=== PATIENT | female | born 1955 | race Caucasian/White ===

== ENCOUNTER 2016-07-19 04:01 | Inpatient (IN) | payer SELFPAY ==
[2016-07-19] VITALS (18 sets, daily range): BP systolic 94–136; BP diastolic 61–95; PULSE 79–114; RESP 18–30; O2SAT 95–99
[~2016-07-19] VITALS: Ht 157.5 cm; Wt 88.6 kg
[2016-07-19] MEDS ORDERED: IBUP200C PO (04:03)
[2016-07-19] MEDS ORDERED: Alum-Mag Hydrox-Simeth 30 mL Suspension PO PRN (04:45)
[2016-07-19] MEDS ORDERED: Polyethylene Glycol (PEG) 17 Gm Powder PO PRN (04:45)
[2016-07-19] MEDS ORDERED: Ondansetron 2 mg/mL 2 mL Inj IVPUSH PRN (04:45)
[2016-07-19] MEDS ORDERED: Albuterol 2.5 mg/3 mL Inhalation Solution NEB ONE ×2 (05:20)
[2016-07-19] MEDS ORDERED: Pantoprazole Inj 80 MG in 0.9% Sodium Chloride 100 ML IV ONE (05:25)
[2016-07-19 05:27] LABS: Mean Corpuscular Hemoglobin 27.2 pg (27.0-35.0); Mean Corpuscular Volume 85.8 fL (81-100); Platelet Count 230 bil/L (150-400)
--- NOTE | 2016-07-19 05:27 | PCM.HPMED ---
Subjective Date of Service Jul 19, 2016 Primary Provider: Admitting Physician: Anu Shepherd DO Primary Care Physician: Meseret Attending Physician: Anu Shepherd DO Admit Status: Direct Admit Chief Complaint: leg wound, s/p fall, hgb 5.5 at OSH History of Present Illness: 60yoF with minimal medical follow up as an outpatient transferred for direct admit from [place] due to hemoglobin 5.5 following recent fall and blood loss from right lower extremity chronic wounds. Patient is unable to give history. , Federico, is at bedside. He states that he has been trying to get his to seek medical attention for a number of years unsuccessfully. 2 years ago she slipped and fell causing lacs to her right lower extremity. They have never completely healed and have gotten worse over the past week and half. has kept them unbandaged and cleaned the wounds with hydrogen peroxide since their discovery by him. He notes that she fell about 4 days ago and again yesterday with opening of one of the leg wounds which started spurting blood everywhere. After about 5 minutes of inability to stop bleed, he called EMS who told him that he had lost a lot of blood. Patient was taken to [facility] where they found her hemoglobin to be 5.5. WBC11.3 , MCV 87, platelet 269. Sodium 138, potassium 4.4, chloride 106, calcium 8.6 AST 47, ALT 33, creatinine 1.0 BP was found to be 97/58, HR 101, RR20, oxygen sat 100%, T 97.8. Review of Systems: unable to obtain ROS as patient is somnolent. Allergies Coded Allergies: Contrast Media (Unverified Allergy, Unknown, hives, 07/19/16) Home Medications albuterol H COPD Alcohol dependence Hemorrhoids Pneumonia Constipation Rectal bleed Surgical History none Family History unable to obtain from patient due to inability to communicate Social History Hx Alcohol Use: Yes Alcoholic Drinks Per Day: 2 bottles of wine a day Hx Substance Use: Yes (drinks 2 bottles of wine per day) Smoking Status: Current Every Day Smoker (e cigarettes, quit smoking traditional cigarettes a year or two ago) Living Arrangement: with Family (lives with , has children in the area) Exam Vital Signs Vital Sign - Last Date Time Temp Pulse Resp B/P Pulse Ox O2 Delivery O2 Flow Rate FiO2 07/19/16 04:36 36.6 103 22 130/85 98 Room Air Exam General: somnolent but easily arousable, unable to establish orientation, Cooperative, No acute Distress Eyes: PERRLA, Scleral Anicteric Mouth: Mouth Normal, Mucous Membranes Dry/[place] Neck: Supple, no Thyromegaly, trachea central. unable to assess JVD d/t body habitus Chest & Lungs: course rhonchi, anterior exam, good resp effort Cardiovascular: Normal S1, Normal S2, No Murmurs/Rubs/Gallops, Regular Rate/ Rhythm Pulses: Radial (present and equal), Dorsalis Pedi (present and equal) Abdomen: Soft, no tenderness, distended, hypoactive bowel tones, midline umbilical hernia that is reducible. Musculoskeletal: Unremarkable. Normal range of motion, no swollen or erythematous joints Extremities: 3-4+ pedal edema to upper thigh, + cyanosis RLE, no clubbing. dressing over RLE CDI Skin: no rashes, ecchymosis Neurological: Grossly neurologically intact, has generalized weakness, slurred Speech, Sensation Intact Lymphatic: Lymph nodes Cervical and Axillary not palpable. Psych: unable to assess Lab and Diagnostics Additional Diagnostics: ABG pH 7.439, pCO2 32, pO2 75 hb 7 Assessment & Plan 60yoF with minimal medical follow up as an outpatient transferred for direct admit from [place] due to hemoglobin 5.5 following recent fall and blood loss from right lower extremity chronic wounds. Sepsis, acute, POA -unclear source, likely respiratory vs right lower extremity -HR >90 and RR >20, potentially in part d/t anemia -elevated lactic acid at OSH, repeat pending -treatment as below Acute on chronic blood loss anemia, POA -unclear source of blood loss, right lower extremity bleed vs GI -patient with hgb 5.5 at OSH -2 units pRBCs given prior to transfer -repeat h&h pending -guaiac stool -h&h q4HR, type and cross 3 units pRBC -PPI bolus and gtt -CT non-contrast abdomen and pelvis COPD exacerbation, acute -abx as below -albuterol-ipratropium q4hr, albuterol q2hr PRN -125mg methylprednisone now. 40mg PO daily Ground level fall, acute -no imaging completed at OSH -CT head and c-spine wo contrast pending Alcohol dependence, chronic -as per , no h/o withdrawal -drinks 2 bottles of wine per day -CIWA Right lower extremity wound, chronic -wound consult, purulent as per report -piperacillin-tazobactam, vancomycin ordered Anasarca, unknown chronicity -likely low albumin state vs CHF -patient with minimal medical treatment as outpatient -ECHO ordered Pain Evaluation: Adequate Pain Control GI Prophylaxis: Proton Pump Inhibitor VTE Prophylaxis: Other (possible GI bleed, unable to use SCDs d/t leg wounds) Resuscitation Status: CPR: Attempt Resuscitation Anu Shepherd DO Jul 19, 2016 05:27
--- NOTE | 2016-07-19 05:29 | ABG ---
DateTimeAnalyzed 05:26:00 -_ pH ____7.439 - 7.350 7.450 pCO2 ___31.5__ -mmHg 35.0 45.0 pO2 ___75.0__ -mmHg 69.0 116 HCO3- ___21.0__ -mmol/L 22.0 26.0 ABE ___-2.3__ -mmol/L -2.0 2.0 tHb ____7.0__ -g/dL O2Hb ___93.5__ -% COHb ____2.1__ -% MetHb ____1.1__ -% sO2 ___96.6__ -% FIO2 ___21.0__ -% Drawn By jh - Date/Time Notified____ 05:29:00 -_ Notified By jh - Notified Whom sullenberger - B 760 -mmHg tO2 ____9.3__ -Vol% Isaias test _Positive -
[2016-07-19 05:49] LABS: BASOPHILS % (AUTO) 3 % (0-3); EOSINOPHILS % (AUTO) 1 % (0-5); MONOCYTES % (AUTO) 8 % (4-12); NEUTROPHILS % (AUTO) 78 % (40-74)
[2016-07-19] MEDS: Vancomycin Dose per Pharmacist XX SCH ×2 (06:00→08:30)
[2016-07-19] MEDS ORDERED: Albuterol 2.5 mg/3 mL Inhalation Solution NEB PRN (06:05)
[2016-07-19] MEDS ORDERED: MethylprednisoLONE Sodium Succinate 62.5 mg/mL 2 mL Inj IVPUSH ONE (06:05)
[2016-07-19 06:22] LABS: INR 1.2 ratio
[2016-07-19] MEDS ORDERED: Vancomycin Inj 2,000 MG in 0.9% Sodium Chloride 500 ML IV ONE (06:25)
[2016-07-19] MEDS ORDERED: Piper-Tazo 3.375 Gm/50 mL D5W Minibag Plus - Q8H over 4 hrs IV ONE ×2 (06:30)
[2016-07-19] MEDS ORDERED: Thiamine Inj 100 MG, Folic Acid Inj 1 MG, Magnesium Sulfate 50% Inj 2 GM, Multivitamins... IV ONE ×5 (06:30)
[2016-07-19 06:45] LABS: TROPONIN T 0.01 ug/L (0.0-0.011)
[2016-07-19] MEDS: Pantoprazole Inj 80 MG in 0.9% Sodium Chloride 80 ML IV SCH ×2 (06:46→17:16)
--- NOTE | 2016-07-19 07:42 | PCM.PNMED ---
Subjective Date of Service Jul 19, 2016 Subjective Patient is extremely confused. She Tries answering simple questions. She is jaundiced and has anicteric sclera. She denies a headache. Exam Vital Signs Vital Sign - Last Date Time Temp Pulse Resp B/P Pulse Ox O2 Delivery O2 Flow Rate FiO2 07/19/16 06:21 104 30 98 Room Air 07/19/16 04:36 36.6 130/85 Exam Chronically ill, jaundiced. Slow to answer questions. No distress Icteric sclera. Neck supple. Lungs are clear with normal rate and effort. Heart is regular without murmur. Abdomen is distended consistent with ascites. Extremities with 1+ edema. IVs and Medications Medications Reviewed: Medications were reviewed in detail Lab and Diagnostics Result Diagram: 07/19/1651407/19/16514 Additional Diagnostics ABG pH 7.439, pCO2 32, pO2 75 hb 7 Assessment & Plan 60yoF with minimal medical follow up as an outpatient transferred for direct admit from [place] due to hemoglobin 5.5 following recent fall and blood loss from right lower extremity chronic wounds. Sepsis, acute, POA -unclear source, likely respiratory vs right lower extremity -HR >90 and RR >20, potentially in part d/t anemia -elevated lactic acid at OSH, repeat pending -treatment as below Continue fluid resuscitation. Consider paracentesis to rule out SBP. Acute blood loss anemia, POA This may relate to her leg hemorrhage. The patient again one unit of blood now. His CT of the pelvis reveals only cirrhosis and ascites. A head CT indicated a intracranial lesion which may be an AVM, tumor or aneurysm. This be further delineated with MRI. COPD exacerbation, acute -abx as below -albuterol-ipratropium q4hr, albuterol q2hr PRN -125mg methylprednisone now. 40mg PO daily No change in current medical regimen. Ground level fall, acute -no imaging completed at OSH -CT head and c-spine wo contrast pending Alcohol dependence, chronic -as per , no h/o withdrawal -drinks 2 bottles of wine per day -CIWA She is at high risk for alcohol withdrawal. Right lower extremity wound, chronic -wound consult, purulent as per report -piperacillin-tazobactam, vancomycin ordered Anasarca, unknown chronicity secondary to ascites. -likely low albumin state vs CHF -patient with minimal medical treatment as outpatient -ECHO ordered Probable hepatic encephalopathy. POA. Check NH4 and start lactulose. Consider paracentesis to rule out SBP. Pain Evaluation: Adequate Pain Control GI Prophylaxis: Proton Pump Inhibitor VTE Prophylaxis: Other (possible GI bleed, unable to use SCDs d/t leg wounds) Resuscitation Status: CPR: Attempt Resuscitation Time spent 30 min Isaias Sams MD Jul 19, 2016 07:42
--- NOTE | 2016-07-19 08:15 | NUR ---
Admit/Hgb/CT/Skin Pt admitted to room 2025 a little after 0400, 2nd blood transfusion from [facility] finished very soon after, all vitals stable. Pt looked SOB though sats maintained high 90s. MD ordered neb treatments. Hgb critical at 6.9, MD notified by pharmacist in charge, pt crossmatched this morning and day RN aware of transfusion order. Pt taken to CT by this nurse, no contrast used d/t allergy, pt expressed concern about this several times. Pt was anxious in CT but was able to finish it. Right lower extremity w/ open wounds, buttock as well, skin assessment reviewed w/ day RN. Pt voices pain when legs moved.
[2016-07-19] MEDS: Albuterol-Ipratropium 3 mL Inhalation Solution NEB SCH ×4 (08:37→19:44)
--- NOTE | 2016-07-19 08:38 | DRSVH ---
PROCEDURE: CT BRAIN WITHOUT CONTRAST ([id number]) INDICATIONS: altered, s/p fall TECHNIQUE: Noncontrast 4.5 mm thick angled axial sections acquired from the foramen magnum to the vertex, with c oronal reformats. COMPARISON: [facility], MR, MR ANGIO HEAD WO CON, 07/19/2016, 9:12. [facility], MR, MR BRAIN W&WO CON, 07/19/2016, 9:12. FINDINGS: Image quality: Excellent. CSF spaces: Basal cisterns are patent. No extra-axial fluid collections. The ventricles are symmet edgardo in size and shape. Brain: There is 1.6 cm round hyperdense mass within the suprasellar cistern with partial rim calcifi cation on the left, suspicious for a large aneurysm, either arising from the basilar tip or the left terminal internal carotid artery. There is mild mass effect of the left mesial temporal lobe lateral ly and the left cerebral peduncle posteriorly. There is mild to moderate cerebral volume loss for age , with resultant ventricular and sulcal prominence. There are mild to moderate periventricular and d eep white matter chronic small vessel ischemic changes. There is intracranial internal carotid arter y atherosclerosis. Skull and face: Calvarium and visualized facial bones appear intact, without suspicious lesions. Sinuses: Visualized sinuses and mastoids are clear. IMPRESSION: 1. A 1.6 cm round, hyperdense mass within the left side of the suprasellar cistern, suspicious for a large aneurysm. 2. Cerebral volume loss and chronic microvascular ischemic changes. No significant discrepancy with the mold shifter radiology preliminary report. Dictated by: Jonny Gonazlez M.D. on 07/19/2016 at 8:25 Transcribed by: BENJAMÍN on 07/19/2016 at 8:38 Approved by: Jonny Gonzalez M.D. on 07/19/2016 at 11:24
--- NOTE | 2016-07-19 08:48 | DRSVH ---
PROCEDURE: CT CERVICAL SPINE WITHOUT CONTRAST ([id number]) INDICATIONS: fall TECHNIQUE: Noncontrast 3 mm thick sections acquired from the skull base to the T4 level. Sagittal and coronal r eformats were then constructed. For radiation dose reduction, the following was used: automated exp osure control, adjustment of mA and/or kV according to patient size. COMPARISON: None. FINDINGS: Image quality: Partially degraded by motion artifact. Bones: No fractures or dislocations. Visualized superior ribs are intact. Soft tissues: Prevertebral soft tissues are normal in thickness. No paravertebral hematomas. No ap ical pneumothoraces. IMPRESSION: No fracture. Concordant with preliminary interpretation. Dictated by: Benny Hernandez M.D. on 07/19/2016 at 8:44 Approved by: Benny Hernandez M.D. on 07/19/2016 at 8:47
--- NOTE | 2016-07-19 09:01 | DRSVH ---
PROCEDURE: CT ABDOMEN AND PELVIS WITHOUT CONTRAST ([id number]) INDICATIONS: altered, s/p fall, hgb 5.5 at OSH TECHNIQUE: Noncontrast 5 mm thick sections acquired from the diaphragms to the symphysis. 5 mm coronal and sagi ttal reformats were then performed. For radiation dose reduction, the following was used: automated exposure control, adjustment of mA and/or kV according to patient size. COMPARISON: None. FINDINGS: Image quality: Excellent. ABDOMEN: Lung bases: Lung bases are clear. Heart size is normal. Solid organs: Hepatic contour is nodular. Gallbladder demonstrates calculi within its lumen. Pancrea s is normal in contours. No left adrenal nodules. 12 mm diameter right adrenal nodule, with Hounsfie ld units of 19. Kidneys are normal in size, without hydronephrosis or nephrolithiasis. Peritoneum and bowel: Small hiatal hernia. Possible right colonic thickening, but this determination is suboptimal secondary to lack of distention and surrounding fluid. Unenhanced bowel loops demonstr ate otherwise normal wall thickness and caliber. No pneumoperitoneum. Small to moderate amount of as cites. Nodes and vessels: No retroperitoneal or mesenteric adenopathy by size criteria. Aorta and inferior vena cava are normal in caliber. Recanalized umbilical vein. Miscellaneous: There is a 52 mm diameter fat-containing umbilical hernia, which also contains a small amount of ascites. PELVIS: Genitourinary: Urinary bladder is decompressed. Miscellaneous: No inguinal hernias or adenopathy. Bones: No suspicious bony lesions. Subacute right anterolateral 5th and 6th rib fractures. Acute bhumika earing lateral 7th rib fracture. Subacute appearing right lateral 9th rib fracture. No vertebral body compression fractures. IMPRESSION: 1. No evidence of urinary tract calcification, nor obstruction. 2. Cirrhosis and portal hypertension, with associated portosystemic collateral vessels, and small to moderate amount of ascites. 3. Subacute and acute right rib fractures. 4. Indeterminate right adrenal nodule, which could be further assessed with MRI, if clinically indica nargis. 5. Fat and fluid containing hiatal hernia. 6. Cholelithiasis. 7. Possible right colon thickening, which could indicate infection, ischemia, or inflammation. 8. Findings discussed with Dr. Isaias Sams on 07.02.16 at 0857 hrs. Dictated by: Benny Hernandez M.D. on 07/19/2016 at 8:47 Approved by: Benny Hernandez M.D. on 07/19/2016 at 8:59
--- NOTE | 2016-07-19 09:56 | DRSVH ---
PROCEDURE: MRA ANGIOGRAM HEAD WITHOUT CONTRAST ([id number]) INDICATIONS: ABNORMAL CT TECHNIQUE: Noncontrast axial 3-D [id number] MR angiogram, with 3-dimensional maximum intensity projection (M IP) reformats of the internal carotid arteries and posterior circulation then performed. COMPARISON: [facility], CT, CT BRAIN WO CON, 07/19/2016, 5:56. FINDINGS: Image quality: Partially degraded by motion artifact. Anterior circulation: Right internal carotid artery is within normal limits. The previously seen larg e aneurysm within the left aspect of the pre-pontine cistern appears to arise from the posterior coleen in of the supraclinoid internal carotid artery, and measures roughly 22 mm, as before, protruding pos teriorly into the left aspect of the prepontine cistern. The neck of the aneurysm measures roughly 4 mm diameter. There is mild mass effect upon the left anterior antonino, as before. The flow within the pa ired anterior cerebral arteries is normal and symmetric. The flow within the middle cerebral arterie s is normal and symmetric. The anterior communicating artery is seen. No stenoses nor occlusions. Posterior circulation: Visualized portions of the vertebral arteries demonstrate normal caliber, and join to form a normal appearing basilar artery. There is a origin of the left posterior cereb ral artery, which is deviated medially secondary to the above-described aneurysm. The flow within the posterior cerebral arteries is normal and symmetric. No stenoses, occlusions, or aneurysms. IMPRESSION: 1. As seen by CT, there is a 22 mm diameter aneurysm within the left aspect of the prepontine cistern . This aneurysm arises from the posterior margin of the left supraclinoid internal carotid artery, an d causes mass effect upon the left antonino, as well as medial deviation of the left posterior cerebral a rtery, which demonstrates a origin. Findings discussed with Dr. Isaias Sams on 07.19.16 at 095 4 hrs. Dictated by: Benny Hernandez M.D. on 07/19/2016 at 9:45 Approved by: Benny Hernandez M.D. on 07/19/2016 at 9:54
--- NOTE | 2016-07-19 09:58 | DRSVH ---
PROCEDURE: MRI BRAIN WITH AND WITHOUT CONTRAST ([id number]) INDICATIONS: CONFUSION TECHNIQUE: Noncontrast axial T1 spin echo, axial T2 fast spin echo, sagittal and axial FLAIR, coronal T2 fast sp in echo, axial gradient echo, axial diffusion and ADC through the brain. After the administration of contrast, axial and coronal T1 spin echo with fat saturation through the brain. COMPARISON: [facility], CT, CT BRAIN WO [facility], 07/19/2016, 5:56. [facility], M R, MR ANGIO HEAD WO [facility], 07/19/2016, 9:12. FINDINGS: Image quality: Partially degraded by motion artifact. CSF spaces: There is a 22 mm diameter flow-void within the left aspect of the pre-pontine cistern, co rresponding to the known left supraclinoid internal carotid artery aneurysm. This aneurysm demonstrat es mass effect upon the left aspect of the antonino, as before. No extra-axial fluid collections. Ventri cles are normal in size and shape. Brain: No midline shift. No intracranial bleeds or masses. No abnormal intracranial enhancement. There is cerebral volume loss for age. There is periventricular white matter chronic small vessel is chemic change. Mild compression of the left aspect of the antonino. The brainstem otherwise appears hien l. Diffusion-weighted images demonstrate no acute ischemic insults. No chronic ischemic insults. Skull and face: Calvarial marrow is normal in signal. Orbits appear normal. Sinuses: Sinuses and mastoids appear clear. IMPRESSION: 1. 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 No acute intracranial hemorrhage. 2. Findings discussed with Dr. Isaias Sams on 07.19.16 at 0955 hrs. Dictated by: Benny Hernandez M.D. on 07/19/2016 at 9:54 Approved by: Benny Hernandez M.D. on 07/19/2016 at 9:57
[2016-07-19] MEDS: 0.9% Sodium Chloride 250 ML IV SCH (10:10)
[2016-07-19 11:11] LABS: COLOR,URINE STRAW (YELLOW)
[2016-07-19 11:12] LABS: APPEARANCE,URINE HAZY (CLEAR,HAZY); OCCULT BLOOD,URINE NEGATIVE (NEGATIVE); UROBILINOGEN,URINE NORMAL (NORMAL)
[2016-07-19] MEDS ORDERED: Succinylcholine Chloride 20 mg/mL 5 mL Inj ONE (13:25)
[2016-07-19] MEDS: Thiamine Inj 100 MG in 0.9% Sodium Chloride 100 ML IV SCH (15:09)
--- NOTE | 2016-07-19 17:15 | DRSVH ---
[facility] [address] [place] [address] Echocardiogram Report Name: BRIAN WREN te: 07/19/2016 Height: 62 in Hospital Exam Location: [facility] Weight: 210 lb Gender: Female BSA: 2.0 m2 : 1955 Age: 60 yrs BP: 115/73 mmHg Reason For Study: Anasarca Ordering Physician: Performed By: [facility] Interpretation Summary The left ventricle is normal in size, wall thickness, and systolic function without any focal wall motion abnormalities. The ejection fraction is estimated to be 60-65%. Assessment of diastolic parameters indicates normal left ventricular diastolic function and normal filling pressures. The right ventricle is normal in size and function. The right ventricular systolic pressure is estimated at 28 mmHg assuming a right atrial pressure of 3 mm Hg. Both atria are normal in size. There is no significant valvular heart disease. The ascending aorta is mildly enlarged. There is an anterior echo-free space consistent with a fat pad. Procedure: A two-dimensional transthoracic echocardiogram with color flow and Doppler was performed. The study quality was technically adequate. There is no prior echocardiogram noted for this patient. The heart rate ranged between 83-113 bpm during the study. The patient was in normal sinus rhythm during the exam. Left Ventricle: The left ventricle is normal in size, wall thickness, and systolic function without any focal wall motion abnormalities. The ejection fraction is estimated to be 60-65%. Assessment of diastolic parameters indicates normal left ventricular diastolic function and normal filling pressures. Right Ventricle: The right ventricle is normal in size and function. Atria: Both atria are normal in size. There is no Doppler evidence for an interatrial shunt. Mitral Valve: The mitral valve is normal in structure and function. There is trace mitral regurgitation. Aortic Valve: The aortic valve is normal in structure and function. No aortic regurgitation is present. Tricuspid Valve: The tricuspid valve is not well visualized, but is grossly normal. There is trace tricuspid regurgitation. The right ventricular systolic pressure is estimated at 28 mmHg assuming a right atrial pressure of 3 mm Hg. Pulmonic Valve: The pulmonic valve is not well seen, but is grossly normal. There is no significant valvular heart disease. Great Vessels: The aortic root is normal size. The ascending aorta is mildly enlarged. The IVC is of normal diameter and collapses greater than 50% with a sniff. This suggests a low right atrial pressure of 3 mm Hg. Pericardium/ Pleura There is an anterior echo-free space consistent with a fat pad. MMode/2D Measurements & Calculations LVIDd: 4.9 cm RA long axis Ao root diam LVIDs: 3.0 cm LA A2 area: 17.9 cm FS: 39.0 % LA A4 area: 20.7 cm RA area Aortic Jxn IVSd: 0.79 cm LA length (vol): 5.6 cm LVPWd: 0.74 cm LA vol: 55.7 ml : 13.0 cm asc Aorta LA vol index RA vol: 26.7 mlDiam: 3.8 cm RA : 28.5 ml/m2 : 13.7 mm2 LV barkley. diameter/BSA LV sys. diameter/BSA (cm/m^2): 2.5 (cm/m^2): 1.5 Doppler Measurements & Calculations Ao V2 max MV E max nabil MV E/A: 1.2 TR max nabil : 198.7 cm/sec : 131.9 cm/sec Med Peak E' Nabil : 247.7 cm/sec Ao max PG MV A max nabil TR max PG : 15.8 mmHg : 114.3 cm/sec E/E' med: 10.1 : 24.5 mmHg Ao mean PG MV P1/2t: 35.7 msec Lat Peak E' Nabil PA V2 max : 7.5 mmHg : 102.3 cm/sec E/E' lat: 12.2 PA mean PG E/e' average: 11.1 PA Accel Time : 0.14 sec MV dec time MV P1/2t max nabil Ao V2 mean PA V2 mean : 0.12 sec : 127.6 cm/sec : 64.6 cm/sec MVA(P1/2t): 6.2 cm2 Ao V2 VTI: 42.4 cm Reading Physician:REBECA
[2016-07-19] MEDS: Piperacillin-Tazo 3.375 Gm Inj 3.375 GM in Dextrose 5% Minibag Plus 50 ML IV SCH ×2 (17:16→23:55)
[2016-07-20] VITALS (11 sets, daily range): BP systolic 100–119; BP diastolic 58–80; PULSE 95–104; RESP 18–26; O2SAT 92–99
[2016-07-20] MEDS: Albuterol-Ipratropium 3 mL Inhalation Solution NEB SCH ×6 (00:22→21:19)
[2016-07-20] MEDS: 0.9% Sodium Chloride 250 ML IV SCH (02:07)
[2016-07-20] MEDS: Pantoprazole Inj 80 MG in 0.9% Sodium Chloride 80 ML IV SCH ×3 (03:56→22:01)
[2016-07-20] MEDS: Vancomycin/250 mL NS IV SCH ×4 (04:36→16:46)
--- NOTE | 2016-07-20 06:28 | NUR ---
NOC Shift Sp02 90s on RA overnight- monitored via [employer]- pt does desat into high 80s and become COLLIER. recovers with rest CIWA less then 10- no Valium given. Dressing to Right leg clean and dry. WC consult ordered for leg in addition to area of concern on back side.
[2016-07-20] MEDS: Vancomycin Dose per Pharmacist XX SCH (07:55)
[2016-07-20] MEDS: predniSONE 20 mg Tablet PO SCH (07:55)
[2016-07-20] MEDS: Piperacillin-Tazo 3.375 Gm Inj 3.375 GM in Dextrose 5% Minibag Plus 50 ML IV SCH ×3 (07:55→23:12)
[2016-07-20] MEDS: Thiamine Inj 100 MG in 0.9% Sodium Chloride 100 ML IV SCH (07:55)
--- NOTE | 2016-07-20 09:27 | NUR ---
Evaluation completed. Please go to "Notes" then click on "Assessments and Notes" (bottom left corner of screen). Then select appropriate discipline tab on top of screen.
[2016-07-20 12:04] LABS: Mean Corpuscular Hemoglobin 27.8 pg (27.0-35.0); Mean Corpuscular Volume 86.3 fL (81-100)
[2016-07-20] MEDS: Octreotide Inj 500 MCG in 0.9% Sodium Chloride 99 ML IV SCH ×2 (12:15→22:01)
--- NOTE | 2016-07-20 13:06 | PCM.PNMED ---
Subjective Date of Service Jul 20, 2016 Subjective Right-sided chest pain pleuritic secondary to rib fractures. One melanotic stool this morning, the first. Some confusion. Abdominal distention. No nausea vomiting or diarrhea. No headache. She notes some hallucinations last night Exam Vital Signs Vital Sign - Last Date Time Temp Pulse Resp B/P Pulse Ox O2 Delivery O2 Flow Rate FiO2 07/20/16 12:30 36.6 104 22 113/63 98 Room Air Intake and Output 07/19/16 07/19/16 07/20/16 Cumulative From/Thru 15:00 23:00 07:00 07/19/16 04:15 - 07/20/16 05:29 Intake Total 350 ml 0 ml 507 ml 857 ml Output Total 150 ml 500 ml 650 ml Balance 350 ml -150 ml 7 ml 207 ml Intake Oral 0 ml 200 ml 200 ml IV Total 50 ml 307 ml 357 ml Packed Cells 300 ml 300 ml Output Urine Total 150 ml 500 ml 650 ml # Bowel Movements 0 0 0 Exam Chronically ill, icteric sclera and jaundice Slurred speech Lungs are clear with normal effort and rate Heart is regular without murmur gallop or rub. Abdomen is distended nontender, consistent with ascites. She also had a protruding umbilical hernia Extremities are notable for edema bilaterally 3+. Her right lower extremity is still wrapped covering her chronic wound. She is somewhat agitated, she does have fluent speech. IVs and Medications Medications Reviewed: Medications were reviewed in detail Lab and Diagnostics Result Diagram: 07/20/16 1145 07/20/16 1145 Additional Diagnostics ABG pH 7.439, pCO2 32, pO2 75 hb 7 Assessment & Plan 60yoF with minimal medical follow up as an outpatient transferred for direct admit from [place] due to hemoglobin 5.5 following recent fall and blood loss from right lower extremity chronic wounds. 1. Acute alcohol draw. This is really started since yesterday. She is on the CIWA protocol with scores a 5-6 we will continue this. 2. Melanotic GI bleed. Not POA. This began this morning. She has been on Protonix. We will add octreotide drip as well as ceftriaxone for SBP prophylaxis. Discussed the case with GI and anticipate an upper GI endoscopy either today or tomorrow depending on her clinical degree of alcohol withdrawal. 3. Acute blood loss anemia, POA. This is stable after 1 unit of blood. We will continue to follow closely. 4. Ascites, POA. The patient will be scheduled for a paracentesis for both therapeutic and diagnostic reasons. We will send cell counts and culture to rule out SBP. 5. Sepsis, acute, POA -unclear source, likely respiratory vs right lower extremity -HR >90 and RR >20, potentially in part d/t anemia -elevated lactic acid at OSH, repeat pending -treatment as below Continue fluid resuscitation. Paracentesis to rule out SBP. 6. Possible COPD exacerbation, POA -abx as below -albuterol-ipratropium q4hr, albuterol q2hr PRN -125mg methylprednisone now. 40mg PO daily No change in current medical regimen. 7. Ground level fall, acute. POA. She has multiple right-sided rib fractures. Supportive treatment 8. Alcohol dependence, chronic -as per , no h/o withdrawal -drinks 2 bottles of wine per day -CIWA 9. Right internal carotid aneurysm, incidental finding. POA. This was discussed with neurosurgery at [facility] and there is no need for acute intervention at this time. 10. Right lower extremity wound, chronic. POA. -wound consult, purulent as per report -piperacillin-tazobactam, vancomycin ordered This is said to be months along induration. This is described as bleeding heavily recently. The dressings were not taken down yesterday as she was felt to not be stable. Today we will attempt to take down the dressings assess the wound and control bleeding at this area rebleeds. No change antibiotics. Will also obtain culture. 11. Anasarca, unknown chronicity secondary to ascites. -likely low albumin state vs CHF -patient with minimal medical treatment as outpatient -ECHO ordered Met with her family multiple times and I discussed frankly with him her very guarded prognosis. GI Prophylaxis: Proton Pump Inhibitor VTE Prophylaxis: Other (possible GI bleed, unable to use SCDs d/t leg wounds) Resuscitation Status: CPR: Attempt Resuscitation Time spent 30 minute Isaias Sams MD Jul 20, 2016 13:05
--- NOTE | 2016-07-20 13:19 | NUR ---
NUTRITION CONSULT Assess: 60 YO F admitted for severe anemia, COPD exacerbation, sepsis, and GI bleed. PMHX: COPD, ETOH dependence, hemorrhoids, PNA, constipation, rectal bleed. DIET: Heart Healthy. No PO intake recorded. LABS: (07/19): Glu 114, Ca 8.0, Alb 2.5 MEDICATIONS: Reviewed. Prednisone. GI: No BM noted. SKIN: Possible RLE + buttock wounds. Wound eval pending. ANTHROPOMETRICS: Wt: 90.2 kg, BMI 36.4 kg/m2, Admit wt: 95.2 kg, IBW: 50.0 kg. ESTIMATED NEEDS: WOUND/COPD/BMI Calories: 9141-7955 kcal/day (22-25 kcal/kg BW) Protein: 75-90 g/day (1.5-1.8 g/kg IBW) NUTRITION DIAGNOSIS: 1) Increased nutrient needs related to wound healing/increased demand for nutrients as evidenced by wounds, COPD. INTERVENTION: 1) Continue current diet as ordered. 2) Will adjust estimated needs pending wound evaluation. MONITOR/EVALUATE: PO intake, diet tolerance, wounds, GI, labs, nutrition status. Follow per moderate nutrition risk guidelines.
[2016-07-20] MEDS ORDERED: Sodium Chloride LOK Flush 10 mL Syringe IVFLUSH PRN ×2 (14:15)
[2016-07-20] MEDS: cefTRIAXone Inj 1,000 MG in Dextrose 5% Minibag Plus 50 ML IV SCH (14:17)
--- NOTE | 2016-07-20 14:40 | NUR ---
CIWA Patient CIWA scores increased throughout morning into the high teens. IV diazepam given per protocol to keep patients scores <10. VSS, patient on continuous pulse oximetry for monitoring. Patient family at bedside, call light within reach.
--- NOTE | 2016-07-20 15:44 | PCM.CHPMED ---
Subjective Date of Service: Jul 20, 2016 Provider requesting consult: Isaias Sams MD Primary Physician: Admitting Physician: Anu Shepherd DO Primary Care Physician: Meseret Attending Physician: Anu Shepherd DO Chief Complaint: Chief Complaint: REASON FOR GI CONSULT: Anemia in patient with alcoholic cirrhosis History of Present Illness: GASTROENTEROLOGY CONSULT NOTE Ms. Elvia Collins is a 60 year old woman with history of COPD, and cirrhosis secondary to alcohol use, that presented to [facility] via EMS as a transfer from [place] for management of suspected acute upper GI bleed with initial Hb 5.5 following a recent GLF. She was admitted for evaluation and treatment of acute on chronic anemia, assessment of GLF, and possible COPD exacerbation. GI was consulted to assist in further evaluation for etiology of suspected upper GI bleed. History was obtained from chart review and by family present. Patient, although alert to time, place, and date, is not a good historian of her personal medical history. She does not appear confused, but cannot properly answer questions proposed. Family shares that the patient has kept most of her medical history private. The daughters present believe that she has been having melena over recent days, including during this hospitalization. They share that the patient has had previous endoscopies at [place], including EGD and colonoscopy, but they are unsure of the results. The daughters continue, and share that the patient has been drinking alochol her 'whole life,' and was ingesting 2-4 bottle wine daily , most recent ingestion likely the day of admission. The patient is reported to have poor ongoing medical care, as she chooses to avoid follow ups. Per primary team, patient has been initiated with ceftriaxone, octreotide, pantoprazole gtt, CIWA protocol. Per nursing, patient is experiencing active withdrawal, and withdrawal symptoms initiated this morning. On admission, Hb 6.9/Hct 21.8; records indicate patient received 2U pRBC prior to transfer from [place]. Received one additional unit here. Current values at time of consult: Hb 7.9, Hct 25.5; BUN 27, Cr 0.63; INR 1.20; Plt 176. Ammonia 43; albumin 2.6; total bili 1.4, AST 54, ALT 25, alk phos 133. Review of Systems: Complete ROS obtained; pertinent positives and negatives as noted in HPI PMH Past Medical History COPD Alcohol dependence Hemorrhoids Pneumonia Constipation Rectal bleed Surgical History Patient unable to provide; none reported Home Medications Reported: Albuterol Allergies: Coded Allergies: Contrast Media (Unverified Allergy, Unknown, hives, 07/19/16) Family History Family History Daughters deny any personal history to patient or family history of known GI disorders such as IBD, celiac, or colon cancer Social History Hx Alcohol Use: Yes (drinks 2 bottles of wine per day)Alcoholic Drinks Per Day : 2 bottles of wine a dayHx Substance Use: No (unknown) Smoking Status: Current Every Day Smoker (e cigarettes, quit smoking traditional cigarettes a year or two ago) Living Arrangement: with Family (lives with , has children in the area) Exam Vital Signs Vital Sign - Last Date Time Temp Pulse Resp B/P Pulse Ox O2 Delivery O2 Flow Rate FiO2 07/20/16 12:05 95 18 99 Room Air 07/20/16 07:32 36.5 115/78 Intake and Output 07/19/16 07/19/16 07/20/16 Cumulative From/Thru 15:00 23:00 07:00 07/19/16 04:15 - 07/20/16 05:29 Intake Total 350 ml 0 ml 507 ml 857 ml Output Total 150 ml 500 ml 650 ml Balance 350 ml -150 ml 7 ml 207 ml Intake Oral 0 ml 200 ml 200 ml IV Total 50 ml 307 ml 357 ml Packed Cells 300 ml 300 ml Output Urine Total 150 ml 500 ml 650 ml # Bowel Movements 0 0 0 General: Alert, Cooperative, No Acute Distress Eyes: Scleral Icterus (mild) Nose: Mucous Membr Moist/[place] Mouth: Mucous Membr Moist/[place] Chest & Lungs: Auscultation (diffuse wheeze noted upper neal bilaterally), Expiratory wheezes Cardiovascular: Regular Rate/Rhythm, No Murmurs/Rubs/Gallops Abdomen: Non-tender, Non-distended, Soft, Obese, Other (Umbilical hernia approx 4-5cm diameter without surrounding erythema and nontender to palpation) Extremities: Warm, Edema (bilateral lower extremities) Additional Information: Neuro: Appears grossly intact; speech mildly slurred Psych: Limited insight and judgment at this time; Unable to recall details of medical history Lab and Diagnostics Result Diagram: 07/20/16 1145 07/20/16 1145 Assessment & Plan Assessment GASTROENTEROLOGY CONSULT NOTE Ms. Elvia Collins is a 60 year old woman with history of COPD, and cirrhosis secondary to alcohol use, that presented to [facility] via EMS as a transfer from [place] for management of suspected acute upper GI bleed with initial Hb 5.5 following a recent GLF. She was admitted for evaluation and treatment of acute on chronic anemia, assessment of GLF, and possible COPD exacerbation. GI was consulted to assist in further evaluation for etiology of suspected upper GI bleed. CT A/P wo contrast 07/19: No evidence of urinary tract calcification, nor obstruction. Cirrhosis and portal hypertension, with associated portosystemic collateral vessels, and small to moderate amount of ascites. Subacute and acute right rib fractures. Indeterminate right adrenal nodule, which could be further assessed with MRI, if clinically indicated. Fat and fluid containing hiatal hernia. Cholelithiasis. Possible right colon thickening, which could indicate infection, ischemia, or inflammation. Assessments - Acute on chronic anemia s/p 3U pRBC - History of alcoholic cirrhosis, evidenced on imaging Recs: - Will defer endoscopy until patient is stable and no longer experiencing withdrawal symptoms - Continue PPI for suspected UGIB - Continue rifaximin for history of cirrhosis - Continue ceftriaxone for SBP prophylaxis secondary to history cirrhosis - Continue octreotide for suspicion of varices secondary to portal HTN due to cirrhosis - Monitor HH; transfuse prn - If diagnostic/therapeutic paracentesis obtained, will await labs and fluid analysis; ordered by primary team Thank you for this consult. We will follow along at this time. Total time: 60 minutes Problems: Pain Evaluation: Adequate Pain Control GI Prophylaxis: Proton Pump Inhibitor VTE Prophylaxis: Other (possible GI bleed, unable to use SCDs d/t leg wounds) Resuscitation Status: CPR: Attempt Resuscitation Tina Avitia DO Jul 20, 2016 12:31
--- NOTE | 2016-07-20 16:08 | NUR ---
Social Work Note: Screen Note Data& Assessment: EMR Reviewed. SW met with pt and pt daughters at bedside to check in and assess for any unmet needs. Elvia Collins is a 60 year old female admitted on 07/19/2016 for severe anemia. Pt is listed as self pay insurance. Pt has recently lost her [employer] coverage. RCA is reviewing pt for potential Medicaid eligibility. Pt lives in [place] with her and is independent at baseline. Pt does use a cane and owns a 4WW but does not always use it for ambulation assistance. Pt does report drinking two bottles of red wine daily for "a few months." Pt denies any withdrawal symptoms but is under [facility] protocol. The patient has agreed to complete an on-site assessment with [employer] [facility]. CD consult deferred. Pt has signed TRUDI. Original placed on pt chart. SW provided phone number on pt whiteboard. Pt and pt daughters deny any needs at this time. SW to continue to follow. Plan: Anticipated discharge home via POV when medically ready. SW to continue to follow for PT and MD recommendations. CD consult deferred to on-site assessment with [employer] [facility] CDP. Pt and pt daughters deny any needs at this time. SW to continue to follow. KAVYA Leiva
--- NOTE | 2016-07-20 16:25 | DRSVH ---
PROCEDURE: X-RAY PICC LINE PLACEMENT BY NURSE ([id number]) INDICATIONS: poor venous access, patient needs medications COMPARISON: None. FINDINGS: PICC was placed by the intravenous therapy team from the right side. Fluoroscopic spot fi lm demonstrates tip of PICC projected over the cavoatrial junction. IMPRESSION: Tip of PICC is projected over the cavoatrial junction. Dictated by: Liss Renteria M.D. on 07/20/2016 at 16:24 Approved by: Liss Renteria M.D. on 07/20/2016 at 16:24
--- NOTE | 2016-07-20 18:31 | NUR ---
Wound Care Wound evaluation orders received pt seen at bedside with nursing. 60 yo female admitted with anemia, presents with a cluster of wounds at the right pretibial area of the leg that appear chronic in nature. Patient reports that she wears compression stockings, has been taking care of her wounds. Lateral calf wound is 3 cm L x 2 cm W x 0.2 cm deep, wound base is fibrin, drainage serous and scant, no undermining or odor. Anterior fraser wound is 3 cm L x 1.5 cm W x 0.2 cm D,wound base is fibrin, drainage serous and scant, no undermining or odor. Distal pretibial wound is 1.4 cmL x 4.5 cm W x0.2 cm D,wound base is fibrin, drainage serous and scant, no undermining or odor. Medial calf wound is 1 cm L x 0.5 cmW x 0.2 cm D,wound base is fibrin, drainage serous and scant, no undermining or odor. Doppler reveals good biphasic pulses, suspect wound secondary to trauma in the setting of venous stasis disease. Wounds cleaned of fibrin with saline and #15 blade, redressed with hydrogel, foam, kerlix and coban. Patients wounds do not appear infected, will need wound center follow up. WS to recheck on this patient tomorrow.
[2016-07-21] VITALS (17 sets, daily range): BP systolic 96–118; BP diastolic 45–87; PULSE 93–108; RESP 16–24; O2SAT 90–96
[2016-07-21] MEDS: Albuterol-Ipratropium 3 mL Inhalation Solution NEB SCH ×6 (00:09→20:37)
[2016-07-21] MEDS ORDERED: Vancomycin Serum Trough XX ONE (02:00)
[2016-07-21 04:40] LABS: Mean Corpuscular Hemoglobin 27.2 pg (27.0-35.0); Mean Corpuscular Volume 90.7 fL (81-100)
[2016-07-21] MEDS: 0.9% Sodium Chloride 250 ML IV SCH ×3 (05:11→10:54)
--- NOTE | 2016-07-21 05:52 | NUR ---
CIWA/ H/H CIWAs overnight between 13-17. PRN 5 mg Valium given per protocol with intermittent relief. Pt remains on ICHTHYOLOGIST- after Valium admin pt placed on 2-4 L oxymask to maintain sats H/H this am noted to be [address] Guo made aware. order received to transfuse 2 unite of PRBC. 1st unit currently infusing. Addendum: 07/21/16 at 0607 by EDI JANE RN stooling: pt had multiple, small loose dark tarry stools overnight. Guaiac sent.
[2016-07-21] MEDS: Octreotide Inj 500 MCG in 0.9% Sodium Chloride 99 ML IV SCH ×2 (08:27→19:57)
[2016-07-21] MEDS: Pantoprazole Inj 80 MG in 0.9% Sodium Chloride 80 ML IV SCH ×2 (08:28→19:57)
[2016-07-21] MEDS: Piperacillin-Tazo 3.375 Gm Inj 3.375 GM in Dextrose 5% Minibag Plus 50 ML IV SCH ×3 (08:33→22:46)
[2016-07-21] MEDS: Thiamine Inj 100 MG in 0.9% Sodium Chloride 100 ML IV SCH (08:40)
[2016-07-21] MEDS: predniSONE 20 mg Tablet PO SCH (08:54)
[2016-07-21] MEDS: Vancomycin Dose per Pharmacist XX SCH (09:20)
[2016-07-21] MEDS: Vancomycin Inj 1,000 MG in IV Premix 1 EACH IV SCH ×2 (09:20→21:05)
--- NOTE | 2016-07-21 11:03 | PCM.PNMED ---
Subjective Date of Service Jul 21, 2016 Subjective GASTROENTEROLOGY PROGRESS NOTE Morning labs revealed decrease in HH down to 7.0/23.3. Orders to transfuse 2U pRBC. CIWA scores overnight: 13-17 per nursing notes. Small dark tarry stools also noted. Today, patient states that she is thirsty. Denies pain, nausea, vomiting. Denies any dark or tarry stools, but due to recent increase in CIWA, information reported by patient may not be accurate. Having active hallucinations during examination, noting another person present in room by nursing computer, but room was indeed empty aside from myself and family. No evidence tremors. States extremely fatigued. Voice continues to remain raspy. Family present at time of examination confirms that patient has been bleeding during restroom habits, but family is unsure if the bleeding was vaginal or rectal. They state patient is postmenopausal, and menses have ceased. Exam Vital Signs Vital Sign - Last Date Time Temp Pulse Resp B/P Pulse Ox O2 Delivery O2 Flow Rate FiO2 07/21/16 08:21 36.5 104 16 115/71 07/21/16 08:09 94 OxyMask 4.00 Intake and Output 07/20/16 07/20/16 07/21/16 Cumulative From/Thru 15:00 23:00 07:00 07/19/16 04:15 - 07/21/16 05:27 Intake Total 838 ml 313 ml 2008 ml Output Total 405 ml 1055 ml Balance 838 ml -92 ml 953 ml Intake Oral 50 ml 0 ml 250 ml IV Total 788 ml 313 ml 1458 ml Packed Cells 300 ml Output Urine Total 400 ml 1050 ml Stool Total 5 ml 5 ml # Voids 2 2 # Bowel Movements 4 4 Exam General: Alert, Cooperative, No Acute Distress; active hallucinations without tremor Eyes: Scleral Icterus (mild) Nose: Mucous Membr Moist/One [place] Mouth: Mucous Membr Moist/One [place] Chest & Lungs: Clear to auscultation bilaterally; diffusely faint; no wheeze appreciated Cardiovascular: Regular Rate/Rhythm, No Murmurs/Rubs/Gallops Abdomen: Non-tender, Non-distended, Soft, Obese, Other (Umbilical hernia approx 4-5cm diameter without surrounding erythema and nontender to palpation) Extremities: Warm, Edema (bilateral lower extremities); Right LE wrapped, with borders free of erythema and bandages clean/dry/intact Pulses: Adequate perfusion to RLE with cap refill < 2s, and posterior tibialis equal and bilateral Neuro: CNII-XII grossly intact, speech slurred Psych: Limited insight and judgment at this time; Unable to recall details of medical history; active withdrawals noted Lab and Diagnostics Result Diagram: 07/21/1642907/21/16 043 Additional Diagnostics ABG pH 7.439, pCO2 32, pO2 75 hb 7 Assessment & Plan GASTROENTEROLOGY CONSULT NOTE Ms. Elvia Collins is a 60 year old woman with history of COPD, and cirrhosis secondary to alcohol use, that presented to [facility] via EMS as a transfer from [place] for management of suspected acute upper GI bleed with initial Hb 5.5 following a recent GLF. She was admitted for evaluation and treatment of acute on chronic anemia, assessment of GLF, and possible COPD exacerbation. GI was consulted to assist in further evaluation for etiology of suspected upper GI bleed. CT A/P wo contrast 07/19: No evidence of urinary tract calcification, nor obstruction. Cirrhosis and portal hypertension, with associated portosystemic collateral vessels, and small to moderate amount of ascites. Subacute and acute right rib fractures. Indeterminate right adrenal nodule, which could be further assessed with MRI, if clinically indicated. Fat and fluid containing hiatal hernia. Cholelithiasis. Possible right colon thickening, which could indicate infection, ischemia, or inflammation. Assessments - Acute on chronic anemia s/p 3U pRBC + 2U pRBC ordered for transfusion 07/21 - History of alcoholic cirrhosis, evidenced on imaging - MELD score on admit 07/19: 13; 6.0% est 3-month mortality (Na 135, Cr 0.64, INR 1.20, bili 2.2, no hx dialysis) Recs: - Will defer endoscopy until patient is stable and no longer experiencing withdrawal symptoms - Bedside eval 07/21: Patient actively hallucinating - Continue PPI for suspected UGIB - Continue rifaximin for history of cirrhosis - Continue ceftriaxone for SBP prophylaxis secondary to history cirrhosis - Continue octreotide for suspicion of varices secondary to portal HTN due to cirrhosis - Monitor HH; transfuse prn - Recommend at least 2U on hold for patient at all times, as she is not stable to proceed with endoscopy at this time - May require additional transfusions as we wait for her withdrawals to resolve - If diagnostic/therapeutic paracentesis obtained, will await labs and fluid analysis; ordered by primary team Thank you for this consult. We will follow along at this time. Total time: 30 minutes GI Prophylaxis: Proton Pump Inhibitor VTE Prophylaxis: Other (possible GI bleed, unable to use SCDs d/t leg wounds) Resuscitation Status: CPR: Attempt Resuscitation Tina Avitia DO Jul 21, 2016 09:11
[2016-07-21] MEDS: cefTRIAXone Inj 1,000 MG in Dextrose 5% Minibag Plus 50 ML IV SCH (11:25)
--- NOTE | 2016-07-21 13:49 | NUR ---
NUTRITION FOLLOW-UP: Assess: 60 YO F admitted with severe anemia, COPD exacerbation, sepsis, and GI bleed following a GLF. Endoscopy deferred, pending resolution of alcohol withdrawal. CIWA scores ranging from 13 - 17 last night. PMHX: COPD, ETOH dependence, hemorrhoids, PNA, constipation, rectal bleed. DIET: Pureed, honey thick liquids. PO intake not recorded. LABS: Chloridd 111, Glu 148, Ca 7.6, Alb 2.4. MEDICATIONS: Reviewed. Valium, octreotide. GI: Multiple small, loose, tarry stools noted by nursing. SKIN: Cluster of wounds at the right pretibial area of the leg that appear chronic in nature. ANTHROPOMETRICS: Wt: 90.6 kg, BMI 36.0 kg/m2, Admit wt: 95.2 kg, IBW: 50.0 kg. ESTIMATED NEEDS: WOUND/COPD/BMI Calories: 4142-3733 kcal/day (22-25 kcal/kg BW) Protein: 75-90 g/day (1.5-1.8 g/kg IBW) NUTRITION DIAGNOSIS: 1) Increased nutrient needs related to wound healing/increased demand for nutrients as evidenced by wounds, COPD - PERSISTS. 2) Chewing / swallowing difficulties related to pocketing, delayed swallow, decreased laryngeal excursion, as evidenced by requirement for pureed / honey thick liquid diet. INTERVENTION: 1) Diet advance per Speech Therapy. 2) Will add Ensure to trays for wound healing. MONITOR/EVALUATE: PO intake, diet advance / tolerance, wounds, GI, labs, nutrition status. Follow per moderate nutrition risk guidelines.
--- NOTE | 2016-07-21 17:19 | PCM.PNMED ---
Subjective Date of Service Jul 21, 2016 Subjective Patient is currently drowsy after getting IV Valium prior to paracentesis. Exam Vital Signs Vital Sign - Last Date Time Temp Pulse Resp B/P Pulse Ox O2 Delivery O2 Flow Rate FiO2 07/21/16 16:48 98 18 112/62 07/21/16 15:46 95 OxyMask 4.00 07/21/16 13:39 36.4 Intake and Output 07/20/16 07/20/16 07/21/16 Cumulative From/Thru 15:00 23:00 07:00 07/19/16 04:15 - 07/21/16 05:27 Intake Total 838 ml 313 ml 2008 ml Output Total 405 ml 1055 ml Balance 838 ml -92 ml 953 ml Intake Oral 50 ml 0 ml 250 ml IV Total 788 ml 313 ml 1458 ml Packed Cells 300 ml Output Urine Total 400 ml 1050 ml Stool Total 5 ml 5 ml # Voids 2 2 # Bowel Movements 4 4 Exam Constitutional: Drowsy female in no acute distress Head: Normocephalic atraumatic Chest: Decreased breath sounds at her bases Cor: Regular rate and rhythm S1-S2 Abdomen: Soft but distended. No tenderness palpation umbilical hernia present Extremities:Trace Bilateral pedal edema Neuro: Drowsy oriented 3, moves all extremities equally Lab and Diagnostics Laboratory Tests 72 Hours Test 07/19/16 05:15 07/19/16 07:48 07/19/16 10:53 07/19/16 14:45 White Blood Count 11.8th/mm3 (3.8-10.1) Red Blood Count 6.90mil/mm3 (3.90-5.20) Hemoglobin 6.9g/dL (12.0-15.6) 8.8g/dL (12.0-15.6) Hematocrit 21.8% (35.0-46.0) 27.1% (35.0-46.0) Mean Corpuscular Volume 85.8fL (81-100) Mean Corpuscular Hemoglobin 27.2pg (27.0-35.0) Mean Corpuscular Hemoglobin Concent 31.7% (32.0-37.0) Red Cell Distribution Width 15.5% (12.3-15.4) Platelet Count 230bil/L (150-400) Neutrophils (%) (Auto) 78% (40-74) Lymphocytes (%) (Auto) 10% (14-46) Monocytes (%) (Auto) 8% (4-12) Eosinophils (%) (Auto) 1% (0-5) Basophils (%) (Auto) 3% (0-3) Band Neutrophils % 0% (1-5) Prothrombin Time 12.9sec (8.1-12.5) Prothromb Time International Ratio 1.20ratio Activated Partial Thromboplast Time 30.3sec (22.8-33.0) Sodium Level 135mEq/L (134-144) Potassium Level 4.5mEq/L (3.5-5.2) Chloride Level 103mEq/L (97-108) Carbon Dioxide Level 18mmol/L (18-29) Blood Urea Nitrogen 20mg/dL (8-27) Creatinine 0.64mg/dL (0.57-1.00) Estimat Glomerular Filtration Rate 135mL/min (>59) Glucose Level 114mg/dL (60-99) Lactic Acid Level 1.1mmol/L (0.4-2.0) Calcium Level 8.0mg/dL (8.5-10.1) Total Bilirubin 2.2mg/dL (0.0-1.2) Aspartate Amino Transf (AST/SGOT) 47U/L (0-50) Alanine Aminotransferase (ALT/SGPT) 23U/L (0-32) Alkaline Phosphatase 153U/L (25-165) Troponin T 0.010ug/L (0.0-0.011) Pro-B-Type Natriuretic Peptide 263.7pg/mL (0-287) Total Protein 6.5g/dL (6.4-8.4) Albumin 2.5g/dL (3.4-5.0) Ammonia 43ug/dL (18-53) Urine Color Straw (YELLOW) Urine Appearance Hazy (CLEAR,HAZY) Urine pH 6.0 (5.0-8.0) Urine Specific [place] 1.025 (1.003-1.035) Urine Protein Negativemg/dL (NEG,TRACE) Urine Glucose (UA) Negativemg/dL (NEGATIVE) Urine Ketones Tracemg/dL (NEGATIVE) Urine Occult Blood Negative (NEGATIVE) Urine Nitrite Negative (NEGATIVE) Urine Bilirubin Negative (NEGATIVE) Urine Urobilinogen Normalmg/dL (NORMAL) Urine Leukocyte Esterase Trace (NEGATIVE) Urine RBC 0-2/hpf (0-2) Urine WBC 0-5/hpf (0-5) Urine Epithelial Cells Occasional/hpf (NONE-MOD) Urine Crystals None seen (NONE SEEN) Urine Bacteria Few/hpf (NONE-FEW) Urine Hyaline Casts Occasional/lpf (NONE) Urine Granular Casts None seen (NONE SEEN) Urine Waxy Casts None seen (NONE SEEN) Urine Red Blood Cell Casts None seen (NONE SEEN) Urine White Blood Cell Casts Occasional (NONE SEEN) Urine Mucus None seen (None Seen) Urine Trichomonas None seen (NONE SEEN) Urine Yeast None (NONE SEEN) Urinalysis Comment None Urine Culture Reflexed Indicated Test 07/19/16 16:42 07/20/16 11:45 07/20/16 13:45 07/20/16 20:48 Hemoglobin 8.6g/dL (12.0-15.6) 7.9g/dL (12.0-15.6) Hematocrit 27.1% (35.0-46.0) 24.5% (35.0-46.0) 25.5% (35.0-46.0) 23.8% (35.0-46.0) White Blood Count 18.2th/mm3 (3.8-10.1) Red Blood Count 2.84mil/mm3 (3.90-5.20) Mean Corpuscular Volume 86.3fL (81-100) Mean Corpuscular Hemoglobin 27.8pg (27.0-35.0) Mean Corpuscular Hemoglobin Concent 32.2% (32.0-37.0) Red Cell Distribution Width 16.3% (12.3-15.4) Platelet Count 176bil/L (150-400) Sodium Level 141mEq/L (134-144) Potassium Level 4.6mEq/L (3.5-5.2) Chloride Level 110mEq/L (97-108) Carbon Dioxide Level 18mmol/L (18-29) Blood Urea Nitrogen 27mg/dL (8-27) Creatinine 0.63mg/dL (0.57-1.00) Estimat Glomerular Filtration Rate 137mL/min (>59) Glucose Level 132mg/dL (60-99) Calcium Level 7.8mg/dL (8.5-10.1) Total Bilirubin 1.4mg/dL (0.0-1.2) Aspartate Amino Transf (AST/SGOT) 54U/L (0-50) Alanine Aminotransferase (ALT/SGPT) 25U/L (0-32) Alkaline Phosphatase 133U/L (25-165) Total Protein 6.3g/dL (6.4-8.4) Albumin 2.6g/dL (3.4-5.0) Test 07/20/16 23:00 07/21/16 01:50 07/21/16 04:30 07/21/16 14:50 Hematocrit 24.1% (35.0-46.0) 23.3% (35.0-46.0) 32.0% (35.0-46.0) Vancomycin Level Trough 18.4mcg/mL White Blood Count 14.7th/mm3 (3.8-10.1) Red Blood Count 2.57mil/mm3 (3.90-5.20) Hemoglobin 7.0g/dL (12.0-15.6) 9.6g/dL (12.0-15.6) Mean Corpuscular Volume 90.7fL (81-100) Mean Corpuscular Hemoglobin 27.2pg (27.0-35.0) Mean Corpuscular Hemoglobin Concent 30.0% (32.0-37.0) Red Cell Distribution Width 16.9% (12.3-15.4) Platelet Count 144bil/L (150-400) Sodium Level 142mEq/L (134-144) Potassium Level 4.4mEq/L (3.5-5.2) Chloride Level 111mEq/L (97-108) Carbon Dioxide Level 21mmol/L (18-29) Blood Urea Nitrogen 27mg/dL (8-27) Creatinine 0.70mg/dL (0.57-1.00) Estimat Glomerular Filtration Rate 121mL/min (>59) Glucose Level 148mg/dL (60-99) Calcium Level 7.6mg/dL (8.5-10.1) Total Bilirubin 0.9mg/dL (0.0-1.2) Aspartate Amino Transf (AST/SGOT) 41U/L (0-50) Alanine Aminotransferase (ALT/SGPT) 23U/L (0-32) Alkaline Phosphatase 111U/L (25-165) Total Protein 5.8g/dL (6.4-8.4) Albumin 2.4g/dL (3.4-5.0) Result Diagram: 07/21/16 1450 07/21/16 0430 Cardiac Echo Impressions Patient Name: BRIAN WREN MR#: [id number] Location: [facility] Ordering Phys: Anu Shepherd DO Date of Service: 07/19/16 0558 [facility] [address] [place] [id number] Echocardiogram Report Name: BRIAN WREN LStudy Da te: 07/19/2016 Height: 62 in Hospital Exam Location: [facility] Weight: 210 lb Gender: Female BSA: 2.0 m2 : 1955 Age: 60 yrs BP: 115/73 mmHg Reason For Study: Anasarca Ordering Physician: Performed By: Ana Newport [facility] Interpretation Summary The left ventricle is normal in size, wall thickness, and systolic function without any focal wall motion abnormalities. The ejection fraction is estimated to be 60-65%. Assessment of diastolic parameters indicates normal left ventricular diastolic function and normal filling pressures. The right ventricle is normal in size and function. The right ventricular systolic pressure is estimated at 28 mmHg assuming a right atrial pressure of 3 mm Hg. Both atria are normal in size. There is no significant valvular heart disease. The ascending aorta is mildly enlarged. There is an anterior echo-free space consistent with a fat pad. Procedure: A two-dimensional transthoracic echocardiogram with color flow and Doppler was performed. The study quality was technically adequate. There is no prior echocardiogram noted for this patient. The heart rate ranged between 83-113 bpm during the study. The patient was in normal sinus rhythm during the exam. Left Ventricle: The left ventricle is normal in size, wall thickness, and systolic function without any focal wall motion abnormalities. The ejection fraction is estimated to be 60-65%. Assessment of diastolic parameters indicates normal left ventricular diastolic function and normal filling pressures. Right Ventricle: The right ventricle is normal in size and function. Atria: Both atria are normal in size. There is no Doppler evidence for an interatrial shunt. Mitral Valve: The mitral valve is normal in structure and function. There is trace mitral regurgitation. Aortic Valve: The aortic valve is normal in structure and function. No aortic regurgitation is present. Tricuspid Valve: The tricuspid valve is not well visualized, but is grossly normal. There is trace tricuspid regurgitation. The right ventricular systolic pressure is estimated at 28 mmHg assuming a right atrial pressure of 3 mm Hg. Pulmonic Valve: The pulmonic valve is not well seen, but is grossly normal. There is no significant valvular heart disease. Great Vessels: The aortic root is normal size. The ascending aorta is mildly enlarged. The IVC is of normal diameter and collapses greater than 50% with a sniff. This suggests a low right atrial pressure of 3 mm Hg. Pericardium/ Pleura There is an anterior echo-free space consistent with a fat pad. MMode/2D Measurements & Calculations LVIDd: 4.9 cm RA long axis Ao root diam LVIDs: 3.0 cm LA A2 area: 17.9 cm FS: 39.0 % LA A4 area: 20.7 cm RA area Aortic Jxn IVSd: 0.79 cm LA length (vol): 5.6 cm LVPWd: 0.74 cm LA vol: 55.7 ml : 13.0 cm asc Aorta LA vol index RA vol: 26.7 mlDiam: 3.8 cm RA : 28.5 ml/m2 : 13.7 mm2 LV barkley. diameter/BSA LV sys. diameter/BSA (cm/m^2): 2.5 (cm/m^2): 1.5 Doppler Measurements & Calculations Ao V2 max MV E max nabil MV E/A: 1.2 TR max nabil : 198.7 cm/sec : 131.9 cm/sec Med Peak E' Nabil : 247.7 cm/sec Ao max PG MV A max nabil TR max PG : 15.8 mmHg : 114.3 cm/sec E/E' med: 10.1 : 24.5 mmHg Ao mean PG MV P1/2t: 35.7 msec Lat Peak E' Nabil PA V2 max : 7.5 mmHg : 102.3 cm/sec E/E' lat: 12.2 PA mean PG E/e' average: 11.1 PA Accel Time : 0.14 sec MV dec time MV P1/2t max nabil Ao V2 mean PA V2 mean : 0.12 sec : 127.6 cm/sec : 64.6 cm/sec MVA(P1/2t): 6.2 cm2 Ao V2 VTI: 42.4 cm Reading Physician:PM Additional Diagnostics ABG pH 7.439, pCO2 32, pO2 75 hb 7 Assessment & Plan 60yoF with minimal medical follow up as an outpatient transferred for direct admit from [place] due to hemoglobin 5.5 following recent fall and blood loss from right lower extremity chronic wounds. 1. Acute alcohol draw. This is really started since 2 days ago. She is on the CIWA protocol with scores of 17 earlier today. 2. Melanotic GI bleed. Not POA. This began this morning. She has been on Protonix. We will add octreotide drip as well as ceftriaxone for SBP prophylaxis. Discussed the case with GI and anticipate an upper GI endoscopy depending on her clinical degree of alcohol withdrawal. 3. Acute blood loss anemia, POA. We will continue to follow closely. 4. Ascites, POA. The patient will be scheduled for a paracentesis for both therapeutic and diagnostic reasons today. We will send cell counts and culture to rule out SBP. 5. Sepsis, acute, POA -unclear source, likely respiratory vs right lower extremity -HR >90 and RR >20, potentially in part d/t anemia -elevated lactic acid at OSH, repeat pending -treatment as below Continue fluid resuscitation. Paracentesis to rule out SBP. 6. Possible COPD exacerbation, POA -abx as below -albuterol-ipratropium q4hr, albuterol q2hr PRN -125mg methylprednisone now. 40mg PO daily No change in current medical regimen. 7. Ground level fall, acute. POA. She has multiple right-sided rib fractures. Supportive treatment 8. Alcohol dependence, chronic -as per , no h/o withdrawal -drinks 2 bottles of wine per day -CIWA 9. Right internal carotid aneurysm, incidental finding. POA. This was discussed with neurosurgery at [facility] and there is no need for acute intervention at this time. 10. Right lower extremity wound, chronic. POA. -wound consult, purulent as per report -piperacillin-tazobactam, vancomycin ordered This is said to be months along induration. This is described as bleeding heavily recently. The dressings were not taken down yesterday as she was felt to not be stable. Today we will attempt to take down the dressings assess the wound and control bleeding at this area rebleeds. No change antibiotics. Will also obtain culture. 11. Anasarca, unknown chronicity secondary to ascites. -likely low albumin state vs CHF -patient with minimal medical treatment as outpatient -ECHO done and shows no significant abnormalities Met with her family multiple times and I discussed frankly with him her very guarded prognosis. GI Prophylaxis: Proton Pump Inhibitor VTE Prophylaxis: Other (possible GI bleed, unable to use SCDs d/t leg wounds) Resuscitation Status: CPR: Attempt Resuscitation Time spent 30 minute Isaias Sams MD Jul 20, 2016 13:05 GI Prophylaxis: Proton Pump Inhibitor VTE Prophylaxis: Other (possible GI bleed, unable to use SCDs d/t leg wounds) Resuscitation Status: CPR: Attempt Resuscitation Time spent 40 minutes Jelly Araujo MD Jul 21, 2016 17:19
[2016-07-21 17:43] LABS: INR 1.28 ratio
[2016-07-21 17:50] LABS: BFWBC 183 /mm3
[2016-07-21 17:59] LABS: MONOCYTES,BODY FLUID 71 %; OTHER CELLS,BODY FLUID 13
--- NOTE | 2016-07-21 19:20 | NUR ---
CIWAH/Blood/Paracentesis/Adam Pt verbalizing hallucinations/very restless prior to shift change this am, Pt received 5mg IV valium by MAGDALENA RN which was effective. Pt more oriented and no longer verbalizing hallucinations this afternoon, Pt scored at 10 on CIWAH scale and an additional dose of 5mg valium administered. Pt's HR briefly dropped to the upper 30s and SPO2 sats dropped to mid 80s, Pt already on 4L O2 via oxymask, both values recovered without further intervention, no further valium indicated this shift, oncoming MAGDALENA RN made aware. Pt completed 1st unit of PRBCs and received a 2nd unit of PRBCs without issue, f/u H/H drawn ~1 hour after 2nd unit completed, Pt's H/H came back at 9.6/32. Pt received paracentesis today after being in trendelenberg position for ~1 hour as directed. Pt tolerated well per report with 2600mL fluid removed. Pt had only one damp brief today and no other urinary output noted, at bedside ordered adam catheter, adam catheter placed per order with only ~100-200mL output after placement, updated.
[2016-07-22] VITALS (11 sets, daily range): BP systolic 87–111; BP diastolic 52–62; PULSE 92–100; RESP 18–28; O2SAT 93–100
[2016-07-22] MEDS: Albuterol-Ipratropium 3 mL Inhalation Solution NEB SCH ×6 (04:30→19:39)
[2016-07-22 04:38] LABS: BASOPHILS % (AUTO) 0.1 % (0-3); EOSINOPHILS % (AUTO) 0.1 % (0-5); MONOCYTES % (AUTO) 12.4 % (4-12); Mean Corpuscular Hemoglobin 27.4 pg (27.0-35.0); Mean Corpuscular Volume 90.6 fL (81-100); NEUTROPHILS % (AUTO) 77.7 % (40-74); Platelet Count 120 bil/L (150-400)
--- NOTE | 2016-07-22 05:21 | NUR ---
mentation/H/H pts H/H down a little from yesterday, pt with no signs of bleeding noted, pt droswy this shift but appears more orientated. pt not moving much in bed or assisting this shift. encouraging pt to move a little.
[2016-07-22] MEDS: Octreotide Inj 500 MCG in 0.9% Sodium Chloride 99 ML IV SCH ×2 (07:16→17:06)
[2016-07-22] MEDS: Pantoprazole Inj 80 MG in 0.9% Sodium Chloride 80 ML IV SCH ×2 (07:16→17:06)
[2016-07-22] MEDS: Piperacillin-Tazo 3.375 Gm Inj 3.375 GM in Dextrose 5% Minibag Plus 50 ML IV SCH ×3 (07:19→23:27)
[2016-07-22] MEDS: Vancomycin Inj 1,000 MG in IV Premix 1 EACH IV SCH ×2 (07:32→21:32)
[2016-07-22] MEDS: Vancomycin Dose per Pharmacist XX SCH (08:55)
[2016-07-22] MEDS: predniSONE 20 mg Tablet PO SCH (08:55)
--- NOTE | 2016-07-22 10:03 | DRSVH ---
PROCEDURE: US GUIDED PARACENTESIS, PRIMARY ([id number]) INDICATIONS: abd pain TECHNIQUE: The indications, alternatives, benefits, risks, and complications of the procedure were explained to the patient. Written informed consent was obtained and placed in the chart. The abdomen and pelvis were examined sonographically, and an appropriate site was chosen for paracentesis. The skin was pre pared and draped in the usual sterile fashion, and 1% lidocaine was infiltrated from the skin down th rough the peritoneal surface. A 19-gauge catheter-covered needle was then introduced into the perito amando space, the catheter was advanced and the needle was withdrawn, and thereafter peritoneal fluid w as withdrawn. The catheter was then removed and a dressing was applied. The fluid was discarded if the clinician did not order diagnostic testing of the fluid. The attending physician was present, an d personally performed the procedure. COMPARISON: None. FINDINGS: Access site: Midline pelvis Needle: One-Step centesis catheter with introducer needle. Fluid volume and description: 2.6 L of clear peritoneal fluid. Fluid sent for diagnostic testing: Fluid sent for cytology, multiple chemistry panels and therapeuti c drainage. Medications: 1% lidocaine for local anaesthesia. Complications: None. IMPRESSION: Successful ultrasound-guided paracentesis. Dictated by: Luc ALBERT Interpreted: Mirella Wu MD on 07/22/2016 at 10:03 Transcribed by: OLIVIA on 07/22/2016 at 10:03 Approved by: Mirella Wu MD, PhD on 07/22/2016 at 16:50
[2016-07-22] MEDS ORDERED: Lactulose 20 Gm/30 mL 30 mL Syrup PO ONE (13:30)
--- NOTE | 2016-07-22 13:36 | PCM.PNMED ---
Subjective Date of Service Jul 22, 2016 Subjective GASTROENTEROLOGY PROGRESS NOTE Patient was asleep at time of examination. RUE PICC was undressed, patient did not awaken. Quite somnolent, comfortable appearing. CIWA scores are reported to be lower today < 10. Family present at bedside, questions and concerns addressed. Later assessment revealed an alert and pleasant patient, without any obvious signs of withdrawal. No tremors noted. No diaphoresis, trembling. Attention was maintained during conversation. Denied anxiety. Family present at bedside, they report melenic stools earlier in the day. Discussed proceeding with EGD/ colonoscopy 07/23. Exam Vital Signs Vital Sign - Last Date Time Temp Pulse Resp B/P Pulse Ox O2 Delivery O2 Flow Rate FiO2 07/22/16 12:08 36.7 94 20 87/59 94 Nasal Cannula 4.00 Intake and Output 07/21/16 07/21/16 07/22/16 Cumulative From/Thru 15:00 23:00 07:00 07/19/16 04:15 - 07/22/16 06:13 Intake Total 760 ml 636 ml 618 ml 4022 ml Output Total 2750 ml 400 ml 4205 ml Balance 760 ml -2114 ml 218 ml -183 ml Intake Oral 0 ml 100 ml 350 ml IV Total 160 ml 636 ml 518 ml 2772 ml Packed Cells 600 ml 900 ml Output Urine Total 100 ml 400 ml 1550 ml Stool Total 5 ml Other 2650 ml 2650 ml # Voids 1 3 # Bowel Movements 0 1 5 Exam General: Awake, alert; no acute distress Eyes: Scleral Icterus (mild) Nose: Mucous Membr Moist/[place] Mouth: Mucous Membr Moist/[place] Chest & Lungs: Clear to auscultation bilaterally; diffusely faint; no wheeze appreciated; no use accessory muscles Cardiovascular: Regular Rate/Rhythm, No Murmurs/Rubs/Gallops Abdomen: Non-tender, Non-distended, Soft, Obese, Other (Umbilical hernia approx 4-5cm diameter without surrounding erythema and nontender to palpation) Extremities: Warm, Edema (bilateral lower extremities); Right LE wrapped, with borders free of erythema and bandages clean/dry/intact; RUE PICC site evaluated , free of erythema Pulses: Adequate perfusion to RLE with cap refill < 2s, and posterior tibialis equal and bilateral Lab and Diagnostics Result Diagram: 07/22/16 1100 07/22/16 0400 Cardiac Echo Impressions Patient Name: BRIAN WRNE MR#: [id number] Location: [facility] Ordering Phys: Anu Shepherd DO Date of Service: 07/19/16 0558 [facility] [address] [place] [address] Echocardiogram Report Name: BRIAN WREN LStudy Da te: 07/19/2016 Height: 62 in Hospital Exam Location: [facility] Weight: 210 lb Gender: Female BSA: 2.0 m2 : 1955 Age: 60 yrs BP: 115/73 mmHg Reason For Study: Anasarca Ordering Physician: Performed By: [facility] Interpretation Summary The left ventricle is normal in size, wall thickness, and systolic function without any focal wall motion abnormalities. The ejection fraction is estimated to be 60-65%. Assessment of diastolic parameters indicates normal left ventricular diastolic function and normal filling pressures. The right ventricle is normal in size and function. The right ventricular systolic pressure is estimated at 28 mmHg assuming a right atrial pressure of 3 mm Hg. Both atria are normal in size. There is no significant valvular heart disease. The ascending aorta is mildly enlarged. There is an anterior echo-free space consistent with a fat pad. Procedure: A two-dimensional transthoracic echocardiogram with color flow and Doppler was performed. The study quality was technically adequate. There is no prior echocardiogram noted for this patient. The heart rate ranged between 83-113 bpm during the study. The patient was in normal sinus rhythm during the exam. Left Ventricle: The left ventricle is normal in size, wall thickness, and systolic function without any focal wall motion abnormalities. The ejection fraction is estimated to be 60-65%. Assessment of diastolic parameters indicates normal left ventricular diastolic function and normal filling pressures. Right Ventricle: The right ventricle is normal in size and function. Atria: Both atria are normal in size. There is no Doppler evidence for an interatrial shunt. Mitral Valve: The mitral valve is normal in structure and function. There is trace mitral regurgitation. Aortic Valve: The aortic valve is normal in structure and function. No aortic regurgitation is present. Tricuspid Valve: The tricuspid valve is not well visualized, but is grossly normal. There is trace tricuspid regurgitation. The right ventricular systolic pressure is estimated at 28 mmHg assuming a right atrial pressure of 3 mm Hg. Pulmonic Valve: The pulmonic valve is not well seen, but is grossly normal. There is no significant valvular heart disease. Great Vessels: The aortic root is normal size. The ascending aorta is mildly enlarged. The IVC is of normal diameter and collapses greater than 50% with a sniff. This suggests a low right atrial pressure of 3 mm Hg. Pericardium/ Pleura There is an anterior echo-free space consistent with a fat pad. MMode/2D Measurements & Calculations LVIDd: 4.9 cm RA long axis Ao root diam LVIDs: 3.0 cm LA A2 area: 17.9 cm FS: 39.0 % LA A4 area: 20.7 cm RA area Aortic Jxn IVSd: 0.79 cm LA length (vol): 5.6 cm LVPWd: 0.74 cm LA vol: 55.7 ml : 13.0 cm asc Aorta LA vol index RA vol: 26.7 mlDiam: 3.8 cm RA : 28.5 ml/m2 : 13.7 mm2 LV barkley. diameter/BSA LV sys. diameter/BSA (cm/m^2): 2.5 (cm/m^2): 1.5 Doppler Measurements & Calculations Ao V2 max MV E max nabil MV E/A: 1.2 TR max nabil : 198.7 cm/sec : 131.9 cm/sec Med Peak E' Nabil : 247.7 cm/sec Ao max PG MV A max nabil TR max PG : 15.8 mmHg : 114.3 cm/sec E/E' med: 10.1 : 24.5 mmHg Ao mean PG MV P1/2t: 35.7 msec Lat Peak E' Nabil PA V2 max : 7.5 mmHg : 102.3 cm/sec E/E' lat: 12.2 PA mean PG E/e' average: 11.1 PA Accel Time : 0.14 sec MV dec time MV P1/2t max nabil Ao V2 mean PA V2 mean : 0.12 sec : 127.6 cm/sec : 64.6 cm/sec MVA(P1/2t): 6.2 cm2 Ao V2 VTI: 42.4 cm Reading Physician:PM Additional Diagnostics ABG pH 7.439, pCO2 32, pO2 75 hb 7 Assessment & Plan GASTROENTEROLOGY CONSULT NOTE Ms. Brian Wren is a 60 year old woman with history of COPD, and cirrhosis secondary to alcohol use, that presented to [facility] via EMS as a transfer from [place] for management of suspected acute upper GI bleed with initial Hb 5.5 following a recent GLF. She was admitted for evaluation and treatment of acute on chronic anemia, assessment of GLF, and possible COPD exacerbation. GI was consulted to assist in further evaluation for etiology of suspected upper GI bleed. CT A/P wo contrast 07/19: No evidence of urinary tract calcification, nor obstruction. Cirrhosis and portal hypertension, with associated portosystemic collateral vessels, and small to moderate amount of ascites. Subacute and acute right rib fractures. Indeterminate right adrenal nodule, which could be further assessed with MRI, if clinically indicated. Fat and fluid containing hiatal hernia. Cholelithiasis. Possible right colon thickening, which could indicate infection, ischemia, or inflammation. Assessments - Acute on chronic anemia s/p 5U pRBC; likely secondary to suspected variceal or ulcerative bleeding - History of alcoholic cirrhosis, evidenced on imaging - Ascites secondary to alcoholic cirrhosis, s/p therapeutic and diagnosis USG paracentesis with 2.6L fluid removed - MELD score on admit 07/19: 13; 6.0% est 3-month mortality (Na 135, Cr 0.64, INR 1.20, bili 2.2, no hx dialysis) Recs: - EGD AND COLONOSCOPY tentative 07/23 - CIWA scores throughout day have consistently been < 6 - Colon prep ordered - NPO midnight - Continue PPI for suspected UGIB - Continue rifaximin for history of cirrhosis - Continue ceftriaxone for SBP prophylaxis secondary to history cirrhosis - Continue octreotide for suspicion of varices secondary to portal HTN due to cirrhosis - Monitor HH; transfuse prn Thank you for this consult. We will follow along at this time. Total time: 30 minutes GI Prophylaxis: Proton Pump Inhibitor VTE Prophylaxis: Other (possible GI bleed, unable to use SCDs d/t leg wounds) Resuscitation Status: CPR: Attempt Resuscitation Tina Avitia DO Jul 22, 2016 13:36
--- NOTE | 2016-07-22 13:39 | PCM.PNMED ---
Subjective Date of Service Jul 22, 2016 Subjective Patient will get more lethargic today. She has not gotten any new medications. Exam Vital Signs Vital Sign - Last Date Time Temp Pulse Resp B/P Pulse Ox O2 Delivery O2 Flow Rate FiO2 07/22/16 12:08 36.7 94 20 87/59 94 Nasal Cannula 4.00 Intake and Output 07/21/16 07/21/16 07/22/16 Cumulative From/Thru 15:00 23:00 07:00 07/19/16 04:15 - 07/22/16 06:13 Intake Total 760 ml 636 ml 618 ml 4022 ml Output Total 2750 ml 400 ml 4205 ml Balance 760 ml -2114 ml 218 ml -183 ml Intake Oral 0 ml 100 ml 350 ml IV Total 160 ml 636 ml 518 ml 2772 ml Packed Cells 600 ml 900 ml Output Urine Total 100 ml 400 ml 1550 ml Stool Total 5 ml Other 2650 ml 2650 ml # Voids 1 3 # Bowel Movements 0 1 5 Exam Constitutional: Slightly lethargic middle-aged female who appears older than her stated age Head: Normocephalic atraumatic Chest: Decreased breath sounds at her bases Cor: Regular rate and rhythm S1-S2 Abdomen soft nontender bowel sounds present Extremities: Trace bilateral pedal edema Skin: No rashes does appear slightly icteric Neuro: She is alert but drowsy and oriented 3, moves all extremities equally IVs and Medications Medications Reviewed: Medications were reviewed in detail Lab and Diagnostics Laboratory Tests 72 Hours Test 07/19/16 14:45 07/19/16 16:42 07/20/16 11:45 07/20/16 13:45 Hemoglobin 8.8g/dL (12.0-15.6) 8.6g/dL (12.0-15.6) 7.9g/dL (12.0-15.6) Hematocrit 27.1% (35.0-46.0) 27.1% (35.0-46.0) 24.5% (35.0-46.0) 25.5% (35.0-46.0) White Blood Count 18.2th/mm3 (3.8-10.1) Red Blood Count 2.84mil/mm3 (3.90-5.20) Mean Corpuscular Volume 86.3fL (81-100) Mean Corpuscular Hemoglobin 27.8pg (27.0-35.0) Mean Corpuscular Hemoglobin Concent 32.2% (32.0-37.0) Red Cell Distribution Width 16.3% (12.3-15.4) Platelet Count 176bil/L (150-400) Sodium Level 141mEq/L (134-144) Potassium Level 4.6mEq/L (3.5-5.2) Chloride Level 110mEq/L (97-108) Carbon Dioxide Level 18mmol/L (18-29) Blood Urea Nitrogen 27mg/dL (8-27) Creatinine 0.63mg/dL (0.57-1.00) Estimat Glomerular Filtration Rate 137mL/min (>59) Glucose Level 132mg/dL (60-99) Calcium Level 7.8mg/dL (8.5-10.1) Total Bilirubin 1.4mg/dL (0.0-1.2) Aspartate Amino Transf (AST/SGOT) 54U/L (0-50) Alanine Aminotransferase (ALT/SGPT) 25U/L (0-32) Alkaline Phosphatase 133U/L (25-165) Total Protein 6.3g/dL (6.4-8.4) Albumin 2.6g/dL (3.4-5.0) Test 07/20/16 20:48 07/20/16 23:00 07/21/16 01:50 07/21/16 04:30 Hematocrit 23.8% (35.0-46.0) 24.1% (35.0-46.0) 23.3% (35.0-46.0) Vancomycin Level Trough 18.4mcg/mL White Blood Count 14.7th/mm3 (3.8-10.1) Red Blood Count 2.57mil/mm3 (3.90-5.20) Hemoglobin 7.0g/dL (12.0-15.6) Mean Corpuscular Volume 90.7fL (81-100) Mean Corpuscular Hemoglobin 27.2pg (27.0-35.0) Mean Corpuscular Hemoglobin Concent 30.0% (32.0-37.0) Red Cell Distribution Width 16.9% (12.3-15.4) Platelet Count 144bil/L (150-400) Sodium Level 142mEq/L (134-144) Potassium Level 4.4mEq/L (3.5-5.2) Chloride Level 111mEq/L (97-108) Carbon Dioxide Level 21mmol/L (18-29) Blood Urea Nitrogen 27mg/dL (8-27) Creatinine 0.70mg/dL (0.57-1.00) Estimat Glomerular Filtration Rate 121mL/min (>59) Glucose Level 148mg/dL (60-99) Calcium Level 7.6mg/dL (8.5-10.1) Total Bilirubin 0.9mg/dL (0.0-1.2) Aspartate Amino Transf (AST/SGOT) 41U/L (0-50) Alanine Aminotransferase (ALT/SGPT) 23U/L (0-32) Alkaline Phosphatase 111U/L (25-165) Total Protein 5.8g/dL (6.4-8.4) Albumin 2.4g/dL (3.4-5.0) Test 07/21/16 14:50 07/21/16 16:15 07/21/16 17:16 07/22/16 04:00 Hemoglobin 9.6g/dL (12.0-15.6) 8.5g/dL (12.0-15.6) Hematocrit 32.0% (35.0-46.0) 28.1% (35.0-46.0) Body Fluid Source Peritoneal fluid Body Fluid Color Straw (Clear) Body Fluid Appearance Clear Body Fluid WBC 183/mm3 Body Fluid RBC 19/mm3 Body Fluid Polynuclear WBCs 9% Body Fluid Lymphocytes 7% Body Fluid Monocytes 71% Body Fluid Eosinophils 0% Body Fluid Basophils 0% Prothrombin Time 13.8sec (8.1-12.5) Prothromb Time International Ratio 1.28ratio White Blood Count 13.4th/mm3 (3.8-10.1) Red Blood Count 3.10mil/mm3 (3.90-5.20) Mean Corpuscular Volume 90.6fL (81-100) Mean Corpuscular Hemoglobin 27.4pg (27.0-35.0) Mean Corpuscular Hemoglobin Concent 30.2% (32.0-37.0) Red Cell Distribution Width 17.5% (12.3-15.4) Platelet Count 120bil/L (150-400) Neutrophils (%) (Auto) 77.7% (40-74) Lymphocytes (%) (Auto) 9.2% (14-46) Monocytes (%) (Auto) 12.4% (4-12) Eosinophils (%) (Auto) 0.1% (0-5) Basophils (%) (Auto) 0.1% (0-3) Sodium Level 146mEq/L (134-144) Potassium Level 4.3mEq/L (3.5-5.2) Chloride Level 115mEq/L (97-108) Carbon Dioxide Level 24mmol/L (18-29) Blood Urea Nitrogen 32mg/dL (8-27) Creatinine 0.62mg/dL (0.57-1.00) Estimat Glomerular Filtration Rate 140mL/min (>59) Glucose Level 134mg/dL (60-99) Calcium Level 7.8mg/dL (8.5-10.1) Total Bilirubin 1.0mg/dL (0.0-1.2) Aspartate Amino Transf (AST/SGOT) 36U/L (0-50) Alanine Aminotransferase (ALT/SGPT) 21U/L (0-32) Alkaline Phosphatase 96U/L (25-165) Total Protein 5.5g/dL (6.4-8.4) Albumin 2.4g/dL (3.4-5.0) Test 07/22/16 04:25 07/22/16 11:00 Ammonia 79ug/dL (18-53) Hemoglobin 8.5g/dL (12.0-15.6) Hematocrit 28.3% (35.0-46.0) Result Diagram: 07/22/16 1100 07/22/16 0400 Cardiac Echo Impressions Patient Name: BRIAN WREN MR#: [id number] Location: [facility] Ordering Phys: Anu Shepherd DO Date of Service: 07/19/[address] [place] [id number] Echocardiogram Report Name: BRIAN WREN LStudy Da te: 07/19/2016 Height: 62 in Hospital Exam Location: [facility] Weight: 210 lb Gender: Female BSA: 2.0 m2 : 1955 Age: 60 yrs BP: 115/73 mmHg Reason For Study: Anasarca Ordering Physician: Performed By: [facility] Interpretation Summary The left ventricle is normal in size, wall thickness, and systolic function without any focal wall motion abnormalities. The ejection fraction is estimated to be 60-65%. Assessment of diastolic parameters indicates normal left ventricular diastolic function and normal filling pressures. The right ventricle is normal in size and function. The right ventricular systolic pressure is estimated at 28 mmHg assuming a right atrial pressure of 3 mm Hg. Both atria are normal in size. There is no significant valvular heart disease. The ascending aorta is mildly enlarged. There is an anterior echo-free space consistent with a fat pad. Procedure: A two-dimensional transthoracic echocardiogram with color flow and Doppler was performed. The study quality was technically adequate. There is no prior echocardiogram noted for this patient. The heart rate ranged between 83-113 bpm during the study. The patient was in normal sinus rhythm during the exam. Left Ventricle: The left ventricle is normal in size, wall thickness, and systolic function without any focal wall motion abnormalities. The ejection fraction is estimated to be 60-65%. Assessment of diastolic parameters indicates normal left ventricular diastolic function and normal filling pressures. Right Ventricle: The right ventricle is normal in size and function. Atria: Both atria are normal in size. There is no Doppler evidence for an interatrial shunt. Mitral Valve: The mitral valve is normal in structure and function. There is trace mitral regurgitation. Aortic Valve: The aortic valve is normal in structure and function. No aortic regurgitation is present. Tricuspid Valve: The tricuspid valve is not well visualized, but is grossly normal. There is trace tricuspid regurgitation. The right ventricular systolic pressure is estimated at 28 mmHg assuming a right atrial pressure of 3 mm Hg. Pulmonic Valve: The pulmonic valve is not well seen, but is grossly normal. There is no significant valvular heart disease. Great Vessels: The aortic root is normal size. The ascending aorta is mildly enlarged. The IVC is of normal diameter and collapses greater than 50% with a sniff. This suggests a low right atrial pressure of 3 mm Hg. Pericardium/ Pleura There is an anterior echo-free space consistent with a fat pad. MMode/2D Measurements & Calculations LVIDd: 4.9 cm RA long axis Ao root diam LVIDs: 3.0 cm LA A2 area: 17.9 cm FS: 39.0 % LA A4 area: 20.7 cm RA area Aortic Jxn IVSd: 0.79 cm LA length (vol): 5.6 cm LVPWd: 0.74 cm LA vol: 55.7 ml : 13.0 cm asc Aorta LA vol index RA vol: 26.7 mlDiam: 3.8 cm RA : 28.5 ml/m2 : 13.7 mm2 LV barkley. diameter/BSA LV sys. diameter/BSA (cm/m^2): 2.5 (cm/m^2): 1.5 Doppler Measurements & Calculations Ao V2 max MV E max nabil MV E/A: 1.2 TR max nabil : 198.7 cm/sec : 131.9 cm/sec Med Peak E' Nabil : 247.7 cm/sec Ao max PG MV A max nabil TR max PG : 15.8 mmHg : 114.3 cm/sec E/E' med: 10.1 : 24.5 mmHg Ao mean PG MV P1/2t: 35.7 msec Lat Peak E' Nabil PA V2 max : 7.5 mmHg : 102.3 cm/sec E/E' lat: 12.2 PA mean PG E/e' average: 11.1 PA Accel Time : 0.14 sec MV dec time MV P1/2t max nabil Ao V2 mean PA V2 mean : 0.12 sec : 127.6 cm/sec : 64.6 cm/sec MVA(P1/2t): 6.2 cm2 Ao V2 VTI: 42.4 cm Reading Physician:PM Additional Diagnostics ABG pH 7.439, pCO2 32, pO2 75 hb 7 Assessment & Plan 60yoF with minimal medical follow up as an outpatient transferred for direct admit from [place] due to hemoglobin 5.5 following recent fall and blood loss from right lower extremity chronic wounds. 1. Acute alcohol draw. This is really started since 2 days ago. She is on the CIWA protocol with scores of 17 earlier today. Currently her CIWA scores have markedly improved and not requiring any IV Valium. 2. Melanotic GI bleed. Not POA. This began this morning. She has been on Protonix. We will add octreotide drip as well as ceftriaxone for SBP prophylaxis. Discussed the case with GI and anticipate an upper GI endoscopy depending on her clinical degree of alcohol withdrawal. Patient continues to have some melena. Hematocrit has slightly dropped. GI is following. 3. Acute blood loss anemia, POA. We will continue to follow closely. 4. Ascites, POA. The patient will be scheduled for a paracentesis for both therapeutic and diagnostic reasons today. We will send cell counts and culture to rule out SBP. 5. Sepsis, acute, POA -unclear source, likely respiratory vs right lower extremity -HR >90 and RR >20, potentially in part d/t anemia -elevated lactic acid at OSH, repeat pending -treatment as below Continue fluid resuscitation. Paracentesis showed no evidence of SBP. 6. Possible COPD exacerbation, POA -abx as below -albuterol-ipratropium q4hr, albuterol q2hr PRN -125mg methylprednisone now. 40mg PO daily No change in current medical regimen. 7. Ground level fall, acute. POA. She has multiple right-sided rib fractures. Supportive treatment 8. Alcohol dependence, chronic -as per , no h/o withdrawal -drinks 2 bottles of wine per day -[facility] 9. Right internal carotid aneurysm, incidental finding. POA. This was discussed with neurosurgery at [facility] and there is no need for acute intervention at this time. 10. Right lower extremity wound, chronic. POA. -wound consult, purulent as per report -piperacillin-tazobactam, vancomycin ordered This is said to be months along induration. This is described as bleeding heavily recently. The dressings were not taken down yesterday as she was felt to not be stable. Today we will attempt to take down the dressings assess the wound and control bleeding at this area rebleeds. No change antibiotics. Will also obtain culture. 11. Anasarca, unknown chronicity secondary to ascites. -likely low albumin state vs CHF -patient with minimal medical treatment as outpatient -ECHO done and shows no significant abnormalities # Hypoxia, acute, worsening since admission Check a chest x-ray and check a venous blood gas # Increase ammonia level with increasing lethargy, acute, new since admission We will proceed with giving a dose of lactulose and continue with her by mouth rifaximin. Met with her family multiple times and I discussed frankly with him her very guarded prognosis. GI Prophylaxis: Proton Pump Inhibitor VTE Prophylaxis: Other (possible GI bleed, unable to use SCDs d/t leg wounds) Resuscitation Status: CPR: Attempt Resuscitation Time spent 30 minute Isaias Sams MD Jul 20, 2016 13:05 GI Prophylaxis: Proton Pump Inhibitor VTE Prophylaxis: Other (possible GI bleed, unable to use SCDs d/t leg wounds) Resuscitation Status: CPR: Attempt Resuscitation Time spent 30 minutes Jelly Araujo MD Jul 22, 2016 13:39
--- NOTE | 2016-07-22 14:18 | NUR ---
Wound Care Patient seen for dressing change at right lower leg. Minimal drainage noted from wounds, cleaned with saline and gauze mechanically, Redressed with hydrogel, foam, kerlix wrap and coban. Stable venous ulcers, Nursing can change dressings q 48 hours.
--- NOTE | 2016-07-22 14:55 | ABG ---
DateTimeAnalyzed 14:51:00 -_ pH ____7.317 - pCO2 ___53.4__ -mmHg pO2 ___49.1__ -mmHg HCO3- ___26.6__ -mmol/L ABE ____0.6__ -mmol/L tHb ____9.1__ -g/dL O2Hb ___81.2__ -% COHb ____2.0__ -% MetHb ____0.9__ -% sO2 ___83.6__ -% FIO2 ___21.0__ -% Drawn By RN - Date/Time Notified____ 14:55:00 -_ Notified By BTL - Notified Whom ___Dr. Jelly Kubisty -__ B 756 -mmHg tO2 ___10.5__ -Vol% Isaias test N/A -
[2016-07-22] MEDS ORDERED: PEG/Electrolytes 4,000 mL Solution PO ONE (16:00)
--- NOTE | 2016-07-22 16:04 | DRSVH ---
PROCEDURE: X-RAY CHEST ONE VIEW, PORTABLE ([id number]) INDICATIONS: hypoxia TECHNIQUE: One view of the chest was acquired. COMPARISON: None. FINDINGS: Surgical changes and devices: Right PICC present projected over the mid superior vena cava. Lungs and pleura: No pleural effusions or pneumothorax. Right upper and left lower lobe air space o pacities are present and there are trace pleural effusions.. Mediastinum: Mediastinal contours appear normal. Heart size is normal. Bones and chest wall: No suspicious bony lesions. Overlying soft tissues appear unremarkable. IMPRESSION: Right upper and left lower lobe airspace opacity suspicious for aspiration or pneumonia. Dictated by: Luc ALBERT Interpreted: Benny Hernandez MD on 07/22/2016 at 16:03 Transcribed by: CHAPO on 07/22/2016 at 16:04 Approved by: Benny Hernandez M.D. on 07/22/2016 at 16:20
--- NOTE | 2016-07-22 18:47 | NUR ---
CIWAH/Colyte Pt drowsy today, but awakens easily and mentation more clear today. Pt oriented X3, appears less anxious, and no further hallucinations observed. Pt's CIWAH scores today: 6 and 3. Pt had very large/black/loose stool this am prior to shift change, made aware, H/H ordered which came back unchanged at 8.5/28.3. GI consulted who came and assessed Pt, instructed to start Colyte bowel prep at 1600 and orders placed. Pt started bowel prep at ~1645, Pt on thickened fluids, spoke with pharmacy and endo about thickening Colyte who verbalized that there would be no issues, fluid thickened and Pt tolerating bowel prep with ~25% completed by shift change.
[2016-07-23] VITALS (13 sets, daily range): BP systolic 89–117; BP diastolic 44–74; PULSE 74–107; RESP 16–24; O2SAT 90–99
[2016-07-23] MEDS: Albuterol-Ipratropium 3 mL Inhalation Solution NEB SCH ×6 (00:30→21:12)
[2016-07-23] MEDS: Pantoprazole Inj 80 MG in 0.9% Sodium Chloride 80 ML IV SCH ×2 (01:51→12:37)
[2016-07-23] MEDS: Octreotide Inj 500 MCG in 0.9% Sodium Chloride 99 ML IV SCH ×3 (04:02→19:25)
[2016-07-23 04:20] LABS: BASOPHILS % (AUTO) 0.1 % (0-3); EOSINOPHILS % (AUTO) 0.3 % (0-5); MONOCYTES % (AUTO) 11.1 % (4-12); Mean Corpuscular Hemoglobin 27.5 pg (27.0-35.0); Mean Corpuscular Volume 93.9 fL (81-100); Platelet Count 106 bil/L (150-400)
[2016-07-23] MEDS: 0.9% Sodium Chloride 250 ML IV SCH (05:04)
--- NOTE | 2016-07-23 05:53 | NUR ---
golytle prep pt drinking most of golytle prep this evening, pt struggle with drinking it r/t being so tired. pt with frequent incontinent stools, they started out as loose and black in color now liquid and a greenish color. pt denies any pain but dose c/o discomfort in her stomach. pt feels like when she lays flat she is vomit, but denies any nausea.
[2016-07-23] MEDS ORDERED: Propofol 10,000 mCg/mL 20 mL Inj ONE (05:58)
[2016-07-23] MEDS: Piperacillin-Tazo 3.375 Gm Inj 3.375 GM in Dextrose 5% Minibag Plus 50 ML IV SCH ×3 (06:40→22:24)
[2016-07-23] MEDS: Vancomycin Dose per Pharmacist XX SCH (08:30)
[2016-07-23] MEDS: predniSONE 20 mg Tablet PO SCH (10:46)
[2016-07-23] MEDS: Vancomycin Inj 1,000 MG in IV Premix 1 EACH IV SCH ×2 (10:46→19:46)
--- NOTE | 2016-07-23 13:22 | NUR ---
NUTRITION FOLLOW-UP: Assess: 60 YO F admitted with severe anemia, COPD exacerbation, sepsis, and GI bleed following a GLF. She is scheduled for an EGD once alcohol withdrawal completed. CIWA score 0 today; GoLytely prep completed. Her PO intake is abysmal; complicated today by somnolence. She is noted to be retaining CO2; there is a possibility of requirement for BiPAP, which will minimize PO intake even further. PMHX: COPD, ETOH dependence, hemorrhoids, PNA, constipation, rectal bleed. DIET: Pureed, nectar thick liquids. PO intake bites / sips only. LABS: Na 147, Chloride 114, Glu 159, Ca 7.9, Ammonia 65, Alb 2.3. MEDICATIONS: Reviewed. Valium, octreotide, lactulose, prednisone. GI: Multiple small, loose, tarry stools noted by nursing x 6 today. SKIN: Cluster of wounds at the right pretibial area of the leg that appear chronic in nature. ANTHROPOMETRICS: Wt: 86.4 kg, BMI 34.0 kg/m2, Admit wt: 95.2 kg, IBW: 50.0 kg. ESTIMATED NEEDS: WOUND/COPD/BMI Calories: 3615-8512 kcal/day (22-25 kcal/kg BW) Protein: 75-90 g/day (1.5-1.8 g/kg IBW) NUTRITION DIAGNOSIS: 1) Increased nutrient needs related to wound healing/increased demand for nutrients as evidenced by wounds, COPD - PERSISTS. 2) Chewing / swallowing difficulties related to pocketing, delayed swallow, decreased laryngeal excursion, as evidenced by requirement for pureed / honey thick liquid diet - SLIGHTLY IMPROVED BY THICKENING REQUIREMENT TO NECTAR THICK. 3) Inadequate oral intake related to inability to consume sufficient energy, as evidenced by minimal PO intake since admit x 4 D. INTERVENTION: 1) Diet advance per Speech Therapy. 2) Will continue Ensure on trays for wound healing. 3) In the event pt. will require BiPAP and her PO intake does not improve over weekend, recommend consideration of nutrition support. MONITOR/EVALUATE: PO intake, diet advance / tolerance, wounds, GI, labs, nutrition status. Follow per high nutrition risk guidelines.
--- NOTE | 2016-07-23 13:38 | PCM.PNMED ---
Subjective Date of Service Jul 23, 2016 Subjective Patient is still little bit drowsy today. She almost completed most of the [employer] for scope later today at 3 PM. Exam Vital Signs Vital Sign - Last Date Time Temp Pulse Resp B/P Pulse Ox O2 Delivery O2 Flow Rate FiO2 07/23/16 12:51 79 18 98 Nasal Cannula 4.00 07/23/16 11:51 36.8 89/44 Intake and Output 07/22/16 07/22/16 07/23/16 Cumulative From/Thru 15:00 23:00 07:00 07/19/16 04:15 - 07/23/16 06:20 Intake Total 593 ml 2076 ml 6691 ml Output Total 450 ml 300 ml 4955 ml Balance 143 ml 1776 ml 1736 ml Intake Oral 1500 ml 1850 ml IV Total 593 ml 576 ml 3941 ml Packed Cells 900 ml Output Urine Total 450 ml 300 ml 2300 ml Stool Total 5 ml Other 2650 ml # Voids 3 # Bowel Movements 4 6 15 Exam Constitutional: Slightly drowsy middle-aged female Head: Normocephalic atraumatic Chest: Decreased breath sounds at her bases Cor: Regular rate and rhythm S1-S2 Abdomen soft there is no tenderness she does have a protuberant umbilical hernia noted which is Extremities: Trace bilateral pedal edema Neuro: She is alert but drowsy, oriented 3, motor strength is intact bilaterally Lab and Diagnostics Laboratory Tests 72 Hours Test 07/20/16 13:45 07/20/16 20:48 07/20/16 23:00 07/21/16 01:50 Hematocrit 25.5% (35.0-46.0) 23.8% (35.0-46.0) 24.1% (35.0-46.0) Vancomycin Level Trough 18.4mcg/mL Test 07/21/16 04:30 07/21/16 14:50 07/21/16 16:15 07/21/16 17:16 White Blood Count 14.7th/mm3 (3.8-10.1) Red Blood Count 2.57mil/mm3 (3.90-5.20) Hemoglobin 7.0g/dL (12.0-15.6) 9.6g/dL (12.0-15.6) Hematocrit 23.3% (35.0-46.0) 32.0% (35.0-46.0) Mean Corpuscular Volume 90.7fL (81-100) Mean Corpuscular Hemoglobin 27.2pg (27.0-35.0) Mean Corpuscular Hemoglobin Concent 30.0% (32.0-37.0) Red Cell Distribution Width 16.9% (12.3-15.4) Platelet Count 144bil/L (150-400) Sodium Level 142mEq/L (134-144) Potassium Level 4.4mEq/L (3.5-5.2) Chloride Level 111mEq/L (97-108) Carbon Dioxide Level 21mmol/L (18-29) Blood Urea Nitrogen 27mg/dL (8-27) Creatinine 0.70mg/dL (0.57-1.00) Estimat Glomerular Filtration Rate 121mL/min (>59) Glucose Level 148mg/dL (60-99) Calcium Level 7.6mg/dL (8.5-10.1) Total Bilirubin 0.9mg/dL (0.0-1.2) Aspartate Amino Transf (AST/SGOT) 41U/L (0-50) Alanine Aminotransferase (ALT/SGPT) 23U/L (0-32) Alkaline Phosphatase 111U/L (25-165) Total Protein 5.8g/dL (6.4-8.4) Albumin 2.4g/dL (3.4-5.0) Body Fluid Source Peritoneal fluid Body Fluid Color Straw (Clear) Body Fluid Appearance Clear Body Fluid WBC 183/mm3 Body Fluid RBC 19/mm3 Body Fluid Polynuclear WBCs 9% Body Fluid Lymphocytes 7% Body Fluid Monocytes 71% Body Fluid Eosinophils 0% Body Fluid Basophils 0% Prothrombin Time 13.8sec (8.1-12.5) Prothromb Time International Ratio 1.28ratio Test 07/22/16 04:00 07/22/16 04:25 07/22/16 11:00 07/23/16 04:10 White Blood Count 13.4th/mm3 (3.8-10.1) 12.1th/mm3 (3.8-10.1) Red Blood Count 3.10mil/mm3 (3.90-5.20) 3.13mil/mm3 (3.90-5.20) Hemoglobin 8.5g/dL (12.0-15.6) 8.5g/dL (12.0-15.6) 8.6g/dL (12.0-15.6) Hematocrit 28.1% (35.0-46.0) 28.3% (35.0-46.0) 29.4% (35.0-46.0) Mean Corpuscular Volume 90.6fL (81-100) 93.9fL (81-100) Mean Corpuscular Hemoglobin 27.4pg (27.0-35.0) 27.5pg (27.0-35.0) Mean Corpuscular Hemoglobin Concent 30.2% (32.0-37.0) 29.3% (32.0-37.0) Red Cell Distribution Width 17.5% (12.3-15.4) 18.4% (12.3-15.4) Platelet Count 120bil/L (150-400) 106bil/L (150-400) Neutrophils (%) (Auto) 77.7% (40-74) 79.0% (40-74) Lymphocytes (%) (Auto) 9.2% (14-46) 9.0% (14-46) Monocytes (%) (Auto) 12.4% (4-12) 11.1% (4-12) Eosinophils (%) (Auto) 0.1% (0-5) 0.3% (0-5) Basophils (%) (Auto) 0.1% (0-3) 0.1% (0-3) Sodium Level 146mEq/L (134-144) 147mEq/L (134-144) Potassium Level 4.3mEq/L (3.5-5.2) 3.8mEq/L (3.5-5.2) Chloride Level 115mEq/L (97-108) 114mEq/L (97-108) Carbon Dioxide Level 24mmol/L (18-29) 25mmol/L (18-29) Blood Urea Nitrogen 32mg/dL (8-27) 27mg/dL (8-27) Creatinine 0.62mg/dL (0.57-1.00) 0.66mg/dL (0.57-1.00) Estimat Glomerular Filtration Rate 140mL/min (>59) 130mL/min (>59) Glucose Level 134mg/dL (60-99) 159mg/dL (60-99) Calcium Level 7.8mg/dL (8.5-10.1) 7.9mg/dL (8.5-10.1) Total Bilirubin 1.0mg/dL (0.0-1.2) 0.9mg/dL (0.0-1.2) Aspartate Amino Transf (AST/SGOT) 36U/L (0-50) 40U/L (0-50) Alanine Aminotransferase (ALT/SGPT) 21U/L (0-32) 22U/L (0-32) Alkaline Phosphatase 96U/L (25-165) 94U/L (25-165) Total Protein 5.5g/dL (6.4-8.4) 6.0g/dL (6.4-8.4) Albumin 2.4g/dL (3.4-5.0) 2.3g/dL (3.4-5.0) Ammonia 79ug/dL (18-53) 65ug/dL (18-53) Result Diagram: 07/23/160 07/23/16 0410 X-Rays, CTs and MRIs Patient Name: BRIAN WREN MR#: [id number] Location: [facility] Ordering Phys: Jelly Araujo MD Date of Service: 07/22/16 1307 PROCEDURE: X-RAY CHEST ONE VIEW, PORTABLE ([id number]) INDICATIONS: hypoxia TECHNIQUE: One view of the chest was acquired. COMPARISON: None. FINDINGS: Surgical changes and devices: Right PICC present projected over the mid superior vena cava. Lungs and pleura: No pleural effusions or pneumothorax. Right upper and left lower lobe air space opacities are present and there are trace pleural effusions.. Mediastinum: Mediastinal contours appear normal. Heart size is normal. Bones and chest wall: No suspicious bony lesions. Overlying soft tissues appear unremarkable. IMPRESSION: Right upper and left lower lobe airspace opacity suspicious for aspiration or pneumonia. Dictated by: Luc ALBERT Interpreted: Benny Hernandez MD on 07/22/2016 at 16: 03 Transcribed by: CHAPO on 07/22/2016 at 16:04 Approved by: Benny Hernandez M.D. on 07/22/2016 at 16:20 Cardiac Echo Impressions Patient Name: BRIAN WREN MR#: [id number] Location: [facility] Ordering Phys: Anu Shepherd DO Date of Service: 07/19/[address] [address] Echocardiogram Report Name: BRIAN WREN LStudy Da te: 07/19/2016 Height: 62 in Hospital Exam Location: [facility] Weight: 210 lb Gender: Female BSA: 2.0 m2 : 1955 Age: 60 yrs BP: 115/73 mmHg Reason For Study: Anasarca Ordering Physician: Performed By: [facility] Interpretation Summary The left ventricle is normal in size, wall thickness, and systolic function without any focal wall motion abnormalities. The ejection fraction is estimated to be 60-65%. Assessment of diastolic parameters indicates normal left ventricular diastolic function and normal filling pressures. The right ventricle is normal in size and function. The right ventricular systolic pressure is estimated at 28 mmHg assuming a right atrial pressure of 3 mm Hg. Both atria are normal in size. There is no significant valvular heart disease. The ascending aorta is mildly enlarged. There is an anterior echo-free space consistent with a fat pad. Procedure: A two-dimensional transthoracic echocardiogram with color flow and Doppler was performed. The study quality was technically adequate. There is no prior echocardiogram noted for this patient. The heart rate ranged between 83-113 bpm during the study. The patient was in normal sinus rhythm during the exam. Left Ventricle: The left ventricle is normal in size, wall thickness, and systolic function without any focal wall motion abnormalities. The ejection fraction is estimated to be 60-65%. Assessment of diastolic parameters indicates normal left ventricular diastolic function and normal filling pressures. Right Ventricle: The right ventricle is normal in size and function. Atria: Both atria are normal in size. There is no Doppler evidence for an interatrial shunt. Mitral Valve: The mitral valve is normal in structure and function. There is trace mitral regurgitation. Aortic Valve: The aortic valve is normal in structure and function. No aortic regurgitation is present. Tricuspid Valve: The tricuspid valve is not well visualized, but is grossly normal. There is trace tricuspid regurgitation. The right ventricular systolic pressure is estimated at 28 mmHg assuming a right atrial pressure of 3 mm Hg. Pulmonic Valve: The pulmonic valve is not well seen, but is grossly normal. There is no significant valvular heart disease. Great Vessels: The aortic root is normal size. The ascending aorta is mildly enlarged. The IVC is of normal diameter and collapses greater than 50% with a sniff. This suggests a low right atrial pressure of 3 mm Hg. Pericardium/ Pleura There is an anterior echo-free space consistent with a fat pad. MMode/2D Measurements & Calculations LVIDd: 4.9 cm RA long axis Ao root diam LVIDs: 3.0 cm LA A2 area: 17.9 cm FS: 39.0 % LA A4 area: 20.7 cm RA area Aortic Jxn IVSd: 0.79 cm LA length (vol): 5.6 cm LVPWd: 0.74 cm LA vol: 55.7 ml : 13.0 cm asc Aorta LA vol index RA vol: 26.7 mlDiam: 3.8 cm RA : 28.5 ml/m2 : 13.7 mm2 LV barkley. diameter/BSA LV sys. diameter/BSA (cm/m^2): 2.5 (cm/m^2): 1.5 Doppler Measurements & Calculations Ao V2 max MV E max nabil MV E/A: 1.2 TR max nabil : 198.7 cm/sec : 131.9 cm/sec Med Peak E' Nabil : 247.7 cm/sec Ao max PG MV A max nabil TR max PG : 15.8 mmHg : 114.3 cm/sec E/E' med: 10.1 : 24.5 mmHg Ao mean PG MV P1/2t: 35.7 msec Lat Peak E' Nabil PA V2 max : 7.5 mmHg : 102.3 cm/sec E/E' lat: 12.2 PA mean PG E/e' average: 11.1 PA Accel Time : 0.14 sec MV dec time MV P1/2t max nabil Ao V2 mean PA V2 mean : 0.12 sec : 127.6 cm/sec : 64.6 cm/sec MVA(P1/2t): 6.2 cm2 Ao V2 VTI: 42.4 cm Reading Physician:PM Additional Diagnostics ABG pH 7.439, pCO2 32, pO2 75 hb 7 Assessment & Plan 60yoF with minimal medical follow up as an outpatient transferred for direct admit from [place] due to hemoglobin 5.5 following recent fall and blood loss from right lower extremity chronic wounds. 1. Acute alcohol draw. This is really started since 2 days ago. She is on the CIWA protocol with scores of 17 about 2 days ago. Currently her CIWA scores have markedly improved and not requiring any IV Valium. 2. Melanotic GI bleed. Not POA. This began the day after admit. She has been on Protonix. We will add octreotide drip as well as ceftriaxone for SBP prophylaxis. Discussed the case with GI and anticipate an upper GI endoscopy depending on her clinical degree of alcohol withdrawal. Patient continues to have some melena. Hematocrit has slightly dropped. GI is following. Patient tentatively scheduled for endoscopy close unclear to me if it is going to be EGD and colonoscopy to be done later today. 3. Acute blood loss anemia, POA. We will continue to follow closely. 4. Ascites, POA. The patient will be scheduled for a paracentesis for both therapeutic and diagnostic reasons today. We will send cell counts and culture to rule out SBP. 5. Sepsis, acute, POA -unclear source, likely respiratory vs right lower extremity -HR >90 and RR >20, potentially in part d/t anemia -elevated lactic acid at OSH, repeat pending -treatment as below Continue fluid resuscitation. Paracentesis showed no evidence of SBP. 6. Possible COPD exacerbation, POA -abx as below -albuterol-ipratropium q4hr, albuterol q2hr PRN -125mg methylprednisone now. 40mg PO daily No change in current medical regimen. 7. Ground level fall, acute. POA. She has multiple right-sided rib fractures. Supportive treatment 8. Alcohol dependence, chronic -as per , no h/o withdrawal -drinks 2 bottles of wine per day -CIWA 9. Right internal carotid aneurysm, incidental finding. POA. This was discussed with neurosurgery at [facility] and there is no need for acute intervention at this time. 10. Right lower extremity wound, chronic. POA. -wound consult, purulent as per report -piperacillin-tazobactam, vancomycin ordered This is said to be months along induration. This is described as bleeding heavily recently. The dressings were not taken down yesterday as she was felt to not be stable. Today we will attempt to take down the dressings assess the wound and control bleeding at this area rebleeds. No change antibiotics. Will also obtain culture. 11. Anasarca, unknown chronicity secondary to ascites. -likely low albumin state vs CHF -patient with minimal medical treatment as outpatient -ECHO done and shows no significant abnormalities # Hypoxia, acute, worsening since admission Check a chest x-ray and check a venous blood gas # Increase ammonia level with increasing lethargy, acute, new since admission We will proceed with giving a dose of lactulose and continue with her by mouth rifaximin. Met with her family multiple times and I discussed frankly with him her very guarded prognosis. GI Prophylaxis: Proton Pump Inhibitor VTE Prophylaxis: Other (possible GI bleed, unable to use SCDs d/t leg wounds) Resuscitation Status: CPR: Attempt Resuscitation Time spent 30 minute Isaias Sams MD Jul 20, 2016 13:05 GI Prophylaxis: Proton Pump Inhibitor VTE Prophylaxis: Other (possible GI bleed, unable to use SCDs d/t leg wounds) Resuscitation Status: CPR: Attempt Resuscitation Time spent 30 minutes Jelly Araujo MD Jul 22, 2016 13:39 <Electronically signed by Jelly Araujo MD> 07/23/16 0718 GI Prophylaxis: Proton Pump Inhibitor VTE Prophylaxis: Other (possible GI bleed, unable to use SCDs d/t leg wounds) Resuscitation Status: CPR: Attempt Resuscitation Time spent 30 minutes Jelly Araujo MD Jul 23, 2016 13:37
[2016-07-23] MEDS ORDERED: Lactated Ringer's 1,000 ML IV ONE (14:21)
--- NOTE | 2016-07-23 15:15 | PCM.HPANE ---
Patient Data Surgeon Admitting Provider:Anu Shepherd DO Attending Provider:Anu Shepherd DO Primary Care Physician:Nopcp Other Provider: Reason for Visit Severe Anemia Ht/WT & BMI Weight (Kilograms): 86.400 Body Mass Index Allergies Coded Allergies: Contrast Media (Unverified Allergy, Unknown, hives, 07/19/16) Past Anesthesia History Anesthesia History: Denies:: Anesthesia Reactions Diabetes History Hx Diabetes?: No MRSA MRSA: No Medications Reported Medications Ibuprofen 200 Mg [id number] Mg PO QID PRN For Pain Ref 0 07/19/16 History History of ENT Problems?: No Hx of Heart Problems?: Yes Cardiovascular History: Positive for:: Edema Hx of Respiratory Problem?: Yes Respiratory History: Positive for:: COPD Dyspnea Pneumonia Hx Neurologic Problems?: Yes Neurological History: Positive for:: Dizziness Hx of GI Problems?: Yes Gastrointestinal History: Positive for:: Heartburn Hx of Problems?: No Female Hx: Denies:: Problems with Breasts? Hx Musculoskeletal Problems?: Yes Musculoskeletal History: Positive for:: Back Injury Hx of Psycho/Social Problems?: No Hx Surgeries?: No Hx Any Other Health Problems?: No Other History: Denies:: Cancer Hospitalization Thyroid Disease History Blood Transfusions: Positive for:: Accept Blood Products? Denies:: Blood Transfuse Reaction Blood Transfusions Hx Diabetes: No Hx Alcohol Use: Yes (drinks 2 bottles of wine per day)Alcoholic Drinks Per Day : 2 bottles of wine a day Hx Substance Use: No (unknown) Smoking Status: Current Every Day Smoker (e cigarettes, quit smoking traditional cigarettes a year or two ago) Have You Smoked inLast 12 mo: YesApprox How Many Cigarettes/day: 30 cigarettes for 30 years Stop/Bang Treated for Sleep Apnea?: No Do You Have a CPAP Machine?: No S-Snoring: Do You Snore Loudly: Yes T-Tired: feel tired, fatigued: Yes O-Obsered: Observed not breath: Yes P-Blood Pressure: treated: No B- Body Mass Index > 35 kg/m2: No A- Age over 50: Yes N- Neck Large Circumference: Yes G- Gender Male: No JESSICA Total Score: 4 JESSICA Risk Assessment: High Risk, =/>3 Yes JESSICA Category 2: Yes Risk Assessment Category Category 1A: Patient has history of documented sleep apnea, and HAS NOT received any narcotic, sedative or anesthesia administration during this stay. Category 1B: Patient has history of documented sleep apnea, and HAS received any narcotic , sedative or anesthesia administration during this stay Category 2: Patient has SUSPECTED Obstructive Sleep Apnea, and HAS received any narcotic , sedative or anesthesia administration during this stay. Category 3: Patient has SUSPECTED Obstructive Sleep Apnea and HAS NOT received narcotic, sedative or anesthesia administration during this stay. Category 4: Outpatient in Procedural Areas with known sleep apnea or who screen positive for High Risk via the STOP/BANG questionnaire. Exam Exam Vital Signs Vital Signs Date Time Temp Pulse Resp B/P Pulse Ox O2 Delivery O2 Flow Rate FiO2 07/23/16 12:51 79 18 98 Nasal Cannula 4.00 07/23/16 11:51 36.8 75 20 89/44 99 Nasal Cannula 4.00 07/23/16 09:28 Supplement Oxygen 07/23/16 09:28 36.6 86 16 107/70 98 Nasal Cannula 4.00 07/23/16 08:20 92 22 96 Nasal Cannula 4.00 07/23/16 07:56 90 General Appearance: Cooperative, Mild Distress HEENT/AIRWAY: MP 2 Lungs: Clear to Auscultation, Normal Air Movement Heart: Exam Unremarkable, Regular Rate/Rhythm, No Murmurs/Rubs/Gallops Meds/Labs/Diagnostics Admission Meds Current Medications Polyethylene Glycol/ Electrolytes (Colyte) 4,000 ml ONCE ONCE PO Last administered on 07/22/16t 16:08; Start 07/22/16 at 16:00; Stop 07/22/16 at 16:01 ; Status DC Labs Test 07/19/16 05:15 07/19/16 10:53 07/21/16 01:50 07/21/16 16:15 Band Neutrophils % 0% (1-5) Activated Partial Thromboplast Time 30.3sec (22.8-33.0) Lactic Acid Level 1.1mmol/L (0.4-2.0) Troponin T 0.010ug/L (0.0-0.011) Pro-B-Type Natriuretic Peptide 263.7pg/mL (0-287) Urine Color Straw (YELLOW) Urine Appearance Hazy (CLEAR,HAZY) Urine pH 6.0 (5.0-8.0) Urine Specific [place] 1.025 (1.003-1.035) Urine Protein Negativemg/dL (NEG,TRACE) Urine Glucose (UA) Negativemg/dL (NEGATIVE) Urine Ketones Tracemg/dL (NEGATIVE) Urine Occult Blood Negative (NEGATIVE) Urine Nitrite Negative (NEGATIVE) Urine Bilirubin Negative (NEGATIVE) Urine Urobilinogen Normalmg/dL (NORMAL) Urine Leukocyte Esterase Trace (NEGATIVE) Urine RBC 0-2/hpf (0-2) Urine WBC 0-5/hpf (0-5) Urine Epithelial Cells Occasional/hpf (NONE-MOD) Urine Crystals None seen (NONE SEEN) Urine Bacteria Few/hpf (NONE-FEW) Urine Hyaline Casts Occasional/lpf (NONE) Urine Granular Casts None seen (NONE SEEN) Urine Waxy Casts None seen (NONE SEEN) Urine Red Blood Cell Casts None seen (NONE SEEN) Urine White Blood Cell Casts Occasional (NONE SEEN) Urine Mucus None seen (None Seen) Urine Trichomonas None seen (NONE SEEN) Urine Yeast None (NONE SEEN) Urinalysis Comment None Urine Culture Reflexed Indicated Vancomycin Level Trough 18.4mcg/mL Body Fluid Source Peritoneal fluid Body Fluid Color Straw (Clear) Body Fluid Appearance Clear Body Fluid WBC 183/mm3 Body Fluid RBC 19/mm3 Body Fluid Polynuclear WBCs 9% Body Fluid Lymphocytes 7% Body Fluid Monocytes 71% Body Fluid Eosinophils 0% Body Fluid Basophils 0% Test 07/21/16 17:16 07/23/16 04:10 Prothrombin Time 13.8sec (8.1-12.5) Prothromb Time International Ratio 1.28ratio White Blood Count 12.1th/mm3 (3.8-10.1) Red Blood Count 3.13mil/mm3 (3.90-5.20) Hemoglobin 8.6g/dL (12.0-15.6) Hematocrit 29.4% (35.0-46.0) Mean Corpuscular Volume 93.9fL (81-100) Mean Corpuscular Hemoglobin 27.5pg (27.0-35.0) Mean Corpuscular Hemoglobin Concent 29.3% (32.0-37.0) Red Cell Distribution Width 18.4% (12.3-15.4) Platelet Count 106bil/L (150-400) Neutrophils (%) (Auto) 79.0% (40-74) Lymphocytes (%) (Auto) 9.0% (14-46) Monocytes (%) (Auto) 11.1% (4-12) Eosinophils (%) (Auto) 0.3% (0-5) Basophils (%) (Auto) 0.1% (0-3) Sodium Level 147mEq/L (134-144) Potassium Level 3.8mEq/L (3.5-5.2) Chloride Level 114mEq/L (97-108) Carbon Dioxide Level 25mmol/L (18-29) Blood Urea Nitrogen 27mg/dL (8-27) Creatinine 0.66mg/dL (0.57-1.00) Estimat Glomerular Filtration Rate 130mL/min (>59) Glucose Level 159mg/dL (60-99) Calcium Level 7.9mg/dL (8.5-10.1) Total Bilirubin 0.9mg/dL (0.0-1.2) Aspartate Amino Transf (AST/SGOT) 40U/L (0-50) Alanine Aminotransferase (ALT/SGPT) 22U/L (0-32) Alkaline Phosphatase 94U/L (25-165) Ammonia 65ug/dL (18-53) Total Protein 6.0g/dL (6.4-8.4) Albumin 2.3g/dL (3.4-5.0) Plan Impression Patient chart reviewed, patient interviewed and anesthestic plan with risks, benefits, and alternatives discussed, and informed consent obtained. ASA Physical Status: ASA3 Severe Disease Anesthetic Plan: MAC Bene/Risks/Altern/Consents: Yes HP Complete Prior to Induction: Yes Other decreased LOC, still answering questions and signs her own permits, but definatly not completely oriented. Altaf Chaudhary MD Jul 23, 2016 15:15
--- NOTE | 2016-07-23 16:03 | NUR ---
To [facility] pt ordered for endoscopy/colonoscopy. pt aware. pt consumed about 80% of golytely prep. pt sleepy yet arousible throughout shift. family assisting at bedside. Pt transported via gurney to [facility] at about 1530. telemetry informed.
[2016-07-23] MEDS ORDERED: Lactated Ringer's 1,000 ML IV SCH (16:42)
--- NOTE | 2016-07-23 16:44 | PCM.ANEP2 ---
Post Anesthesia Evaluation ASA/CMS Post Anesthesia VS in Patient's Normal Range?: Yes Resp Stable; Airway Patent?: Yes CV Function & Hydration Stable: Yes Mental Status Recovered?: Yes Pain control Satisfactory?: Yes N/V Control Satisfactory?: Yes Altaf Chaudhary MD Jul 23, 2016 16:44
--- NOTE | 2016-07-23 16:44 | PCM.ANEP1 ---
Post Anesthesia Phase 1 PACU Phase 1 Assessment Date of Service: Jul 20, 2016 Vital Signs Vital Signs Date Time Temp Pulse Resp B/P Pulse Ox O2 Delivery O2 Flow Rate FiO2 07/23/16 16:35 94 16 112/66 90 Simple Mask 6 07/23/16 12:51 79 18 98 Nasal Cannula 4.00 07/23/16 11:51 36.8 75 20 89/44 99 Nasal Cannula 4.00 07/23/16 09:28 Supplement Oxygen 07/23/16 09:28 36.6 86 16 107/70 98 Nasal Cannula 4.00 Anesthetic Administered: MAC Level of Alertness: Awake, talking ANDREA's with Equal Strength: Yes Pain: No Nausea or Vomiting: No Oxygen Delivery: Simple Mask Lungs: Clear to Auscultation, Normal Air Movement Summary back to her level of consciousness noted preop. Complaining about her O2 mask, moving good air. Still lowish sat on O2. No midazolam or Fentanyl for procedure, propofol 50 only. Altaf Chaudhary MD Jul 23, 2016 16:44
[2016-07-23] MEDS ORDERED: Ondansetron 2 mg/mL 2 mL Inj IVPUSH PRN (16:45)
[2016-07-23] MEDS ORDERED: MetoCLOpramide 5 mg/mL 2 mL Inj IVPUSH PRN (16:45)
--- NOTE | 2016-07-23 18:25 | NUR ---
Return to room 2025 pt return to room at about 1700. pt alert, drowsy and stating moderate discomfort of abdomen. Noting significant distention. warm blankets for comfort. family at bedside. IVF restarted per MD orders. telemetry informed.
[2016-07-23] MEDS: Sucralfate 1,000 mg Tablet PO SCH (22:24)
[2016-07-24] VITALS (16 sets, daily range): BP systolic 80–110; BP diastolic 50–86; PULSE 84–109; RESP 18–28; O2SAT 87–98
[2016-07-24] MEDS: Albuterol-Ipratropium 3 mL Inhalation Solution NEB SCH ×6 (01:00→20:25)
--- NOTE | 2016-07-24 03:25 | NUR ---
Respiratory Patient pulling oxymask off repeatedly overnight. Desats to mid 80s on room air. Encouraged patient to keep mask on without success. At 0310 patient noted to be satting in the mid 80s; mask adjusted but SpO2 did not recover. Encouraged deep breathing and cough and increased flow rate to 12L on oxymask with improvement to 88%. Wet/gurgling sounds in upper airway. RT called. RT performed suction and encouraged cough and deep breathing. Suction removed moderate, thick sputum. Switched patient to non-rebreather and SpO2 improved to 93%. Reviewed importance of cough and deep breathing with patient and family. Continue to monitor. Addendum: 07/24/16 at 0532 by ERASTO GODINEZ RN Pt continues to demonstrate increased O2 demand even after second RT intervention. MD winters at 0515. Addendum: 07/24/16 at 0648 by ERASTO GODINEZ RN ABG, chest xray, lactic acid draw; patient transferred to CCU bed 2017 on high flow oxygen.
[2016-07-24] MEDS: Octreotide Inj 500 MCG in 0.9% Sodium Chloride 99 ML IV SCH ×2 (05:13→15:25)
[2016-07-24] MEDS: 0.9% Sodium Chloride 250 ML IV SCH (05:20)
--- NOTE | 2016-07-24 05:33 | ENDO ---
[address] [address] ENDOSCOPY PROCEDURE PATIENT: BRIAN WREN : 1955 MR#: [id number] ADMIT: 07/19/2016 JOB ID: [id number] TYPE OF OPERATION: 1. Esophagogastroduodenoscopy with biopsy and APC and Gold Probe thermocoagulation. 2. Colonoscopy. PREOPERATIVE DIAGNOSIS(ES): Melena. POSTOPERATIVE DIAGNOSIS(ES): 1. A 1 cm duodenal first portion ulcer with recent stigmata of bleed, status post argon plasma coagulation and Gold Probe thermocoagulation. 2. A 5 mm duodenal bulb first portion ulcer, clean based, nonbleeding. 3. Mild nonerosive gastritis. 4. Normal colonoscopy. ANESTHESIA: Monitored anesthesia care. COMPLICATION: None. ESTIMATED BLOOD LOSS: Minimal. DESCRIPTION OF PROCEDURE: After risks and benefits explained to the patient, informed consent was obtained. After anesthesia administered, upper endoscope was then inserted in the mouth intubating into the esophagus, stomach, second portion of the duodenum. Mucosa carefully examined. After the procedure was done, the scope was removed and the procedure terminated. Colonoscope was then inserted from the rectum to the terminal ileum. Mucosa carefully examined. Prep of the patient was fair. After procedure was done, the scope withdrawn and procedure terminated. FINDINGS: Upon inspection of the esophagus, the esophagus was normal without masses, ulcers, or lesions. Z-line located 40 cm from incisors. There are no evidence of esophageal varices. Upon entering stomach, there was mild nonerosive gastritis that was seen. Retroflexion showed no evidence of gastric varices. Upon entering the duodenum there was 1 cm duodenal ulcer with recent stigmata of bleed at the first portion which was APC'd and then Gold Probed. There was another 5 mm ulcer seen at the first portion, clean based, nonbleeding. Biopsies taken of antrum and body of the stomach. Upon inspection of the anus, there were areas of which there was skin breakdown around the anal region that appeared to be erythematous. During the entire colonoscopy exam, there were no polyps, masses, or lesions. Intubation at terminal ileum revealed no blood. No evidence of bleeding was seen throughout the entire colonoscopy. Retroflexion was normal. IMPRESSION: 1. Normal colonoscopy. 2. A 1 cm duodenal first portion ulcer with recent stigmata of bleed, status post argon plasma coagulation and Gold Probe thermocoagulation. 3. Mild nonerosive gastritis. 4. No esophageal or gastric varices seen. 5. A 5 mm duodenal first portion ulcer, clean based, nonbleeding. RECOMMENDATIONS: 1. Stopped octreotide and Protonix drips, given the fact that the Protonix drip has been on for greater than 72 hours. 2. Start Protonix 40 mg by mouth twice a day. 3. Carafate 1 g by mouth 4 times a day. 4. Await pathology results. 5. Start clear liquid diet. Advance as tolerated. 6. The patient will need outpatient repeat EGD in approximately two to three months to document healing of the ulcers.
[2016-07-24 05:41] LABS: BASOPHILS % (AUTO) 0.1 % (0-3); EOSINOPHILS % (AUTO) 0.2 % (0-5); MONOCYTES % (AUTO) 4.4 % (4-12); Mean Corpuscular Volume 95.3 fL (81-100); Platelet Count 121 bil/L (150-400)
[2016-07-24 05:51] LABS: INR 1.24 ratio
--- NOTE | 2016-07-24 06:00 | ABG ---
DateTimeAnalyzed 05:57:00 -_ pH ____7.223 - 7.350 7.450 pCO2 ___69.1__ -mmHg 35.0 45.0 pO2 ___68.7__ -mmHg 69.0 116 HCO3- ___27.4__ -mmol/L 22.0 26.0 ABE ___-0.8__ -mmol/L -2.0 2.0 tHb ___10.0__ -g/dL O2Hb ___88.4__ -% COHb ____1.5__ -% MetHb ____1.0__ -% sO2 ___90.7__ -% FIO2 __100.0__ -% Drawn By MK - Liter_Flow ___15.0__ -L/min Oxygen Device 1 NON RE-DEBORAH - Notified By Dr Fuimaono - B 758 -mmHg tO2 ___12.5__ -Vol% Isaias test _Positive -
[2016-07-24] MEDS: Piperacillin-Tazo 3.375 Gm Inj 3.375 GM in Dextrose 5% Minibag Plus 50 ML IV SCH (06:30)
--- NOTE | 2016-07-24 06:50 | NUR ---
Intubation Dr Phillips and RT therapist at bedside for emergent intubation. IV etomidate and succinylcholine administered per Dr Phillips verbal order. ET tube placed, 22 at the gums. Color change noted. Equal breaths sounds and chest rise observed. Sp02 >92% on 100% fi02. ST per panel monitor. Hypotensive. Awaiting chest xray for placement confirmation.
[2016-07-24] MEDS ORDERED: fentaNYL 2,500 mCg/250 mL 2,500 MCG in IV Premix 1 EACH IV PRN (07:02)
[2016-07-24] MEDS ORDERED: fentaNYL-PF 50 mCg/mL 2 mL Inj IVPUSH PRN (07:05)
[2016-07-24] MEDS ORDERED: Propofol 10,000 mCg/mL 100 mL Inj ONE (07:05)
--- NOTE | 2016-07-24 07:19 | PCM.EDPN ---
ED Note Date of Service Jul 24, 2016 Procedures Intubation : Intubation Procedure: Called emergently by Dr. Estrella to intubate patient with progressive respiratory failure. Normal potassium. No contraindications. is present in the room. Procedure Performed by: ED physician Consent / Setup / Site Prep: Consent from spouse (verbal), No consent - emergent, Time-out performed, Oxygen administered, Pulse oximeter applied, court monitor applied, Hand hygiene observed, Removed dentures Patient Position: Sniff position Blade / ET Tube / Route: Mac, ET tube cuffed (7.5), Route: oral Procedural Sedation/Analgesia: Sedation: Etomidate ( mg IV) Neuromuscular Agent: Succinylcholine (100 mg) ET Confirmation: Direct visualization, BS equal, End tidal CO2 device, CXR, Rising O2 sat Secured / Marked: ET tube device, Tube marked at ___ cm (22 cm at gums) Complications: None Post-Procedure: Condition improved, Tolerated procedure well, Patient stable Jeovany Phillips MD Jul 24, 2016 07:19
[2016-07-24] MEDS ORDERED: Pantoprazole 40 mg ER24 Tablet PO SCH (07:30)
[2016-07-24] MEDS ORDERED: Norepinephrine 8,000 mCg/250 mL NS Premix IV ONE (07:42)
--- NOTE | 2016-07-24 07:47 | NUR ---
Hemodynamics/sedation Hypotensive, 70s/40s. MAP < 50. ST per awake overnight monitor. NS bolus infusing. Dr Thomason notified, order for levophed gtt given. Will continue to monitor.
[2016-07-24] MEDS: Propofol Inj 1,000,000 MCG in IV Premix 1 EACH IV SCH ×2 (07:55→16:35)
[2016-07-24] MEDS ORDERED: Vancomycin Serum Trough XX ONE (08:00)
[2016-07-24] MEDS: Vancomycin Dose per Pharmacist XX SCH (08:30)
[2016-07-24] MEDS: Norepineph 8,000 mCg/250 mL NS 8,000 MCG in IV Premix 1 EACH IV SCH (08:38)
[2016-07-24] MEDS: Sucralfate 1,000 mg Tablet PO SCH (08:40)
[2016-07-24] MEDS: predniSONE 20 mg Tablet PO SCH (08:44)
[2016-07-24] MEDS: Vancomycin Inj 1,000 MG in IV Premix 1 EACH IV SCH ×2 (09:23→19:59)
--- NOTE | 2016-07-24 09:28 | DRSVH ---
PROCEDURE: X-RAY CHEST ONE VIEW, PORTABLE ([id number]) INDICATIONS: TUBE PLACEMENT TECHNIQUE: One view of the chest was acquired. COMPARISON: Merged With [facility], CR, XR CHEST 1VW (PORTABLE), 07/24/2016, 5:39. FINDINGS: Surgical changes and devices: There is an endotracheal tube with the tip approximately 3 cm from nayeli na. There is an orogastric tube extending into stomach with tip not visualized on current study. Th ere is a right upper extremity PICC line with the tip extending into the superior vena cava again not ed. Lungs and pleura: There are persistent confluent left airspace opacities as well as bibasilar retroc ardiac opacities consistent with consolidation or atelectasis. Pulmonary edema is also again noted. There are small bilateral pleural effusions. Mediastinum: Mediastinal contours appear prominent likely due to rotation. Heart size is borderline enlarged. Bones and chest wall: No suspicious bony lesions. Overlying soft tissues appear unremarkable. IMPRESSION: 1. Endotracheal tube in appropriate position. Orogastric tube extends into the stomach with the tip not included on current study. 2. Confluent left airspace opacities redemonstrated likely representing pneumonia. 3. Bibasilar opacities consistent with consolidation/pneumonia, aspiration, or atelectasis again not ed. 3. Mild pulmonary edema with interval improved aeration in the lung bases. 4. Small bilateral pleural effusions. Dictated by: Kyle Rainey M.D. on 07/24/2016 at 9:18 Approved by: Kyle Rainey M.D. on 07/24/2016 at 9:21
[2016-07-24] MEDS: D5 0.45% NaCl + KCl 20 mEq/L 1,000 ML IV SCH ×2 (09:32→18:01)
--- NOTE | 2016-07-24 10:09 | ABG ---
DateTimeAnalyzed 10:00:00 -_ pH ____7.374 - 7.350 7.450 pCO2 ___44.1__ -mmHg 35.0 45.0 pO2 ___70.8__ -mmHg 69.0 116 HCO3- ___25.1__ -mmol/L 22.0 26.0 ABE ____0.3__ -mmol/L -2.0 2.0 tHb ____9.1__ -g/dL O2Hb ___93.3__ -% COHb ____1.5__ -% MetHb ____1.0__ -% sO2 ___95.7__ -% FIO2 __100.0__ -% PEEP ____5.0__ -cmH2O Set_RR ___18.0__ -b/min Vt __360.0__ -L Drawn By KBB - Date/Time Notified____ 10:04:00 -_ Oxygen Device 1 VENTILATOR - Notified By KBB - B 760 -mmHg tO2 ___12.1__ -Vol% Isaias test _Positive -
[2016-07-24] MEDS: Lactulose 20 Gm/30 mL 30 mL Syrup PO PRN ×2 (10:23→12:24)
--- NOTE | 2016-07-24 10:53 | NUR ---
NUTRITION FOLLOW-UP: Assess: 60 YO F admitted with severe anemia, COPD exacerbation, sepsis, and GI bleed following a GLF. EGD completed yesterday, showing a 1 cm duodenal first portion ulcer with recent stigmata of bleed, status post argon plasma coagulation and Gold Probe thermocoagulation; a 5 mm duodenal bulb first portion ulcer, clean based, nonbleeding; mild nonerosive gastritis; normal colonoscopy. Early this morning, respiratory failure and likely aspiration required emergent intubation and transfer to CCU for vent, sepsis and pressor management. PMHX: COPD, ETOH dependence, hemorrhoids, PNA, constipation, rectal bleed. DIET: NPO. Previous intake x 4 D minimal, insufficient to meet nutrient needs to any significant extent. LABS: Na 150, Chloride 115, BUN 28, Glu 148, Ca 8.3, Total Bili 1.4, Ammonia 108, Alb 2.3. MEDICATIONS: Reviewed. Levophed, fentanyl. Propofol rate 2.5 ml/hr, providing 66 lipid kcal. GI: BM x 8 (07/23). SKIN: Cluster of wounds at the right pretibial area of the leg that appear chronic in nature. ANTHROPOMETRICS: Wt: 90.0 kg, BMI 36.0 kg/m2, Admit wt: 95.2 kg, IBW: 50.0 kg. ESTIMATED NEEDS: VENT/WOUND/COPD/BMI Calories: 8794-3613 kcal/day (22-25 kcal/kg BW) Protein: 75-90 g/day (1.5-1.8 g/kg IBW) NUTRITION DIAGNOSIS: 1) Increased nutrient needs related to wound healing/increased demand for nutrients as evidenced by wounds, COPD - PERSISTS. 2) Chewing / swallowing difficulties related to pocketing, delayed swallow, decreased laryngeal excursion, as evidenced by requirement for pureed / honey thick liquid diet - PERSISTS. 3) Inadequate oral intake related to inability to consume sufficient energy, as evidenced by minimal PO intake since admit x 5 D, now intubated. INTERVENTION: 1) Enteral feeding recommendation follows, in the event pt. unable to be extubated over weekend. Recommend Pulmocare at trophic rate 10 mL/hr x 12 hr. Once tolerance established, recommend advance 5 ml every 4 hr. to goal rate 60 ml/hr. Enteral feeding at goal will provide 1980 kcal, 83 g protein, sufficient to meet 100% nutrient needs. MONITOR/EVALUATE: NPO / vent status, orders for nutrition support, wounds, GI, labs, nutrition status. Follow per high nutrition risk guidelines. Addendum: 07/24/16 at [address] Order received to initiate enteral feeding, with flush dose 300 mL H2O every 6 hr. Follow up per low nutrition risk guidelines.
--- NOTE | 2016-07-24 11:05 | PCM.PNMED ---
Subjective Date of Service Jul 24, 2016 Subjective 63-year-old woman with alcoholic cirrhosis and limited compliance presents with alcohol withdrawal, acute GI blood loss anemia and encephalopathy. On 07/23 nighttime she developed worsened encephalopathy and respiratory distress. She was intubated. Now on sedation. Not responding to questions. Moving all 4 extremities spontaneously. Exam Vital Signs Vital Sign - Last Date Time Temp Pulse Resp B/P Pulse Ox O2 Delivery O2 Flow Rate FiO2 07/24/16 09:16 86 80/57 97 100 07/24/16 08:49 36.9 18 Mechanical Ventilator 07/24/16 06:28 45 Intake and Output 07/23/16 07/23/16 07/24/16 Cumulative From/Thru 14:59 22:59 06:59 07/19/16 04:15 - 07/24/16 05:25 Intake Total 1017 ml 1267 ml 8975 ml Output Total 300 ml 100 ml 5355 ml Balance 717 ml 1167 ml 3620 ml Intake Oral 400 ml 0 ml 2250 ml IV Total 617 ml 1267 ml 5825 ml Packed Cells 900 ml Output Urine Total 300 ml 100 ml 2700 ml Stool Total 5 ml Other 2650 ml # Voids 3 # Bowel Movements 2 17 Exam General: Chronically ill-appearing woman on ventilator HEENT: sclerae anicteric, asymmetric pupils L greater than R both reactive Chest: Coarse breath sounds, stent scattered rhonchi Cardiac: S1S2, no murmur Abdomen: BS normal, non-tender Extremities: 1+ edema; right lower extremity wound is bandaged. Neuro: A&O, asymmetric pupil diameter, moves all 4 extremities, reflexes diminished IVs and Medications Medications Reviewed: Medications were reviewed in detail Lab and Diagnostics Result Diagram: 07/24/16 0505 07/24/16 0505 X-Rays, CTs and MRIs PROCEDURE: X-RAY CHEST ONE VIEW, PORTABLE ([id number]) IMPRESSION: Right upper and left lower lobe airspace opacity suspicious for aspiration or pneumonia. Dictated by: Luc ALBERT Interpreted: Benny Hernandez MD on 07/22/2016 at 16: 03 Cardiac Echo Impressions Echocardiogram Report Name: BRIAN WREN Da te: 07/19/2016 Height: 62 in Interpretation Summary The left ventricle is normal in size, wall thickness, and systolic function without any focal wall motion abnormalities. The ejection fraction is estimated to be 60-65%. Assessment of diastolic parameters indicates normal left ventricular diastolic function and normal filling pressures. The right ventricle is normal in size and function. The right ventricular systolic pressure is estimated at 28 mmHg assuming a right atrial pressure of 3 mm Hg. Both atria are normal in size. There is no significant valvular heart disease. The ascending aorta is mildly enlarged. There is an anterior echo-free space consistent with a fat pad. Additional Diagnostics ENDOSCOPY PROCEDURE TYPE OF OPERATION: 1. Esophagogastroduodenoscopy with biopsy and APC and Gold Probe thermocoagulation. 2. Colonoscopy. IMPRESSION: 1. Normal colonoscopy. 2. A 1 cm duodenal first portion ulcer with recent stigmata of bleed, status post argon plasma coagulation and Gold Probe thermocoagulation. 3. Mild nonerosive gastritis. 4. No esophageal or gastric varices seen. 5. A 5 mm duodenal first portion ulcer, clean based, nonbleeding. RECOMMENDATIONS: 1. Stopped octreotide and Protonix drips, given the fact that the Protonix drip has been on for greater than 72 hours. 2. Start Protonix 40 mg by mouth twice a day. 3. Carafate 1 g by mouth 4 times a day. 4. Await pathology results. 5. Start clear liquid diet. Advance as tolerated. 6. The patient will need outpatient repeat EGD in approximately two to three months to document healing of the ulcers. Joao Isabel MD 07/23/16 1630 . Assessment & Plan 60yoF with minimal medical follow up as an outpatient transferred for direct admit from [facility] due to hemoglobin 5.5 following recent fall and blood loss from right lower extremity chronic wounds. As complicated by acute respiratory failure with hypoxia and possible sepsis on 07/23. Acute and high-risk problems: #. Sepsis, acute, POA. Initial impression on presentation was sepsis likely respiratory vs right lower extremity infection. Started on vancomycin plus Zosyn. Clinically stable infectious status for several days. Developed acute sepsis syndrome (heart rate 109, respiratory rate 28, WBC 33K with respiratory failure) at night on 07/23 resulting in intubation. - Continue fluid resuscitation. - Norepinephrine infusion as needed to maintain mean arterial pressure greater than 65 - Continue broad-spectrum antibiotics for presumed pneumonia source #. Acute respiratory failure with hypoxia. Healthcare facility acquired pneumonia. Chest x-ray previously showed right mid and lower field opacities. Now diffuse alveolar pattern on left developed since respiratory compromise on . - Vanco plus Zosyn, changed to meropenem on 07/24 - Fentanyl or propofol for sedation underventilation - Ventilator bundle orders #. Acute blood loss anemia, GI bleeding, duodenal ulcer. Started on ceftriaxone and octreotide, which were subsequently discontinued - Protonix, switch to IV - Continue sucralfate if compatible with OGT administration - Follow hemoglobin - GI is following. #. Cirrhosis with Ascites, POA. Complicated by encephalopathy, ascites and anasarca. No varices. Paracentesis 07/21 with 0 PMN's. No SBP therapy indicated. - Continue lactulose. - Hold rifaximin which is incompatible with OGT administration. - Return to furosemide and spironolactone when hemodynamically stable and taking by mouth #. Acute alcohol withdraw. Initially managed with CIWA. Has not had significant benzodiazepine needs. - Follow clinically - Minimize sedation #. Possible COPD exacerbation, POA. Little evidence of bronchospasm. Primary acute stroke problem appears to be pulmonary infiltrates. - albuterol-ipratropium q4hr, albuterol q2hr PRN - Discontinue prednisone 40mg PO daily #. Ground level fall, acute. POA. She has multiple right-sided rib fractures. Supportive treatment Resolving, stable, and/or chronic problems: #. Right internal carotid aneurysm, incidental finding. POA. This was discussed with neurosurgery at [facility] and there is no need for acute intervention at this time. #. Alcohol dependence, chronic -as per , no h/o withdrawal -drinks 2 bottles of wine per day -CIWA #. Right lower extremity wound, chronic. POA. -wound consult, purulent as per report -piperacillin-tazobactam, vancomycin ordered GI Prophylaxis: Proton Pump Inhibitor VTE Prophylaxis: Other (possible GI bleed, unable to use SCDs d/t leg wounds) Resuscitation Status: CPR: Attempt Resuscitation Time spent 45 minutes Jose Juan Thomason MD Jul 24, 2016 11:05 Ao V2 max MV E max nabil MV E/A: 1.2 TR max nabil : 198.7 cm/sec : 131.9 cm/sec Med Peak E' Nabil : 247.7 cm/sec Ao max PG MV A max nabil TR max PG : 15.8 mmHg : 114.3 cm/sec E/E' med: 10.1 : 24.5 mmHg Ao mean PG MV P1/2t: 35.7 msec Lat Peak E' Nabil PA V2 max : 7.5 mmHg : 102.3 cm/sec E/E' lat: 12.2 PA mean PG E/e' average: 11.1 PA Accel Time : 0.14 sec MV dec time MV P1/2t max nabil Ao V2 mean PA V2 mean : 0.12 sec : 127.6 cm/sec : 64.6 cm/sec MVA(P1/2t): 6.2 cm2 Ao V2 VTI: 42.4 cm Reading Physician:PM Additional Diagnostics ENDOSCOPY PROCEDURE TYPE OF OPERATION: 1. Esophagogastroduodenoscopy with biopsy and APC and Gold Probe thermocoagulation. 2. Colonoscopy. IMPRESSION: 1. Normal colonoscopy. 2. A 1 cm duodenal first portion ulcer with recent stigmata of bleed, status post argon plasma coagulation and Gold Probe thermocoagulation. 3. Mild nonerosive gastritis. 4. No esophageal or gastric varices seen. 5. A 5 mm duodenal first portion ulcer, clean based, nonbleeding. RECOMMENDATIONS: 1. Stopped octreotide and Protonix drips, given the fact that the Protonix drip has been on for greater than 72 hours. 2. Start Protonix 40 mg by mouth twice a day. 3. Carafate 1 g by mouth 4 times a day. 4. Await pathology results. 5. Start clear liquid diet. Advance as tolerated. 6. The patient will need outpatient repeat EGD in approximately two to three months to document healing of the ulcers. Joao Isabel MD 07/23/16 3950 . Assessment & Plan 60yoF with minimal medical follow up as an outpatient transferred for direct admit from [facility] due to hemoglobin 5.5 following recent fall and blood loss from right lower extremity chronic wounds. Acute and high-risk problems: #. Sepsis, acute, POA. Initial impression on presentation was sepsis likely respiratory vs right lower extremity infection. Started on vancomycin plus Zosyn. Clinically stable infectious status for several days. Developed acute sepsis syndrome (heart rate 109, respiratory rate 28, WBC 33K with respiratory failure) at night on 07/23 resulting in intubation. - Continue fluid resuscitation. - Norepinephrine infusion as needed to maintain mean arterial pressure greater than 65 - Continue broad-spectrum antibiotics for presumed pneumonia source #. Acute respiratory failure with hypoxia. Healthcare facility acquired pneumonia. Chest x-ray previously showed right mid and lower field opacities. Now diffuse alveolar pattern on left developed since respiratory compromise on . - Continue Vanco plus Zosyn #. Acute blood loss anemia, GI bleeding, duodenal ulcer. Started on ceftriaxone and octreotide, which were subsequently discontinued - Protonix, switch to IV - Hold sucralfate until taking by mouth - Follow hemoglobin - GI is following. #. Cirrhosis with Ascites, POA. Complicated by encephalopathy, ascites and anasarca. No varices. Paracentesis 07/21 with 0 PMN's. No SBP therapy indicated. - Continue lactulose. - Hold rifaximin which is incompatible with OGT administration. - Return to furosemide and spironolactone when hemodynamically stable and taking by mouth #. Acute alcohol withdraw. Initially managed with CIWA. Has not had significant benzodiazepine needs. - Follow clinically - Minimize sedation #. Possible COPD exacerbation, POA. Little evidence of bronchospasm. Primary acute stroke problem appears to be pulmonary infiltrates. - albuterol-ipratropium q4hr, albuterol q2hr PRN - Discontinue prednisone 40mg PO daily #. Ground level fall, acute. POA. She has multiple right-sided rib fractures. Supportive treatment Resolving, stable, and/or chronic problems: #. Right internal carotid aneurysm, incidental finding. POA. This was discussed with neurosurgery at [facility] and there is no need for acute intervention at this time. #. Alcohol dependence, chronic -as per , no h/o withdrawal -drinks 2 bottles of wine per day -CIWA #. Right lower extremity wound, chronic. POA. -wound consult, purulent as per report -piperacillin-tazobactam, vancomycin ordered Met with her family multiple times and I discussed frankly with him her very guarded prognosis. GI Prophylaxis: Proton Pump Inhibitor VTE Prophylaxis: Other (possible GI bleed, unable to use SCDs d/t leg wounds) Resuscitation Status: CPR: Attempt Resuscitation Time spent 30 minute Isaias Sams MD Jul 20, 2016 13:05 GI Prophylaxis: Proton Pump Inhibitor VTE Prophylaxis: Other (possible GI bleed, unable to use SCDs d/t leg wounds) Resuscitation Status: CPR: Attempt Resuscitation Time spent 30 minutes Jelly Araujo MD Jul 22, 2016 13:39 <Electronically signed by Jelly Araujo MD> 07/23/16 0718 GI Prophylaxis: Proton Pump Inhibitor VTE Prophylaxis: Other (possible GI bleed, unable to use SCDs d/t leg wounds) Resuscitation Status: CPR: Attempt Resuscitation Time spent 45 minutes Jose Juan Thomason MD Jul 24, 2016 11:05
--- NOTE | 2016-07-24 12:12 | NUR ---
Social Work: Continued Discharge Planning D: Pt is on day 5 of stay. Overnight, pt with worsened encephalopathy and respiratory distress requiring intubation. Pt has a history of severe ETOH abuse drinking approximately 2 bottles of wine daily. CDP through [place] is following the pt and will see her when/if she is extubated and appropriate. A: Pt who is currently in CCU status P: Evolving; CHIEF CLINICAL DIETITIAN to continue to follow closely and inform CDP when pt may be appropriate for assessment. KAVYA Hatch
[2016-07-24] MEDS ORDERED: Meropenem Inj 1,000 MG in IV Premix 1 EACH IV SCH (12:25)
--- NOTE | 2016-07-24 12:30 | PCM.PNSURG ---
Subjective Date of Service: Jul 24, 2016 Date of Service: Jul 24, 2016 Visit Information: Subjective: events noted overnights. suspect aspiration pna. s/p egd/colon yesterday (see note for full details) Postop General: No Complaints Objective Vital Sign- Last 8 Hours Date Time Temp Pulse Resp B/P Pulse Ox O2 Delivery O2 Flow Rate FiO2 07/24/16 12:01 85 103/85 97 75 07/24/16 09:16 86 80/57 97 100 07/24/16 08:49 36.9 94 18 107/60 97 Mechanical Ventilator 100 07/24/16 07:36 Ventilator 07/24/16 06:28 109 28 88 Nasal Cannula 45 80 07/24/16 05:45 92 07/24/16 04:41 109 18 93 Non-Rebreather 14.00 Intake and Output- Last 8 Hour 07/24/16 Cumulative From/Thru 06:59 07/19/16 04:15 - 07/24/16 05:25 Intake Total 1267 ml 8975 ml Output Total 100 ml 5355 ml Balance 1167 ml 3620 ml Intake Oral 0 ml 2250 ml IV Total 1267 ml 5825 ml Packed Cells 900 ml Output Urine Total 100 ml 2700 ml Stool Total 5 ml Other 2650 ml # Voids 3 # Bowel Movements 17 General: No Acute Distress Neck: Supple Heart: Exam Unremarkable Abdomen: Benign, Soft, Non-tender, Non-distended, Normoactive bowel tones Extremities: Distal Pulses Palpable Result Diagram: 07/24/16 0505 07/24/16 0505 Assessment & Plan Impression 60 year old woman with history of COPD, and cirrhosis secondary to alcohol use MELD 10 as of 07/23/2016, that presented to [facility] via EMS as a transfer from [place] for management of suspected acute upper GI bleed with initial Hb 5.5 following a recent GLF. She was admitted for evaluation and treatment of acute on chronic anemia, assessment of GLF, and possible COPD exacerbation. GI was consulted to assist in further evaluation for etiology of suspected upper GI bleed. CT A/P wo contrast 07/19: No evidence of urinary tract calcification, nor obstruction. Cirrhosis and portal hypertension, with associated portosystemic collateral vessels, and small to moderate amount of ascites. Subacute and acute right rib fractures. Indeterminate right adrenal nodule, which could be further assessed with MRI, if clinically indicated. Fat and fluid containing hiatal hernia. Cholelithiasis. Possible right colon thickening, which could indicate infection, ischemia, or inflammation. s/p egd/colon 07/23/2016- IMPRESSION: 1. Normal colonoscopy. 2. A 1 cm duodenal first portion ulcer with recent stigmata of bleed, status post argon plasma coagulation and Gold Probe thermocoagulation. 3. Mild nonerosive gastritis. 4. No esophageal or gastric varices seen. 5. A 5 mm duodenal first portion ulcer, clean based, nonbleeding. Assessments - Acute on chronic anemia s/p 5U pRBC; likely secondary to duodenal ulcerative bleeding s/p egd colon 07/23/2016 apc, gold probe - History of alcoholic cirrhosis, evidenced on imaging - Ascites secondary to alcoholic cirrhosis, s/p therapeutic and diagnosis USG paracentesis with 2.6L fluid removed - MELD score on admit 07/19: 13; 6.0% est 3-month mortality (Na 135, Cr 0.64, INR 1.20, bili 2.2, no hx dialysis) Recs: - cont protonix 40mg iv bid, carafate 1g po qid - xifaxan 550mg po bid for HE - etoh cessation - repeat egd as outpatient in 2 months to document healing duodenal ulcers. - goal 3bm/day given hx cirrhosis. will cont to follow Problems: VTE Prophylaxis: Other (possible GI bleed, unable to use SCDs d/t leg wounds) Resuscitation Status: CPR: Attempt Resuscitation Joao Isabel MD Jul 24, 2016 12:29
[2016-07-24] MEDS: Lactulose 20 Gm/30 mL 30 mL Syrup PO SCH ×2 (12:34→19:59)
--- NOTE | 2016-07-24 12:59 | DRSVH ---
PROCEDURE: X-RAY CHEST ONE VIEW, PORTABLE ([id number]) INDICATIONS: sob TECHNIQUE: One view of the chest was acquired. COMPARISON: [facility], CR, XR CHEST 1VW (PORTABLE), 07/22/2016, 15:31. [facility], CR, XR CHEST 1VW (PORTABLE), 07/24/2016, 6:59. FINDINGS: Surgical changes and devices: Right upper extremity PICC line is stable in position. Lungs and pleura: There are new confluent left sided airspace opacities as well as increased retroca rdiac opacities bilaterally. There are small bilateral pleural effusions. There is increased pulmon amanda edema. Mediastinum: Mediastinal contours appear prominent likely due to rotation. Heart size is obscured b y left basilar opacities. Bones and chest wall: No suspicious bony lesions. Overlying soft tissues appear unremarkable. IMPRESSION: 1. Increased confluent airspace opacities in the left lung and retrocardiac regions compatible with consolidation as well as possible associated atelectasis. 2. Increased pulmonary edema. 3. Small bilateral pleural effusions. Dictated by: Kyle Rainey M.D. on 07/24/2016 at 12:51 Approved by: Kyle Rainey M.D. on 07/24/2016 at 12:53
--- NOTE | 2016-07-24 15:21 | CONS ---
[address] [address] CONSULTATION REPORT PATIENT: BRIAN WREN : 1955 MR#: [id number] ADMIT: 07/19/2016 JOB ID: [id number] DATE OF SERVICE: 07/24/2016 PULMONARY CRITICAL CARE CONSULTATION NOTE: The patient is a 60-year-old woman with alcoholic cirrhosis and ongoing alcohol abuse admitted to the hospital with GI bleed due to duodenal ulcer and transferred to the ICU for aspiration pneumonia/pneumonitis with acute respiratory failure. I am seeing her in consultation at the request of Dr. Thomason for acute respiratory failure. HISTORY OF PRESENT ILLNESS: The patient is intubated by the time I met her so all of the history is obtained per review of medical records. She was admitted to the hospital on July 19 with anemia with a hemoglobin of 5.5. She has a history of drinking two bottles of wine every day despite cirrhosis and has not been seen by a physician in over two years according to her family at the bedside. She underwent EGD and colonoscopy on July 23, i.e., yesterday by Dr. Isabel and was found to have a duodenal ulcer with signs of recent bleed although not actively bleeding. Postprocedure last night she has had increasing hypoxemia and respiratory distress. Nursing notes indicate gurgling upper airway sounds and eventually she was moved to the ICU and intubated for worsening hypercarbic hypoxic respiratory failure. She was intubated early this morning and had some hypotension immediately after which resolved with 1 L IV fluid bolus. She is on very low-dose norepinephrine right now at 0.02 mcg and making urine about 400 cc since 7 a.m. this morning. She is on 75% FiO2 on the ventilator. Past medical history, social history, family history, and review of systems could not be obtained from the patient since she is intubated and is based completely on review of medical records. PAST MEDICAL HISTORY: 1. COPD. 2. Alcoholic cirrhosis. 3. Alcohol abuse. 4. Family history could not be obtained. 5. Review of systems could not be obtained. SOCIAL HISTORY: Drinks about two bottles of wine every day. Lives with her . Has two daughters who are at the bedside. PHYSICAL EXAMINATION: Vital signs reviewed. Temperature 36.9, pulse 86, respirations 18, BP 103/85, sats 97% on 75% FiO2. General: Intubated, sedated, unresponsive. She has some coarse breath sounds bilaterally. Heart: Regular rate, rhythm. Neck: No cervical lymphadenopathy. HEENT: ET tube is in place. Abdomen: Nontender, mildly distended. Extremities: She does have some lower extremity edema and erythema suggesting venous stasis. LABORATORIES: Labs reviewed. WBC is up to 33 today from 12.1, platelets 121. INR 1.2. Chemistry reviewed and notable for a sodium up to 150, chloride of 115, creatinine 0.8. Chest x-ray today reviewed and shows dense bilateral consolidation. Hilar predominant, worse on the left. This is new compared to prior x-ray from July 22. Arterial blood gas post extubation shows pH 7.37, pCO2 of 44, pO2 of 70 and bicarbonate of 25. ASSESSMENT AND RECOMMENDATIONS: 1. Acute hypoxic respiratory failure on mechanical ventilation. July 24. 2. Aspiration pneumonia/pneumonitis. 3. Severe sepsis/septic shock. 4. Alcoholic cirrhosis. 5. Hypernatremia. 6. Upper gastrointestinal bleed due to duodenal ulcer-resolved. This 60-year-old woman with alcoholic cirrhosis was admitted with a GI bleed and found to have a duodenal ulcer on endoscopy yesterday which had stopped bleeding. She is getting an IV PPI for that. Overnight she developed worsening respiratory distress and what appeared to be aspiration pneumonitis with clear abnormality seen on chest x-ray. She is intubated as of this morning and is on 75% FiO2. I will try increasing her PEEP to 8 and then 10 cm if tolerated by her blood pressure. With regard to antibiotics, it looks like she has been on vancomycin and Zosyn for a few days. I am going to stop Zosyn and switch her to meropenem. Sputum cultures are pending at this time. Blood cultures will be somewhat pointless with both vanc and Zosyn on board. An MRSA nasal screen is pending and if this is negative, I think we can stop the vancomycin. She is on very low-dose vasopressor and I am not sure that we need additional fluid at this point, but we could consider adding fluid boluses before having to go up on the pressor. With regards to sedation, she is on propofol at 15 and is not on any fentanyl drips yet. I asked the nursing staff to avoid fentanyl if possible because of her cirrhosis and just use boluses as needed for turns and oral care, etc. With regards to hepatic encephalopathy, she is supposedly on lactulose p.r.n. I changed this to q.4 hours scheduled with hold parameters if she makes greater than 2 L of stool or has greater than three soft stools a day. I spoke to the daughters at bedside. They had questions about how long we can expect her to be here. I explained frankly that it depends on how she does over the next 24 hours and if she continues to improve and her oxygenation improved, we will be doing breathing trials every day and hopefully plan on extubating her in a couple of days or so. However, if she continues to worsen and develops worsening septic shock, then things will be very different and her chances of not surviving this would be much higher. The patient's family indicated that she would not be on prolonged life support. They also admit that she would probably never stop drinking alcohol even if she was told it was killing her. CRITICAL CARE TIME: 60 minutes.
[2016-07-24] MEDS: Pantoprazole 4 mg/mL 10 mL Inj IVPUSH SCH (17:16)
--- NOTE | 2016-07-24 17:49 | NUR ---
STATUS PRVC with 75% fi02 and 10 of PEEP. Sp02 >92%. Propofol sedation continued at 15mcg/kg/min. No s/s of discomfort or pain. PRN IV fentanyl available as needed for pain control. SR per hospital monitor. Norepinephrine gtt infusing at 0.04mcg/kg/min, MAP > 65. IVFs continued as ordered. 550cc concentrated urine output this shift. Tube feeding with 150cc free water flushes q 3hrs, pt tolerating. Blood glucose elevated, Dr Thomason notified. Lactulose as scheduled, 1 small semi-formed stool this shift. Family remains at bedside. Will continue to monitor.
[2016-07-24] MEDS: Meropenem 1 Gm/100 mL NS Minibag Plus IV SCH ×2 (19:59)
[2016-07-25] VITALS (13 sets, daily range): BP systolic 91–111; BP diastolic 54–69; PULSE 89–104; RESP 17–19; O2SAT 92–99
[2016-07-25] MEDS: Propofol Inj 1,000,000 MCG in IV Premix 1 EACH IV SCH ×4 (00:06→23:45)
[2016-07-25] MEDS: Albuterol-Ipratropium 3 mL Inhalation Solution NEB SCH ×6 (00:37→20:40)
[2016-07-25] MEDS: Lactulose 20 Gm/30 mL 30 mL Syrup PO SCH ×4 (01:19→18:57)
[2016-07-25] MEDS: Octreotide Inj 500 MCG in 0.9% Sodium Chloride 99 ML IV SCH ×2 (01:19→11:25)
[2016-07-25] MEDS: Meropenem 1 Gm/100 mL NS Minibag Plus IV SCH ×8 (01:19→23:43)
[2016-07-25] MEDS: D5 0.45% NaCl + KCl 20 mEq/L 1,000 ML IV SCH (03:21)
[2016-07-25] MEDS: 0.9% Sodium Chloride 250 ML IV SCH (03:31)
[2016-07-25 03:42] LABS: BASOPHILS % (AUTO) 0.1 % (0-3); EOSINOPHILS % (AUTO) 0.4 % (0-5); MONOCYTES % (AUTO) 5.2 % (4-12); Platelet Count 110 bil/L (150-400)
--- NOTE | 2016-07-25 06:31 | NUR ---
Hypotension/Labs Pt on low dose levo gtt, cvp 10, on d5 1/2 IVF, map hovering from 63-65, unable to wean levo gtt; RASS +1 with activity, increased propofol gtt, pt over breathing on vent set rate, RR low 20's, fio2 0.75 on vent;Tolerating trickle TF, with free h20, NA improved this AM down to 146, H/H 8.4 & 27.9, Hospitalist aware of labs with no new order, no s/s of bleeding.
[2016-07-25] MEDS: Pantoprazole 4 mg/mL 10 mL Inj IVPUSH SCH ×2 (07:38→17:17)
[2016-07-25] MEDS: Norepineph 8,000 mCg/250 mL NS 8,000 MCG in IV Premix 1 EACH IV SCH ×2 (07:39→21:13)
[2016-07-25] MEDS ORDERED: Furosemide 10 mg/mL 4 mL Inj IVPUSH ONE (07:45)
--- NOTE | 2016-07-25 08:28 | PCM.PNMED ---
Subjective Date of Service Jul 25, 2016 Subjective 63-year-old woman with alcoholic cirrhosis and limited compliance presents with alcohol withdrawal, acute GI blood loss anemia and encephalopathy.On 07/23 nighttime she developed worsened encephalopathy and respiratory distress, likely aspiration pneumonia. She was intubated on 07/23. Now on sedation. Not responding to questions. Moving all 4 extremities spontaneously. Exam Vital Signs Vital Sign - Last Date Time Temp Pulse Resp B/P Pulse Ox O2 Delivery O2 Flow Rate FiO2 07/25/16 07:44 37.8 91 17 105/56 92 Mechanical Ventilator 07/25/16 04:19 75 07/24/16 06:28 45 Intake and Output 07/24/16 07/24/16 07/25/16 Cumulative From/Thru 15:00 23:00 07:00 07/19/16 04:15 - 07/25/16 05:48 Intake Total 2638 ml 2692 ml 00981 ml Output Total 675 ml 300 ml 6330 ml Balance 1963 ml 2392 ml 7975 ml Intake Oral 2250 ml IV Total 2638 ml 2011 ml 44159 ml Tube Feeding 121 ml 121 ml Packed Cells 900 ml Tube Irrigant 560 ml 560 ml Output Urine Total 550 ml 300 ml 3550 ml Stool Total 5 ml Gastric Drainage Total 125 ml 125 ml Other 2650 ml # Voids 3 # Bowel Movements 1 1 19 Exam General: Chronically ill-appearing obese woman on ventilator HEENT: sclerae anicteric Chest: Coarse breath sounds, scattered rhonchi, no wheeze Cardiac: S1S2, no murmur Abdomen: BS normal, distended with flank dullness, non-rigid Extremities: 2+ edema; right lower extremity wound is bandaged. Neuro: Sedated, moves all 4 extremities, reflexes diminished IVs and Medications Medications Reviewed: Medications were reviewed in detail Lab and Diagnostics Ammonia: 43 and admission, 108 on 07/24, 59 on 07/25 Arterial blood gas: DateTimeAnalyzed 14:51:00 -_ on room air pH ____7.317 - pCO2 ___53.4__ -mmHg pO2 ___49.1__ -mmHg HCO3- ___26.6__ -mmol/L FIO2 ___21.0__ -% DateTimeAnalyzed 05:57:00 -_ time of intubation pH ____7.223 - 7.350 7.450 pCO2 ___69.1__ -mmHg 35.0 45.0 pO2 ___68.7__ -mmHg 69.0 116 HCO3- ___27.4__ -mmol/L 22.0 26.0 FIO2 __100.0__ -% DateTimeAnalyzed 08:57:00 -_ intubated pH ____7.458 - 7.350 7.450 pCO2 ___35.0__ -mmHg 35.0 45.0 pO2 ___46.7__ -mmHg 69.0 116 HCO3- ___24.4__ -mmol/L 22.0 26.0 FIO2 ___75.0__ -% Result Diagram: 07/25/16 0320 07/25/16 0320 Microbiology MRSA nasal swab negative Paracentesis culture negative Urine culture 07/19 negative X-Rays, CTs and MRIs PROCEDURE: X-RAY CHEST ONE VIEW, PORTABLE ([id number]) IMPRESSION: Right upper and left lower lobe airspace opacity suspicious for aspiration or pneumonia. Dictated by: Luc ALBERT Interpreted: Benny Hernandez MD on 07/22/2016 at 16: 03 Chest x-ray 07/25 - personally reviewed Reduced inspiration, air bronchogram with dense left lower lobe infiltrate, right lower lobe interstitial pattern PROCEDURE: X-RAY CHEST ONE VIEW, PORTABLE ([id number]) IMPRESSION: 1. Endotracheal tube in appropriate position. Orogastric tube extends into the stomach with the tip not included on current study. 2. Confluent left airspace opacities redemonstrated likely representing pneumonia. 3. Bibasilar opacities consistent with consolidation/pneumonia, aspiration, or atelectasis again noted. 3. Mild pulmonary edema with interval improved aeration in the lung bases. 4. Small bilateral pleural effusions. Dictated by: Kyle Rainey M.D. on 07/24/2016 at 9:18 PROCEDURE: CT ABDOMEN AND PELVIS WITHOUT CONTRAST ([id number]) IMPRESSION: 1. No evidence of urinary tract calcification, nor obstruction. 2. Cirrhosis and portal hypertension, with associated portosystemic collateral vessels, and small to moderate amount of ascites. 3. Subacute and acute right rib fractures. 4. Indeterminate right adrenal nodule, which could be further assessed with MRI , if clinically indicated. 5. Fat and fluid containing hiatal hernia. 6. Cholelithiasis. 7. Possible right colon thickening, which could indicate infection, ischemia, or inflammation. 8. Findings discussed with Dr. Isaias Sams on 07.02.16 at 0857 hrs Dictated by: Benny Hernandez M.D. on 07/19/2016 at 8:47 . Cardiac Echo Impressions Echocardiogram Report Name: BRIAN WREN LStudy Date: 07/19/2016 Height: 62 in Interpretation Summary The left ventricle is normal in size, wall thickness, and systolic function without any focal wall motion abnormalities. The ejection fraction is estimated to be 60-65%. Assessment of diastolic parameters indicates normal left ventricular diastolic function and normal filling pressures. The right ventricle is normal in size and function. The right ventricular systolic pressure is estimated at 28 mmHg assuming a right atrial pressure of 3 mm Hg. Both atria are normal in size. There is no significant valvular heart disease. The ascending aorta is mildly enlarged. There is an anterior echo-free space consistent with a fat pad. Additional Diagnostics ENDOSCOPY PROCEDURE TYPE OF OPERATION: 1. Esophagogastroduodenoscopy with biopsy and APC and Gold Probe thermocoagulation. 2. Colonoscopy. IMPRESSION: 1. Normal colonoscopy. 2. A 1 cm duodenal first portion ulcer with recent stigmata of bleed, status post argon plasma coagulation and Gold Probe thermocoagulation. 3. Mild nonerosive gastritis. 4. No esophageal or gastric varices seen. 5. A 5 mm duodenal first portion ulcer, clean based, nonbleeding. RECOMMENDATIONS: 1. Stopped octreotide and Protonix drips, given the fact that the Protonix drip has been on for greater than 72 hours. 2. Start Protonix 40 mg by mouth twice a day. 3. Carafate 1 g by mouth 4 times a day. 4. Await pathology results. 5. Start clear liquid diet. Advance as tolerated. 6. The patient will need outpatient repeat EGD in approximately two to three months to document healing of the ulcers. Joao Isabel MD 07/23/16 1630 . Assessment & Plan 60yoF with minimal medical follow up as an outpatient transferred for direct admit from [place] due to hemoglobin 5.5 following recent fall and blood loss from right lower extremity chronic wounds. As complicated by acute respiratory failure with hypoxia and possible sepsis on 07/23. Acute and high-risk problems: #. Sepsis, acute, POA. Initial impression on presentation was sepsis likely respiratory vs right lower extremity infection. Started on vancomycin plus Zosyn. Clinically stable infectious status for several days. Developed acute sepsis syndrome (heart rate 109, respiratory rate 28, WBC 33K with respiratory failure) at night on 07/23 resulting in intubation. Subsequent picture appears to be left-sided acute pneumonia. - Continue fluid resuscitation. - Norepinephrine infusion as needed to maintain mean arterial pressure greater than 65 - Continue broad-spectrum antibiotics for presumed pneumonia source #. Acute respiratory failure with hypoxia. Healthcare facility acquired pneumonia. Chest x-ray previously showed right mid and lower field opacities. Now diffuse alveolar pattern on left developed since respiratory compromise on . - Continue mechanical ventilation. Try to wean FiO2, increase PEEP to 12 cm - Initially Vanco plus Zosyn, changed to meropenem on 07/24 - Discontinue vancomycin on 07/25 in light of negative MRSA swab - Fentanyl bolus or propofol for sedation under ventilation - Ventilator bundle orders #. Acute blood loss anemia, GI bleeding, duodenal ulcer. Started on ceftriaxone and octreotide, which were subsequently discontinued - Protonix IV - Continue sucralfate if compatible with OGT administration - Follow hemoglobin - GI is following. #. Cirrhosis with Ascites, POA. Nodular liver with signs of portal hypertension on CT scan. Complicated by encephalopathy, ascites and anasarca. No varices. Paracentesis 07/21 with 0 PMN's. No SBP therapy indicated. - Continue lactulose. - Hold rifaximin which is incompatible with OGT administration. - Return to furosemide and spironolactone when hemodynamically stable and taking by mouth - Plan therapeutic paracentesis if ascites following abdominal ultrasound on #. Possible COPD exacerbation, POA. Little evidence of bronchospasm. Primary acute stroke problem appears to be pulmonary infiltrates. - albuterol-ipratropium q4hr, albuterol q2hr PRN - Discontinue prednisone 40mg PO daily #. Ground level fall, acute. POA. She has multiple right-sided rib fractures. They contribute to poor respiratory function - Supportive treatment Resolving, stable, and/or chronic problems: #. Acute alcohol withdraw. Initially managed with CIWA. Has not had significant benzodiazepine needs. - Follow clinically #. Right internal carotid aneurysm, incidental finding. POA. This was discussed with neurosurgery at [facility] and there is no need for acute intervention at this time. #. Right adrenal nodule 12 mm, Hounsfield units 19. - Requires outpatient follow-up #. Alcohol dependence, chronic -as per , no h/o withdrawal -drinks 2 bottles of wine per day -CIWA #. Right lower extremity wound, chronic. POA. -wound consult, purulent as per report -piperacillin-tazobactam, vancomycin ordered GI Prophylaxis: Proton Pump Inhibitor VTE Prophylaxis: Other (possible GI bleed, unable to use SCDs d/t leg wounds) VTE Mechanical Devices: Intermittant Pneumatic CD Resuscitation Status: CPR: Attempt Resuscitation Time spent 55 minutes Jose Juan Thomason MD Jul 25, 2016 08:28
[2016-07-25] MEDS: Vancomycin Inj 1,000 MG in IV Premix 1 EACH IV SCH (08:38)
[2016-07-25] MEDS: Vancomycin Dose per Pharmacist XX SCH (08:43)
--- NOTE | 2016-07-25 09:00 | ABG ---
DateTimeAnalyzed 08:57:00 -_ pH ____7.458 - 7.350 7.450 pCO2 ___35.0__ -mmHg 35.0 45.0 pO2 ___46.7__ -mmHg 69.0 116 HCO3- ___24.4__ -mmol/L 22.0 26.0 ABE ____1.2__ -mmol/L -2.0 2.0 tHb ____8.8__ -g/dL O2Hb ___83.7__ -% COHb ____1.5__ -% MetHb ____1.0__ -% sO2 ___85.8__ -% FIO2 ___75.0__ -% PEEP ___10.0__ -cmH2O Set_RR ___18.0__ -b/min Vt __360.0__ -L Drawn By NB - Date/Time Notified____ 09:00:00 -_ Oxygen Device 1 VENTILATOR - Notified By nb - Notified Whom DR Thomason - B 753 -mmHg tO2 ___10.4__ -Vol% Isaias test _Positive -
--- NOTE | 2016-07-25 09:09 | DRSVH ---
PROCEDURE: X-RAY CHEST ONE VIEW ([id number]) INDICATIONS: vent TECHNIQUE: One view of the chest was acquired. COMPARISON: [facility], CR, XR CHEST 1VW (PORTABLE), 07/24/2016, 6:59. [facility], CR, XR CHEST 1VW (PORTABLE), 07/24/2016, 5:39. FINDINGS: Surgical changes and devices: Tubes and catheters are in stable and expected positions. Lungs and pleura: No pleural effusions or pneumothorax. Moderate patchy bibasilar and left midlung a irspace opacities are present which are slightly increased. Mediastinum: Mediastinal contours appear normal. Heart size is normal. Bones and chest wall: No suspicious bony lesions. Overlying soft tissues appear unremarkable. IMPRESSION: Increased multifocal pneumonia. Dictated by: Benny Hernandez M.D. on 07/25/2016 at 9:07 Approved by: Benny Hernandez M.D. on 07/25/2016 at 9:07
--- NOTE | 2016-07-25 09:24 | NUR ---
Pt intubated. Speech therapy will sign off at this time. Please reorder ST at time of extubation.
--- NOTE | 2016-07-25 10:13 | PCM.PNSURG ---
Subjective Date of Service: Jul 25, 2016 Date of Service: Jul 25, 2016 Visit Information: Subjective: hb 8.4 this am. no overt signs gi bleed. Postop General: No Complaints Objective Vital Sign- Last 8 Hours Date Time Temp Pulse Resp B/P Pulse Ox O2 Delivery O2 Flow Rate FiO2 07/25/16 09:16 94 111/62 97 75 07/25/16 07:45 Ventilator 07/25/16 07:44 37.8 91 17 105/56 92 Mechanical Ventilator 07/25/16 04:19 94 111/62 97 75 07/25/16 03:49 90 07/25/16 03:49 37.4 90 19 91/54 95 Mechanical Ventilator 75 Intake and Output- Last 8 Hour 07/25/16 Cumulative From/Thru 07:00 07/19/16 04:15 - 07/25/16 05:48 Intake Total 2692 ml 59981 ml Output Total 300 ml 6330 ml Balance 2392 ml 7975 ml Intake Oral 2250 ml IV Total 2011 ml 85106 ml Tube Feeding 121 ml 121 ml Packed Cells 900 ml Tube Irrigant 560 ml 560 ml Output Urine Total 300 ml 3550 ml Stool Total 5 ml Gastric Drainage Total 125 ml Other 2650 ml # Voids 3 # Bowel Movements 1 19 General: Alert Neck: Supple Lungs: Rhonchorus Heart: Exam Unremarkable Abdomen: Benign, Soft, Distended, Normoactive bowel tones Extremities: Distal Pulses Palpable Result Diagram: 07/25/16 0320 07/25/16 0320 Assessment & Plan Impression 60 year old woman with history of COPD, and cirrhosis secondary to alcohol use MELD 10 as of 07/23/2016, that presented to [facility] via EMS as a transfer from [place] for management of suspected acute upper GI bleed with initial Hb 5.5 following a recent GLF. She was admitted for evaluation and treatment of acute on chronic anemia, assessment of GLF, and possible COPD exacerbation. GI was consulted to assist in further evaluation for etiology of suspected upper GI bleed. CT A/P wo contrast 07/19: No evidence of urinary tract calcification, nor obstruction. Cirrhosis and portal hypertension, with associated portosystemic collateral vessels, and small to moderate amount of ascites. Subacute and acute right rib fractures. Indeterminate right adrenal nodule, which could be further assessed with MRI, if clinically indicated. Fat and fluid containing hiatal hernia. Cholelithiasis. Possible right colon thickening, which could indicate infection, ischemia, or inflammation. s/p egd/colon 07/23/2016- IMPRESSION: 1. Normal colonoscopy. 2. A 1 cm duodenal first portion ulcer with recent stigmata of bleed, status post argon plasma coagulation and Gold Probe thermocoagulation. 3. Mild nonerosive gastritis. 4. No esophageal or gastric varices seen. 5. A 5 mm duodenal first portion ulcer, clean based, nonbleeding. Assessments - Acute on chronic anemia s/p 5U pRBC; likely secondary to duodenal ulcerative bleeding s/p egd colon 07/23/2016 apc, gold probe - History of alcoholic cirrhosis, evidenced on imaging - Ascites secondary to alcoholic cirrhosis, s/p therapeutic and diagnosis USG paracentesis with 2.6L fluid removed - MELD score on admit 07/19: 13; 6.0% est 3-month mortality (Na 135, Cr 0.64, INR 1.20, bili 2.2, no hx dialysis) Recs: - cont protonix 40mg iv bid, carafate 1g po qid - xifaxan 550mg po bid for HE - etoh cessation - repeat egd as outpatient in 2 months to document healing duodenal ulcers. - lactulose 20mg po q6- goal 3bm/day given hx cirrhosis. - d/c octreotide gtt - consider therapeutic paracentesis - cont abx per hospitalist team cover sbp ppx will cont to follow Problems: VTE Prophylaxis: Other (possible GI bleed, unable to use SCDs d/t leg wounds) Resuscitation Status: CPR: Attempt Resuscitation Joao Isabel MD Jul 25, 2016 10:13
[2016-07-25 16:55] LABS: INR 1.18 ratio
--- NOTE | 2016-07-25 18:45 | NUR ---
BP/sedation Assumed care from Jovita Truong RN at 1530. Pts MAP mostly in 60s-70s, titrating levophed to effect (see CCU sheet). Pt RASS score +1 to -1, using propofol bolus and position change. FELDT score 0-1. Q2h turns, frequent oral care and rounding continues. Family at bedside throughout shift. Tube feeds titrating up per order as well.
[2016-07-25 22:34] LABS: Magnesium 1.9 mg/dL (1.6-2.6)
[2016-07-26] VITALS (14 sets, daily range): BP systolic 86–105; BP diastolic 50–81; PULSE 96–104; RESP 18–22; O2SAT 92–100
[2016-07-26] MEDS: Albuterol-Ipratropium 3 mL Inhalation Solution NEB SCH ×6 (00:57→19:24)
[2016-07-26] MEDS: Lactulose 20 Gm/30 mL 30 mL Syrup PO SCH ×4 (01:00→17:46)
[2016-07-26 04:33] LABS: BASOPHILS % (AUTO) 0.1 % (0-3); EOSINOPHILS % (AUTO) 1.4 % (0-5); MONOCYTES % (AUTO) 4.9 % (4-12); Mean Corpuscular Hemoglobin 27.4 pg (27.0-35.0); Mean Corpuscular Volume 94.4 fL (81-100); NEUTROPHILS % (AUTO) 89.2 % (40-74); Platelet Count 101 bil/L (150-400)
[2016-07-26 04:45] LABS: INR 1.16 ratio
[2016-07-26] MEDS: 0.9% Sodium Chloride 250 ML IV SCH ×2 (05:20→23:47)
--- NOTE | 2016-07-26 06:25 | NUR ---
GI/Hypotension/Labs Pt had multiple loose BM throughout the shift, held lactulose dose; periarea reddened with frequent stooling, gentle pericare and applied calmoseptine ointment after each pericare; tolerating tube feeds with minimal residuals, uo from adam remain low (325 cc); Pt has frequent pvc's, rechecked K+ resulted to 3.8 and Mg 1.9; map>65, now on very low dose of levophed. bilateral wrist restraints on.
[2016-07-26] MEDS ORDERED: Vancomycin Serum Trough XX ONE (08:00)
[2016-07-26] MEDS: Pantoprazole 4 mg/mL 10 mL Inj IVPUSH SCH ×2 (08:34→17:45)
[2016-07-26] MEDS: Meropenem 1 Gm/100 mL NS Minibag Plus IV SCH ×6 (08:34→23:38)
--- NOTE | 2016-07-26 09:35 | DRSVH ---
PROCEDURE: X-RAY CHEST ONE VIEW, PORTABLE ([id number]) INDICATIONS: assess interval change TECHNIQUE: One view of the chest was acquired. COMPARISON: None. FINDINGS: Surgical changes and devices: There is an endotracheal tube with the tip approximately 3 cm from nayeli na. There is an orogastric tube extending into stomach with tip not extending beyond the GE junction . There is a right upper extremity PICC line with the tip projected over the upper SVC. Lungs and pleura: There are persistent confluent left airspace opacities as well as bibasilar retroc ardiac opacities consistent with consolidation or atelectasis. Pulmonary edema is also again noted. There are small bilateral pleural effusions. Mediastinum: Mediastinal contours appear prominent likely due to rotation. Heart size is borderline enlarged. Bones and chest wall: No suspicious bony lesions. Overlying soft tissues appear unremarkable. IMPRESSION: 1. Support lines and tubes as above. 2. Confluent left lung airspace opacity redemonstrated likely related to pneumonia although asymmetri c edema cannot be excluded. 3. New airspace opacity within the peripheral right upper lobe consistent with atelectasis versus pne umonia. 4. Bibasilar opacities unchanged consistent with atelectasis versus aspiration or pneumonia. Dictated by: Luc Bolaños RRA Interpreted: Mirella Wu MD on 07/26/2016 at 9:31 Transcribed by: OLIVIA on 07/26/2016 at 9:35 Approved by: Mirella Wu MD, PhD on 07/26/2016 at 18:06
--- NOTE | 2016-07-26 10:27 | PCM.PNMED ---
Subjective Date of Service Jul 26, 2016 Subjective GASTROENTEROLOGY PROGRESS NOTE Ms. Collins remains intubated and sedated in CCU with pressor support. No acute distress noted. Family present at bedside. No questions or concerns at this time. Multiple BM reported overnight, FMS was to be placed when assistance available. No signs overt bleeding at this time. White count remains elevated, HH 7.9/27.2 down from 8.4/27.9 yesterday; LFTs remain stable within range Exam Vital Signs Vital Sign - Last Date Time Temp Pulse Resp B/P Pulse Ox O2 Delivery O2 Flow Rate FiO2 07/26/16 07:43 98 105/60 100 75 07/26/16 07:31 37.1 18 Mechanical Ventilator 14.00 Intake and Output 07/25/16 07/25/16 07/26/16 Cumulative From/Thru 15:00 23:00 07:00 07/19/16 04:15 - 07/26/16 05:46 Intake Total 826 ml 1082 ml 53688 ml Output Total 1400 ml 325 ml 8055 ml Balance -574 ml 757 ml 8158 ml Intake Oral 2250 ml IV Total 225 ml 462 ml 37025 ml Tube Feeding 150 ml 170 ml 441 ml Packed Cells 900 ml Tube Irrigant 451 ml 450 ml 1461 ml Output Urine Total 1400 ml 325 ml 5275 ml Stool Total 5 ml Gastric Drainage Total 125 ml Other 2650 ml # Voids 3 # Bowel Movements 1 07 22 Exam General: intubated and sedated in CCU; no acute distress HEENT: Mucous Membr dry; ETT in place and secured Chest & Lungs: Bilateral crackles at bases; poor inspiratory effort; no use accessory muscles; No wheeze Cardiovascular: Tachycardic rate at approx 90 at time of evaluation Pulses: Radial (equal and bilateral); dorsalis pedis equal and bilateral Abdomen: Umbilical hernia approx 4-5cm diameter without surrounding erythema and appears to be nontender to palpation; firm, ascitic : Wick present and secured Extremities: Diffusely edematous; RLE noted ecchymosis on dorsum and proximal to bandaging; bandaging from ankle to distal aspect knee clean/dry/intact Skin: Warm and dry Neurological: Cannot assess secondary to sedation Lab and Diagnostics Result Diagram: 07/26/16 0415 07/26/16414 Microbiology MRSA nasal swab negative Paracentesis culture negative Urine culture 07/19 negative X-Rays, CTs and MRIs PROCEDURE: X-RAY CHEST ONE VIEW, PORTABLE ([id number]) IMPRESSION: Right upper and left lower lobe airspace opacity suspicious for aspiration or pneumonia. Dictated by: Luc Bolaños [facility] Interpreted: Benny Hernandez MD on 07/22/2016 at 16: 03 Chest x-ray 07/25 - personally reviewed Reduced inspiration, air bronchogram with dense left lower lobe infiltrate, right lower lobe interstitial pattern PROCEDURE: X-RAY CHEST ONE VIEW, PORTABLE ([id number]) IMPRESSION: 1. Endotracheal tube in appropriate position. Orogastric tube extends into the stomach with the tip not included on current study. 2. Confluent left airspace opacities redemonstrated likely representing pneumonia. 3. Bibasilar opacities consistent with consolidation/pneumonia, aspiration, or atelectasis again noted. 3. Mild pulmonary edema with interval improved aeration in the lung bases. 4. Small bilateral pleural effusions. Dictated by: Kyle Rainey M.D. on 07/24/2016 at 9:18 PROCEDURE: CT ABDOMEN AND PELVIS WITHOUT CONTRAST ([id number]) IMPRESSION: 1. No evidence of urinary tract calcification, nor obstruction. 2. Cirrhosis and portal hypertension, with associated portosystemic collateral vessels, and small to moderate amount of ascites. 3. Subacute and acute right rib fractures. 4. Indeterminate right adrenal nodule, which could be further assessed with MRI , if clinically indicated. 5. Fat and fluid containing hiatal hernia. 6. Cholelithiasis. 7. Possible right colon thickening, which could indicate infection, ischemia, or inflammation. 8. Findings discussed with Dr. Isaias Sams on 07.02.16 at 0857 hrs Dictated by: Benny Hernandez M.D. on 07/19/2016 at 8:47 . Cardiac Echo Impressions Echocardiogram Report Name: BRIAN COLLINS LStudy Date: 07/19/2016 Height: 62 in Interpretation Summary The left ventricle is normal in size, wall thickness, and systolic function without any focal wall motion abnormalities. The ejection fraction is estimated to be 60-65%. Assessment of diastolic parameters indicates normal left ventricular diastolic function and normal filling pressures. The right ventricle is normal in size and function. The right ventricular systolic pressure is estimated at 28 mmHg assuming a right atrial pressure of 3 mm Hg. Both atria are normal in size. There is no significant valvular heart disease. The ascending aorta is mildly enlarged. There is an anterior echo-free space consistent with a fat pad. Additional Diagnostics ENDOSCOPY PROCEDURE TYPE OF OPERATION: 1. Esophagogastroduodenoscopy with biopsy and APC and Gold Probe thermocoagulation. 2. Colonoscopy. IMPRESSION: 1. Normal colonoscopy. 2. A 1 cm duodenal first portion ulcer with recent stigmata of bleed, status post argon plasma coagulation and Gold Probe thermocoagulation. 3. Mild nonerosive gastritis. 4. No esophageal or gastric varices seen. 5. A 5 mm duodenal first portion ulcer, clean based, nonbleeding. RECOMMENDATIONS: 1. Stopped octreotide and Protonix drips, given the fact that the Protonix drip has been on for greater than 72 hours. 2. Start Protonix 40 mg by mouth twice a day. 3. Carafate 1 g by mouth 4 times a day. 4. Await pathology results. 5. Start clear liquid diet. Advance as tolerated. 6. The patient will need outpatient repeat EGD in approximately two to three months to document healing of the ulcers. Joao Isabel MD 07/23/16 1630 . Assessment & Plan GASTROENTEROLOGY CONSULT NOTE Ms. Brian Collins is a 60 year old woman with history of COPD, and cirrhosis secondary to alcohol use, that presented to [facility] via EMS as a transfer from [place] for management of suspected acute upper GI bleed with initial Hb 5.5 following a recent GLF. She was admitted for evaluation and treatment of acute on chronic anemia, assessment of GLF, and possible COPD exacerbation. GI was consulted to assist in further evaluation for etiology of suspected upper GI bleed. CT A/P wo contrast 07/19: No evidence of urinary tract calcification, nor obstruction. Cirrhosis and portal hypertension, with associated portosystemic collateral vessels, and small to moderate amount of ascites. Subacute and acute right rib fractures. Indeterminate right adrenal nodule, which could be further assessed with MRI, if clinically indicated. Fat and fluid containing hiatal hernia. Cholelithiasis. Possible right colon thickening, which could indicate infection, ischemia, or inflammation. USG paracentesis 07/21: 2.6L fluid removed EGD 07/23: 1cm duodenal ulcer with recent stigmata of bleed s/p APC and gold probe thermocoagulation; mild nonerosive gastritis; no esophageal varices; 5mmclean-based, nonbleeding duodenal ulcer Colonoscopy 07/23: No abnormalities visualized Assessments - Acute on chronic anemia s/p 5U pRBC; likely secondary to duodenal ulcerative bleeding s/p egd colon 07/23/2016 apc, gold probe - History of alcoholic cirrhosis, evidenced on imaging - Ascites secondary to alcoholic cirrhosis, s/p therapeutic and diagnosis USG paracentesis with 2.6L fluid removed - MELD score on admit 07/19: 13; 6.0% est 3-month mortality (Na 135, Cr 0.64, INR 1.20, bili 2.2, no hx dialysis) Recs: - Awaiting pathology results from EGD 07/23 - Monitor HH and transfuse prn per primary team - cont protonix 40mg iv bid, carafate 1g po qid - xifaxan 550mg po bid for HE - etoh cessation when appropriate - repeat egd as outpatient in 2 months to document healing duodenal ulcers - lactulose 20mg po q6- goal 3bm/day given hx cirrhosis - consider therapeutic paracentesis - cont abx per hospitalist team cover sbp ppx Thank you for this consult. We will follow along at this time. Total time: 30 minutes GI Prophylaxis: Proton Pump Inhibitor VTE Prophylaxis: Other (possible GI bleed, unable to use SCDs d/t leg wounds) VTE Mechanical Devices: Intermittant Pneumatic CD Resuscitation Status: CPR: Attempt Resuscitation Tina Avitia DO Jul 26, 2016 08:57
--- NOTE | 2016-07-26 10:51 | ABG ---
DateTimeAnalyzed 10:47:00 -_ pH ____7.386 - 7.350 7.450 pCO2 ___43.6__ -mmHg 35.0 45.0 pO2 ___80.8__ -mmHg 69.0 116 HCO3- ___25.6__ -mmol/L 22.0 26.0 ABE ____1.0__ -mmol/L -2.0 2.0 tHb ____8.3__ -g/dL O2Hb ___95.2__ -% COHb ____1.4__ -% MetHb ____1.1__ -% sO2 ___97.6__ -% FIO2 ___50.0__ -% PRVC 18 - PEEP ___12.0__ -cmH2O Vt __360.0__ -L Drawn By gj - Date/Time Notified____ 10:50:00 -_ Spontaneous_RR ___18.0__ -b/min Oxygen Device 1 VENTILATOR - Notified By gj - Notified Whom ___PARIMI - B 758 -mmHg tO2 ___11.2__ -Vol% Isaias test _Positive -
--- NOTE | 2016-07-26 11:21 | NUR ---
NUTRITION FOLLOW-UP: Assess: 60 YO F admitted with severe anemia, COPD exacerbation, sepsis, and GI bleed following a GLF. EGD completed yesterday, showing duodenal ulcer. Pt remains on mechanical ventilation. Enteral feedings advancing towards to goal. Possible pressure support trial today. PMHX: COPD, ETOH dependence, hemorrhoids, PNA, constipation, rectal bleed. DIET: NPO. ENTERAL NUTRITION: Pulmocare at 35 ml/hr, advancing to goal of 60 ml/hr to provide 1980 kcal, 83 g protein, sufficient to meet 100% nutrient needs. LABS: Na 147, Glu 157, CA 8.0, NH3 58, Alb 1.7 MEDICATIONS: Reviewed. Pressor. Propofol rate 2.5 ml/hr, providing 66 lipid kcal. GI: BM x 3 (07/26). SKIN: Cluster of wounds at the right pretibial area of the leg that appear chronic in nature. ANTHROPOMETRICS: Wt: 95.5 kg, BMI 38.5 kg/m2, Admit wt: 95.2 kg, IBW: 50.0 kg. ESTIMATED NEEDS: VENT/WOUND/COPD/BMI Calories: 8245-9545 kcal/day (22-25 kcal/kg BW) Protein: 75-90 g/day (1.5-1.8 g/kg IBW) NUTRITION DIAGNOSIS: 1) Increased nutrient needs related to wound healing/increased demand for nutrients as evidenced by wounds, COPD - PERSISTS. 2) Chewing/swallowing difficulties related to pocketing, delayed swallow, decreased laryngeal excursion, as evidenced by requirement for pureed/honey thick liquid diet - PERSISTS. 3) Inadequate oral intake related to inability to consume sufficient energy, as evidenced by minimal PO intake since admit x 5 D, now intubated.-PERSISTS. INTERVENTION: 1) Continue to advance enteral feedings to goal. MONITOR/EVALUATE: NPO/vent status, wounds, GI, labs, nutrition status. Follow per high nutrition risk guidelines.
--- NOTE | 2016-07-26 13:15 | PROG NOTE ---
[address] [address] PROGRESS NOTE PATIENT: BRIAN WREN : 1955 MR#: [id number] ADMIT: 07/19/2016 JOB ID: [id number] DATE: 07/26/2016 PULMONARY CRITICAL CARE PROGRESS NOTE: The patient is a 60-year-old woman with history of alcohol use and alcoholic cirrhosis, admitted with anemia due to GI bleeding from a duodenal ulcer and transferred to the ICU with aspiration pneumonia/pneumonitis and respiratory failure on July 24. The patient was seen and evaluated with resident physician, Quan Pantoja. Refer to his separate detailed note for additional information. INTERVAL HISTORY: She remains on the vent and is currently on FiO2 of 75% with PEEP of 12 cm. She opens her eyes to voice. REVIEW OF SYSTEMS: Unable to obtain. Patient is intubated. PHYSICAL EXAMINATION: Vital signs reviewed. She is afebrile. FiO2 of 75%, PEEP of 12. General: Intubated and on sedation but opens her eyes to voice. Chest: I do hear some rhonchi bilaterally. Heart regular. Abdomen is distended, nontender. LABORATORIES: Reviewed. WBC down to 24 from 31 yesterday. Chemistries also reviewed and within normal limits. Cultures: No growth on sputum. Chest x-ray shows improvement in bilateral infiltrates. She has a patchy left-sided consolidation mostly in the lower lobe. Arterial blood gas from this morning shows pH of 7.38, pO2 of 43, pO2 of 80, bicarb of 25.6. ASSESSMENT AND RECOMMENDATIONS: 1. Acute hypoxic respiratory failure. 2. Acute respiratory distress syndrome. 3. Aspiration pneumonia/pneumonitis. 4. Alcoholic cirrhosis. 5. Alcohol abuse. 6. Upper gastrointestinal bleed due to duodenal ulcer. 7. Acute blood loss anemia - resolved. This 60-year-old woman with alcoholic cirrhosis who was still drinking quite heavily until she came into the hospital underwent esophagogastroduodenoscopy and colonoscopy on July 23. She was found to have a duodenal ulcer that was no longer bleeding. Overnight, she developed worsening respiratory distress and was intubated for hypercarbic hypoxic respiratory failure the morning of the . She was severely hypoxic requiring high FiO2 and PEEP, but this has improved significantly today. We weaned down her FiO2 to 50%, and PEEP is still at 12 cm. Will continue to wean this as tolerated. She is on meropenem. Vancomycin was stopped because her methicillin-resistant Staphylococcus aureus nasal swab is negative. With regards to hepatic encephalopathy, she was on lactulose, but the dose was held the last two times because of the ongoing diarrhea. She is going to have an FMS placed and will resume the lactulose and rifaximin to treat for hepatic encephalopathy. She is getting propofol at low dose of 20 and practically no fentanyl pushes. I spoke to daughters at the bedside and explained that she most likely is not doing well enough from a respiratory standpoint to be extubated today, but we will reassess tomorrow. We will also need to consider a repeat paracentesis tomorrow if we think the abdominal distention is contributing adversely. She is on proton pump inhibitor for gastrointestinal and on no deep venous thrombosis prophylaxis because of recent bleeding, but I wonder if we should restart subcutaneous heparin. CRITICAL CARE TIME: 45 minutes.
--- NOTE | 2016-07-26 14:47 | PCM.PNMED ---
Subjective Date of Service Jul 26, 2016 Subjective 63-year-old woman with alcoholic cirrhosis and limited medical compliance presents with alcohol withdrawal, acute GI blood loss anemia and encephalopathy.On 07/23 nighttime she developed worsened encephalopathy and respiratory distress, likely aspiration pneumonia. She was intubated on 07/23. Now on sedation. Opens eyes but not responding to questions. Moving all 4 extremities spontaneously. Exam Vital Signs Vital Sign - Last Date Time Temp Pulse Resp B/P Pulse Ox O2 Delivery O2 Flow Rate FiO2 07/26/16 12:49 38.0 99 20 99/67 99 Mechanical Ventilator 14.00 50 Intake and Output 07/25/16 07/25/16 07/26/16 Cumulative From/Thru 15:00 23:00 07:00 07/19/16 04:15 - 07/26/16 05:46 Intake Total 826 ml 1082 ml 06866 ml Output Total 1400 ml 325 ml 8055 ml Balance -574 ml 757 ml 8158 ml Intake Oral 2250 ml IV Total 225 ml 462 ml 83536 ml Tube Feeding 150 ml 170 ml 441 ml Packed Cells 900 ml Tube Irrigant 451 ml 450 ml 1461 ml Output Urine Total 1400 ml 325 ml 5275 ml Stool Total 5 ml Gastric Drainage Total 125 ml Other 2650 ml # Voids 3 # Bowel Movements 1 3 23 Exam General: Chronically ill-appearing obese woman on ventilator HEENT: sclerae anicteric Chest: Coarse breath sounds bilaterally, no wheeze Cardiac: S1S2, no murmur appreciated Abdomen: BS present, distended with flank dullness, non-rigid Extremities: 2+ edema; right lower extremity wound is bandaged. Neuro: Sedated, moves all 4 extremities IVs and Medications Medications Reviewed: Medications were reviewed in detail Lab and Diagnostics Ammonia: 43 and admission, 108 on 07/24, now stabilizing 58-59 range Arterial blood gas: DateTimeAnalyzed 14:51:00 -_ on room air pH ____7.317 - pCO2 ___53.4__ -mmHg pO2 ___49.1__ -mmHg HCO3- ___26.6__ -mmol/L FIO2 ___21.0__ -% DateTimeAnalyzed 05:57:00 -_ time of intubation pH ____7.223 - 7.350 7.450 pCO2 ___69.1__ -mmHg 35.0 45.0 pO2 ___68.7__ -mmHg 69.0 116 HCO3- ___27.4__ -mmol/L 22.0 26.0 FIO2 __100.0__ -% DateTimeAnalyzed 08:57:00 -_ intubated pH ____7.458 - 7.350 7.450 pCO2 ___35.0__ -mmHg 35.0 45.0 pO2 ___46.7__ -mmHg 69.0 116 HCO3- ___24.4__ -mmol/L 22.0 26.0 FIO2 ___75.0__ -% DateTimeAnalyzed 10:47:00 -_ pH ____7.386 - 7.350 7.450 pCO2 ___43.6__ -mmHg 35.0 45.0 pO2 ___80.8__ -mmHg 69.0 116 HCO3- ___25.6__ -mmol/L 22.0 26.0 FIO2 ___50.0__ -% . Result Diagram: 07/26/16 0415 07/26/16 0415 Microbiology MRSA nasal swab negative Paracentesis culture negative Urine culture 07/19 negative X-Rays, CTs and MRIs PROCEDURE: X-RAY CHEST ONE VIEW, PORTABLE ([id number]) IMPRESSION: Right upper and left lower lobe airspace opacity suspicious for aspiration or pneumonia. Dictated by: Luc ALBERT Interpreted: Benny Hernandez MD on 07/22/2016 at 16: 03 Chest x-ray 07/25 - personally reviewed Reduced inspiration, air bronchogram with dense left lower lobe infiltrate, right lower lobe interstitial pattern PROCEDURE: X-RAY CHEST ONE VIEW, PORTABLE ([id number]) IMPRESSION: 1. Endotracheal tube in appropriate position. Orogastric tube extends into the stomach with the tip not included on current study. 2. Confluent left airspace opacities redemonstrated likely representing pneumonia. 3. Bibasilar opacities consistent with consolidation/pneumonia, aspiration, or atelectasis again noted. 3. Mild pulmonary edema with interval improved aeration in the lung bases. 4. Small bilateral pleural effusions. Dictated by: Kyle Rainey M.D. on 07/24/2016 at 9:18 PROCEDURE: X-RAY CHEST ONE VIEW, PORTABLE ([id number]) IMPRESSION: 1. Support lines and tubes as above. 2. Confluent left lung airspace opacity redemonstrated likely related to pneumonia although asymmetric edema cannot be excluded. 3. New airspace opacity within the peripheral right upper lobe consistent with atelectasis versus pneumonia. 4. Bibasilar opacities unchanged consistent with atelectasis versus aspiration or pneumonia. Dictated by: Luc Bolaños [facility] Interpreted: Mirella Wu MD on 07/26/2016 at 9:31 PROCEDURE: CT ABDOMEN AND PELVIS WITHOUT CONTRAST ([id number]) IMPRESSION: 1. No evidence of urinary tract calcification, nor obstruction. 2. Cirrhosis and portal hypertension, with associated portosystemic collateral vessels, and small to moderate amount of ascites. 3. Subacute and acute right rib fractures. 4. Indeterminate right adrenal nodule, which could be further assessed with MRI , if clinically indicated. 5. Fat and fluid containing hiatal hernia. 6. Cholelithiasis. 7. Possible right colon thickening, which could indicate infection, ischemia, or inflammation. 8. Findings discussed with Dr. Isaias Sams on 07.02.16 at 0857 hrs Dictated by: Benny Hernandez M.D. on 07/19/2016 at 8:47 . Cardiac Echo Impressions Echocardiogram Report Name: BRIAN WREN LStudy Date: 07/19/2016 Height: 62 in Interpretation Summary The left ventricle is normal in size, wall thickness, and systolic function without any focal wall motion abnormalities. The ejection fraction is estimated to be 60-65%. Assessment of diastolic parameters indicates normal left ventricular diastolic function and normal filling pressures. The right ventricle is normal in size and function. The right ventricular systolic pressure is estimated at 28 mmHg assuming a right atrial pressure of 3 mm Hg. Both atria are normal in size. There is no significant valvular heart disease. The ascending aorta is mildly enlarged. There is an anterior echo-free space consistent with a fat pad. Additional Diagnostics ENDOSCOPY PROCEDURE TYPE OF OPERATION: 1. Esophagogastroduodenoscopy with biopsy and APC and Gold Probe thermocoagulation. 2. Colonoscopy. IMPRESSION: 1. Normal colonoscopy. 2. A 1 cm duodenal first portion ulcer with recent stigmata of bleed, status post argon plasma coagulation and Gold Probe thermocoagulation. 3. Mild nonerosive gastritis. 4. No esophageal or gastric varices seen. 5. A 5 mm duodenal first portion ulcer, clean based, nonbleeding. RECOMMENDATIONS: 1. Stopped octreotide and Protonix drips, given the fact that the Protonix drip has been on for greater than 72 hours. 2. Start Protonix 40 mg by mouth twice a day. 3. Carafate 1 g by mouth 4 times a day. 4. Await pathology results. 5. Start clear liquid diet. Advance as tolerated. 6. The patient will need outpatient repeat EGD in approximately two to three months to document healing of the ulcers. Joao Isabel MD 07/23/16 1630 . Assessment & Plan 60yoF with minimal medical follow up as an outpatient transferred for direct admit from [place] due to hemoglobin 5.5 following recent fall and blood loss from right lower extremity chronic wounds. As complicated by acute respiratory failure with hypoxia and possible sepsis on 07/23. Acute and high-risk problems: #. Sepsis, acute, POA. Initial impression on presentation was sepsis likely pneumonia vs right lower extremity infection. Started on vancomycin plus Zosyn. Clinically stable infectious status for several days. Developed acute sepsis syndrome (heart rate 109, respiratory rate 28, WBC 33K with respiratory failure) at night on 07/23 resulting in intubation. Subsequent picture appears to be bilateral left greater than right acute pneumonia. - Continue fluid resuscitation. - Norepinephrine infusion as needed to maintain mean arterial pressure greater than 65 - Continue broad-spectrum antibiotics for presumed pneumonia source #. Acute respiratory failure with hypoxia. Secondary to healthcare facility acquired pneumonia. Chest x-ray previously showed right mid and lower field opacities. Now diffuse alveolar pattern on left developed since respiratory compromise on 07/23. Initially required high FiO2 with increased PEEP, Oxygenation status seems to be improving as of 07/26 - Pulmonary ICU consult requested - Initiate furosemide - Continue mechanical ventilation. Try to wean FiO2, - Initially Vanco plus Zosyn, changed to meropenem on 07/24 - Fentanyl bolus or propofol for sedation under ventilation - Ventilator bundle orders #. Acute blood loss anemia, GI bleeding, duodenal ulcer. Started on ceftriaxone and octreotide, which were subsequently discontinued - Protonix IV - Continue sucralfate if compatible with OGT administration - Follow hemoglobin - GI is following. #. Cirrhosis with Ascites, POA. Nodular liver with signs of portal hypertension on CT scan. Complicated by encephalopathy, ascites and anasarca. No varices. Paracentesis 07/21 with 0 PMN's. No SBP therapy indicated. - Continue lactulose. - Hold rifaximin which is incompatible with OGT administration. - Return to furosemide and spironolactone when hemodynamically stable and taking by mouth - Plan therapeutic paracentesis if ascites following abdominal ultrasound on #. Possible COPD exacerbation, POA. Little evidence of bronchospasm. Primary acute stroke problem appears to be pulmonary infiltrates. - albuterol-ipratropium q4hr, albuterol q2hr PRN - Discontinued prednisone 40mg PO daily #. Ground level fall, acute. POA. She has multiple right-sided rib fractures. They contribute to poor respiratory function - Supportive treatment Resolving, stable, and/or chronic problems: #. Acute alcohol withdraw. Initially managed with CIWA. Has not had significant benzodiazepine needs. - Follow clinically #. Right internal carotid aneurysm, incidental finding. POA. This was discussed with neurosurgery at [facility] and there is no need for acute intervention at this time. #. Right adrenal nodule 12 mm, Hounsfield units 19. - Requires outpatient follow-up #. Alcohol dependence, chronic -as per , no h/o withdrawal -drinks 2 bottles of wine per day -CIWA #. Right lower extremity wound, chronic. POA. -wound consult, purulent as per report -piperacillin-tazobactam, vancomycin ordered GI Prophylaxis: Proton Pump Inhibitor VTE Prophylaxis: Other (possible GI bleed, unable to use SCDs d/t leg wounds) VTE Mechanical Devices: Intermittant Pneumatic CD Resuscitation Status: CPR: Attempt Resuscitation Time spent 40 minutes Jsoe Juan Thomason MD Jul 26, 2016 14:47
--- NOTE | 2016-07-26 15:25 | DRSVH ---
PROCEDURE: US ABDOMEN, LIMITED ([id number]) INDICATIONS: ascites TECHNIQUE: Real-time focused scanning was performed of the abdomen, with image documentation. COMPARISON: None. FINDINGS: Small to moderate amount ascites present within the 4 quadrants of the abdomen. IMPRESSION: Small to moderate ascites. Dictated by: Luc ALBERT Interpreted: Marleen Abbasi MD on 07/26/2016 at 15:24 Transcribed by: JANELLE on 07/26/2016 at 15:25 Approved by: Marleen Abbasi M.D. on 07/27/2016 at 10:30
--- NOTE | 2016-07-26 15:44 | NUR ---
oxygenation/ FMS/ abd US/ ectopy/ingrown hair Pt tolerating decreased vent settings of 50% fio2, 10 peep, TV 360. No SBT today discussed with Dr Montgomery, will reassess tomorrow. FMS inserted draining watery liquid stool. Abdomen seems more distended as day progresses. Abdominal ultrasound complete. Plan for possible paracentesis tomorrow. Increasing ectopy this afternoon discussed with Dr Pantoja, no orders received. During lobito-care RN noted a hard area around an ingrown hair. Squeezed approx 2 tablespoons of hardened pus out of ingrown hair follicle. Notified MD, wound culture sent.
[2016-07-26] MEDS: Propofol Inj 1,000,000 MCG in IV Premix 1 EACH IV SCH ×2 (16:06→23:38)
--- NOTE | 2016-07-26 16:20 | PCM.PNMED ---
Subjective Date of Service Jul 26, 2016 Subjective Pulmonology Consultation. Attending physician Dr. Montgomery. Requesting Physician Dr. Thomason. reason for Consult. Acute hypoxic respiratory failure. Ms. Collins is a 60 year old female with a H EtOH use disorder, alcoholic cirrhosis and COPD who was admitted for acute blood loss anemia secondary to GI bleed from duodenal ulcer and encephalopathy. During the course of her hospital stay she developed worsened encephalopathy with acute respiratory failure presumed to be aspiration pneumonia/pneumonitis and was intubated on Overnight: Patient continues to have multiple loose bowel movements throughout shift. Lactulose held. Patient remains sedated and intubated on ventilator. Nursing staff reports that in and around patient's perianal area they found ingrown hair which when pressed expressed purulent material. She also continues to have frequent PVCs and remains on blood pressure support. Exam Vital Signs Vital Sign - Last Date Time Temp Pulse Resp B/P Pulse Ox O2 Delivery O2 Flow Rate FiO2 07/26/16 12:49 38.0 99 20 99/67 99 Mechanical Ventilator 14.00 50 Intake and Output 07/25/16 07/25/16 07/26/16 Cumulative From/Thru 14:59 22:59 06:59 07/19/16 04:15 - 07/26/16 05:46 Intake Total 826 ml 1082 ml 00006 ml Output Total 1400 ml 325 ml 8055 ml Balance -574 ml 757 ml 8158 ml Intake Oral 2250 ml IV Total 225 ml 462 ml 68187 ml Tube Feeding 150 ml 170 ml 441 ml Packed Cells 900 ml Tube Irrigant 451 ml 450 ml 1461 ml Output Urine Total 1400 ml 325 ml 5275 ml Stool Total 5 ml Gastric Drainage Total 125 ml Other 2650 ml # Voids 3 # Bowel Movements 1 3 23 Exam General: Intubated and sedated in no acute distress. Does not open eyes to voice or follow commands. HEENT: Normocephalic, atraumatic. External ears without defect. ET tube in place. Cardiovascular: Regular rate and rhythm with no murmurs appreciated Pulmonary: Crackles appreciated in upper anterior lobes bilaterally. Abdomen: Soft to palpation. No appreciable fluid wave though ABD is distended. Extremities: R lower extremity bandage in place, left lower extremity showed mild pitting edema. SCD in place. Upper extremities, soft restraints in place. Psychiatric: Intubated and sedated Ventilator settings: Tidal volume 360. Respiratory rate 18. FiO2 0.5. PEEP 10. AB.458, pCO2 35, pO2 46.7, HCO3 29.4 IV drips and Sedatives: Propofol 20mcg. Levophed 0.012mcg IV lines: I&O: Total: in 16,213, out 8,055, total -8,158 IVs and Medications Medications Reviewed: Medications were reviewed in detail Lab and Diagnostics Result Diagram: 07/26/1641407/26/16414 Microbiology MRSA nasal swab negative Paracentesis culture negative Urine culture 07/19 negative X-Rays, CTs and MRIs PROCEDURE: X-RAY CHEST ONE VIEW, PORTABLE ([id number]) IMPRESSION: Right upper and left lower lobe airspace opacity suspicious for aspiration or pneumonia. Dictated by: Luc ALBERT Interpreted: Benny Hernandez MD on 07/22/2016 at 16: 03 Chest x-ray 07/25 - personally reviewed Reduced inspiration, air bronchogram with dense left lower lobe infiltrate, right lower lobe interstitial pattern PROCEDURE: X-RAY CHEST ONE VIEW, PORTABLE ([id number]) IMPRESSION: 1. Endotracheal tube in appropriate position. Orogastric tube extends into the stomach with the tip not included on current study. 2. Confluent left airspace opacities redemonstrated likely representing pneumonia. 3. Bibasilar opacities consistent with consolidation/pneumonia, aspiration, or atelectasis again noted. 3. Mild pulmonary edema with interval improved aeration in the lung bases. 4. Small bilateral pleural effusions. Dictated by: Kyle Rainey M.D. on 07/24/2016 at 9:18 PROCEDURE: X-RAY CHEST ONE VIEW, PORTABLE ([id number]) IMPRESSION: 1. Support lines and tubes as above. 2. Confluent left lung airspace opacity redemonstrated likely related to pneumonia although asymmetric edema cannot be excluded. 3. New airspace opacity within the peripheral right upper lobe consistent with atelectasis versus pneumonia. 4. Bibasilar opacities unchanged consistent with atelectasis versus aspiration or pneumonia. Dictated by: Luc ALBERT Interpreted: Mirella Wu MD on 07/26/2016 at 9:31 PROCEDURE: CT ABDOMEN AND PELVIS WITHOUT CONTRAST ([id number]) IMPRESSION: 1. No evidence of urinary tract calcification, nor obstruction. 2. Cirrhosis and portal hypertension, with associated portosystemic collateral vessels, and small to moderate amount of ascites. 3. Subacute and acute right rib fractures. 4. Indeterminate right adrenal nodule, which could be further assessed with MRI , if clinically indicated. 5. Fat and fluid containing hiatal hernia. 6. Cholelithiasis. 7. Possible right colon thickening, which could indicate infection, ischemia, or inflammation. 8. Findings discussed with Dr. Isaias Sams on 07.02.16 at 0857 hrs Dictated by: Benny Hernandez M.D. on 07/19/2016 at 8:47 US ABDOMEN, LIMITED IMPRESSION: Small to moderate ascites. Dictated by: Luc Bolaños RRAmanda Interpreted: Marleen Abbasi MD on 07/26/2016 at 15: 24 . Cardiac Echo Impressions Echocardiogram Report Name: BRIAN COLLINS LStudy Date: 07/19/2016 Height: 62 in Interpretation Summary The left ventricle is normal in size, wall thickness, and systolic function without any focal wall motion abnormalities. The ejection fraction is estimated to be 60-65%. Assessment of diastolic parameters indicates normal left ventricular diastolic function and normal filling pressures. The right ventricle is normal in size and function. The right ventricular systolic pressure is estimated at 28 mmHg assuming a right atrial pressure of 3 mm Hg. Both atria are normal in size. There is no significant valvular heart disease. The ascending aorta is mildly enlarged. There is an anterior echo-free space consistent with a fat pad. Additional Diagnostics ENDOSCOPY PROCEDURE TYPE OF OPERATION: 1. Esophagogastroduodenoscopy with biopsy and APC and Gold Probe thermocoagulation. 2. Colonoscopy. IMPRESSION: 1. Normal colonoscopy. 2. A 1 cm duodenal first portion ulcer with recent stigmata of bleed, status post argon plasma coagulation and Gold Probe thermocoagulation. 3. Mild nonerosive gastritis. 4. No esophageal or gastric varices seen. 5. A 5 mm duodenal first portion ulcer, clean based, nonbleeding. RECOMMENDATIONS: 1. Stopped octreotide and Protonix drips, given the fact that the Protonix drip has been on for greater than 72 hours. 2. Start Protonix 40 mg by mouth twice a day. 3. Carafate 1 g by mouth 4 times a day. 4. Await pathology results. 5. Start clear liquid diet. Advance as tolerated. 6. The patient will need outpatient repeat EGD in approximately two to three months to document healing of the ulcers. Joao Isabel MD 07/23/16 1540 . Assessment & Plan Ms. Collins is a 60 year old female with a H EtOH use disorder, alcoholic cirrhosis and COPD who was admitted for acute blood loss anemia secondary to GI bleed from duodenal ulcer and encephalopathy. During the course of her hospital stay she developed worsened encephalopathy with acute respiratory failure presumed to be aspiration pneumonia/pneumonitis and was intubated on 1. Acute hypoxemic respiratory failure. Not present on admission. Ongoing. Most likely secondary to secondary to HAP. Chest x-ray previously showed right mid and lower field opacities. Now diffuse alveolar pattern on left developed since respiratory compromise on 07/23. Initially required high FiO2 with increased PEEP, Oxygenation status seems to be improving as of 07/26 - CXR has shown a possible developing pneumonia - Currently Ventilated with FiO2 0.5, PEEP 10, RR 18, TV 360 - FiO2 has been decreased to 0.5 from 0.75 this am - Meropenem start date 07/24 - Vanc and Zosyn discontinued - Propofol 20 - Fentanyl Bolus PRN 2. Acute Respiratory Distress Syndrome. Not present on admission. Ongoing - [place] Criteria places Pt in moderate category - Furosemide 40mg IV given today - I&O total is positive ~8L - Continue to monitor - albuterol-ipratropium q4hr, albuterol q2hr PRN - Discontinued prednisone 40mg PO daily 3. Sepsis, present on admission. Ongoing. (HR 109, RR 28, WBC 33K) Possible sources include pneumonia vs. lower extremity infection. - Hold fluid resuscitation secondary to #2 - Levophed 0.012, continue to titrate down as tolerated - ABX as in #1. 4. Acute blood loss anemia secondary to GI bleed from duodenal ulcer - Protonix IV - Octreotide DC'd - Hemoglobin 7.9 on 07/26/2016 - GI is following. 5. Alcoholic cirrhosis. Present on admission. Ongoing. - LFT's have normalized - Pt has ascites and anasarca. - Paracentesis 07/21 showed no PMN's - ABD US 07/26 showed reaccumulation of fluid - Possible Paracentesis tomorrow 6. Encephalopathy - Lactulose Held secondary to multiple loose stools - Ammonia Level continues to improve, 58 07/26/2016 from a peak of 108 - Continue to monitor GI Prophylaxis: Proton Pump Inhibitor VTE Prophylaxis: Other (possible GI bleed, unable to use SCDs d/t leg wounds) VTE Mechanical Devices: Intermittant Pneumatic CD Resuscitation Status: CPR: Attempt Resuscitation Attending Statement I have seen and examined this patient with the resident physician. Vital signs , labs, imaging have been reviewed. I agree with the assessment and plan above. Please refer to my separately dictated progress note for any modifications to above. Kristine Montgomery M.D. Pulmonary and Critical Care medicine Pager [phone] RODDY BENAVIDES DO Jul 26, 2016 15:12 Kristine Montgomery MD Jul 27, 2016 08:12
--- NOTE | 2016-07-26 17:06 | NUR ---
Wound Care Patient seen at bedside for wound care of stasis ulcers right anterior fraser and lateral calf. Wounds remain stable with fibrinous wound beds, minimal pale granulation tissue, drainage is scant and without odor. Periwound skin is minimally erythematous and does not appear infected in any way. Wounds were cleaned with saline and gauze mechanically then redressed with hydrogel, aquacell ag, kerlix and coban. Will redress these wounds in 48 hours.
[2016-07-26] MEDS: Norepineph 8,000 mCg/250 mL NS 8,000 MCG in IV Premix 1 EACH IV SCH (23:47)
[2016-07-27] VITALS (17 sets, daily range): BP systolic 81–114; BP diastolic 1–61; PULSE 9–100; RESP 18–20; O2SAT 94–100
[2016-07-27] MEDS: Lactulose 20 Gm/30 mL 30 mL Syrup PO SCH ×4 (00:26→17:18)
[2016-07-27] MEDS: Albuterol-Ipratropium 3 mL Inhalation Solution NEB SCH ×6 (00:47→20:36)
--- NOTE | 2016-07-27 04:48 | ABG ---
DateTimeAnalyzed 04:43:00 -_ pH ____7.427 - 7.350 7.450 pCO2 ___38.9__ -mmHg 35.0 45.0 pO2 ___64.5__ -mmHg 69.0 116 HCO3- ___25.2__ -mmol/L 22.0 26.0 ABE ____1.3__ -mmol/L -2.0 2.0 tHb ____8.6__ -g/dL O2Hb ___91.4__ -% COHb ____1.7__ -% MetHb ____1.0__ -% sO2 ___93.9__ -% FIO2 ___50.0__ -% PRVC 18 - PEEP ___10.0__ -cmH2O Set_RR ___18.0__ -b/min Vt __360.0__ -L Drawn By MM - Date/Time Notified____ 04:48:00 -_ Spontaneous_RR ___18.0__ -b/min Oxygen Device 1 VENTILATOR - Notified By MM - Notified Whom DR marlon.____ - B 761 -mmHg tO2 ___11.1__ -Vol% Isaias test N/A -
[2016-07-27 04:49] LABS: BASOPHILS % (AUTO) 0.1 % (0-3); EOSINOPHILS % (AUTO) 2.4 % (0-5); MONOCYTES % (AUTO) 6.2 % (4-12); Mean Corpuscular Volume 92.8 fL (81-100); NEUTROPHILS % (AUTO) 87.1 % (40-74); Platelet Count 106 bil/L (150-400)
--- NOTE | 2016-07-27 04:55 | NUR ---
GI / TF increased per orders. Residuals less than 150ml. Tube feed noted in epiglottic suctioning, some in oral suctioning as well. Slight increase in ET suction just after this event, creamy in color but not clearly the tube feed. TF turned off and MD is notified. Abdomen remains distended but is unchanged from change of shift. Patient has low UO. MD notified. No new orders.
[2016-07-27] MEDS: Pantoprazole 4 mg/mL 10 mL Inj IVPUSH SCH (07:33)
[2016-07-27] MEDS: Meropenem 1 Gm/100 mL NS Minibag Plus IV SCH ×4 (07:33→17:10)
[2016-07-27] MEDS ORDERED: Albumin 25% 25 GM in IV Premix 1 EACH IV ONE (09:05)
[2016-07-27] MEDS ORDERED: Heparin 5,000 Unit/mL Inj SUBQ SCH (09:05)
--- NOTE | 2016-07-27 10:29 | DRSVH ---
PROCEDURE: X-RAY CHEST ONE VIEW ([id number]) INDICATIONS: intubated TECHNIQUE: One view of the chest was acquired. COMPARISON: [facility], CR, XR CHEST 1VW, 07/25/2016, 8:11. FINDINGS: Surgical changes and devices: Stable position of ETT and nasogastric tube as well as a right PICC. Lungs and pleura: Mild edema is present and there has been interval decrease in airspace opacities th roughout the mid lungs and the lung bases. Small left pleural effusion. Mediastinum: Mediastinal contours appear normal. Heart size is normal. Bones and chest wall: No suspicious bony lesions. Overlying soft tissues appear unremarkable. IMPRESSION: 1. Mild edema and decreasing bilateral air space opacities suggesting resolving patchy pulmonary sommer a versus pneumonia. Dictated by: Luc Bolaños RRA Interpreted: Jonny Gonzalez MD on 07/27/2016 at 10:27 Transcribed by: VERO on 07/27/2016 at 10:29 Approved by: Jonny Gonzalez M.D. on 07/27/2016 at 11:28
--- NOTE | 2016-07-27 11:15 | PATH ---
SURGICAL PATHOLOGY Attending Physician:Joao Isabel MD CASE STATUS: Signed Out PATIENT NAME: BRIAN WREN PID: [id number] : 1955 DATE COLLECTED:07/23/2016 00:00 SPECIMEN: 1: Stomach, Antrum, Biopsy 2: Gastric, Biopsy CLINICAL HISTORY: 1). ANTRUM BIOPSY 2). GASTRIC BODY BIOPSY FINAL DIAGNOSIS: 1.ANTRUM BIOPSY: ANTRAL MUCOSA WITH NO DIAGNOSTIC ALTERATIONS. Negative for Helicobacter organisms. Negative for intestinal metaplasia. Negative for dysplasia and malignancy. 2.GASTRIC BODY BIOPSY: GASTRIC BODY MUCOSA WITH MILD REACTIVE CHANGES. Negative for Helicobacter organisms. Negative for intestinal metaplasia. Negative for dysplasia and malignancy. ICD10 CODE K29.70 GROSS DESCRIPTION: Received are two formalin-filled containers, both labeled with the patient' s name: 1. Received in formalin, labeled with the patient' s name and "antrum biopsy", is one fragment of richardson, soft tissue measuring 0.2 x 0.2 x 0.2 cm. The fragment is totally submitted in cassette 1A. 2. Received in formalin, labeled with the patient' s name and "gastric body biopsy", is one fragment of richardson, soft tissue measuring 0.1 x 0.1 x 0.1 cm. The fragment is totally submitted in cassette 2A. ([id number]) MICRO DESCRIPTION: See diagnosis. ICD-9 CODES: CPT CODES: 1: 79420 2: 46638 Electronically Signed Out Shruthi Decker MD [facility] [address], [place] [address] Technical component performed at [facility], [facility] [address], [place], [address]
[2016-07-27] MEDS ORDERED: Albumin 25% 50 GM in IV Premix 1 EACH IV ONE (11:25)
--- NOTE | 2016-07-27 11:27 | PROG NOTE ---
[address] [address] PROGRESS NOTE PATIENT: BRIAN WREN : 1955 MR#: [id number] ADMIT: 07/19/2016 JOB ID: [id number] DATE: 07/27/2016 PULMONARY CRITICAL CARE PROGRESS NOTE: The patient is a 60-year-old woman with history of alcoholic cirrhosis and alcohol abuse, admitted with GI bleed likely due to duodenal ulcer and transfer to the ICU with aspiration pneumonitis and respiratory failure. INTERVAL HISTORY: She is a little more alert today, nodding in response to questions. No major overnight events otherwise. REVIEW OF SYSTEMS: Unable to obtain. PHYSICAL EXAMINATION: Vital signs reviewed. Blood pressure is on the low side. She does nod in response to questions. Abdomen is quite distended with ascites. Chest: Clear to auscultation. LABORATORIES: Reviewed. WBC down to 21. Chest x-ray also reviewed and shows persistent left-sided consolidation with possible left basilar atelectasis versus tiny effusion. ASSESSMENT AND RECOMMENDATIONS: 1. Acute hypoxic respiratory failure on mechanical ventilation since July 24. 2. Aspiration pneumonia/pneumonitis. 3. Alcoholic cirrhosis with alcohol abuse. 4. Upper gastrointestinal bleed due to duodenal ulcer - resolved. A 60-year-old woman with alcoholic cirrhosis who was drinking heavily until she came to the hospital with the anemia and likely gastrointestinal bleed. She underwent esophagogastroduodenoscopy and colonoscopy on July 23 and was found to have a duodenal that seemed to have stopped bleeding. She worsened overnight with what appeared to be an aspiration event and got intubated the morning of July 24. She is currently on FiO2 of 50% with PEEP of 12 cm. We are going to try to wean the PEEP down as tolerated to 8 cm or even lower. Hopefully, if we can get her down to 40% and 5 of PEEP, we could do a spontaneous breathing trial today. With regards to antibiotic, she is on meropenem. Procalcitonin is very low, so Infectious Disease is considering stopping this. We are going to start Lasix for intravenous diuresis and give her a dose of albumin with that. We are also going to do a paracentesis to hopefully help her respiratory mechanics. She is on proton pump inhibitor. We started deep venous thrombosis prophylaxis as well today with subcutaneous heparin. All of the above was discussed with her daughters at the bedside. Critical care time is 45 minutes.
[2016-07-27] MEDS: Furosemide 10 mg/mL 2 mL Inj IVPUSH SCH (11:46)
--- NOTE | 2016-07-27 12:30 | NUR ---
[facility] 1200 tx held, Pt. in procedure. will be given later.
--- NOTE | 2016-07-27 12:32 | PCM.PNMED ---
Subjective Date of Service Jul 27, 2016 Subjective GASTROENTEROLOGY PROGRESS NOTE Patient seen at bedside this morning. Remains intubated and sedated, no acute distress. Pressor support/norepi also remains. No evidence ongoing rectal bleeding/dark stools, or blood noted through OGT suctioning. WBC downward trending; HH stable at this time. Exam Vital Signs Vital Sign - Last Date Time Temp Pulse Resp B/P Pulse Ox O2 Delivery O2 Flow Rate FiO2 07/27/16 08:02 95 81/48 94 50 07/27/16 07:50 36.9 18 Mechanical Ventilator 07/26/16 12:49 14.00 Intake and Output 07/26/16 07/26/16 07/27/16 Cumulative From/Thru 15:00 23:00 07:00 07/19/16 04:15 - 07/27/16 05:46 Intake Total 1484 ml 823 ml 40407 ml Output Total 550 ml 850 ml 9455 ml Balance 934 ml -27 ml 9065 ml Intake Oral 2250 ml IV Total 477 ml 356 ml 94267 ml Tube Feeding 407 ml 317 ml 1165 ml Packed Cells 900 ml Tube Irrigant 600 ml 150 ml 2211 ml Output Urine Total 350 ml 275 ml 5900 ml Stool Total 125 ml 130 ml Gastric Drainage Total 450 ml 575 ml Drainage Total 200 ml 200 ml Other 2650 ml # Voids 3 # Bowel Movements 23 Exam General: intubated and sedated in CCU; no acute distress HEENT: Mucous Membr dry; ETT in place and secured Chest & Lungs: Bilateral crackles at bases; poor inspiratory effort; no use accessory muscles; No wheeze Cardiovascular: Tachycardic rate at approx 100 at time of evaluation Pulses: Faint secondary to edema; radial equal and bilateral but faint Abdomen: Umbilical hernia approx 4-5cm diameter without surrounding erythema and appears to be nontender to palpation; firm, ascitic : Wick present and secured; FMS Extremities: Diffusely edematous; RLE noted ecchymosis on dorsum and proximal to bandaging; bandaging from ankle to distal aspect knee clean/dry/intact Skin: Warm and dry Neurological: Cannot assess secondary to sedation Lab and Diagnostics Result Diagram: 07/27/16 0430 07/27/16 0430 Microbiology MRSA nasal swab negative Paracentesis culture negative Urine culture 07/19 negative X-Rays, CTs and MRIs PROCEDURE: X-RAY CHEST ONE VIEW, PORTABLE ([id number]) IMPRESSION: Right upper and left lower lobe airspace opacity suspicious for aspiration or pneumonia. Dictated by: Luc ALBERT Interpreted: Benny Hernandez MD on 07/22/2016 at 16: 03 Chest x-ray 07/25 - personally reviewed Reduced inspiration, air bronchogram with dense left lower lobe infiltrate, right lower lobe interstitial pattern PROCEDURE: X-RAY CHEST ONE VIEW, PORTABLE ([id number]) IMPRESSION: 1. Endotracheal tube in appropriate position. Orogastric tube extends into the stomach with the tip not included on current study. 2. Confluent left airspace opacities redemonstrated likely representing pneumonia. 3. Bibasilar opacities consistent with consolidation/pneumonia, aspiration, or atelectasis again noted. 3. Mild pulmonary edema with interval improved aeration in the lung bases. 4. Small bilateral pleural effusions. Dictated by: Kyle Rainey M.D. on 07/24/2016 at 9:18 PROCEDURE: X-RAY CHEST ONE VIEW, PORTABLE ([id number]) IMPRESSION: 1. Support lines and tubes as above. 2. Confluent left lung airspace opacity redemonstrated likely related to pneumonia although asymmetric edema cannot be excluded. 3. New airspace opacity within the peripheral right upper lobe consistent with atelectasis versus pneumonia. 4. Bibasilar opacities unchanged consistent with atelectasis versus aspiration or pneumonia. Dictated by: Luc ALBERT Interpreted: Mirella Wu MD on 07/26/2016 at 9:31 PROCEDURE: CT ABDOMEN AND PELVIS WITHOUT CONTRAST ([id number]) IMPRESSION: 1. No evidence of urinary tract calcification, nor obstruction. 2. Cirrhosis and portal hypertension, with associated portosystemic collateral vessels, and small to moderate amount of ascites. 3. Subacute and acute right rib fractures. 4. Indeterminate right adrenal nodule, which could be further assessed with MRI , if clinically indicated. 5. Fat and fluid containing hiatal hernia. 6. Cholelithiasis. 7. Possible right colon thickening, which could indicate infection, ischemia, or inflammation. 8. Findings discussed with Dr. Isaias Sams on 07.02.16 at 0857 hrs Dictated by: Benny Hernandez M.D. on 07/19/2016 at 8:47 US ABDOMEN, LIMITED IMPRESSION: Small to moderate ascites. Dictated by: Luc Bolaños RRA Interpreted: Marleen Abbasi MD on 07/26/2016 at 15: 24 . Cardiac Echo Impressions Echocardiogram Report Name: BRIAN WREN LStudy Date: 07/19/2016 Height: 62 in Interpretation Summary The left ventricle is normal in size, wall thickness, and systolic function without any focal wall motion abnormalities. The ejection fraction is estimated to be 60-65%. Assessment of diastolic parameters indicates normal left ventricular diastolic function and normal filling pressures. The right ventricle is normal in size and function. The right ventricular systolic pressure is estimated at 28 mmHg assuming a right atrial pressure of 3 mm Hg. Both atria are normal in size. There is no significant valvular heart disease. The ascending aorta is mildly enlarged. There is an anterior echo-free space consistent with a fat pad. Additional Diagnostics ENDOSCOPY PROCEDURE TYPE OF OPERATION: 1. Esophagogastroduodenoscopy with biopsy and APC and Gold Probe thermocoagulation. 2. Colonoscopy. IMPRESSION: 1. Normal colonoscopy. 2. A 1 cm duodenal first portion ulcer with recent stigmata of bleed, status post argon plasma coagulation and Gold Probe thermocoagulation. 3. Mild nonerosive gastritis. 4. No esophageal or gastric varices seen. 5. A 5 mm duodenal first portion ulcer, clean based, nonbleeding. RECOMMENDATIONS: 1. Stopped octreotide and Protonix drips, given the fact that the Protonix drip has been on for greater than 72 hours. 2. Start Protonix 40 mg by mouth twice a day. 3. Carafate 1 g by mouth 4 times a day. 4. Await pathology results. 5. Start clear liquid diet. Advance as tolerated. 6. The patient will need outpatient repeat EGD in approximately two to three months to document healing of the ulcers. Joao Isabel MD 07/23/16 1630 . Assessment & Plan GASTROENTEROLOGY CONSULT NOTE Ms. Brian Wren is a 60 year old woman with history of COPD, and cirrhosis secondary to alcohol use, that presented to [facility] via EMS as a transfer from [place] for management of suspected acute upper GI bleed with initial Hb 5.5 following a recent GLF. She was admitted for evaluation and treatment of acute on chronic anemia, assessment of GLF, and possible COPD exacerbation. GI was consulted to assist in further evaluation for etiology of suspected upper GI bleed. CT A/P wo contrast 07/19: No evidence of urinary tract calcification, nor obstruction. Cirrhosis and portal hypertension, with associated portosystemic collateral vessels, and small to moderate amount of ascites. Subacute and acute right rib fractures. Indeterminate right adrenal nodule, which could be further assessed with MRI, if clinically indicated. Fat and fluid containing hiatal hernia. Cholelithiasis. Possible right colon thickening, which could indicate infection, ischemia, or inflammation. USG paracentesis 07/21: 2.6L fluid removed EGD 07/23: 1cm duodenal ulcer with recent stigmata of bleed s/p APC and gold probe thermocoagulation; mild nonerosive gastritis; no esophageal varices; 5mmclean-based, nonbleeding duodenal ulcer Biopsy results EGD 07/23: Negative H. pylori, intestinal metaplasia, dysplasia, and malignancy Colonoscopy 07/23: No abnormalities visualized Assessments - Acute on chronic anemia s/p 5U pRBC; likely secondary to duodenal ulcerative bleeding s/p egd colon 07/23/2016 apc, gold probe; stable - History of alcoholic cirrhosis, evidenced on imaging - Ascites secondary to alcoholic cirrhosis, s/p therapeutic and diagnosis USG paracentesis with 2.6L fluid removed - MELD score on admit 07/19: 13; 6.0% est 3-month mortality (Na 135, Cr 0.64, INR 1.20, bili 2.2, no hx dialysis) Recs: - Consider therapeutic paracentesis - Consider repeat US to assess - Monitor HH and transfuse prn per primary team - cont protonix 40mg iv bid, carafate 1g po qid - xifaxan 550mg po bid for HE - etoh cessation when appropriate - repeat egd as outpatient in 2 months to document healing duodenal ulcers - lactulose 20mg po q6- goal 3bm/day given hx cirrhosis - cont abx per hospitalist team cover sbp ppx Thank you for this consult. We will follow along at this time. Total time: 30 minutes GI Prophylaxis: Proton Pump Inhibitor VTE Prophylaxis: Other (possible GI bleed, unable to use SCDs d/t leg wounds) VTE Mechanical Devices: Intermittant Pneumatic CD Resuscitation Status: CPR: Attempt Resuscitation Tina Avitia DO Jul 27, 2016 09:29
[2016-07-27 13:16] LABS: BFWBC 245 /mm3
[2016-07-27 13:17] LABS: MONOCYTES,BODY FLUID 7 %; OTHER CELLS,BODY FLUID 0
--- NOTE | 2016-07-27 13:44 | NUR ---
NUTRITION FOLLOW-UP: Assess: 60 YO F admitted with severe anemia, COPD exacerbation, sepsis, and GI bleed following a GLF. EGD showed duodenal ulcer. Pt remains on mechanical ventilation. Enteral feedings were advancing towards goal but TF was noted in epiglottic and oral suctioning so were turned off overnight. Per CCU rounds, pt is a bit more alert today. PMHX: COPD, ETOH dependence, hemorrhoids, PNA, constipation, rectal bleed. DIET: NPO. ENTERAL NUTRITION: Pulmocare at 35 ml/hr, advancing to goal of 60 ml/hr to provide 1980 kcal, 83 g protein, sufficient to meet 100% nutrient needs. ON HOLD LABS: Na 147, Cl 114, Bun 30, Glu 139, Ca 8.3, Alb 1.8 MEDICATIONS: Reviewed. Pressors, Lasix, Propofol rate ~10 ml/hr, providing 264 lipid kcal. GI: BM x 3 (07/26), abdomen distended. SKIN: Cluster of wounds at the right pretibial area of the leg--stable per WC ANTHROPOMETRICS: Wt: 94.8 kg, BMI 38.2 kg/m2, Admit wt: 95.2 kg, IBW: 50.0 kg. ESTIMATED NEEDS: VENT/WOUND/COPD/BMI Calories: 0507-0710 kcal/day (22-25 kcal/kg BW) Protein: 75-90 g/day (1.5-1.8 g/kg IBW) NUTRITION DIAGNOSIS: 1) Increased nutrient needs related to wound healing/increased demand for nutrients as evidenced by wounds, COPD - PERSISTS. 2) Chewing/swallowing difficulties related to pocketing, delayed swallow, decreased laryngeal excursion, as evidenced by requirement for pureed/honey thick liquid diet - PERSISTS. 3) Inadequate oral intake related to inability to consume sufficient energy, as evidenced by minimal PO intake since admit x 5 D, now intubated.-PERSISTS. INTERVENTION: 1) Recommend re-start TF when medically appropriate. MONITOR/EVALUATE: NPO/vent status, TF re-start, wounds, GI, labs, nutrition status. Follow per high nutrition risk guidelines.
--- NOTE | 2016-07-27 13:48 | PCM.PNMED ---
Subjective Date of Service Jul 27, 2016 Subjective Pulmonology Consultation. Attending physician Dr. Montgomery. Requesting Physician Dr. Thomason. reason for Consult. Acute hypoxic respiratory failure. Ms. Collins is a 60 year old female with a H EtOH use disorder, alcoholic cirrhosis and COPD who was admitted for acute blood loss anemia secondary to GI bleed from duodenal ulcer and encephalopathy. During the course of her hospital stay she developed worsened encephalopathy with acute respiratory failure presumed to be aspiration pneumonia/pneumonitis and was intubated on . Overnight: No significant events reported. Propofol decreased to 10mcg Patient remains sedated and intubated on ventilator. Though she is now opening her eyes and able to follow some commands. Exam Vital Signs Vital Sign - Last Date Time Temp Pulse Resp B/P Pulse Ox O2 Delivery O2 Flow Rate FiO2 07/27/16 08:02 95 81/48 94 50 07/27/16 07:50 36.9 18 Mechanical Ventilator 07/26/16 12:49 14.00 Intake and Output 07/26/16 07/26/16 07/27/16 Cumulative From/Thru 15:00 23:00 07:00 07/19/16 04:15 - 07/27/16 05:46 Intake Total 1484 ml 823 ml 60719 ml Output Total 550 ml 850 ml 9455 ml Balance 934 ml -27 ml 9065 ml Intake Oral 2250 ml IV Total 477 ml 356 ml 06724 ml Tube Feeding 407 ml 317 ml 1165 ml Packed Cells 900 ml Tube Irrigant 600 ml 150 ml 2211 ml Output Urine Total 350 ml 275 ml 5900 ml Stool Total 125 ml 130 ml Gastric Drainage Total 450 ml 575 ml Drainage Total 200 ml 200 ml Other 2650 ml # Voids 3 # Bowel Movements 23 Exam General: Intubated and sedated in no acute distress. opens eyes spontaneously and is able to follow some commands. HEENT: Normocephalic, atraumatic. External ears without defect. ET tube in place. Cardiovascular: Regular rate and rhythm with no murmurs appreciated Pulmonary: Crackles appreciated in upper anterior lobes bilaterally. Abdomen: Soft to palpation. No appreciable fluid wave though ABD is distended. Umbilicus is protruding. Extremities: R lower extremity bandage in place, left lower extremity showed mild pitting edema. SCD in place. Upper extremities, soft restraints in place. Psychiatric: Intubated and sedated Ventilator settings: Tidal volume 360. Respiratory rate 18. FiO2 0.5. PEEP 10. AB.427, pCO2 38.9, pO2 64.5.7, HCO3 25.2 IV drips and Sedatives: Propofol 10mcg. Levophed 0.03mcg I&O: Total: in 18,520, out 9,455, total -9,065 IVs and Medications Medications Reviewed: Medications were reviewed in detail Lab and Diagnostics Result Diagram: 07/27/1642907/27/16429 Microbiology MRSA nasal swab negative Paracentesis culture negative Urine culture 07/19 negative X-Rays, CTs and MRIs PROCEDURE: X-RAY CHEST ONE VIEW, PORTABLE ([id number]) IMPRESSION: Right upper and left lower lobe airspace opacity suspicious for aspiration or pneumonia. Dictated by: Luc ALBERT Interpreted: Benny Hernandez MD on 07/22/2016 at 16: 03 Chest x-ray 07/25 - personally reviewed Reduced inspiration, air bronchogram with dense left lower lobe infiltrate, right lower lobe interstitial pattern PROCEDURE: X-RAY CHEST ONE VIEW, PORTABLE ([id number]) IMPRESSION: 1. Endotracheal tube in appropriate position. Orogastric tube extends into the stomach with the tip not included on current study. 2. Confluent left airspace opacities redemonstrated likely representing pneumonia. 3. Bibasilar opacities consistent with consolidation/pneumonia, aspiration, or atelectasis again noted. 3. Mild pulmonary edema with interval improved aeration in the lung bases. 4. Small bilateral pleural effusions. Dictated by: Kyle Rainey M.D. on 07/24/2016 at 9:18 PROCEDURE: X-RAY CHEST ONE VIEW, PORTABLE ([id number]) IMPRESSION: 1. Support lines and tubes as above. 2. Confluent left lung airspace opacity redemonstrated likely related to pneumonia although asymmetric edema cannot be excluded. 3. New airspace opacity within the peripheral right upper lobe consistent with atelectasis versus pneumonia. 4. Bibasilar opacities unchanged consistent with atelectasis versus aspiration or pneumonia. Dictated by: Luc ALBERT Interpreted: Mirella Wu MD on 07/26/2016 at 9:31 PROCEDURE: CT ABDOMEN AND PELVIS WITHOUT CONTRAST ([id number]) IMPRESSION: 1. No evidence of urinary tract calcification, nor obstruction. 2. Cirrhosis and portal hypertension, with associated portosystemic collateral vessels, and small to moderate amount of ascites. 3. Subacute and acute right rib fractures. 4. Indeterminate right adrenal nodule, which could be further assessed with MRI , if clinically indicated. 5. Fat and fluid containing hiatal hernia. 6. Cholelithiasis. 7. Possible right colon thickening, which could indicate infection, ischemia, or inflammation. 8. Findings discussed with Dr. Isaias Sams on 07.02.16 at 0857 hrs Dictated by: Benny Hernandez M.D. on 07/19/2016 at 8:47 US ABDOMEN, LIMITED IMPRESSION: Small to moderate ascites. Dictated by: Luc ALBERT Interpreted: Marleen Abbasi MD on 07/26/2016 at 15: 24 . X-RAY CHEST ONE VIEW IMPRESSION: 1. Mild edema and decreasing bilateral air space opacities suggesting resolving patchy pulmonary edema versus pneumonia. Dictated by: Luc ALBERT Interpreted: Jonny Gonzalez MD on 07/27/2016 at 10:27 Cardiac Echo Impressions Echocardiogram Report Name: BRIAN COLLINS LStudy Date: 07/19/2016 Height: 62 in Interpretation Summary The left ventricle is normal in size, wall thickness, and systolic function without any focal wall motion abnormalities. The ejection fraction is estimated to be 60-65%. Assessment of diastolic parameters indicates normal left ventricular diastolic function and normal filling pressures. The right ventricle is normal in size and function. The right ventricular systolic pressure is estimated at 28 mmHg assuming a right atrial pressure of 3 mm Hg. Both atria are normal in size. There is no significant valvular heart disease. The ascending aorta is mildly enlarged. There is an anterior echo-free space consistent with a fat pad. Additional Diagnostics ENDOSCOPY PROCEDURE TYPE OF OPERATION: 1. Esophagogastroduodenoscopy with biopsy and APC and Gold Probe thermocoagulation. 2. Colonoscopy. IMPRESSION: 1. Normal colonoscopy. 2. A 1 cm duodenal first portion ulcer with recent stigmata of bleed, status post argon plasma coagulation and Gold Probe thermocoagulation. 3. Mild nonerosive gastritis. 4. No esophageal or gastric varices seen. 5. A 5 mm duodenal first portion ulcer, clean based, nonbleeding. RECOMMENDATIONS: 1. Stopped octreotide and Protonix drips, given the fact that the Protonix drip has been on for greater than 72 hours. 2. Start Protonix 40 mg by mouth twice a day. 3. Carafate 1 g by mouth 4 times a day. 4. Await pathology results. 5. Start clear liquid diet. Advance as tolerated. 6. The patient will need outpatient repeat EGD in approximately two to three months to document healing of the ulcers. Joao Isabel MD 07/23/16 1630 . Assessment & Plan Ms. Collins is a 60 year old female with a H EtOH use disorder, alcoholic cirrhosis and COPD who was admitted for acute blood loss anemia secondary to GI bleed from duodenal ulcer and encephalopathy. During the course of her hospital stay she developed worsened encephalopathy with acute respiratory failure presumed to be aspiration pneumonia/pneumonitis and was intubated on 1. Acute hypoxemic respiratory failure. Not present on admission. Ongoing. Most likely secondary to secondary to HAP. Chest x-ray previously showed right mid and lower field opacities. Now diffuse alveolar pattern on left developed since respiratory compromise on 07/23. Initially required high FiO2 with increased PEEP, Oxygenation status seems to be improving as of 07/26/2016 - CXR has shown a possible developing pneumonia vs pulmonary edema - Currently Ventilated with FiO2 0.5, PEEP 10, RR 14, TV 360 - Meropenem start date 07/24/2016 - Vanc and Zosyn discontinued - Propofol 10 - Fentanyl Bolus PRN - Will attempt a pressure support trial this afternoon 2. Acute Respiratory Distress Syndrome. Not present on admission. Ongoing - [place] Criteria places Pt in moderate category - Furosemide held today secondary to hypotension - Albumin given s/p paracentesis as in #5 - I&O total is positive ~9L - albuterol-ipratropium q4hr, albuterol q2hr PRN - Discontinued prednisone 40mg PO daily - Continue to monitor 3. Sepsis, present on admission. Ongoing. (HR 109, RR 28, WBC 33K) Possible sources include pneumonia vs. lower extremity infection. - Hold fluid resuscitation secondary to #2 - Levophed 0.03, continue to titrate down as tolerated - ABX as in #1. 4. Acute blood loss anemia secondary to GI bleed from duodenal ulcer - Protonix IV - Octreotide DC'd - Hemoglobin 8.2 on 07/27/2016 - GI is following. 5. Alcoholic cirrhosis. Present on admission. Ongoing. - LFT's have normalized - Pt has ascites and anasarca. - Additional ~2.5 L of fluid taken off during paracentesis today - Paracentesis 07/21 showed no PMN's - ABD US 07/26 showed reaccumulation of fluid 6. Encephalopathy - Lactulose Held secondary to multiple loose stools - Ammonia Level normalized - Continue to monitor GI Prophylaxis: Proton Pump Inhibitor VTE Prophylaxis: Other (possible GI bleed, unable to use SCDs d/t leg wounds) VTE Mechanical Devices: Intermittant Pneumatic CD Resuscitation Status: CPR: Attempt Resuscitation Attending Statement I have seen and examined this patient with the resident physician. Vital signs , labs, imaging have been reviewed. I agree with the assessment and plan above. Please refer to my separately dictated progress note for any modifications to above. Kristine Montgomery M.D. Pulmonary and Critical Care medicine Pager [phone] RODDY BENAVIDES DO Jul 27, 2016 09:55 Kristine Montgomery MD Jul 28, 2016 07:43
--- NOTE | 2016-07-27 13:52 | NUR ---
Social Work: Continued d/c planning Data: Pt is on day 8 of hospitalization. EMR reviewed, pt discussed in rounds. states pt continues to be vented. CDP from [facility] to see pt once appropriate regarding chemical dependency. MARINA PORTER will continue to follow. Assessment: Pt who is independent at baseline. Plan: MARINA PORTER will continue to follow for d/c planning needs. CDP from [facility] to see pt once appropriate regarding chemical dependency. RCA to evaluate for possible Medicaid application. MARINA PORTER will continue to follow. KAVYA Philippe
[2016-07-27 14:32] LABS: BASOPHILS % (AUTO) 0.2 % (0-3); EOSINOPHILS % (AUTO) 2.8 % (0-5); MONOCYTES % (AUTO) 6.5 % (4-12); Mean Corpuscular Hemoglobin 26.9 pg (27.0-35.0); Mean Corpuscular Volume 92.4 fL (81-100); NEUTROPHILS % (AUTO) 84.6 % (40-74); Platelet Count 121 bil/L (150-400)
[2016-07-27 14:48] LABS: INR 1.13 ratio
[2016-07-27 15:01] LABS: Creatine Kinase 46 U/L (21-215); TROPONIN T < 0.010 ug/L (0.0-0.011)
--- NOTE | 2016-07-27 15:06 | CONS ---
[address] [address] CONSULTATION REPORT PATIENT: BRIAN WREN : 1955 MR#: [id number] ADMIT: 07/19/2016 JOB ID: [id number] DATE OF SERVICE: 07/27/2016 REQUESTING PHYSICIAN: I thank Dr. Jose Juan Thomason for this timely consult. REASON FOR CONSULTATION: Hypotension, leukocytosis, and ventilator dependent respiratory failure. HISTORY OF PRESENT ILLNESS: The patient is a chronically ill 60-year-old woman with multiple longstanding medical problems, though she seeks and receives almost no medical care by report of her two daughters. The patient reportedly has been diagnosed in the past with alcoholic cirrhosis, as well as COPD and is known to have chronic right lower extremity leg ulcers which have been present for months but have been worse lately. The daughters report that the patient's last really sustained medical care occurred three or four years ago at [facility] when she had some testing done with reference to both COPD and cirrhosis, but they are not sure entirely what was done about that time, and the patient did not keep her scheduled followup appointments by the report of her daughters. In any event, the patient has had these chronic ulcers which her has been and endeavoring to take care of at home. Prior to her admission, which was on the , she fell and started to have excessive bleeding from these leg ulcers. Her could not stop the bleeding at home and so took her to the [facility] where she was found to be quite anemic, presumably on the basis of bleeding from the leg ulcers or perhaps GI bleeding. She was transferred to this facility where she received blood and fluids was some stabilization. She was then started on vancomycin and Zosyn, both for the lower extremity wounds and the possibility of a serious infection due to that cause. Her hypotension continued after admission, and an extensive GI evaluation was done looking for causes of bleeding. Upper endoscopy found two duodenal ulcers, one 1 cm and one 0.5 cm. Colonoscopy was relatively normal. After the endoscopic studies which occurred late on the , the patient was felt to have had an aspiration event, as she was found gurgling and then seemed to decompensated with a further decline in her blood pressure and the need for intubation on the . At that point, of course, the patient was moved to the ICU and given fluids and has required norepinephrine in fairly low doses ever since that time to maintain her blood pressure. Given that she had previously been on vancomycin and Zosyn without any isolates of MRSA, the patient's antibiotics were changed upon transfer to the ICU, and she was given meropenem as the sole antibiotic instead of the combo of vancomycin and Zosyn. She has been maintained here in the ICU since the transfer here three days ago and has remained on low-dose norepinephrine and has been somewhat stable from a respiratory and ventilatory point of view, though remains both intubated and on vasopressors. Earlier in her hospital stay, paracentesis was done, as she has decompensated cirrhosis. Today, a repeat paracentesis was done, and 3 L were removed. In speaking to her daughter, she has never had a paracentesis for decompensated cirrhosis before, and she has now had two large volume paracenteses in just a week or so. This afternoon, we were unable to interview the patient. She is on the ventilator and a bit difficult to arouse. When she does rouse, she tracks with her eyes and focuses on faces but otherwise does not interact in any meaningful way. She cannot or does not answer any questions and does not follow any commands. We did speak at length to her daughters, as well as the ICU team during rounds. PAST MEDICAL HISTORY: 1. COPD with long smoking history. 2. Alcoholic cirrhosis with known ascites and history of encephalopathy in the past. According to her daughters, she did have problems with hepatic encephalopathy a full three years ago when she was at [facility]. 3. Chronic right lower extremity leg ulcers times months with increased bleeding lately. SOCIAL HISTORY: The patient was a heavy cigarette smoker until about three or four years ago when she switched to e-cigarettes. She has remained a heavy consumer of alcohol throughout. She lives with her in the [place] area. She is originally from [place], [place] and has lived her whole life in [facility]. FAMILY HISTORY: Positive for a cousin with tuberculosis. REVIEW OF SYSTEMS: Not possible in this intubated and sedated patient, though we did discuss the case in great detail with her daughters. PHYSICAL EXAMINATION: Reveals a chronically ill woman who looks much older than 60. She is lying supine intubated in the ICU. When touched or when her name is called, she sometimes opens her eyes and tracks but does not further interact. Temperature curve shows that she was afebrile on admission for the first 5-1/2 days, then spiked to 38.2 on the and with a similar temperature on the . She has been afebrile the last 24 hours. Temperature 37.9. Pulse 95, and it has bigeminy on the monitor. Blood pressure 81/48. She is on 0.09 of norepinephrine which would be a significant dose of the vasopressor agent. Her FiO2 is 50%, and she is saturating fairly well on that. Her urine output has been very poor the last couple days with only about 300 cc per day of output. Examination of the head reveals no trauma or temporal wasting. Eyes without conjunctivitis or scleral icterus. Nose appears normal. Oral endotracheal tube, oral gastric tube in good position. She has a PICC line which appears benign. Examination of the lungs reveals bilateral scattered rales at the bases but no major focal abnormalities. Cardiac tones regular rate and rhythm at this point without significant murmur. Abdomen is distended with umbilical hernia. She appears to have some degree of ascites but obviously a whole lot less than it was a few hours ago before 3 L were tapped. No obvious hepatosplenomegaly is discernible. The nurses report that they were able to drain some purulent material from the lower suprapubic area yesterday. We attempted to evaluate this site but were unable to find the site from which the purulence drained. There was no obvious cellulitis involving the abdominal wall, the suprapubic, or mons area. The Wick catheter is present. An FMS is also present. She has no significant skin rash. No significant edema of the lower extremities, though she does have ascites as mentioned. Her extremities are warm and reasonably well perfused. Neurologic exam is not really possible, as the patient is not awake enough to cooperate with the examination. No other notable abnormalities on physical. The legs are without significant edema or cellulitis, but the right lower extremity is wrapped between the knee and the ankle in a complex dressing applied by wound management earlier which we did not remove. As we understand from them, there was no purulence underneath it. We will be coming by tomorrow to take a look at that when they change the dressing. LABORATORIES: Include white count when she came in 12,000, robin to 33,000 on the which was the morning after her endoscopies and intubation. It has now fallen to 21,000. The diff includes 87% segs, and she is not on steroids. Creatinine is 0.88 and has remained remarkably stable despite poor urine output. LFTs are normal. Ammonia level was elevated to 108 earlier. It is now 33. Procalcitonin has only been done once, and that was today at 0.22. Albumin is 1.8. Urinalysis without pyuria. Vancomycin levels were quite high, 20 on the . Peritoneal fluid had 183 white cells. Many micro cultures have been obtained, though no blood cultures. A MRSA surveillance screen was negative. Urine cultures were mixed. Ascitic fluid from the was culture negative, and a tracheal aspirate from the after she was intubated showed just a few polys and a little mixed morales. We do not have subsequent cultures of sputum. IMAGING: Imaging was carefully reviewed on the view screen. Today's chest x-ray shows decreasing bilateral infiltrates consistent with resolving pulmonary edema or bilateral pneumonia. We reviewed the CT scan of the abdomen and pelvis from the . One can clearly see the lower lung neal at that time, and they are clear. IMPRESSION: This is a complex case of a woman with underlying cirrhosis and chronic obstructive pulmonary disease who was admitted basically with bleeding from a leg and found to have profound anemia which could not be simply bleeding from the lower extremity. At the time of admission, the patient was also noted to have ascites, and a paracentesis was done which was not consistent with spontaneous bacterial peritonitis. She was subsequently scoped and found to have the two duodenal ulcers which probably account for her dropping hematocrit. Her right lower extremity looked essentially uninfected to those who observe it, though it is now covered by a large dressing applied by the wound management team, but they state that they do not believe there is any infection present. At this point, it is a bit unclear as to what caused the patient's profound leukocytosis. Aside from her elevated white count, I see very little to suggest infection at this time. The patient's chest x-ray seems to be improving, and her sputum is without any polys at all which would argue against infection. Likewise, we have no evidence for spontaneous bacterial peritonitis and no evidence for bacteremia at this point. It is interesting that the nurses were able to get some purulent material from somewhere in the suprapubic area yesterday. We are working to locate where that sample went so that it can be properly cultured. At this point, I would be inclined to stop antibiotics except that she remains critically ill and we actually had to increase her norepinephrine this afternoon. For that reason, I would be inclined to continue with the meropenem for a little bit longer while we further investigate. RECOMMENDATIONS: 1. Will obtain a procalcitonin tomorrow morning. 2. Blood cultures x2 should be done today, and I would make those fungal blood cultures. 3. Sputum should be sent for Gram stain and culture via the endotracheal tube. 4. Will be checking the suprapubic fluid Gram stain and culture. 5. We will get together with the wound management team when they next change the dressing on the right lower extremity to get a better look at that area. 6. Will order an ASO titer.
--- NOTE | 2016-07-27 15:34 | PCM.PNMED ---
Subjective Date of Service Jul 27, 2016 Subjective 63-year-old woman with alcoholic cirrhosis and limited medical compliance presents with alcohol withdrawal, acute GI blood loss anemia and encephalopathy.On 07/23 nighttime she developed worsened encephalopathy and respiratory distress, likely aspiration pneumonia. She was intubated on 07/23. Now on sedation, but more alert. Responding to direction but appears weak and somewhat encephalopathic. Moving all 4 extremities spontaneously. Exam Vital Signs Vital Sign - Last Date Time Temp Pulse Resp B/P Pulse Ox O2 Delivery O2 Flow Rate FiO2 07/27/16 04:32 97 87/59 96 75 07/27/16 03:32 37.2 18 Mechanical Ventilator 07/26/16 12:49 14.00 Intake and Output 07/26/16 07/26/16 07/27/16 Cumulative From/Thru 15:00 23:00 07:00 07/19/16 04:15 - 07/27/16 05:46 Intake Total 1484 ml 823 ml 38460 ml Output Total 550 ml 850 ml 9455 ml Balance 934 ml -27 ml 9065 ml Intake Oral 2250 ml IV Total 477 ml 356 ml 12973 ml Tube Feeding 407 ml 317 ml 1165 ml Packed Cells 900 ml Tube Irrigant 600 ml 150 ml 2211 ml Output Urine Total 350 ml 275 ml 5900 ml Stool Total 125 ml 130 ml Gastric Drainage Total 450 ml 575 ml Drainage Total 200 ml 200 ml Other 2650 ml # Voids 3 # Bowel Movements 23 Exam General: Chronically ill-appearing obese woman on ventilator, eyes open HEENT: sclerae anicteric, mucosa seems moist Chest: Coarse breath sounds bilaterally, no wheeze, no focal rales on left side Cardiac: S1S2, no murmur appreciated Abdomen: BS present, distended with flank dullness, non-rigid Extremities: 2+ edema in arms and left leg; right lower extremity wound is bandaged little edema. Neuro: Sedated, opens eyes to questions but no clear answers, moves all 4 extremities IVs and Medications Medications Reviewed: Medications were reviewed in detail Lab and Diagnostics Ammonia: 43 and admission, 108 on 07/24, now stabilizing 58-59 range Arterial blood gas: DateTimeAnalyzed 14:51:00 -_ on room air pH ____7.317 - pCO2 ___53.4__ -mmHg pO2 ___49.1__ -mmHg HCO3- ___26.6__ -mmol/L FIO2 ___21.0__ -% DateTimeAnalyzed 05:57:00 -_ time of intubation pH ____7.223 - 7.350 7.450 pCO2 ___69.1__ -mmHg 35.0 45.0 pO2 ___68.7__ -mmHg 69.0 116 HCO3- ___27.4__ -mmol/L 22.0 26.0 FIO2 __100.0__ -% DateTimeAnalyzed 08:57:00 -_ intubated pH ____7.458 - 7.350 7.450 pCO2 ___35.0__ -mmHg 35.0 45.0 pO2 ___46.7__ -mmHg 69.0 116 HCO3- ___24.4__ -mmol/L 22.0 26.0 FIO2 ___75.0__ -% DateTimeAnalyzed 10:47:00 -_ pH ____7.386 - 7.350 7.450 pCO2 ___43.6__ -mmHg 35.0 45.0 pO2 ___80.8__ -mmHg 69.0 116 HCO3- ___25.6__ -mmol/L 22.0 26.0 FIO2 ___50.0__ -% DateTimeAnalyzed 04:43:00 -_ pH ____7.427 - 7.350 7.450 pCO2 ___38.9__ -mmHg 35.0 45.0 pO2 ___64.5__ -mmHg 69.0 116 HCO3- ___25.2__ -mmol/L 22.0 26.0 FIO2 ___50.0__ -% . Result Diagram: 07/27/1642907/27/16 043 Microbiology MRSA nasal swab negative Paracentesis culture negative Urine culture 07/19 negative X-Rays, CTs and MRIs PROCEDURE: X-RAY CHEST ONE VIEW, PORTABLE ([id number]) IMPRESSION: Right upper and left lower lobe airspace opacity suspicious for aspiration or pneumonia. Dictated by: Luc ALBERT Interpreted: Benny Hernandez MD on 07/22/2016 at 16: 03 Chest x-ray 07/25 - personally reviewed Reduced inspiration, air bronchogram with dense left lower lobe infiltrate, right lower lobe interstitial pattern PROCEDURE: X-RAY CHEST ONE VIEW, PORTABLE ([id number]) IMPRESSION: 1. Endotracheal tube in appropriate position. Orogastric tube extends into the stomach with the tip not included on current study. 2. Confluent left airspace opacities redemonstrated likely representing pneumonia. 3. Bibasilar opacities consistent with consolidation/pneumonia, aspiration, or atelectasis again noted. 3. Mild pulmonary edema with interval improved aeration in the lung bases. 4. Small bilateral pleural effusions. Dictated by: Kyle Rainey M.D. on 07/24/2016 at 9:18 PROCEDURE: X-RAY CHEST ONE VIEW, PORTABLE ([id number]) IMPRESSION: 1. Support lines and tubes as above. 2. Confluent left lung airspace opacity redemonstrated likely related to pneumonia although asymmetric edema cannot be excluded. 3. New airspace opacity within the peripheral right upper lobe consistent with atelectasis versus pneumonia. 4. Bibasilar opacities unchanged consistent with atelectasis versus aspiration or pneumonia. Dictated by: Luc ALBERT Interpreted: Mirella Wu MD on 07/26/2016 at 9:31 PROCEDURE: CT ABDOMEN AND PELVIS WITHOUT CONTRAST ([id number]) IMPRESSION: 1. No evidence of urinary tract calcification, nor obstruction. 2. Cirrhosis and portal hypertension, with associated portosystemic collateral vessels, and small to moderate amount of ascites. 3. Subacute and acute right rib fractures. 4. Indeterminate right adrenal nodule, which could be further assessed with MRI , if clinically indicated. 5. Fat and fluid containing hiatal hernia. 6. Cholelithiasis. 7. Possible right colon thickening, which could indicate infection, ischemia, or inflammation. 8. Findings discussed with Dr. Isaias Sams on 07.02.16 at 0857 hrs Dictated by: Benny Hernandez M.D. on 07/19/2016 at 8:47 US ABDOMEN, LIMITED IMPRESSION: Small to moderate ascites. Dictated by: Luc Bolaños RRA Interpreted: Marleen Abbasi MD on 07/26/2016 at 15: 24 . Cardiac Echo Impressions Echocardiogram Report Name: BRIAN WREN LStudy Date: 07/19/2016 Height: 62 in Interpretation Summary The left ventricle is normal in size, wall thickness, and systolic function without any focal wall motion abnormalities. The ejection fraction is estimated to be 60-65%. Assessment of diastolic parameters indicates normal left ventricular diastolic function and normal filling pressures. The right ventricle is normal in size and function. The right ventricular systolic pressure is estimated at 28 mmHg assuming a right atrial pressure of 3 mm Hg. Both atria are normal in size. There is no significant valvular heart disease. The ascending aorta is mildly enlarged. There is an anterior echo-free space consistent with a fat pad. Additional Diagnostics ENDOSCOPY PROCEDURE TYPE OF OPERATION: 1. Esophagogastroduodenoscopy with biopsy and APC and Gold Probe thermocoagulation. 2. Colonoscopy. IMPRESSION: 1. Normal colonoscopy. 2. A 1 cm duodenal first portion ulcer with recent stigmata of bleed, status post argon plasma coagulation and Gold Probe thermocoagulation. 3. Mild nonerosive gastritis. 4. No esophageal or gastric varices seen. 5. A 5 mm duodenal first portion ulcer, clean based, nonbleeding. RECOMMENDATIONS: 1. Stopped octreotide and Protonix drips, given the fact that the Protonix drip has been on for greater than 72 hours. 2. Start Protonix 40 mg by mouth twice a day. 3. Carafate 1 g by mouth 4 times a day. 4. Await pathology results. 5. Start clear liquid diet. Advance as tolerated. 6. The patient will need outpatient repeat EGD in approximately two to three months to document healing of the ulcers. Joao Isabel MD 07/23/16 1090 . Assessment & Plan 60yoF with COPD and undiagnosed :cirrhosis transferred for direct admit from [place] due to hemoglobin 5.5 following recent fall and blood loss from right lower extremity chronic wounds. Course has been complicated by acute respiratory failure with hypoxia and sepsis on 07/23, presumed due to pneumonia. Acute and high-risk problems: #. Sepsis, acute, POA. Initial impression on presentation was sepsis likely pneumonia vs right lower extremity infection. Started on vancomycin plus Zosyn. Clinically stable infectious status for several days. Developed acute sepsis syndrome (heart rate 109, respiratory rate 28, WBC 33K with respiratory failure) at night on 07/23 resulting in intubation. Subsequent picture appears to be bilateral left greater than right acute pneumonia. Vasopressor dependence seems to be related to upper fall sedation and underlying cirrhosis physiology. - Wean Norepinephrine infusion as needed to maintain mean arterial pressure greater than 65 - Continue meropenem for presumed HCAP Aspiration pneumonia source #. Acute respiratory failure with hypoxia. Secondary to healthcare facility acquired pneumonia. Chest x-ray previously showed right mid and lower field opacities. Now diffuse alveolar pattern on left developed since respiratory compromise on 07/23. Initially required high FiO2 with increased PEEP, Oxygenation status seems to be improving as of 07/26 - Initiate furosemide to normalize Lyme status - Continue mechanical ventilation. Try to wean FiO2, - Initially Vanco plus Zosyn, changed to meropenem on 07/24 - Sedation vacation and SBT - Ventilator bundle orders #. Acute blood loss anemia, GI bleeding, duodenal ulcer. Started on ceftriaxone and octreotide, which were subsequently discontinued - Continue Protonix IV - Continue sucralfate if compatible with OGT administration - Follow hemoglobin - GI is following. #. Cirrhosis with Ascites, POA. Nodular liver with signs of portal hypertension on CT scan. Complicated by encephalopathy, ascites and anasarca. No varices. Paracentesis 07/21 with 0 PMN's. No SBP therapy indicated. - Continue lactulose and rifaximin. - Return to furosemide and spironolactone when hemodynamically stable and taking by mouth - Plan therapeutic paracentesis if ascites is significant on ultrasound #. Possible COPD exacerbation, POA. Little evidence of bronchospasm. Primary acute stroke problem appears to be pulmonary infiltrates. - albuterol-ipratropium q4hr, albuterol q2hr PRN - Discontinued prednisone 40mg PO daily #. Ground level fall, acute. POA. She has multiple right-sided rib fractures. They contribute to poor respiratory function - Supportive treatment Resolving, stable, and/or chronic problems: #. Acute alcohol withdraw. Initially managed with CIWA. Has not had significant benzodiazepine needs. - Follow clinically #. Right internal carotid aneurysm, incidental finding. POA. This was discussed with neurosurgery at [facility] and there is no need for acute intervention at this time. #. Right adrenal nodule 12 mm, Hounsfield units 19. - Requires outpatient follow-up #. Alcohol dependence, chronic -as per , no h/o withdrawal -drinks 2 bottles of wine per day -CIWA #. Right lower extremity wound, chronic. POA. -wound consult, purulent as per report -piperacillin-tazobactam, vancomycin ordered GI Prophylaxis: Proton Pump Inhibitor VTE Prophylaxis: Other (possible GI bleed, unable to use SCDs d/t leg wounds) VTE Mechanical Devices: Intermittant Pneumatic CD Resuscitation Status: CPR: Attempt Resuscitation Time spent 40 minutes Jose Juan Thomason MD Jul 27, 2016 07:48
[2016-07-27] MEDS: 0.9% Sodium Chloride 250 ML IV SCH ×5 (16:05→23:35)
[2016-07-27] MEDS ORDERED: 0.9% Sodium Chloride 500 ML IV ONE (16:05)
--- NOTE | 2016-07-27 16:51 | PCM.PROC ---
Procedure Note Date of Service: Jul 27, 2016 Pre Procedure Diagnosis: Intraabdominal Ascites. . Post Procedure Diagnosis: Intraabdominal Ascites. Successful Ultrasound Guided Paracentesis. . Procedure: Successful Ultrasound Guided Paracentesis. . Provider and Wire Photo Operator News: Resident: Dayna Hopkins D.O. Attending: Arnold Montgomery M.D. . Indication for Procedure: Intraabdominal Ascites. . Findings: As noted below. . Procedural Analgesia: As noted below. . Procedure Details: Consent: Detailed explanation of the procedure was discussed with the patient's family, as well as, the attending physician, the risks, benefits, and alternatives were reviewed. A written informed consent was obtained. A time-out was completed verifying correct patient, procedure, site, positioning , and special equipment. The patients left side was prepped and draped in a sterile manner after the appropriate infiltration level was confirmed by ultrasound. 1% lidocaine was used anesthetize the surrounding skin. A finder needle was then used to locate fluid and clear yellow fluid was obtained. The one-way paracentesis catheter was then threaded without difficulty. The patient had 2800 mL of cloudy yellow fluid removed. The attending Dr. Montgomery was present for the entire procedure. The fluid was sent for several studies. Estimated Blood Loss: 1 cc. The patient tolerated the procedure well and there were no complications. . Specimen: ~ 20 cc ascitic fluid sent for cell count and cytology. . Post Procedure Plan: Finish administering 50 g of albumin IV. . Attending Statement Procedure: Paracentesis under ultrasound guidance Indication: Ascites, cirrhosis I was present for and supervised the entire procedure. Date of service: 07/27/16 Kristine Montgomery M.D. Pulmonary and Critical Care medicine Pager [phone] Dayna Hopkins DO Jul 27, 2016 16:51 Kristine Montgomery MD Jul 28, 2016 07:42
[2016-07-27] MEDS: Pantoprazole Inj 80 MG in 0.9% Sodium Chloride 80 ML IV SCH (17:13)
--- NOTE | 2016-07-27 18:41 | NUR ---
SQ heparin and Lasix not given this am Pt bleeding from OG this am heparin held, per Dr. Pantoja. Lasix held also as pt's BP was down and paracentesis ordered. Dr Pantoja aware.
[2016-07-27 19:26] LABS: Bilirubin, Direct 0.7 mg/dL (0.0-0.3)
--- NOTE | 2016-07-27 19:32 | NUR ---
P: Resp, Hemodynamics, Nutrition, Skin Social I,E: Pt continues on the vent. Changes made today decreasing FIO2, peep and rate. Pt seems to be tolerating this well, sats in the mid 90's. Secretions minimal, with creamy sputum suctioned for sputum spec which was sent this afternoon. Pt's BP has been marginal today and I have been increasing the levophed throughout the day and it is currently at 0.1mcg up from 0.01mcg where it started at 0700hrs. I also titrated propofol down to increase BP. Albumin was given during the paracentisis as well as this afternoon. 2800cc was drained during the paracentisis. Pt did respond somewhat to NS 500cc bolus with BP increasing into the 90's sys. Of note, this am, red fluid was seen in the OG, not mary blood, but bloody fluid. was notified. Heparin was held. This evening H&H dropped and 2 units of RBC's was ordered (first unit infusing now). This has also helped BP improve and it is in the 100's sys at this time. No obvious blood in FMS. Multiple labs sent throughout the day. Pt does have some clear fluid leaking from her paracentisis site. Nutrition is on hold at this time. Pt has redness across her buttocks and in her lobito area. I have cleaned this area frequently and applied calmoseptine liberally. The area mentioned yesterday that had exudate expressed from it is almost not visible today. This will continue to be monitored. Pt's stays with her at night time and is here now, while daughters stay in the room throughout the day. They are great support and ask good questions. I have updated them throughout the day as have the Dr's.
[2016-07-27] MEDS: MethylprednisoLONE Sodium Succinate 40 mg/mL Inj IVPUSH SCH (20:34)
[2016-07-27] MEDS: Propofol Inj 1,000,000 MCG in IV Premix 1 EACH IV SCH (22:11)
[2016-07-28] VITALS (13 sets, daily range): BP systolic 100–119; BP diastolic 53–71; PULSE 86–105; RESP 18–22; O2SAT 92–97
[2016-07-28] MEDS: Meropenem 1 Gm/100 mL NS Minibag Plus IV SCH ×6 (00:36→16:42)
[2016-07-28] MEDS: Lactulose 20 Gm/30 mL 30 mL Syrup PO SCH ×3 (01:00→12:08)
[2016-07-28] MEDS: Albuterol-Ipratropium 3 mL Inhalation Solution NEB SCH ×6 (01:07→21:48)
[2016-07-28] MEDS: Norepineph 8,000 mCg/250 mL NS 8,000 MCG in IV Premix 1 EACH IV SCH ×2 (01:31→21:13)
[2016-07-28] MEDS: 0.9% Sodium Chloride 250 ML IV SCH ×12 (02:05→22:05)
[2016-07-28 02:53] LABS: BASOPHILS % (AUTO) 0.2 % (0-3); EOSINOPHILS % (AUTO) 0.5 % (0-5); MONOCYTES % (AUTO) 2.6 % (4-12); Mean Corpuscular Hemoglobin 27.4 pg (27.0-35.0); Mean Corpuscular Volume 88.8 fL (81-100); NEUTROPHILS % (AUTO) 92.9 % (40-74); Platelet Count 140 bil/L (150-400)
[2016-07-28] MEDS: MethylprednisoLONE Sodium Succinate 40 mg/mL Inj IVPUSH SCH (02:56)
[2016-07-28] MEDS: Pantoprazole Inj 80 MG in 0.9% Sodium Chloride 80 ML IV SCH ×3 (04:29→23:36)
--- NOTE | 2016-07-28 05:12 | ABG ---
DateTimeAnalyzed 05:08:00 -_ pH ____7.461 - 7.350 7.450 pCO2 ___33.4__ -mmHg 35.0 45.0 pO2 ___54.0__ -mmHg 69.0 116 HCO3- ___23.5__ -mmol/L 22.0 26.0 ABE ____0.5__ -mmol/L -2.0 2.0 tHb ____9.7__ -g/dL O2Hb ___87.6__ -% COHb ____1.7__ -% MetHb ____0.9__ -% sO2 ___89.9__ -% FIO2 ___40.0__ -% PEEP ____8.0__ -cmH2O Set_RR ___14.0__ -b/min Vt __360.0__ -L Drawn By MK - Date/Time Notified____ 05:10:00 -_ Oxygen Device 1 VENTILATOR - Notified By MK - Notified Whom Dr fuimaono - B 755 -mmHg tO2 ___12.0__ -Vol% Isaias test _Positive -
[2016-07-28 06:44] LABS: Magnesium 2.2 mg/dL (1.6-2.6)
[2016-07-28] MEDS: Propofol Inj 1,000,000 MCG in IV Premix 1 EACH IV SCH ×2 (07:00→18:10)
[2016-07-28] MEDS: Furosemide 10 mg/mL 2 mL Inj IVPUSH SCH (08:23)
--- NOTE | 2016-07-28 09:42 | PROG NOTE ---
[address] [address] PROGRESS NOTE PATIENT: BRIAN WREN : 1955 MR#: [id number] ADMIT: 07/19/2016 JOB ID: [id number] DATE: 07/28/2016 INFECTIOUS DISEASE FOLLOW UP NOTE: REASON FOR FOLLOWUP: Profound leukocytosis with probable aspiration pneumonia and evidence of recent significant streptococcal infection. INTERVAL HISTORY: Recall that this is the very complex ICU patient we saw yesterday who is admitted with GI bleeding due to duodenal ulcers and also has an alcoholic cirrhosis with massive ascites. She has had a profound leukocytosis and has required vasopressor agents and intubation over the past several days following an EGD that was done late on the of this month. Yesterday we were consulted regarding possible sources of infection and antibiotic management. Note that she has been on meropenem now since the so today is the start of her fifth day of meropenem. Overnight the patient has remained intubated in the ICU. She continues to require low dose norepinephrine and has a very marginal urine output even as her creatinine stays relatively stable. She has not had significant fever or chills, but her profound leukocytosis continues. This case was discussed at the bedside extensively with the patient's two daughters as well as the ICU nurse and the patient was completely re-evaluated. Note that the patient for her part just wakes up with stimulation but does not appear to interact in any way. PHYSICAL EXAMINATION: Reveals a woman who will open her eyes but otherwise is not communicative. She remains afebrile. Temperature this morning 37, blood pressure 100/57 on low-dose norepinephrine, pulse in the 90s. She is saturating well but she is on 50% FiO2 up from 40 yesterday. The patient's eyes are without scleral icterus. Oral endotracheal tube and gastric tube are present. Minimal respiratory secretions. Lungs with scattered rales, left more than right. Cardiac tones without significant murmur. The patient has very significant ascites which has worsened overnight with a prominent umbilical hernia. Wick catheter is present. Her left lower extremity appears relatively normal. We removed the dressings from the right lower extremity as there was a large compression dressing on below the knee. Underneath this, there is profound venous stasis changes with almost lichenification of the skin. There is also some wasting of the right lower extremity and this may be related to old trauma. On the anterior surface of the right lower extremity, there are two recently healed ulcers that would appear as well as one which is about 2 cm by 1 cm. It is a very shallow ulcer with minimal bleeding and no purulence whatsoever. Her right lower extremity definitely does not look infected. LABORATORIES: Include white count 21,000, hematocrit 31, platelet count 140,000. Creatinine stable at 0.81 surprisingly. Bilirubin 1.4. ALT and AST normal. Procalcitonin 0.21 which is identical to one done a couple days ago. Urinalysis on the was negative. Streptozyme came back extremely elevated 1568. Cultures were reviewed and we have negative blood cultures, negative ascitic fluid cultures, negative sputum cultures. Note that yesterday's sputum sample showed many polys with no organisms as opposed to a prior sputum sample from the endotracheal tube three days ago which showed a few polys. The cell count on the most recent paracentesis was not consistent with SBP. Chest x-rays were reviewed and compared. The patient seems to have an increasing left lower lobe infiltrate today as well as some minimal infiltrate on the right. IMPRESSION: This is an incredibly complex case of a woman with advanced chronic obstructive pulmonary disease as well as very severe alcoholic hepatitis and alcoholic cirrhosis with a history of encephalopathy as well as ascites. She was admitted with gastrointestinal bleeding which turns out to be due to duodenal ulcers rather than varices. Her ascites has been tapped twice with large volume paracenteses which are not consistent with SBP. She continues to have a high white count with low procalcitonin. She has received broad-spectrum antibiotics now for nine days with meropenem for the past five days following what may have been an aspiration event. The ID differential diagnosis here is broad. I see no evidence for SBP nor is there any evidence that her right lower extremity is infected. We do have evidence by ASO titer of a serious group A strep infection within the last three months but it is unclear when that occurred or where it occurred. There is some evidence for aspiration pneumonia as it was thought she aspirated after the endoscopies on the and she was started on broad-spectrum antibiotics and intubated in the hours following that procedure. I think the most likely source here is aspiration pneumonia and I would complete a seven day course of meropenem and then stop and watch. RECOMMENDATIONS: 1. We await the many pending cultures including the sputum cultures done yesterday. 2. I would continue with meropenem through July 30 and then strongly consider discontinuing and observation unless we have additional changes. 3. We discussed the proper management of the wound with the ICU nurse and will switch to a much smaller simple dry dressing over the single remaining open ulceration on the right lower extremity. 4. Will plan to discuss this case later today with wound management. 5. This case discussed with the ICU nurse and the ICU team.
--- NOTE | 2016-07-28 10:31 | DRSVH ---
PROCEDURE: X-RAY CHEST ONE VIEW ([id number]) INDICATIONS: intubated TECHNIQUE: One view of the chest was acquired. COMPARISON: [facility], CR, XR CHEST 1VW, 07/27/2016, 5:13. FINDINGS: Surgical changes and devices: None. Lungs and pleura: Mild edema persists and there has been slight interval increase in airspace opacity within the mid left lung and persistent density within the left lung base. Presumed atelectasis wit hin the mid right lung. Small left pleural effusion. Mediastinum: Mediastinal contours appear normal. Heart size is normal. Bones and chest wall: No suspicious bony lesions. Overlying soft tissues appear unremarkable. IMPRESSION: 1. Interval increase in confluent air space opacity within mid left lung and left lung base consisten t with worsening patchy pulmonary edema or pneumonia. 2. Presumed subsegmental atelectasis within the mid right lung redemonstrated. 3. Support lines and tubes as above. Dictated by: Luc Bolaños [facility] Interpreted: Jonny Gonzalez MD on 07/28/2016 at 10:29 Transcribed by: VERO on 07/28/2016 at 10:31 Approved by: Jonny Gonzalez M.D. on 07/28/2016 at 12:06
--- NOTE | 2016-07-28 11:02 | PROG NOTE ---
[address] [address] PROGRESS NOTE PATIENT: BRIAN WREN : 1955 MR#: [id number] ADMIT: 07/19/2016 JOB ID: [id number] DATE: 07/28/2016 PULMONARY CRITICAL CARE PROGRESS NOTE: The patient is a 60-year-old woman with alcoholic cirrhosis and alcohol abuse admitted with upper GI bleed due to duodenal ulcer, subsequently complicated by aspiration pneumonitis and respiratory failure. The patient was seen and evaluated with resident physician, Quan Pantoja. Refer to the separate detailed note for additional information. INTERVAL HISTORY: She underwent an uneventful paracentesis yesterday with removal of 2.8 L of fluid but was also noticed to have bloody output from her OG tube. Hemoglobin had dropped from 8 in the morning to 6 by the end of the day. She was transfused 4 units of packed red cells per GI recommendations which led to a hemoglobin in the 9 range. She also had increasing hypotension with increased pressor requirements. Plan is for endoscopy this morning. REVIEW OF SYSTEMS: Could not be obtained since patient is intubated. PHYSICAL EXAMINATION: Vital signs reviewed. She is afebrile. She is on 50% FiO2 and 8 cm of PEEP on the vent. She opens her eyes and tries to track but does not really follow commands. She has diffuse anasarca and a distended abdomen. Lungs are clear. LABORATORIES: Reviewed. WBC 21, hemoglobin 9.5 from 6.3 yesterday. Chemistry also reviewed. Sodium is up to 150. Procalcitonin remains low at 0.2. Cultures: No growth. Chest x-ray shows worsening left-sided infiltrate with retrocardiac atelectasis. Cannot see the diaphragm anymore. ASSESSMENT AND RECOMMENDATIONS: 1. Acute hypoxic respiratory failure on mechanical ventilation since July 24. 2. Aspiration pneumonitis. 3. Alcoholic cirrhosis with alcohol abuse. 4. Recurrent upper GI bleed most likely due to duodenal ulcer. 5. Acute blood loss anemia. 6. Ascites status post paracentesis on July 21 and again on July 27. A 60-year-old woman with alcoholic cirrhosis was drinking heavily until she came in the hospital with an upper GI bleed due to duodenal ulcer. She got intubated post endoscopy last week because of aspiration pneumonitis. Yesterday we did a paracentesis with removal of 2.8 L of fluid. Fluid has about 243 white cells, of which 86% are PMNs. This is somewhat inflammatory but not enough to call it SBP. I am surprised, however, about the number of white cells, despite the patient being on meropenem now for many days. Per ID I suspect we could stop the meropenem since this appears to be a pneumonitis rather than pneumonia. She is bleeding again most likely again from the duodenal ulcer and GI is planning an endoscopy today to take a look. She does not need any further transfusion at this point, her hemoglobin is 9.5. If we do stop the meropenem, she needs to be on ceftriaxone instead for SBP prophylaxis in the setting of GI bleed with cirrhosis. DVT prophylaxis has been stopped because of bleeding. She is getting a PPI drip. Discussed at length with daughters at the bedside and explained that this sets us back with regard to any plans for extubation. They understood. CRITICAL CARE TIME: 45 minutes.
--- NOTE | 2016-07-28 14:19 | PCM.PNMED ---
Subjective Date of Service Jul 28, 2016 Subjective Pulmonology Consultation. Attending physician Dr. Montgomery. Requesting Physician Dr. Thomason. reason for Consult. Acute hypoxic respiratory failure. Ms. Collins is a 60 year old female with a H EtOH use disorder, alcoholic cirrhosis and COPD who was admitted for acute blood loss anemia secondary to GI bleed from duodenal ulcer and encephalopathy. During the course of her hospital stay she developed worsened encephalopathy with acute respiratory failure presumed to be aspiration pneumonia/pneumonitis and was intubated on . Yesterday Pt began to produce red tinged fluid from her OG tube. She underwent a paracentesis with 2.8L of fluid taken off. Her blood pressures oscitated from normotensive to hypotensive through out the day requiring ever in creasing doses of Levophed (starting the day at 0.01mcg/kg/hr and ending the day at 0.1mcg/kg/hr). Hemoglobin was drawn and found to have fallen from the morning measurement of 8.2 falling as low as 6.3. Pt received 2 units of PRBC's Albumin and IV fluid bolus with effect. GI notified and EGD scheduled for the morning of 07/28/2016 Overnight: Pt was started on the desensitization protocol as she has a documented allergy to IV contrast. ROS: Pt intubated and sedated at time of exam. Sedation increased secondary to expectant EGD, Pt does not open eyes to voice. Exam Vital Signs Vital Sign - Last Date Time Temp Pulse Resp B/P Pulse Ox O2 Delivery O2 Flow Rate FiO2 07/28/16 12:51 Ventilator 07/28/16 12:51 37.1 105 19 110/55 96 50 07/26/16 12:49 14.00 Intake and Output 07/27/16 07/27/16 07/28/16 Cumulative From/Thru 15:00 23:00 07:00 07/19/16 04:15 - 07/28/16 06:13 Intake Total 1478 ml 991 ml 09838 ml Output Total 3675 ml 4000 ml 54101 ml Balance -2197 ml -3009 ml 3859 ml Intake Oral 2250 ml IV Total 1161 ml 706 ml 65649 ml Tube Feeding 1165 ml Packed Cells 317 ml 285 ml 1502 ml Tube Irrigant 2211 ml Output Urine Total 325 ml 300 ml 6525 ml Stool Total 130 ml Gastric Drainage Total 200 ml 700 ml 1475 ml Drainage Total 350 ml 200 ml 750 ml Other 2800 ml 2800 ml 8250 ml # Voids 3 # Bowel Movements 23 Exam General: Intubated and sedated in no acute distress. Does not open eyes to voice. HEENT: Normocephalic, atraumatic. External ears without defect. ET tube in place. OG tube in place. Cardiovascular: Regular rate and rhythm with no murmurs appreciated Pulmonary: Crackles appreciated in upper anterior lobes bilaterally. Abdomen: Soft to palpation. ABD is less distended from yesterday. Umbilicus is still protruding. Extremities: R lower extremity bandage in place, left lower extremity showed mild pitting edema. SCD in place. Upper extremities, soft restraints in place. Psychiatric: Intubated and sedated Ventilator settings: Tidal volume 360. Respiratory rate 18. FiO2 0.5. PEEP 8. AB.46, pCO2 33.4, pO2 54, HCO3 23.5 IV drips and Sedatives: Propofol 10mcg. Levophed 0.07mcg I&O: Total: in + 20,989, out - 17,130, total - 3,859 IVs and Medications Medications Reviewed: Medications were reviewed in detail Lab and Diagnostics Result Diagram: 07/28/16 0505 07/28/16 0505 Microbiology MRSA nasal swab negative Paracentesis culture negative Urine culture 07/19 negative X-Rays, CTs and MRIs PROCEDURE: X-RAY CHEST ONE VIEW, PORTABLE ([id number]) IMPRESSION: Right upper and left lower lobe airspace opacity suspicious for aspiration or pneumonia. Dictated by: Luc ALBERT Interpreted: Benny Hernandez MD on 07/22/2016 at 16: 03 Chest x-ray 07/25 - personally reviewed Reduced inspiration, air bronchogram with dense left lower lobe infiltrate, right lower lobe interstitial pattern PROCEDURE: X-RAY CHEST ONE VIEW, PORTABLE ([id number]) IMPRESSION: 1. Endotracheal tube in appropriate position. Orogastric tube extends into the stomach with the tip not included on current study. 2. Confluent left airspace opacities redemonstrated likely representing pneumonia. 3. Bibasilar opacities consistent with consolidation/pneumonia, aspiration, or atelectasis again noted. 3. Mild pulmonary edema with interval improved aeration in the lung bases. 4. Small bilateral pleural effusions. Dictated by: Kyle Rainey M.D. on 07/24/2016 at 9:18 PROCEDURE: X-RAY CHEST ONE VIEW, PORTABLE ([id number]) IMPRESSION: 1. Support lines and tubes as above. 2. Confluent left lung airspace opacity redemonstrated likely related to pneumonia although asymmetric edema cannot be excluded. 3. New airspace opacity within the peripheral right upper lobe consistent with atelectasis versus pneumonia. 4. Bibasilar opacities unchanged consistent with atelectasis versus aspiration or pneumonia. Dictated by: Luc ALBERT Interpreted: Mirella Wu MD on 07/26/2016 at 9:31 PROCEDURE: CT ABDOMEN AND PELVIS WITHOUT CONTRAST ([id number]) IMPRESSION: 1. No evidence of urinary tract calcification, nor obstruction. 2. Cirrhosis and portal hypertension, with associated portosystemic collateral vessels, and small to moderate amount of ascites. 3. Subacute and acute right rib fractures. 4. Indeterminate right adrenal nodule, which could be further assessed with MRI , if clinically indicated. 5. Fat and fluid containing hiatal hernia. 6. Cholelithiasis. 7. Possible right colon thickening, which could indicate infection, ischemia, or inflammation. 8. Findings discussed with Dr. Isaias Sams on 07.02.16 at 0857 hrs Dictated by: Benny Hernandez M.D. on 07/19/2016 at 8:47 US ABDOMEN, LIMITED IMPRESSION: Small to moderate ascites. Dictated by: Luc ALBERT Interpreted: Marleen Abbasi MD on 07/26/2016 at 15: 24 . Cardiac Echo Impressions Echocardiogram Report Name: BRIAN COLLINS LStudy Date: 07/19/2016 Height: 62 in Interpretation Summary The left ventricle is normal in size, wall thickness, and systolic function without any focal wall motion abnormalities. The ejection fraction is estimated to be 60-65%. Assessment of diastolic parameters indicates normal left ventricular diastolic function and normal filling pressures. The right ventricle is normal in size and function. The right ventricular systolic pressure is estimated at 28 mmHg assuming a right atrial pressure of 3 mm Hg. Both atria are normal in size. There is no significant valvular heart disease. The ascending aorta is mildly enlarged. There is an anterior echo-free space consistent with a fat pad. Additional Diagnostics ENDOSCOPY PROCEDURE TYPE OF OPERATION: 1. Esophagogastroduodenoscopy with biopsy and APC and Gold Probe thermocoagulation. 2. Colonoscopy. IMPRESSION: 1. Normal colonoscopy. 2. A 1 cm duodenal first portion ulcer with recent stigmata of bleed, status post argon plasma coagulation and Gold Probe thermocoagulation. 3. Mild nonerosive gastritis. 4. No esophageal or gastric varices seen. 5. A 5 mm duodenal first portion ulcer, clean based, nonbleeding. RECOMMENDATIONS: 1. Stopped octreotide and Protonix drips, given the fact that the Protonix drip has been on for greater than 72 hours. 2. Start Protonix 40 mg by mouth twice a day. 3. Carafate 1 g by mouth 4 times a day. 4. Await pathology results. 5. Start clear liquid diet. Advance as tolerated. 6. The patient will need outpatient repeat EGD in approximately two to three months to document healing of the ulcers. Joao Isabel MD 07/23/16 8260 . Assessment & Plan Ms. Collins is a 60 year old female with a H EtOH use disorder, alcoholic cirrhosis and COPD who was admitted for acute blood loss anemia secondary to GI bleed from duodenal ulcer and encephalopathy. During the course of her hospital stay she developed worsened encephalopathy with acute respiratory failure presumed to be aspiration pneumonia/pneumonitis and was intubated on . Hospital day 10 ventilator day 6. 1. Acute hypoxemic respiratory failure. Not present on admission. Ongoing. Most likely secondary to secondary to HAP. Chest x-ray previously showed right mid and lower field opacities. Now diffuse alveolar pattern on left developed since respiratory compromise on 07/23. Initially required high FiO2 with increased PEEP, Oxygenation status seems to be improving as of 07/26/2016 - CXR has shown a possible developing pneumonia vs pulmonary edema - Currently Ventilated with FiO2 0.5, PEEP 8, RR 14, TV 360 - Meropenem start date 07/24/2016, will continue this through the week per ID recommendations. - Propofol 10 - Fentanyl Bolus PRN - Levophed 0.07 2. Acute Respiratory Distress Syndrome. Not present on admission. Ongoing - [place] Criteria places Pt in moderate category - Furosemide 20mg daily - Albumin given s/p paracentesis as in #5 - I&O total is positive ~3L - albuterol-ipratropium q4hr, albuterol q2hr PRN - Discontinued prednisone 40mg PO daily - Solu Medrol 40mg given overnight. - Continue to monitor 3. Sepsis, present on admission. Ongoing. (HR 109, RR 28, WBC 33K) Possible sources include pneumonia vs. lower extremity infection. - Hold fluid resuscitation secondary to #2 - Levophed 0.07, continue to titrate down as tolerated - ABX as in #1. 4. Acute blood loss anemia secondary to GI bleed - Pt has Hx of bleeding ulcer - Hemoglobin 9.5 07/28/2016 s/p 2 units PRBC - EGD today showed did not show bleeding ulcer - Finding of a Dieulafoy's lesion in Duodenum, [address] with resolution of bleeding - Protonix IV - Stop DVT prophylaxis - GI is following - Continue serial H&H 5. Alcoholic cirrhosis. Present on admission. Ongoing. - LFT's have normalized - Pt has ascites and anasarca. - Additional ~2.8 L of fluid taken off during paracentesis yesterday 6. Encephalopathy - Lactulose Held secondary to multiple loose stools - Ammonia Level normalized - Continue to monitor GI Prophylaxis: Proton Pump Inhibitor VTE Prophylaxis: Other (possible GI bleed, unable to use SCDs d/t leg wounds) VTE Mechanical Devices: Intermittant Pneumatic CD Resuscitation Status: CPR: Attempt Resuscitation Attending Statement I have seen and examined this patient with the resident physician. Vital signs , labs, imaging have been reviewed. I agree with the assessment and plan above. Please refer to my separately dictated progress note for any modifications to above. Kristine Montgomery M.D. Pulmonary and Critical Care medicine Pager [phone] RODDY BENAVIDES DO Jul 28, 2016 13:14 Kristine Montgomery MD Jul 29, 2016 08:22
--- NOTE | 2016-07-28 14:38 | ENDO ---
[address] [address] ENDOSCOPY PROCEDURE PATIENT: BRIAN WREN : 1955 MR#: [id number] ADMIT: 07/19/2016 JOB ID: [id number] DATE: 07/28/2016 OPERATION: Esophagogastroduodenoscopy with hemoclip x4 for control of bleed. PREOPERATIVE DIAGNOSIS(ES): Gastrointestinal bleed. POSTOPERATIVE DIAGNOSIS(ES): Visible vessel seen at the posterior border bulb/first portion of duodenum, status post four hemoclips placed due to active bleeding that was seen with good hemostasis. ANESTHESIA: Patient was on a propofol drip and intubated. Blood loss minimal to moderate. DESCRIPTION OF PROCEDURE: Consent was already previously obtained. The upper endoscope was inserted into the mouth and intubated into the esophagus, stomach, second portion of duodenum, and mucosa carefully examined. After procedure was done, the scope was withdrawn and procedure terminated. FINDINGS: Upon entry into esophagus, esophagus was normal without masses, ulcers, or lesions except for mild distal esophagitis. Z-line located 40 cm from incisors. Upon entry into stomach, there is mild nonerosive gastritis seen throughout the entire stomach. Again, no esophageal gastric ulcers or varices were seen. Retroflexion was normal. Upon entering the duodenal bulb, at the posterior bulb/first portion, there was a visible vessel with active bleeding that was seen with blood. After several washes, the scope was then exchanged to a therapeutic upper scope, and four hemoclips were placed at the visible vessel with good hemostasis. The rest of the first and second portion were normal. IMPRESSION: Visible vessel seen at the distresser bulb/first portion of duodenum, status post four hemoclips placed with good hemostasis for control of the bleeding. RECOMMENDATIONS: 1. Continue Protonix drip for at least 72 hours. 2. NG tube was placed endoscopically with confirmation after post NG tube placement. Okay to start using NG tube if necessary. 3. Serial hematocrits. [facility]
--- NOTE | 2016-07-28 15:05 | PCM.PNMED ---
Subjective Date of Service Jul 28, 2016 Subjective 63-year-old woman with alcoholic cirrhosis and limited medical compliance presents with alcohol withdrawal, acute GI blood loss anemia and encephalopathy.On 07/23 nighttime she developed worsened encephalopathy and respiratory distress, likely aspiration pneumonia. She was intubated on 07/23. Renewed GI bleeding is stabilized. Responding to direction but appears weak and somewhat encephalopathic. Moving all 4 extremities. Exam Vital Signs Vital Sign - Last Date Time Temp Pulse Resp B/P Pulse Ox O2 Delivery O2 Flow Rate FiO2 07/28/16 12:51 Ventilator 07/28/16 12:51 37.1 105 19 110/55 96 50 07/26/16 12:49 14.00 Intake and Output 07/27/16 07/27/16 07/28/16 Cumulative From/Thru 15:00 23:00 07:00 07/19/16 04:15 - 07/28/16 06:13 Intake Total 1478 ml 991 ml 33430 ml Output Total 3675 ml 4000 ml 88820 ml Balance -2197 ml -3009 ml 3859 ml Intake Oral 2250 ml IV Total 1161 ml 706 ml 97365 ml Tube Feeding 1165 ml Packed Cells 317 ml 285 ml 1502 ml Tube Irrigant 2211 ml Output Urine Total 325 ml 300 ml 6525 ml Stool Total 130 ml Gastric Drainage Total 200 ml 700 ml 1475 ml Drainage Total 350 ml 200 ml 750 ml Other 2800 ml 2800 ml 8250 ml # Voids 3 # Bowel Movements 23 Exam General: Chronically ill-appearing obese woman on ventilator, eyes open HEENT: sclerae anicteric, mucosa seems moist Chest: Coarse breath sounds bilaterally, no wheeze, no rales Cardiac: S1S2, no murmur appreciated Abdomen: BS present, distended with flank dullness, non-rigid Extremities: 2+ edema in arms and left leg; right lower extremity wound is bandaged Neuro: Sedated, opens eyes to questions but no clear answers, moves all 4 extremities IVs and Medications Medications Reviewed: Medications were reviewed in detail Lab and Diagnostics Haptoglobin 132 Procalcitonin 0.22, 0.21 Ammonia: 43 and admission, 108 on 07/24, now stabilizing 58-59 range Arterial blood gas: DateTimeAnalyzed 14:51:00 -_ on room air pH ____7.317 - pCO2 ___53.4__ -mmHg pO2 ___49.1__ -mmHg HCO3- ___26.6__ -mmol/L FIO2 ___21.0__ -% DateTimeAnalyzed 05:57:00 -_ time of intubation pH ____7.223 - 7.350 7.450 pCO2 ___69.1__ -mmHg 35.0 45.0 pO2 ___68.7__ -mmHg 69.0 116 HCO3- ___27.4__ -mmol/L 22.0 26.0 FIO2 __100.0__ -% DateTimeAnalyzed 08:57:00 -_ intubated pH ____7.458 - 7.350 7.450 pCO2 ___35.0__ -mmHg 35.0 45.0 pO2 ___46.7__ -mmHg 69.0 116 HCO3- ___24.4__ -mmol/L 22.0 26.0 FIO2 ___75.0__ -% DateTimeAnalyzed 10:47:00 -_ pH ____7.386 - 7.350 7.450 pCO2 ___43.6__ -mmHg 35.0 45.0 pO2 ___80.8__ -mmHg 69.0 116 HCO3- ___25.6__ -mmol/L 22.0 26.0 FIO2 ___50.0__ -% DateTimeAnalyzed 04:43:00 -_ pH ____7.427 - 7.350 7.450 pCO2 ___38.9__ -mmHg 35.0 45.0 pO2 ___64.5__ -mmHg 69.0 116 HCO3- ___25.2__ -mmol/L 22.0 26.0 FIO2 ___50.0__ -% Result Diagram: 07/28/16 0505 07/28/16 0505 Microbiology MRSA nasal swab negative Paracentesis culture negative Urine culture 07/19 negative X-Rays, CTs and MRIs PROCEDURE: X-RAY CHEST ONE VIEW, PORTABLE ([id number]) IMPRESSION: Right upper and left lower lobe airspace opacity suspicious for aspiration or pneumonia. Dictated by: Luc ALBERT Interpreted: Benny Hernandez MD on 07/22/2016 at 16: 03 Chest x-ray 07/25 - personally reviewed Reduced inspiration, air bronchogram with dense left lower lobe infiltrate, right lower lobe interstitial pattern PROCEDURE: X-RAY CHEST ONE VIEW, PORTABLE ([id number]) IMPRESSION: 1. Endotracheal tube in appropriate position. Orogastric tube extends into the stomach with the tip not included on current study. 2. Confluent left airspace opacities redemonstrated likely representing pneumonia. 3. Bibasilar opacities consistent with consolidation/pneumonia, aspiration, or atelectasis again noted. 3. Mild pulmonary edema with interval improved aeration in the lung bases. 4. Small bilateral pleural effusions. Dictated by: Kyle Rainey M.D. on 07/24/2016 at 9:18 PROCEDURE: X-RAY CHEST ONE VIEW, PORTABLE ([id number]) IMPRESSION: 1. Support lines and tubes as above. 2. Confluent left lung airspace opacity redemonstrated likely related to pneumonia although asymmetric edema cannot be excluded. 3. New airspace opacity within the peripheral right upper lobe consistent with atelectasis versus pneumonia. 4. Bibasilar opacities unchanged consistent with atelectasis versus aspiration or pneumonia. Dictated by: Luc ALBERT Interpreted: Mirella Wu MD on 07/26/2016 at 9:31 PROCEDURE: X-RAY CHEST ONE VIEW ([id number]) IMPRESSION: 1. Interval increase in confluent air space opacity within mid left lung and left lung base consistent with worsening patchy pulmonary edema or pneumonia. 2. Presumed subsegmental atelectasis within the mid right lung redemonstrated. 3. Support lines and tubes as above. Dictated by: Luc ALBERT Interpreted: Jonny Gonzalez MD on 07/28/2016 at 10:29 PROCEDURE: CT ABDOMEN AND PELVIS WITHOUT CONTRAST ([id number]) IMPRESSION: 1. No evidence of urinary tract calcification, nor obstruction. 2. Cirrhosis and portal hypertension, with associated portosystemic collateral vessels, and small to moderate amount of ascites. 3. Subacute and acute right rib fractures. 4. Indeterminate right adrenal nodule, which could be further assessed with MRI , if clinically indicated. 5. Fat and fluid containing hiatal hernia. 6. Cholelithiasis. 7. Possible right colon thickening, which could indicate infection, ischemia, or inflammation. 8. Findings discussed with Dr. Isaias Sams on 07.02.16 at 0857 hrs Dictated by: Benny Hernandez M.D. on 07/19/2016 at 8:47 US ABDOMEN, LIMITED IMPRESSION: Small to moderate ascites. Dictated by: Luc ALBERT Interpreted: Marleen Abbasi MD on 07/26/2016 at 15: 24 . Cardiac Echo Impressions Echocardiogram Report Name: BRIAN WREN LStudy Date: 07/19/2016 Height: 62 in Interpretation Summary The left ventricle is normal in size, wall thickness, and systolic function without any focal wall motion abnormalities. The ejection fraction is estimated to be 60-65%. Assessment of diastolic parameters indicates normal left ventricular diastolic function and normal filling pressures. The right ventricle is normal in size and function. The right ventricular systolic pressure is estimated at 28 mmHg assuming a right atrial pressure of 3 mm Hg. Both atria are normal in size. There is no significant valvular heart disease. The ascending aorta is mildly enlarged. There is an anterior echo-free space consistent with a fat pad. Additional Diagnostics ENDOSCOPY PROCEDURE TYPE OF OPERATION: 1. Esophagogastroduodenoscopy with biopsy and APC and Gold Probe thermocoagulation. 2. Colonoscopy. IMPRESSION: 1. Normal colonoscopy. 2. A 1 cm duodenal first portion ulcer with recent stigmata of bleed, status post argon plasma coagulation and Gold Probe thermocoagulation. 3. Mild nonerosive gastritis. 4. No esophageal or gastric varices seen. 5. A 5 mm duodenal first portion ulcer, clean based, nonbleeding. RECOMMENDATIONS: 1. Stopped octreotide and Protonix drips, given the fact that the Protonix drip has been on for greater than 72 hours. 2. Start Protonix 40 mg by mouth twice a day. 3. Carafate 1 g by mouth 4 times a day. 4. Await pathology results. 5. Start clear liquid diet. Advance as tolerated. 6. The patient will need outpatient repeat EGD in approximately two to three months to document healing of the ulcers. Joao Isabel MD 07/23/16 1630 ENDOSCOPY PROCEDURE IMPRESSION: Visible vessel seen at the perinatal educator bulb/first portion of duodenum, status post four hemoclips placed with good hemostasis for control of the bleeding. RECOMMENDATIONS: 1. Continue Protonix drip. 2. NG tube was placed endoscopically with confirmation after post NG tube placement. Okay to start using NG tube if necessary. 3. Serial hematocrits. Joao Isabel MD 07/28/16 1152 . Assessment & Plan 60yoF with COPD and undiagnosed :cirrhosis transferred for direct admit from [facility] due to hemoglobin 5.5 following recent fall and blood loss from right lower extremity chronic wounds. Course has been complicated by acute respiratory failure with hypoxia and sepsis on 07/23, presumed due to pneumonia. Acute and high-risk problems: #. Sepsis, acute, POA. Initial impression on presentation was sepsis likely pneumonia vs right lower extremity infection. Started on vancomycin plus Zosyn. Clinically stable infectious status for several days. Developed acute sepsis syndrome (heart rate 109, respiratory rate 28, WBC 33K with respiratory failure) at night on 07/23 resulting in intubation. Subsequent picture appears to be bilateral left greater than right acute pneumonia. - Wean Norepinephrine infusion as needed to maintain mean arterial pressure greater than 65 - Continue meropenem for presumed HCAP Aspiration pneumonia source #. Acute respiratory failure with hypoxia. Secondary to healthcare facility acquired pneumonia. Chest x-ray previously showed right mid and lower field opacities. Now diffuse alveolar pattern on left developed since respiratory compromise on 07/23. Initially required high FiO2 with increased PEEP, Oxygenation status seems to be improving as of 07/26 - Initiate furosemide to normalize volume status - Initially Vanco plus Zosyn, changed to meropenem on 07/24 #. Acute blood loss anemia, GI bleeding, duodenal ulcer. Started on ceftriaxone and octreotide, which were subsequently discontinued. New GI bleeding on 07/27. Repeat endoscopically treated visible vessel, Dieulafoy lesion - Continue Protonix IV - Continue sucralfate if compatible with OGT administration - Follow hemoglobin - GI is following. #. Cirrhosis with Ascites, POA. Nodular liver with signs of portal hypertension on CT scan. Complicated by encephalopathy, ascites and anasarca. No varices. Paracentesis 07/21 with 0 PMN's. No SBP therapy indicated. Ammonia levels improved. - Discontinued lactulose and rifaximin. - Return to furosemide and spironolactone when hemodynamically stable and taking by mouth - Plan therapeutic paracentesis if ascites is significant on ultrasound #. Ground level fall, acute. POA. She has multiple right-sided rib fractures. They contribute to poor respiratory function - Supportive treatment Resolving, stable, and/or chronic problems: #. Acute alcohol withdraw. Initially managed with CIWA. Has not had significant benzodiazepine needs. - Follow clinically #. Possible COPD exacerbation, POA. Little evidence of bronchospasm. Primary acute stroke problem appears to be pulmonary infiltrates. - albuterol-ipratropium q4hr, albuterol q2hr PRN - Discontinued prednisone 40mg PO daily #. Right internal carotid aneurysm, incidental finding. POA. This was discussed with neurosurgery at [facility] and there is no need for acute intervention at this time. #. Right adrenal nodule 12 mm, Hounsfield units 19. - Requires outpatient follow-up #. Alcohol dependence, chronic -as per , no h/o withdrawal -drinks 2 bottles of wine per day -CIWA #. Right lower extremity wound, chronic. POA. - wound consult, GI Prophylaxis: Proton Pump Inhibitor VTE Prophylaxis: Other (possible GI bleed, unable to use SCDs d/t leg wounds) VTE Mechanical Devices: Intermittant Pneumatic CD Resuscitation Status: CPR: Attempt Resuscitation Time spent 35 minutes Jose Juan Thomason MD Jul 28, 2016 15:05
--- NOTE | 2016-07-28 18:25 | NUR ---
ENDOSCOPY/NGT/FMS Dr. Isabel performed upper endoscopy at the bedside today. Three additional clips applied within the same area addressed during previous endoscopy procedure. Will continue to monitor Hgb and Hct for blood loss, and new NGT placed by Dr. Isabel following endoscopy, confirmed placement w/ scope and will monitor appearance/amount of output. FMS began to put out dark red/brown liquid shortly before endoscopy procedure, w/ approximately 950 mL over the course of this shift. MDs aware, but will continue to monitor output and labs.
[2016-07-29] VITALS (16 sets, daily range): BP systolic 90–122; BP diastolic 48–65; PULSE 90–107; RESP 14–20; O2SAT 95–100
[2016-07-29] MEDS: Meropenem 1 Gm/100 mL NS Minibag Plus IV SCH ×6 (00:31→16:51)
[2016-07-29] MEDS: 0.9% Sodium Chloride 250 ML IV SCH ×12 (00:35→19:40)
[2016-07-29] MEDS: Albuterol-Ipratropium 3 mL Inhalation Solution NEB SCH ×6 (01:27→21:26)
--- NOTE | 2016-07-29 04:34 | ABG ---
DateTimeAnalyzed 04:31:00 -_ pH ____7.413 - 7.350 7.450 pCO2 ___40.1__ -mmHg 35.0 45.0 pO2 ___83.9__ -mmHg 69.0 116 HCO3- ___25.1__ -mmol/L 22.0 26.0 ABE ____1.0__ -mmol/L -2.0 2.0 tHb ____8.7__ -g/dL O2Hb ___95.2__ -% COHb ____1.2__ -% MetHb ____1.1__ -% sO2 ___97.4__ -% FIO2 ___50.0__ -% PEEP ____8.0__ -cmH2O Set_RR ___14.0__ -b/min Vt __360.0__ -L Drawn By MK - Date/Time Notified____ 04:34:00 -_ Spontaneous_RR ___14.0__ -b/min Oxygen Device 1 VENTILATOR - Notified By MK - B 758 -mmHg tO2 ___11.8__ -Vol% Isaias test _Positive -
[2016-07-29] MEDS: Propofol Inj 1,000,000 MCG in IV Premix 1 EACH IV SCH ×2 (05:03→20:41)
[2016-07-29 05:09] LABS: BASOPHILS % (AUTO) 0.1 % (0-3); EOSINOPHILS % (AUTO) 0 % (0-5); MONOCYTES % (AUTO) 8.7 % (4-12); Mean Corpuscular Volume 90.7 fL (81-100); NEUTROPHILS % (AUTO) 86.9 % (40-74); Platelet Count 156 bil/L (150-400)
--- NOTE | 2016-07-29 08:51 | PROG NOTE ---
[address] [address] PROGRESS NOTE PATIENT: BRIAN WREN : 1955 MR#: [id number] ADMIT: 07/19/2016 JOB ID: [id number] DATE: 07/29/2016 REASON FOR FOLLOWUP: Probable aspiration pneumonia in a complex patient with underlying COPD and alcoholic cirrhosis. INTERVAL HISTORY: The patient has remained relatively stable overnight though she remains on the ventilator as well as low-dose vasopressor agents. The patient remains apparently awake in that her eyes are open and she clearly tracks people around the room and looks at them, but she in no way seems to react to or interact with the speaker when she is asked questions. She follows no commands, does not shake her head and does not seem to have any purposeful movement despite the fact she is apparently awake. This case discussed with the ICU team as well as with the patient's daughters. PHYSICAL EXAMINATION: Reveals a woman who is awake but not interactive. She continues to be completely afebrile. Temperature 37.3, pulse 99, blood pressure 100/52, but she is on low dose norepinephrine. O2 sat excellent on 50% and 7 of PEEP. Eyes without conjunctivitis. She does track and has active extraocular movements which are intact. Oral endotracheal tube and oral gastric tube in good position. Right upper extremity PICC line appears benign. Lungs quite clear today. Cardiac tones without murmur. Regular rate and rhythm noted. Abdomen slightly distended, consistent with ascites but completely nontender without splenomegaly. Wick catheter and FMS are present. Right lower extremity wounds were carefully examined yesterday and they are very small and appear uninfected. There is severe venous stasis changes and some wasting at the right lower extremity below the knee. LABORATORIES: Include white count 24,900, which has been bouncing in the low to mid 20,000s for the past four days. Hematocrit 27, platelet count 156,000. Creatinine 0.98. LFTs are normal. Ammonia level 41, albumin 2.3. Urinalysis without white cells. Streptozyme extremely elevated at 1600 and that was done two days ago. Micro studies include extensive array of cultures all negative including a sputum from yesterday which shows many polys, but has no growth. That sputum was from July 27, so it is two days old. Many polys, no growth. Blood cultures on July 27 which are fungal blood cultures, are negative. The culture of the pustule found in the patient's suprapubic area a few days ago is negative and our last good sputum culture from five days ago normal morales. IMAGING: Carefully reviewed on the screen and compared to prior films. It shows some clearing though there is still some patchy infiltrates which could be atelectasis pneumonia or even CHF or ARDS, nonspecific in any event. IMPRESSION: This patient remains relatively stable. Yesterday additional gastrointestinal bleeding was found and addressed by the gastrointestinal team. Her manger underlying problems are of course alcoholic cirrhosis, which is decompensated with ascites as well as encephalopathy and chronic obstructive pulmonary disease. She has had multiple episodes of gastrointestinal bleeding during this admission and is now in her eleventh today here in the hospital. It seemed reasonable to treat her for aspiration pneumonia. She is now in her sixth of seven days of treatment for aspiration. At this point, I think her aspiration pneumonia is under reasonable control as she has relatively scant sputum and very clear airways with auscultation at least anteriorly. Her chest x-ray seems to show some degree of improvement. We do have evidence by ASO titer of a recent a significant group A strep infection, but she has now been on antibiotics for almost 10 days, and I think that has been adequately addressed at this point, at least and so far as we can tell through physical examination and the available laboratory studies, there is no evidence for SBP. RECOMMENDATIONS: 1. Today we will obtain two sets of fungal blood cultures, one through the PICC and one through the skin. 2. We will add to that Fungitell. 3. I would continue with the meropenem through tomorrow and then stop unless there are additional considerations that would favor continuing broad spectrum antibiotics. 4. Note that as long as the patient remains in the ICU, of course, she is at high risk for additional infectious complications including ventilator associated pneumonia, C. diff, SBP from repeated paracentesis and fungemia. 5. We will continue to closely follow this patient with you. Thank you very much.
[2016-07-29] MEDS ORDERED: Furosemide 10 mg/mL 4 mL Inj IVPUSH ONE (09:15)
--- NOTE | 2016-07-29 10:02 | DRSVH ---
PROCEDURE: X-RAY CHEST ONE VIEW ([id number]) INDICATIONS: intubated TECHNIQUE: One view of the chest was acquired. COMPARISON: [facility], CR, XR CHEST 1VW, 07/28/2016, 4:48. FINDINGS: Surgical changes and devices: Stable position of ET tube, nasogastric tube and right PICC. Cholecyst ectomy clips Lungs and pleura: Slight decrease in interstitial opacities throughout the left lung as well as airsp donta opacity now in the medial left lung base. Presumably atelectasis within the mid right lung with no significant change. Mediastinum: Mediastinal contours appear normal. Heart size is enlarged. Bones and chest wall: No suspicious bony lesions. Overlying soft tissues appear unremarkable. IMPRESSION: 1. Stable support lines and tubes. 2. Slight decrease in interstitial opacities throughout the left lung and the air space opacity invol ving the medial left lung base. 3. Persistent mid right lung subsegmental atelectasis. Dictated by: Luc Bolaños [facility] Interpreted: Mirella Wu MD on 07/29/2016 at 10:01 Transcribed by: OLIVIA on 07/29/2016 at 10:02 Approved by: Mirella Wu MD, PhD on 07/29/2016 at 16:31
[2016-07-29] MEDS: Pantoprazole Inj 80 MG in 0.9% Sodium Chloride 80 ML IV SCH ×2 (10:07→20:41)
[2016-07-29] MEDS: Dextrose 5% 1,000 ML IV SCH (10:08)
[2016-07-29] MEDS: Lactulose 20 Gm/30 mL 30 mL Syrup TUBE SCH ×3 (10:08→20:42)
[2016-07-29] MEDS: Albumin 25% 25 GM in IV Premix 1 EACH IV SCH ×2 (10:08→16:51)
--- NOTE | 2016-07-29 11:01 | PCM.PNMED ---
Subjective Date of Service Jul 29, 2016 Subjective GASTROENTEROLOGY PROGRESS NOTE Patient remains intubated and sedated in CCU. Patient opens eyes to verbal stimuli, some tracking observed, but patient quickly falls back asleep. No acute distress. Family present at bedside. HH has remained stable. Exam Vital Signs Vital Sign - Last Date Time Temp Pulse Resp B/P Pulse Ox O2 Delivery O2 Flow Rate FiO2 07/29/16 08:10 Ventilator 07/29/16 08:10 37.1 107 17 107/56 100 50 07/26/16 12:49 14.00 Intake and Output 07/28/16 07/28/16 07/29/16 Cumulative From/Thru 15:00 23:00 07:00 07/19/16 04:15 - 07/29/16 05:29 Intake Total 541 ml 539 ml 22056 ml Output Total 2100 ml 1220 ml 85717 ml Balance -1559 ml -681 ml 1619 ml Intake Oral 2250 ml IV Total 541 ml 539 ml 21005 ml Tube Feeding 1165 ml Packed Cells 1502 ml Tube Irrigant 2211 ml Output Urine Total 1000 ml 400 ml 7925 ml Stool Total 950 ml 1080 ml Gastric Drainage Total 150 ml 120 ml 1745 ml Drainage Total 700 ml 1450 ml Other 8250 ml # Voids 3 # Bowel Movements 23 Exam General: intubated and sedated in CCU; no acute distress HEENT: Mucous Membr dry; ETT in place and secured Chest & Lungs: Bilateral crackles at bases; poor inspiratory effort; no use accessory muscles; No wheeze Cardiovascular: Tachycardic rate at approx 110 at time of evaluation Pulses: Faint secondary to edema; radial equal and bilateral but faint Abdomen: Umbilical hernia, reducible, approx 4-5cm diameter without surrounding erythema and appears to be nontender to palpation; firm, ascitic : Wick present and secured; FMS in place with dark output Extremities: Upper diffusely edematous; RLE noted ecchymosis and dry skin, square bandage in place, clean/dry/intact; soft restraints in place; no edema noted lower extremities Skin: Warm and dry Neurological: Cannot assess secondary to sedation Lab and Diagnostics Result Diagram: 07/29/16 0450 07/29/16 0450 Microbiology MRSA nasal swab negative Paracentesis culture negative Urine culture 07/19 negative X-Rays, CTs and MRIs PROCEDURE: X-RAY CHEST ONE VIEW, PORTABLE ([id number]) IMPRESSION: Right upper and left lower lobe airspace opacity suspicious for aspiration or pneumonia. Dictated by: Luc ALBERT Interpreted: Benny Hernandez MD on 07/22/2016 at 16: 03 Chest x-ray 07/25 - personally reviewed Reduced inspiration, air bronchogram with dense left lower lobe infiltrate, right lower lobe interstitial pattern PROCEDURE: X-RAY CHEST ONE VIEW, PORTABLE ([id number]) IMPRESSION: 1. Endotracheal tube in appropriate position. Orogastric tube extends into the stomach with the tip not included on current study. 2. Confluent left airspace opacities redemonstrated likely representing pneumonia. 3. Bibasilar opacities consistent with consolidation/pneumonia, aspiration, or atelectasis again noted. 3. Mild pulmonary edema with interval improved aeration in the lung bases. 4. Small bilateral pleural effusions. Dictated by: Kyle Rainey M.D. on 07/24/2016 at 9:18 PROCEDURE: X-RAY CHEST ONE VIEW, PORTABLE ([id number]) IMPRESSION: 1. Support lines and tubes as above. 2. Confluent left lung airspace opacity redemonstrated likely related to pneumonia although asymmetric edema cannot be excluded. 3. New airspace opacity within the peripheral right upper lobe consistent with atelectasis versus pneumonia. 4. Bibasilar opacities unchanged consistent with atelectasis versus aspiration or pneumonia. Dictated by: Luc ALBERT Interpreted: Mirella Wu MD on 07/26/2016 at 9:31 PROCEDURE: X-RAY CHEST ONE VIEW ([id number]) IMPRESSION: 1. Interval increase in confluent air space opacity within mid left lung and left lung base consistent with worsening patchy pulmonary edema or pneumonia. 2. Presumed subsegmental atelectasis within the mid right lung redemonstrated. 3. Support lines and tubes as above. Dictated by: Luc ALBERT Interpreted: Jonny Gonzalez MD on 07/28/2016 at 10:29 PROCEDURE: CT ABDOMEN AND PELVIS WITHOUT CONTRAST ([id number]) IMPRESSION: 1. No evidence of urinary tract calcification, nor obstruction. 2. Cirrhosis and portal hypertension, with associated portosystemic collateral vessels, and small to moderate amount of ascites. 3. Subacute and acute right rib fractures. 4. Indeterminate right adrenal nodule, which could be further assessed with MRI , if clinically indicated. 5. Fat and fluid containing hiatal hernia. 6. Cholelithiasis. 7. Possible right colon thickening, which could indicate infection, ischemia, or inflammation. 8. Findings discussed with Dr. Isaias Sams on 07.02.16 at 0857 hrs Dictated by: Benny Hernandez M.D. on 07/19/2016 at 8:47 US ABDOMEN, LIMITED IMPRESSION: Small to moderate ascites. Dictated by: Luc Bolaños RRAmanda Interpreted: Marleen Abbasi MD on 07/26/2016 at 15: 24 . Cardiac Echo Impressions Echocardiogram Report Name: BRIAN WREN LStudy Date: 07/19/2016 Height: 62 in Interpretation Summary The left ventricle is normal in size, wall thickness, and systolic function without any focal wall motion abnormalities. The ejection fraction is estimated to be 60-65%. Assessment of diastolic parameters indicates normal left ventricular diastolic function and normal filling pressures. The right ventricle is normal in size and function. The right ventricular systolic pressure is estimated at 28 mmHg assuming a right atrial pressure of 3 mm Hg. Both atria are normal in size. There is no significant valvular heart disease. The ascending aorta is mildly enlarged. There is an anterior echo-free space consistent with a fat pad. Additional Diagnostics ENDOSCOPY PROCEDURE TYPE OF OPERATION: 1. Esophagogastroduodenoscopy with biopsy and APC and Gold Probe thermocoagulation. 2. Colonoscopy. IMPRESSION: 1. Normal colonoscopy. 2. A 1 cm duodenal first portion ulcer with recent stigmata of bleed, status post argon plasma coagulation and Gold Probe thermocoagulation. 3. Mild nonerosive gastritis. 4. No esophageal or gastric varices seen. 5. A 5 mm duodenal first portion ulcer, clean based, nonbleeding. RECOMMENDATIONS: 1. Stopped octreotide and Protonix drips, given the fact that the Protonix drip has been on for greater than 72 hours. 2. Start Protonix 40 mg by mouth twice a day. 3. Carafate 1 g by mouth 4 times a day. 4. Await pathology results. 5. Start clear liquid diet. Advance as tolerated. 6. The patient will need outpatient repeat EGD in approximately two to three months to document healing of the ulcers. Joao Isabel MD 07/23/16 1630 ENDOSCOPY PROCEDURE IMPRESSION: Visible vessel seen at the visual merchandiser bulb/first portion of duodenum, status post four hemoclips placed with good hemostasis for control of the bleeding. RECOMMENDATIONS: 1. Continue Protonix drip. 2. NG tube was placed endoscopically with confirmation after post NG tube placement. Okay to start using NG tube if necessary. 3. Serial hematocrits. Joao Isabel MD 07/28/16 1152 . Assessment & Plan GASTROENTEROLOGY CONSULT NOTE Ms. Brian Wren is a 60 year old woman with history of COPD, and cirrhosis secondary to alcohol use, that presented to [facility] via EMS as a transfer from [place] for management of suspected acute upper GI bleed with initial Hb 5.5 following a recent GLF. She was admitted for evaluation and treatment of acute on chronic anemia, assessment of GLF, and possible COPD exacerbation. GI was consulted to assist in further evaluation for etiology of suspected upper GI bleed. CT A/P wo contrast 07/19: No evidence of urinary tract calcification, nor obstruction. Cirrhosis and portal hypertension, with associated portosystemic collateral vessels, and small to moderate amount of ascites. Subacute and acute right rib fractures. Indeterminate right adrenal nodule, which could be further assessed with MRI, if clinically indicated. Fat and fluid containing hiatal hernia. Cholelithiasis. Possible right colon thickening, which could indicate infection, ischemia, or inflammation. USG paracentesis 07/21: 2.6L fluid removed EGD 07/23: 1cm duodenal ulcer with recent stigmata of bleed s/p APC and gold probe thermocoagulation; mild nonerosive gastritis; no esophageal varices; 5mmclean-based, nonbleeding duodenal ulcer Biopsy results EGD 07/23: Negative H. pylori, intestinal metaplasia, dysplasia, and malignancy Colonoscopy 07/23: No abnormalities visualized EGD 07/28: Visible vessel seen at the visual merchandiser bulb/first portion of duodenum, status post four hemoclips placed with good hemostasis for control of the bleeding. Assessments - Acute on chronic anemia s/p 7U pRBC; likely secondary to duodenal ulcerative bleeding s/p egd colon 07/23/2016 apc, gold probe, s/p EGD 07/28 x4 hemoclips; stable - History of alcoholic cirrhosis, evidenced on imaging - Ascites secondary to alcoholic cirrhosis, s/p therapeutic and diagnosis USG paracentesis x2 with 2.6L, 2.8L fluid removed - MELD score on admit 07/19: 13; 6.0% est 3-month mortality (Na 135, Cr 0.64, INR 1.20, bili 2.2, no hx dialysis) Recs: - PPI gtt at least 72h post EGD 07/28--- tentative to last through pm 07/31 - Will re-evaluate for tube feed initiation 07/30; not recommended to start at this time - Repeat XR in am 07/30 to assess for NGT placement; stable 07/29 - Monitor HH and transfuse prn per primary team - NGT placed; OK to start using if necessary - continue carafate 1g QID - xifaxan 550mg po bid for HE - etoh cessation when appropriate - repeat egd as outpatient in 2 months to document healing duodenal ulcers - lactulose 20mg po q6- goal 3bm/day given hx cirrhosis - cont abx per hospitalist team cover sbp ppx There was a slight decrease in HH counts post repeat EGD 07/28, but counts have remained stable. Will hold off on tube feeds at this time to assess hemodynamic stability, will re-eval 07/30. Thank you for this consult. We will follow along at this time. Total time: 30 minutes GI Prophylaxis: Proton Pump Inhibitor VTE Prophylaxis: Other (possible GI bleed, unable to use SCDs d/t leg wounds) VTE Mechanical Devices: Intermittant Pneumatic CD Resuscitation Status: CPR: Attempt Resuscitation Tina Avitia DO Jul 29, 2016 08:36
--- NOTE | 2016-07-29 11:13 | NUR ---
NUTRITION FOLLOW-UP: Assess: 60 YO F admitted with severe anemia, COPD exacerbation, sepsis, and GI bleed following a GLF. EGD showed duodenal ulcer. Pt remains on mechanical ventilation. She underwent paracentesis 06/29 with 2.8L removed. TF was stopped 07/27 due to suspected upper GI bleed. Pt had EGD 07/28 and found to have lesion in duodenum which was successfully clamped. Pt was cleared for meds via OGT per GI but not TF yet. Received verbal order per MD in morning rounds to re-start free fluid flushes of 150ml q 3hrs to help with hypernatremia. PMHX: COPD, ETOH dependence, hemorrhoids, PNA, constipation, rectal bleed. DIET: NPO. ENTERAL NUTRITION: Pulmocare at 35 ml/hr, advancing to goal of 60 ml/hr to provide 1980 kcal, 83 g protein, sufficient to meet 100% nutrient needs.--ON HOLD LABS: Na 154, Cl 121, Bun 42, Glu 122, Ca 8.4, Alb 2.3 MEDICATIONS: Reviewed. Pressors, Lasix, Propofol rate @5.4 ml/hr, providing 142 kcals. GI: FMS 200ml out 07/28. SKIN: Cluster of wounds at the right pretibial area of the leg--stable per WC ANTHROPOMETRICS: Wt: 94.8 kg, BMI 38.2 kg/m2, Admit wt: 95.2 kg, IBW: 50.0 kg. ESTIMATED NEEDS: VENT/WOUND/COPD/BMI Calories: 7496-7961 kcal/day (22-25 kcal/kg BW) Protein: 75-90 g/day (1.5-1.8 g/kg IBW) NUTRITION DIAGNOSIS: 1) Increased nutrient needs related to wound healing/increased demand for nutrients as evidenced by wounds, COPD - PERSISTS. 2) Chewing/swallowing difficulties related to pocketing, delayed swallow, decreased laryngeal excursion, as evidenced by requirement for pureed/honey thick liquid diet - PERSISTS. 3) Inadequate oral intake related to inability to consume sufficient energy, as evidenced by minimal PO intake since admit x 5 D, now intubated.-PERSISTS. INTERVENTION: 1) Recommend re-start TF when medically appropriate. 2) Recommend re-start fluid flushed of 150ml q 3 hrs to provide 1200ml free water/day MONITOR/EVALUATE: NPO/vent status, TF re-start, wounds, GI, labs, nutrition status. Follow per high nutrition risk guidelines. Addendum: 07/29/16 at [address] Spoke with GI who reported that pt will likely not be cleared for nutrition for 1-2 days. Will continue to monitor POC.
--- NOTE | 2016-07-29 11:47 | PROG NOTE ---
[address] [address] PROGRESS NOTE PATIENT: BRIAN WREN : 1955 MR#: [id number] ADMIT: 07/19/2016 JOB ID: [id number] DATE: 07/29/2016 PULMONARY CRITICAL CARE PROGRESS NOTE: The patient is a 60-year-old woman with history of alcoholic cirrhosis, ongoing alcohol use admitted with upper GI bleed due to duodenal ulcer, transferred to the ICU for acute respiratory failure with aspiration pneumonitis. The patient was seen and evaluated with resident physician, Quan Pantoja. Please refer to separate detailed note for additional information. INTERVAL HISTORY: She had an EGD yesterday which showed a duodenal ulcer with bleeding artery. This is consistent with a Dieulafoy lesion. Hemoglobin has been relatively stable overnight with a slight drift downward into the 8 range from the 9 range. There has been no evidence of ongoing bleeding. She remains on norepinephrine at 0.04 mcg. REVIEW OF SYSTEMS: Unable to obtain. PHYSICAL EXAMINATION: Vital signs reviewed. She is on 40% FiO2 and 8 cm of PEEP on the vent. General: Eyes open to voice, tracks. Chest is clear. She does have diffuse anasarca with weeping skin in certain parts. LABORATORIES: Are notable for WBC of 24.9, up from yesterday, hemoglobin 8.4, relatively stable. Chemistry most notable for sodium up to 154. Chest x-ray shows improvement in left-sided infiltrate compared to yesterday. ASSESSMENT AND RECOMMENDATIONS: 1. Acute hypoxic respiratory failure on mechanical ventilation since July 24. 2. Aspiration pneumonitis. 3. Alcoholic cirrhosis with alcohol abuse. 4. Recurrent upper GI bleed due to duodenal ulcer with Dieulafoy lesion-endoscopy x2 most recently on July 28 with clipping. 5. Acute blood loss anemia-stable. 6. Ascites status post paracentesis July 21 and July 27-not consistent with SBP. A 60-year-old woman with alcoholic cirrhosis and ongoing heavy alcohol use presenting with upper GI bleed from a duodenal ulcer. She underwent endoscopy initially on July 23 and overnight following the endoscopy developed aspiration pneumonitis and respiratory failure requiring mechanical ventilation. She had been starting to slowly improve and making progress when she developed another upper GI bleed and had repeat endoscopy done yesterday which showed rebleed from the same site with what appeared to be an arterial lesion. This was clipped and now we are going to try to diurese her and see how she does on a pressure support trial today. She has gotten Lasix 20 mg IV with albumin this morning. We restarted her lactulose and I think we need to aggressively get her encephalopathy back on track, especially given the recent GI bleed. She is back on a PPI drip as well and will continue to follow her hemoglobins. If she does very well on a breathing trial, I think we could repeat another dose of Lasix and probably try to extubate her today. DVT prophylaxis is contraindicated with the bleeding and with regards to GI prophylaxis-she is getting therapeutic dose PPI. I spoke with both daughters and updated them at the bedside today. addendum: Did very well on SBT and diuresed well so she was extubated at 3pm CRITICAL CARE TIME: 45 minutes. RIAZ
--- NOTE | 2016-07-29 13:14 | ABG ---
DateTimeAnalyzed 13:11:00 -_ pH ____7.409 - 7.350 7.450 pCO2 ___41.8__ -mmHg 35.0 45.0 pO2 ___81.2__ -mmHg 69.0 116 HCO3- ___25.9__ -mmol/L 22.0 26.0 ABE ____1.6__ -mmol/L -2.0 2.0 tHb ____8.4__ -g/dL O2Hb ___94.9__ -% COHb ____1.3__ -% MetHb ____1.0__ -% sO2 ___97.1__ -% FIO2 ___40.0__ -% Pressure_Support ____5.0__ -cmH2O PEEP ____5.0__ -cmH2O Vt __480.0__ -L Drawn By cf - Date/Time Notified____ 13:14:00 -_ Spontaneous_RR ___14.0__ -b/min Oxygen Device 1 VENTILATOR - Notified By cf - Notified Whom ___Dr. Parimi - B 763 -mmHg tO2 ___11.3__ -Vol% Isaias test _Positive -
--- NOTE | 2016-07-29 14:42 | NUR ---
patient extubated per md orders after satisfactory pressure support trial. she is currently on 6lpm nasal cannula with oxygen saturation of 96%. no respiratory distress noted.
[2016-07-29] MEDS ORDERED: Furosemide 10 mg/mL 2 mL Inj IVPUSH ONE (15:25)
--- NOTE | 2016-07-29 15:27 | PCM.PNMED ---
Subjective Date of Service Jul 29, 2016 Subjective Pulmonology Consultation. Attending physician Dr. Montgomery. Requesting Physician Dr. Thomason. reason for Consult. Acute hypoxic respiratory failure. Ms. Collins is a 60 year old female with a H EtOH use disorder, alcoholic cirrhosis and COPD who was admitted for acute blood loss anemia secondary to GI bleed from duodenal ulcer and encephalopathy. During the course of her hospital stay she developed worsened encephalopathy with acute respiratory failure presumed to be aspiration pneumonia/pneumonitis and was intubated on . Yesterday: Pt received EGD which discovered a Dieulafoy's lesion in the first part of the duodenum. Three disposable clamps were places on the culprit lesion with visual resolution of bleeding. Overnight: Pt had good urine output with no blood seen from the NG tube. No events reported. ROS: Pt intubated at time of exam. Able to open eyes and follow commands such as squeeze my hand. Exam Vital Signs Vital Sign - Last Date Time Temp Pulse Resp B/P Pulse Ox O2 Delivery O2 Flow Rate FiO2 07/29/16 09:13 40 07/29/16 08:10 Ventilator 07/29/16 08:10 37.1 107 17 107/56 100 07/26/16 12:49 14.00 Intake and Output 07/28/16 07/28/16 07/29/16 Cumulative From/Thru 14:59 22:59 06:59 07/19/16 04:15 - 07/29/16 05:29 Intake Total 541 ml 539 ml 74185 ml Output Total 2100 ml 1220 ml 76389 ml Balance -1559 ml -681 ml 1619 ml Intake Oral 2250 ml IV Total 541 ml 539 ml 53032 ml Tube Feeding 1165 ml Packed Cells 1502 ml Tube Irrigant 2211 ml Output Urine Total 1000 ml 400 ml 7925 ml Stool Total 950 ml 1080 ml Gastric Drainage Total 150 ml 120 ml 1745 ml Drainage Total 700 ml 1450 ml Other 8250 ml # Voids 3 # Bowel Movements 23 Exam Pt exam prior to extubation General: Intubated and sedated in no acute distress. Does not open eyes to voice. HEENT: Normocephalic, atraumatic. External ears without defect. ET tube in place. NG tube in place. Cardiovascular: Regular rate and rhythm with no murmurs appreciated Pulmonary: Crackles appreciated in upper anterior lobes bilaterally. Abdomen: Soft to palpation.marked anasarca with hospital gown showing signs of weeping. Extremities: R lower extremity bandage in place, upper and lower extremities showed marked edema Psychiatric: Intubated, able to open eyes to voice and follow some commands. Ventilator settings: Tidal volume 360. Respiratory rate 14. FiO2 0.4. PEEP 8. AB.4, pCO2 40.1, pO2 83.9, HCO3 25.1 IV drips and Sedatives: Propofol 10mcg. Levophed 0.4mcg I&O: Total: in + 22,069, out - 20,450, total + 1,619 IVs and Medications Medications Reviewed: Medications were reviewed in detail Lab and Diagnostics Result Diagram: 07/29/1644907/29/16449 Microbiology MRSA nasal swab negative Paracentesis culture negative Urine culture 07/19 negative X-Rays, CTs and MRIs PROCEDURE: X-RAY CHEST ONE VIEW, PORTABLE ([id number]) IMPRESSION: Right upper and left lower lobe airspace opacity suspicious for aspiration or pneumonia. Dictated by: Luc ALBERT Interpreted: Benny Hernandez MD on 07/22/2016 at 16: 03 Chest x-ray 07/25 - personally reviewed Reduced inspiration, air bronchogram with dense left lower lobe infiltrate, right lower lobe interstitial pattern PROCEDURE: X-RAY CHEST ONE VIEW, PORTABLE ([id number]) IMPRESSION: 1. Endotracheal tube in appropriate position. Orogastric tube extends into the stomach with the tip not included on current study. 2. Confluent left airspace opacities redemonstrated likely representing pneumonia. 3. Bibasilar opacities consistent with consolidation/pneumonia, aspiration, or atelectasis again noted. 3. Mild pulmonary edema with interval improved aeration in the lung bases. 4. Small bilateral pleural effusions. Dictated by: Kyle Rainey M.D. on 07/24/2016 at 9:18 PROCEDURE: X-RAY CHEST ONE VIEW, PORTABLE ([id number]) IMPRESSION: 1. Support lines and tubes as above. 2. Confluent left lung airspace opacity redemonstrated likely related to pneumonia although asymmetric edema cannot be excluded. 3. New airspace opacity within the peripheral right upper lobe consistent with atelectasis versus pneumonia. 4. Bibasilar opacities unchanged consistent with atelectasis versus aspiration or pneumonia. Dictated by: Luc ALBERT Interpreted: Mirella Wu MD on 07/26/2016 at 9:31 PROCEDURE: X-RAY CHEST ONE VIEW ([id number]) IMPRESSION: 1. Interval increase in confluent air space opacity within mid left lung and left lung base consistent with worsening patchy pulmonary edema or pneumonia. 2. Presumed subsegmental atelectasis within the mid right lung redemonstrated. 3. Support lines and tubes as above. Dictated by: Luc ALBERT Interpreted: Jonny Gonzalez MD on 07/28/2016 at 10:29 PROCEDURE: CT ABDOMEN AND PELVIS WITHOUT CONTRAST ([id number]) IMPRESSION: 1. No evidence of urinary tract calcification, nor obstruction. 2. Cirrhosis and portal hypertension, with associated portosystemic collateral vessels, and small to moderate amount of ascites. 3. Subacute and acute right rib fractures. 4. Indeterminate right adrenal nodule, which could be further assessed with MRI , if clinically indicated. 5. Fat and fluid containing hiatal hernia. 6. Cholelithiasis. 7. Possible right colon thickening, which could indicate infection, ischemia, or inflammation. 8. Findings discussed with Dr. Isaias Sams on 07.02.16 at 0857 hrs Dictated by: Benny Hernandez M.D. on 07/19/2016 at 8:47 US ABDOMEN, LIMITED IMPRESSION: Small to moderate ascites. Dictated by: Luc ALBERT Interpreted: Marleen Abbasi MD on 07/26/2016 at 15: 24 . Cardiac Echo Impressions Echocardiogram Report Name: BRIAN COLLINS LStudy Date: 07/19/2016 Height: 62 in Interpretation Summary The left ventricle is normal in size, wall thickness, and systolic function without any focal wall motion abnormalities. The ejection fraction is estimated to be 60-65%. Assessment of diastolic parameters indicates normal left ventricular diastolic function and normal filling pressures. The right ventricle is normal in size and function. The right ventricular systolic pressure is estimated at 28 mmHg assuming a right atrial pressure of 3 mm Hg. Both atria are normal in size. There is no significant valvular heart disease. The ascending aorta is mildly enlarged. There is an anterior echo-free space consistent with a fat pad. Additional Diagnostics ENDOSCOPY PROCEDURE TYPE OF OPERATION: 1. Esophagogastroduodenoscopy with biopsy and APC and Gold Probe thermocoagulation. 2. Colonoscopy. IMPRESSION: 1. Normal colonoscopy. 2. A 1 cm duodenal first portion ulcer with recent stigmata of bleed, status post argon plasma coagulation and Gold Probe thermocoagulation. 3. Mild nonerosive gastritis. 4. No esophageal or gastric varices seen. 5. A 5 mm duodenal first portion ulcer, clean based, nonbleeding. RECOMMENDATIONS: 1. Stopped octreotide and Protonix drips, given the fact that the Protonix drip has been on for greater than 72 hours. 2. Start Protonix 40 mg by mouth twice a day. 3. Carafate 1 g by mouth 4 times a day. 4. Await pathology results. 5. Start clear liquid diet. Advance as tolerated. 6. The patient will need outpatient repeat EGD in approximately two to three months to document healing of the ulcers. Joao Isabel MD 07/23/16 1630 ENDOSCOPY PROCEDURE IMPRESSION: Visible vessel seen at the sagger preparer bulb/first portion of duodenum, status post four hemoclips placed with good hemostasis for control of the bleeding. RECOMMENDATIONS: 1. Continue Protonix drip. 2. NG tube was placed endoscopically with confirmation after post NG tube placement. Okay to start using NG tube if necessary. 3. Serial hematocrits. Joao Isabel MD 07/28/16 2215 . Assessment & Plan Ms. Collins is a 60 year old female with a H EtOH use disorder, alcoholic cirrhosis and COPD who was admitted for acute blood loss anemia secondary to GI bleed from duodenal ulcer and encephalopathy. During the course of her hospital stay she developed worsened encephalopathy with acute respiratory failure presumed to be aspiration pneumonia/pneumonitis and was intubated on . Hospital day 11 ventilator day 7. 1. Acute hypoxemic respiratory failure. Not present on admission. Improving. Possibly secondary to HAP. Chest x-ray previously showed right mid and lower field opacities. Now diffuse alveolar pattern on left developed since respiratory compromise on 07/23. Initially required high FiO2 with increased PEEP, Oxygenation status seems to be improving as of 07/26/2016 - CXR has shown a possible developing pneumonia vs pulmonary edema - Currently Ventilated with FiO2 0.4, PEEP 8, RR 14, TV 360 - Meropenem stop date 07/30/2016. - Propofol 10 - Fentanyl Bolus PRN - Levophed 0.04 - Pressure support trial today followed by expectant extubation 2. Acute Respiratory Distress Syndrome. Not present on admission. Ongoing - [place] Criteria places Pt in moderate category - Furosemide 20mg daily - Albumin given s/p paracentesis as in #5 - I&O total is positive ~1.6L - albuterol-ipratropium q4hr, albuterol q2hr PRN - Discontinued prednisone 40mg PO daily - Continue to monitor 3. Sepsis, present on admission. Ongoing. (HR 109, RR 28, WBC 33K) Possible sources include pneumonia vs. lower extremity infection. - Hold fluid resuscitation secondary to #2 - Levophed 0.07, continue to titrate down as tolerated - ABX as in #1. 4. Acute blood loss anemia secondary to GI bleed - Pt has Hx of bleeding ulcer - H&H has remained stable - EGD showed Dieulafoy's lesion in Duodenum, [address] with resolution of bleeding - Protonix IV - Stop DVT prophylaxis - GI is following - Continue to monitor closely 5. Alcoholic cirrhosis. Present on admission. Ongoing. - LFT's have normalized - Pt has ascites and anasarca and has received 2 paracentesis with ~5L of fluid taken off - Continue to monitor. 6. Encephalopathy - Lactulose restarted - Ammonia Level normalized - Continue to monitor GI Prophylaxis: Proton Pump Inhibitor VTE Prophylaxis: Other (possible GI bleed, unable to use SCDs d/t leg wounds) VTE Mechanical Devices: Intermittant Pneumatic CD Resuscitation Status: CPR: Attempt Resuscitation Attending Statement I have seen and examined this patient with the resident physician. Vital signs , labs, imaging have been reviewed. I agree with the assessment and plan above. Please refer to my separately dictated progress note for any modifications to above. Kristine Montgomery M.D. Pulmonary and Critical Care medicine Pager [phone] RODDY BENAVIDES DO Jul 29, 2016 09:43 Kristine Montgomery MD Jul 30, 2016 13:50
--- NOTE | 2016-07-29 16:18 | PCM.PNMED ---
Subjective Date of Service Jul 29, 2016 Subjective 63-year-old woman with alcoholic cirrhosis and limited medical compliance presents with alcohol withdrawal, acute GI blood loss anemia and encephalopathy.EGD on revealed duodenal ulcers. On 07/23 nighttime she developed worsened encephalopathy and respiratory distress, likely aspiration pneumonia. She was intubated on 07/23. Renewed GI bleeding on 07/27, revealed dieulafoy lesion. Renewed GI bleeding is stabilized. Responding to direction but appears weak and somewhat encephalopathic. Moving all 4 extremities. Exam Vital Signs Vital Sign - Last Date Time Temp Pulse Resp B/P Pulse Ox O2 Delivery O2 Flow Rate FiO2 07/29/16 15:45 102 16 100 Nasal Cannula 4.00 07/29/16 13:55 102/50 40 07/29/16 12:50 37.0 Intake and Output 07/28/16 07/28/16 07/29/16 Cumulative From/Thru 15:00 23:00 07:00 07/19/16 04:15 - 07/29/16 05:29 Intake Total 541 ml 539 ml 80587 ml Output Total 2100 ml 1220 ml 69636 ml Balance -1559 ml -681 ml 1619 ml Intake Oral 2250 ml IV Total 541 ml 539 ml 55820 ml Tube Feeding 1165 ml Packed Cells 1502 ml Tube Irrigant 2211 ml Output Urine Total 1000 ml 400 ml 7925 ml Stool Total 950 ml 1080 ml Gastric Drainage Total 150 ml 120 ml 1745 ml Drainage Total 700 ml 1450 ml Other 8250 ml # Voids 3 # Bowel Movements 23 Exam General: Pale appearing obese woman on ventilator, eyes open and more responsive today HEENT: sclerae anicteric, mucosa seems moist Chest: Coarse breath sounds bilaterally, no wheeze, no rales Cardiac: S1S2, no murmur appreciated Abdomen: BS present, distended with flank dullness, non-rigid Extremities: 1+ edema in arms and left leg; right lower extremity wound is bandaged Neuro: Sedated, opens eyes to questions, moves all 4 extremities IVs and Medications Medications Reviewed: Medications were reviewed in detail Lab and Diagnostics Result Diagram: 07/29/16 0450 07/29/16 0450 Microbiology MRSA nasal swab negative Paracentesis culture negative Urine culture 07/19 negative X-Rays, CTs and MRIs PROCEDURE: X-RAY CHEST ONE VIEW, PORTABLE ([id number]) IMPRESSION: Right upper and left lower lobe airspace opacity suspicious for aspiration or pneumonia. Dictated by: Luc ALBERT Interpreted: Benny Hernandez MD on 07/22/2016 at 16: 03 Chest x-ray 07/25 - personally reviewed Reduced inspiration, air bronchogram with dense left lower lobe infiltrate, right lower lobe interstitial pattern PROCEDURE: X-RAY CHEST ONE VIEW, PORTABLE ([id number]) IMPRESSION: 1. Endotracheal tube in appropriate position. Orogastric tube extends into the stomach with the tip not included on current study. 2. Confluent left airspace opacities redemonstrated likely representing pneumonia. 3. Bibasilar opacities consistent with consolidation/pneumonia, aspiration, or atelectasis again noted. 3. Mild pulmonary edema with interval improved aeration in the lung bases. 4. Small bilateral pleural effusions. Dictated by: Kyle Rainey M.D. on 07/24/2016 at 9:18 PROCEDURE: X-RAY CHEST ONE VIEW, PORTABLE ([id number]) IMPRESSION: 1. Support lines and tubes as above. 2. Confluent left lung airspace opacity redemonstrated likely related to pneumonia although asymmetric edema cannot be excluded. 3. New airspace opacity within the peripheral right upper lobe consistent with atelectasis versus pneumonia. 4. Bibasilar opacities unchanged consistent with atelectasis versus aspiration or pneumonia. Dictated by: Luc ALBERT Interpreted: Mirella Wu MD on 07/26/2016 at 9:31 PROCEDURE: X-RAY CHEST ONE VIEW ([id number]) IMPRESSION: 1. Interval increase in confluent air space opacity within mid left lung and left lung base consistent with worsening patchy pulmonary edema or pneumonia. 2. Presumed subsegmental atelectasis within the mid right lung redemonstrated. 3. Support lines and tubes as above. Dictated by: Luc ALBERT Interpreted: Jonny Gonzalez MD on 07/28/2016 at 10:29 PROCEDURE: CT ABDOMEN AND PELVIS WITHOUT CONTRAST ([id number]) IMPRESSION: 1. No evidence of urinary tract calcification, nor obstruction. 2. Cirrhosis and portal hypertension, with associated portosystemic collateral vessels, and small to moderate amount of ascites. 3. Subacute and acute right rib fractures. 4. Indeterminate right adrenal nodule, which could be further assessed with MRI , if clinically indicated. 5. Fat and fluid containing hiatal hernia. 6. Cholelithiasis. 7. Possible right colon thickening, which could indicate infection, ischemia, or inflammation. 8. Findings discussed with Dr. Isaias Sams on 07.02.16 at 0857 hrs Dictated by: Benny Hernandez M.D. on 07/19/2016 at 8:47 US ABDOMEN, LIMITED IMPRESSION: Small to moderate ascites. Dictated by: Luc Bolaños RRA Interpreted: Marleen Abbasi MD on 07/26/2016 at 15: 24 . Cardiac Echo Impressions Echocardiogram Report Name: BRIAN WREN LStudy Date: 07/19/2016 Height: 62 in Interpretation Summary The left ventricle is normal in size, wall thickness, and systolic function without any focal wall motion abnormalities. The ejection fraction is estimated to be 60-65%. Assessment of diastolic parameters indicates normal left ventricular diastolic function and normal filling pressures. The right ventricle is normal in size and function. The right ventricular systolic pressure is estimated at 28 mmHg assuming a right atrial pressure of 3 mm Hg. Both atria are normal in size. There is no significant valvular heart disease. The ascending aorta is mildly enlarged. There is an anterior echo-free space consistent with a fat pad. Additional Diagnostics ENDOSCOPY PROCEDURE TYPE OF OPERATION: 1. Esophagogastroduodenoscopy with biopsy and APC and Gold Probe thermocoagulation. 2. Colonoscopy. IMPRESSION: 1. Normal colonoscopy. 2. A 1 cm duodenal first portion ulcer with recent stigmata of bleed, status post argon plasma coagulation and Gold Probe thermocoagulation. 3. Mild nonerosive gastritis. 4. No esophageal or gastric varices seen. 5. A 5 mm duodenal first portion ulcer, clean based, nonbleeding. RECOMMENDATIONS: 1. Stopped octreotide and Protonix drips, given the fact that the Protonix drip has been on for greater than 72 hours. 2. Start Protonix 40 mg by mouth twice a day. 3. Carafate 1 g by mouth 4 times a day. 4. Await pathology results. 5. Start clear liquid diet. Advance as tolerated. 6. The patient will need outpatient repeat EGD in approximately two to three months to document healing of the ulcers. Joao Isabel MD 07/23/16 1630 ENDOSCOPY PROCEDURE IMPRESSION: Visible vessel seen at the protector plate attacher bulb/first portion of duodenum, status post four hemoclips placed with good hemostasis for control of the bleeding. RECOMMENDATIONS: 1. Continue Protonix drip. 2. NG tube was placed endoscopically with confirmation after post NG tube placement. Okay to start using NG tube if necessary. 3. Serial hematocrits. Joao Isabel MD 07/28/16 1152 . Assessment & Plan 60yoF with COPD and undiagnosed :cirrhosis transferred for direct admit from [place] due to hemoglobin 5.5 following recent fall and blood loss from right lower extremity chronic wounds. Course has been complicated by acute respiratory failure with hypoxia and sepsis on 07/23, presumed due to pneumonia. Acute and high-risk problems: #. Sepsis, acute, POA. Initial impression on presentation was sepsis likely pneumonia vs right lower extremity infection. Started on vancomycin plus Zosyn. Clinically stable infectious status for several days. Developed acute sepsis syndrome (heart rate 109, respiratory rate 28, WBC 33K with respiratory failure) at night on 07/23 resulting in intubation. Antibiotics for upper GI bleed with cirrhosis initiated. Subsequent picture appears to be bilateral left greater than right acute pneumonia. - Wean Norepinephrine infusion as needed to maintain mean arterial pressure greater than 65 - Continue meropenem until 07/30 for presumed HCAP Aspiration pneumonia source - Fungal serology and culture #. Acute respiratory failure with hypoxia. Secondary to healthcare facility acquired pneumonia. Chest x-ray previously showed right mid and lower field opacities. Now diffuse alveolar pattern on left developed since respiratory compromise on 07/23. Initially required high FiO2 with increased PEEP, Oxygenation status seems to be improving as of 07/26. Initially Vanco plus Zosyn , changed to meropenem on 07/24 - Initiate furosemide to normalize volume status #. Acute blood loss anemia, GI bleeding, duodenal ulcer. Started on ceftriaxone and octreotide, which were subsequently discontinued. New GI bleeding on 07/27. Repeat endoscopically treated visible vessel, Dieulafoy lesion - Continue Protonix IV - Continue sucralfate if compatible with OGT administration - Follow hemoglobin - GI is following. #. Cirrhosis with Ascites, POA. Nodular liver with signs of portal hypertension on CT scan. Complicated by encephalopathy, ascites and anasarca. No varices. Ammonia levels improved. Therapeutic paracentesis 2. - Continue lactulose and rifaximin. - Return to furosemide and spironolactone when hemodynamically stable and taking by mouth #. Ground level fall, acute. POA. She has multiple right-sided rib fractures. They contribute to poor respiratory function - Supportive treatment Resolving, stable, and/or chronic problems: #. Acute alcohol withdraw. Initially managed with CIWA. Has not had significant benzodiazepine needs. - Follow clinically #. Possible COPD exacerbation, POA. Little evidence of bronchospasm. Primary acute stroke problem appears to be pulmonary infiltrates. - albuterol-ipratropium q4hr, albuterol q2hr PRN - Discontinued prednisone 40mg PO daily #. Right internal carotid aneurysm, incidental finding. POA. This was discussed with neurosurgery at [facility] and there is no need for acute intervention at this time. #. Right adrenal nodule 12 mm, Hounsfield units 19. - Requires outpatient follow-up #. Alcohol dependence, chronic. as per , no h/o withdrawal -drinks 2 bottles of wine per day -CIWA #. Right lower extremity wound, chronic. POA. - wound consult, GI Prophylaxis: Proton Pump Inhibitor VTE Prophylaxis: Other (possible GI bleed, unable to use SCDs d/t leg wounds) VTE Mechanical Devices: Intermittant Pneumatic CD Resuscitation Status: CPR: Attempt Resuscitation Time spent 35 minutes Jose Juan Thomason MD Jul 29, 2016 16:18
[2016-07-29] MEDS ORDERED: Acetaminophen IV 1,000 MG in IV Premix 1 EACH IV PRN (16:50)
--- NOTE | 2016-07-29 17:18 | NUR ---
Wound Care Patient seen at bedside for wound care of right lateral leg and pretibial wounds today. Wounds are unchanged dimensionally and wound beds continue to be pale and fibrinous in nature, drainage is scant. Wounds are cleaned with saline moistened gauze and redressed with hydrogel and adhesive foam dressings, these can be changed by nursing 07/31 and WC will recheck on this patient 08/02.
--- NOTE | 2016-07-29 18:21 | NUR ---
EXTUBATION Sedation weaned to Propofol at 10 mcg/kg/min, and pressure support trial completed. Started PST at 40% FiO2, 8/8 support, which patient tolerated for approximately 30 minutes. Adjusted to 40% FiO2 and 5/5 support, and patient was able to tolerate for approximately 2-2.5 hours. Lasix administered prior to PST, and urine output >1L in 8 hours, so spoke w/ Dr. Montgomery, who provided order to extubate patient. RT assessed for air leak, which was present, so patient extubated at 1450 w/ RT and RN present in room. She was placed on 4L NC, which she has been tolerating well, able to maintain SpO2 in mid to high 90s. Will continue to monitor vitals and respiratory status.
[2016-07-29] MEDS: Norepineph 8,000 mCg/250 mL NS 8,000 MCG in IV Premix 1 EACH IV SCH (20:41)
[2016-07-30] VITALS (8 sets, daily range): BP systolic 97–113; BP diastolic 47–58; PULSE 88–103; RESP 13–20; O2SAT 91–100
[2016-07-30] MEDS: Albuterol-Ipratropium 3 mL Inhalation Solution NEB SCH ×2 (00:10→05:22)
[2016-07-30] MEDS: Dextrose 5% 1,000 ML IV SCH ×2 (00:23→11:45)
[2016-07-30] MEDS: Meropenem 1 Gm/100 mL NS Minibag Plus IV SCH ×2 (00:23)
[2016-07-30] MEDS: Albumin 25% 25 GM in IV Premix 1 EACH IV SCH (00:24)
[2016-07-30] MEDS: Lactulose 20 Gm/30 mL 30 mL Syrup TUBE SCH ×5 (02:47→19:19)
[2016-07-30] MEDS: Pantoprazole Inj 80 MG in 0.9% Sodium Chloride 80 ML IV SCH ×2 (04:25→14:52)
[2016-07-30] MEDS: 0.9% Sodium Chloride 250 ML IV SCH ×2 (04:26→19:19)
--- NOTE | 2016-07-30 06:17 | NUR ---
Hemodynamics/Resp/GI/ Patient awake but drowsy this shift, very weak and not moving hardly at all, repositioned Q2H, mumbles and doesn't talk much, did well on 4L NC with sats 94-100%, Levophed at 0.04mcg/kg/min to maintain MAP >65, NG put out about 450ml dark brown fluid, 100ml black/brown liquid stool from FMS, Labs drawn about 0300 and patient had 16 beat run V-Tach at 0324 K level resulted after at 2.8, Dr. Shepherd notified and orders to start K/Mag protocol and recheck K to verify, recheck potassium came back at 2.8, 80mEq K ordered per protocol, no distress noted at this time. Addendum: 07/30/16 at 0625 by CORAL JESUS RN Amended: Links added.
[2016-07-30] MEDS: KCl 40 mEq/100 mL IV Premix (K < 3 & Creat <2) IV SCH ×2 (06:30→10:20)
[2016-07-30 07:25] LABS: BASOPHILS % (AUTO) 0.1 % (0-3); MONOCYTES % (AUTO) 5.4 % (4-12); Mean Corpuscular Hemoglobin 27.4 pg (27.0-35.0); Mean Corpuscular Volume 93.1 fL (81-100); NEUTROPHILS % (AUTO) 85.3 % (40-74); Platelet Count 120 bil/L (150-400)
--- NOTE | 2016-07-30 08:56 | PROG NOTE ---
[address] [address] PROGRESS NOTE PATIENT: BRIAN WREN : 1955 MR#: [id number] ADMIT: 07/19/2016 JOB ID: [id number] DATE: 07/30/2016 INFECTIOUS DISEASE FOLLOWUP NOTE: REASON FOR FOLLOWUP: Aspiration pneumonia, COPD, alcoholic cirrhosis with ascites, GI bleed and serologic evidence of recent group A strep infection. INTERVAL HISTORY: Over the past 24 hours the patient has improved considerably. She has been extubated and is now awake and able to answer questions. She tells us this morning that she is free of fevers and chills, though her daughter in the room reports that she is always asking for blankets to be added or removed. The patient has no significant trouble breathing and reports no notable abdominal pain this morning. No significant cough is reported. She does have some discomfort from the large bore tube in the nose. PHYSICAL EXAMINATION: Reveals an afebrile woman. Temp 36.6, pulse 88, respiratory rate 15, blood pressure 102/51, saturating well on 4 L. Mental status: Reasonably clear. NG tube present. Sinuses nontender. Oral cavity without thrush or apparent pharyngitis. Lungs: Reasonably clear anteriorly. Cardiac tones: Regular rate and rhythm, without significant murmur. Abdomen: Quite ascitic with umbilical hernia. Wick catheter is present. No skin rash. LABORATORIES: Include white count down to 15,000 today, platelet count 120. Creatinine 0.96. LFT are normal. Procalcitonin 0.19, which is exactly the same as the last two measurements. Fungitell was ordered yesterday and is pending. Fungal blood cultures from yesterday negative at 24 hours. Blood cultures from the negative at three days. Itff albicans grew from a lower genital swab done on the but we examined that area carefully we could not even find any remaining lesion. The ascitic fluid cultures and tracheal cultures are negative. IMAGING: From yesterday shows a decrease in interstitial opacities and possible atelectasis. IMPRESSION: Overall, the patient is somewhat improved today. She remains on very low-dose norepinephrine to support her blood pressure but otherwise appears quite clinically stable and is now successfully extubated. She remains obviously very ill with issues regarding gastrointestinal bleeding and, of course, alcoholic cirrhosis with very significant ascites, but at this point, I think we have completed an adequate course of therapy for aspiration pneumonia, which she probably had, and the recent streptococcal infection, as evidenced by a high ASO titer. There is still no proof of a disseminated fungal infection, and I think it is unlikely, though we have cultures pending. RECOMMENDATIONS: 1. Will go ahead and discontinue meropenem today. 2. Will closely observe the patient with respect to issues regarding new or recrudescent infection. 3. We await the multiple pending studies including Fungitell and fungal blood cultures.
[2016-07-30 09:29] LABS: Magnesium 2.3 mg/dL (1.6-2.6); Phosphorus 3.2 mg/dL (2.5-4.9)
--- NOTE | 2016-07-30 10:17 | PCM.PNMED ---
Subjective Date of Service Jul 30, 2016 Subjective GASTROENTEROLOGY PROGRESS NOTE Patient now extubated. NGT in place. Able to awaken to voice, follows some commands, able to answer questions, answers appropriately. Denies abdominal pain , states discomfort with NGT tube. Falls back asleep quickly and without difficulty. Family present at bedside, all concerns and questions addressed. Explained to patient and family today's plan of trending HH in lieu of endoscopy at this time secondary to progress with respiratory status. Exam Vital Signs Vital Sign - Last Date Time Temp Pulse Resp B/P Pulse Ox O2 Delivery O2 Flow Rate FiO2 07/30/16 08:00 Supplement Oxygen 07/30/16 08:00 36.4 91 14 106/57 98 4.00 07/29/16 13:55 40 Intake and Output 07/29/16 07/29/16 07/30/16 Cumulative From/Thru 15:00 23:00 07:00 07/19/16 04:15 - 07/30/16 05:18 Intake Total 1602 ml 1775 ml 59057 ml Output Total 1965 ml 1825 ml 99735 ml Balance -363 ml -50 ml 1206 ml Intake Oral 2250 ml IV Total 1152 ml 1325 ml 64181 ml Tube Feeding 1165 ml Packed Cells 1502 ml Tube Irrigant 450 ml 450 ml 3111 ml Output Urine Total 1550 ml 1250 ml 11508 ml Stool Total 150 ml 1230 ml Gastric Drainage Total 265 ml 475 ml 2485 ml Drainage Total 100 ml 1550 ml Other 8250 ml # Voids 3 # Bowel Movements 23 Exam General: Alert, awaken to voice; resting in bed; no acute distress HEENT: Mucous Membr dry; NGT in place and secured Chest & Lungs: Bilateral crackles at bases to midfields; no use accessory muscles; No wheeze Cardiovascular: Regular rate and rhythm noted at time of examination; no murmurs appreciated Pulses: Faint secondary to edema; radial equal and bilateral but faint Abdomen: Umbilical hernia, reducible, approx 4-5cm diameter without surrounding erythema and appears to be nontender to palpation; firm, ascitic Extremities: Upper diffusely edematous; RLE noted ecchymosis and dry skin, square bandages in place, clean/dry/intact; no edema noted lower extremities Skin: Warm and dry Neurological: Cannot fully assess secondary to sedation, but does awaken and track appropriately Psych: Appropriate answers to questioning, but energy limited by medications and fatigue Lab and Diagnostics Result Diagram: 07/30/16 0230 07/30/16 0455 Microbiology MRSA nasal swab negative Paracentesis culture negative Urine culture 07/19 negative X-Rays, CTs and MRIs PROCEDURE: X-RAY CHEST ONE VIEW, PORTABLE ([id number]) IMPRESSION: Right upper and left lower lobe airspace opacity suspicious for aspiration or pneumonia. Dictated by: Luc ALBERT Interpreted: Benny Hernandez MD on 07/22/2016 at 16: 03 Chest x-ray 07/25 - personally reviewed Reduced inspiration, air bronchogram with dense left lower lobe infiltrate, right lower lobe interstitial pattern PROCEDURE: X-RAY CHEST ONE VIEW, PORTABLE ([id number]) IMPRESSION: 1. Endotracheal tube in appropriate position. Orogastric tube extends into the stomach with the tip not included on current study. 2. Confluent left airspace opacities redemonstrated likely representing pneumonia. 3. Bibasilar opacities consistent with consolidation/pneumonia, aspiration, or atelectasis again noted. 3. Mild pulmonary edema with interval improved aeration in the lung bases. 4. Small bilateral pleural effusions. Dictated by: Kyle Rainey M.D. on 07/24/2016 at 9:18 PROCEDURE: X-RAY CHEST ONE VIEW, PORTABLE ([id number]) IMPRESSION: 1. Support lines and tubes as above. 2. Confluent left lung airspace opacity redemonstrated likely related to pneumonia although asymmetric edema cannot be excluded. 3. New airspace opacity within the peripheral right upper lobe consistent with atelectasis versus pneumonia. 4. Bibasilar opacities unchanged consistent with atelectasis versus aspiration or pneumonia. Dictated by: Luc ALBERT Interpreted: Mirella Wu MD on 07/26/2016 at 9:31 PROCEDURE: X-RAY CHEST ONE VIEW ([id number]) IMPRESSION: 1. Interval increase in confluent air space opacity within mid left lung and left lung base consistent with worsening patchy pulmonary edema or pneumonia. 2. Presumed subsegmental atelectasis within the mid right lung redemonstrated. 3. Support lines and tubes as above. Dictated by: Luc ALBERT Interpreted: Jonny Gonzalez MD on 07/28/2016 at 10:29 PROCEDURE: CT ABDOMEN AND PELVIS WITHOUT CONTRAST ([id number]) IMPRESSION: 1. No evidence of urinary tract calcification, nor obstruction. 2. Cirrhosis and portal hypertension, with associated portosystemic collateral vessels, and small to moderate amount of ascites. 3. Subacute and acute right rib fractures. 4. Indeterminate right adrenal nodule, which could be further assessed with MRI , if clinically indicated. 5. Fat and fluid containing hiatal hernia. 6. Cholelithiasis. 7. Possible right colon thickening, which could indicate infection, ischemia, or inflammation. 8. Findings discussed with Dr. Isaias Sams on 07.02.16 at 0857 hrs Dictated by: Benny Hernandez M.D. on 07/19/2016 at 8:47 US ABDOMEN, LIMITED IMPRESSION: Small to moderate ascites. Dictated by: Luc ALBERT Interpreted: Marleen Abbasi MD on 07/26/2016 at 15: 24 . Cardiac Echo Impressions Echocardiogram Report Name: BRIAN WREN LStudy Date: 07/19/2016 Height: 62 in Interpretation Summary The left ventricle is normal in size, wall thickness, and systolic function without any focal wall motion abnormalities. The ejection fraction is estimated to be 60-65%. Assessment of diastolic parameters indicates normal left ventricular diastolic function and normal filling pressures. The right ventricle is normal in size and function. The right ventricular systolic pressure is estimated at 28 mmHg assuming a right atrial pressure of 3 mm Hg. Both atria are normal in size. There is no significant valvular heart disease. The ascending aorta is mildly enlarged. There is an anterior echo-free space consistent with a fat pad. Additional Diagnostics ENDOSCOPY PROCEDURE TYPE OF OPERATION: 1. Esophagogastroduodenoscopy with biopsy and APC and Gold Probe thermocoagulation. 2. Colonoscopy. IMPRESSION: 1. Normal colonoscopy. 2. A 1 cm duodenal first portion ulcer with recent stigmata of bleed, status post argon plasma coagulation and Gold Probe thermocoagulation. 3. Mild nonerosive gastritis. 4. No esophageal or gastric varices seen. 5. A 5 mm duodenal first portion ulcer, clean based, nonbleeding. RECOMMENDATIONS: 1. Stopped octreotide and Protonix drips, given the fact that the Protonix drip has been on for greater than 72 hours. 2. Start Protonix 40 mg by mouth twice a day. 3. Carafate 1 g by mouth 4 times a day. 4. Await pathology results. 5. Start clear liquid diet. Advance as tolerated. 6. The patient will need outpatient repeat EGD in approximately two to three months to document healing of the ulcers. Joao Isabel MD 07/23/16 1630 ENDOSCOPY PROCEDURE IMPRESSION: Visible vessel seen at the game producer bulb/first portion of duodenum, status post four hemoclips placed with good hemostasis for control of the bleeding. RECOMMENDATIONS: 1. Continue Protonix drip. 2. NG tube was placed endoscopically with confirmation after post NG tube placement. Okay to start using NG tube if necessary. 3. Serial hematocrits. Joao Isabel MD 07/28/16 1152 . Assessment & Plan GASTROENTEROLOGY CONSULT NOTE Ms. Brian Wren is a 60 year old woman with history of COPD, and cirrhosis secondary to alcohol use, that presented to [facility] via EMS as a transfer from [place] for management of suspected acute upper GI bleed with initial Hb 5.5 following a recent GLF. She was admitted for evaluation and treatment of acute on chronic anemia, assessment of GLF, and possible COPD exacerbation. GI was consulted to assist in further evaluation for etiology of suspected upper GI bleed. CT A/P wo contrast 07/19: No evidence of urinary tract calcification, nor obstruction. Cirrhosis and portal hypertension, with associated portosystemic collateral vessels, and small to moderate amount of ascites. Subacute and acute right rib fractures. Indeterminate right adrenal nodule, which could be further assessed with MRI, if clinically indicated. Fat and fluid containing hiatal hernia. Cholelithiasis. Possible right colon thickening, which could indicate infection, ischemia, or inflammation. USG paracentesis 07/21: 2.6L fluid removed EGD 07/23: 1cm duodenal ulcer with recent stigmata of bleed s/p APC and gold probe thermocoagulation; mild nonerosive gastritis; no esophageal varices; 5mmclean-based, nonbleeding duodenal ulcer Biopsy results EGD 07/23: Negative H. pylori, intestinal metaplasia, dysplasia, and malignancy Colonoscopy 07/23: No abnormalities visualized EGD 07/28: Visible vessel seen at the game producer bulb/first portion of duodenum, status post four hemoclips placed with good hemostasis for control of the bleeding. Assessments - Acute on chronic anemia s/p 7U pRBC; likely secondary to duodenal ulcerative bleeding s/p egd colon 07/23/2016 apc, gold probe, s/p EGD 07/28 x4 hemoclips; stable - History of alcoholic cirrhosis, evidenced on imaging - Ascites secondary to alcoholic cirrhosis, s/p therapeutic and diagnosis USG paracentesis x2 with 2.6L, 2.8L fluid removed - MELD score on admit 07/19: 13; 6.0% est 3-month mortality (Na 135, Cr 0.64, INR 1.20, bili 2.2, no hx dialysis) Recs: - PPI gtt at least 72h post EGD 07/28--- tentative to last through pm 07/31 - Carafate 1g QID - Monitor HH and transfuse prn per primary team/ICU team - NGT placed; OK to start using if necessary - Daily XR to assess NGT placement - Xifaxan 550mg po bid for HE - Etoh cessation when appropriate - Repeat egd as outpatient in 2 months to document healing duodenal ulcers - Lactulose 20mg po q6- goal 3bm/day given hx cirrhosis - Cont abx per hospitalist team cover sbp ppx There was concern of ongoing bleed, but there is also concern of proceeding with endoscopy and the risks associated with respiratory function. She is progressing from a respiratory standpoint, as she was just extubated 07/29, and proceeding with EGD may result in re-intubation. At this time, we will trend HH throughout the day, and determine if bleeding risks outweigh respiratory risks. If she remains stable, we will not proceed with EGD to preserve her respiratory progress. Thank you for this consult. We will follow along at this time. Total time: 30 minutes GI Prophylaxis: Proton Pump Inhibitor VTE Prophylaxis: Other (possible GI bleed, unable to use SCDs d/t leg wounds) VTE Mechanical Devices: Intermittant Pneumatic CD Resuscitation Status: CPR: Attempt Resuscitation iTna Avitia DO Jul 30, 2016 10:17 GI Prophylaxis: Proton Pump Inhibitor VTE Prophylaxis: Other (possible GI bleed, unable to use SCDs d/t leg wounds) VTE Mechanical Devices: Intermittant Pneumatic CD Resuscitation Status: CPR: Attempt Resuscitation Tina Avitia DO Jul 30, 2016 10:17
[2016-07-30] MEDS: cefTRIAXone Inj 2,000 MG in Dextrose 5% Minibag Plus 50 ML IV SCH (10:19)
--- NOTE | 2016-07-30 10:35 | DRSVH ---
PROCEDURE: X-RAY CHEST ONE VIEW, PORTABLE ([id number]) INDICATIONS: sob and NG tube placement TECHNIQUE: One view of the chest was acquired. COMPARISON: [facility], CR, XR CHEST 1VW, 07/29/2016, 4:49. [facility], CR, XR CHEST 1VW (PORTABLE), 07/26/2016, 8:34. FINDINGS: Surgical changes and devices: Stable position of ET tube, nasogastric tube and right PICC. Cholecyst ectomy clips Lungs and pleura: No change in interstitial opacities throughout the left lung as well as airspace op acity with in the medial left lung base. Probable atelectasis within the mid right lung with no sign ificant change. Mediastinum: Mediastinal contours appear normal. Heart size is enlarged. Bones and chest wall: No suspicious bony lesions. Overlying soft tissues appear unremarkable. IMPRESSION: Stable chest compared to prior examination. Findings suspicious for pneumonia and/or pne umonia. Correlate clinically. Dictated by: Luc Bolaños RRA Interpreted: Mirella Wu MD on 07/30/2016 at 10:33 Transcribed by: OLIVIA on 07/30/2016 at 10:35 Approved by: Mirella Wu MD, PhD on 07/30/2016 at 16:36
[2016-07-30] MEDS ORDERED: Albuterol-Ipratropium 3 mL Inhalation Solution NEB PRN (11:00)
--- NOTE | 2016-07-30 11:30 | PROG NOTE ---
[address] [address] PROGRESS NOTE PATIENT: BRIAN WREN : 1955 MR#: [id number] ADMIT: 07/19/2016 JOB ID: [id number] DATE: 07/30/2016 PULMONARY CRITICAL CARE PROGRESS NOTE: The patient is a 60-year-old woman with history of alcohol abuse and alcoholic cirrhosis admitted with upper GI bleed due to duodenal ulcer, and subsequently developing aspiration pneumonitis with respiratory failure requiring mechanical ventilation. The patient was seen and evaluated with resident physician, Quan Pantoja. Please refer to his separate detailed note for additional information. INTERVAL HISTORY: Extubated yesterday and doing well on nasal cannula. She is somewhat lethargic but denies any complaints. REVIEW OF SYSTEMS: Denies fevers, chills, chest pain, shortness of breath but she is quite lethargic and not too communicative at this point. PHYSICAL EXAMINATION: Vital signs reviewed. She is afebrile. She is on 4 L nasal cannula. General: Obese, elderly woman, lying in bed, lethargic but answering questions. Chest: Clear to auscultation. Abdomen: Slightly distended. Nontender. Extremities: Diffuse anasarca. LABORATORIES: Reviewed. WBC is down to 15.3 from 24 yesterday. Hemoglobin slowly drifted down to 7.6 from 9.5. However, on recheck today, it is 8.1. Sodium is down to 151 from 154 and chemistries, potassium is very low 2.8. BUN and creatinine are stable. Chest x-ray today was not yet done. ASSESSMENT AND RECOMMENDATIONS: 1. Acute hypoxic respiratory failure. Intubated from July 24 until July 29. 2. Aspiration pneumonitis. 3. Alcoholic cirrhosis with alcohol abuse. 4. Recurrent upper GI bleed due to duodenal ulcer with Dieulafoy lesion-endoscopy x2, most recently on July 28 with clipping. 5. Acute blood loss anemia-stable. 6. Ascites status post paracentesis July 21 and July 27-no evidence of SBP on this. She was extubated yesterday and seems to be doing well from a respiratory standpoint, but still with a lot of interstitial edema in the peripheries. Her hemoglobin has drifted down slowly from 9 two days ago when she had her second endoscopy, down to 7.5-8.1 today. There is no active evidence of bleeding, i.e., no red blood coming out of the NG or in her stools. There is some dark old appearing blood coming out of the NG and also the FMS. GI was planning an endoscopy today but I am concerned that this will lead to the patient getting reintubated, so I spoke with Dr. Isabel who understood the concern for her respiratory status and we decided at this point to hold off on the endoscopy because she is hemodynamically stable and showing no signs of active bleeding even though the hemoglobin has drifted down a little bit in 48 hours plus. Continue PPI drip. We are going to add Carafate drip per my discussion with Dr. Isabel. We will transfuse 1 unit of packed red cells. Continue diuresis with Lasix IV. She is tolerating this well hemodynamically and has been off pressors. Continue lactulose for hepatic encephalopathy as well as rifaximin. She is not on DVT prophylaxis because of the bleeding. Discussed with daughters at the bedside. Critical care time 40 minutes MTDD
[2016-07-30] MEDS: Sucralfate 100 mg/mL 10 mL Suspension PO SCH ×3 (11:44→20:39)
--- NOTE | 2016-07-30 13:07 | PCM.PNMED ---
Subjective Date of Service Jul 30, 2016 Subjective 63-year-old woman with alcoholic cirrhosis and limited medical compliance presents with alcohol withdrawal, acute GI blood loss anemia and encephalopathy. EGD on revealed duodenal ulcers. On 07/23 nighttime she developed worsened encephalopathy and respiratory distress, likely aspiration pneumonia. She was intubated on 07/23. Renewed GI bleeding on 07/27, repeat EGD revealed dieulafoy lesion. She denies pain or dyspnea or abdominal distress. Responding to questions but appears weak and still somewhat encephalopathic. Exam Vital Signs Vital Sign - Last Date Time Temp Pulse Resp B/P Pulse Ox O2 Delivery O2 Flow Rate FiO2 07/30/16 12:00 36.4 95 20 113/57 94 Nasal Cannula 4.00 07/29/16 13:55 40 Intake and Output 07/29/16 07/29/16 07/30/16 Cumulative From/Thru 15:00 23:00 07:00 07/19/16 04:15 - 07/30/16 05:18 Intake Total 1602 ml 1775 ml 69629 ml Output Total 1965 ml 1825 ml 27255 ml Balance -363 ml -50 ml 1206 ml Intake Oral 2250 ml IV Total 1152 ml 1325 ml 71809 ml Tube Feeding 1165 ml Packed Cells 1502 ml Tube Irrigant 450 ml 450 ml 3111 ml Output Urine Total 1550 ml 1250 ml 47990 ml Stool Total 150 ml 1230 ml Gastric Drainage Total 265 ml 475 ml 2485 ml Drainage Total 100 ml 1550 ml Other 8250 ml # Voids 3 # Bowel Movements 23 Exam General: Pale appearing obese woman, eyes open and more responsive today HEENT: sclerae anicteric, mucosa moist Chest: Coarse breath sounds bilaterally, scattered rhonchi, no wheeze, no rales Cardiac: S1S2, no murmur appreciated Abdomen: BS present, mildly distended, umbilical hernia, non-rigid Extremities: 2+ edema in arms and left leg; right lower extremity wound is bandaged Neuro: Awake, minimal responses to questions, motor 3/5, peripherally; 2/5 truncal IVs and Medications Medications Reviewed: Medications were reviewed in detail Lab and Diagnostics Total bilirubin 1.6 Albumin 3.1 Transaminases normal . Result Diagram: 07/30/16 1006 07/30/16 0455 Microbiology MRSA nasal swab negative Paracentesis culture negative Urine culture 07/19 negative X-Rays, CTs and MRIs PROCEDURE: X-RAY CHEST ONE VIEW, PORTABLE ([id number]) IMPRESSION: Right upper and left lower lobe airspace opacity suspicious for aspiration or pneumonia. Dictated by: Luc ALBERT Interpreted: Benny Hernandez MD on 07/22/2016 at 16: 03 Chest x-ray 07/25 - personally reviewed Reduced inspiration, air bronchogram with dense left lower lobe infiltrate, right lower lobe interstitial pattern PROCEDURE: X-RAY CHEST ONE VIEW, PORTABLE ([id number]) IMPRESSION: 1. Endotracheal tube in appropriate position. Orogastric tube extends into the stomach with the tip not included on current study. 2. Confluent left airspace opacities redemonstrated likely representing pneumonia. 3. Bibasilar opacities consistent with consolidation/pneumonia, aspiration, or atelectasis again noted. 3. Mild pulmonary edema with interval improved aeration in the lung bases. 4. Small bilateral pleural effusions. Dictated by: Kyle Rainey M.D. on 07/24/2016 at 9:18 PROCEDURE: X-RAY CHEST ONE VIEW, PORTABLE ([id number]) IMPRESSION: 1. Support lines and tubes as above. 2. Confluent left lung airspace opacity redemonstrated likely related to pneumonia although asymmetric edema cannot be excluded. 3. New airspace opacity within the peripheral right upper lobe consistent with atelectasis versus pneumonia. 4. Bibasilar opacities unchanged consistent with atelectasis versus aspiration or pneumonia. Dictated by: Luc ALBERT Interpreted: Mirella Wu MD on 07/26/2016 at 9:31 PROCEDURE: X-RAY CHEST ONE VIEW ([id number]) IMPRESSION: 1. Interval increase in confluent air space opacity within mid left lung and left lung base consistent with worsening patchy pulmonary edema or pneumonia. 2. Presumed subsegmental atelectasis within the mid right lung redemonstrated. 3. Support lines and tubes as above. Dictated by: Luc ALBERT Interpreted: Jonny Gonzalez MD on 07/28/2016 at 10:29 PROCEDURE: CT ABDOMEN AND PELVIS WITHOUT CONTRAST ([id number]) IMPRESSION: 1. No evidence of urinary tract calcification, nor obstruction. 2. Cirrhosis and portal hypertension, with associated portosystemic collateral vessels, and small to moderate amount of ascites. 3. Subacute and acute right rib fractures. 4. Indeterminate right adrenal nodule, which could be further assessed with MRI , if clinically indicated. 5. Fat and fluid containing hiatal hernia. 6. Cholelithiasis. 7. Possible right colon thickening, which could indicate infection, ischemia, or inflammation. 8. Findings discussed with Dr. Isaias Sams on 07.02.16 at 0857 hrs Dictated by: Benny Hernandez M.D. on 07/19/2016 at 8:47 US ABDOMEN, LIMITED IMPRESSION: Small to moderate ascites. Dictated by: Luc ALBERT Interpreted: Marleen Abbasi MD on 07/26/2016 at 15: 24 . Cardiac Echo Impressions Echocardiogram Report Name: BRIAN WREN LStudy Date: 07/19/2016 Height: 62 in Interpretation Summary The left ventricle is normal in size, wall thickness, and systolic function without any focal wall motion abnormalities. The ejection fraction is estimated to be 60-65%. Assessment of diastolic parameters indicates normal left ventricular diastolic function and normal filling pressures. The right ventricle is normal in size and function. The right ventricular systolic pressure is estimated at 28 mmHg assuming a right atrial pressure of 3 mm Hg. Both atria are normal in size. There is no significant valvular heart disease. The ascending aorta is mildly enlarged. There is an anterior echo-free space consistent with a fat pad. Additional Diagnostics ENDOSCOPY PROCEDURE TYPE OF OPERATION: 1. Esophagogastroduodenoscopy with biopsy and APC and Gold Probe thermocoagulation. 2. Colonoscopy. IMPRESSION: 1. Normal colonoscopy. 2. A 1 cm duodenal first portion ulcer with recent stigmata of bleed, status post argon plasma coagulation and Gold Probe thermocoagulation. 3. Mild nonerosive gastritis. 4. No esophageal or gastric varices seen. 5. A 5 mm duodenal first portion ulcer, clean based, nonbleeding. RECOMMENDATIONS: 1. Stopped octreotide and Protonix drips, given the fact that the Protonix drip has been on for greater than 72 hours. 2. Start Protonix 40 mg by mouth twice a day. 3. Carafate 1 g by mouth 4 times a day. 4. Await pathology results. 5. Start clear liquid diet. Advance as tolerated. 6. The patient will need outpatient repeat EGD in approximately two to three months to document healing of the ulcers. 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 RECOMMENDATIONS: 1. Continue Protonix drip. 2. NG tube was placed endoscopically with confirmation after post NG tube placement. Okay to start using NG tube if necessary. 3. Serial hematocrits. Joao Isabel MD 07/28/16 1152 . Assessment & Plan 60yoF with COPD and undiagnosed cirrhosis transferred for direct admit from [place] due to hemoglobin 5.5 following recent fall and blood loss from right lower extremity chronic wounds. Course has been complicated by acute respiratory failure with hypoxia and sepsis on 07/23, presumed due to pneumonia, and recurrent GI bleeding requiring pressor support. Acute and high-risk problems: #. Sepsis, acute, POA. Initial impression on presentation was sepsis likely pneumonia vs right lower extremity infection. Started on vancomycin plus Zosyn. Clinically stable infectious status for several days. Developed acute sepsis syndrome (heart rate 109, respiratory rate 28, WBC 33K with respiratory failure) at night on 07/23 resulting in intubation. Antibiotics for upper GI bleed with cirrhosis initiated. Subsequent picture appears to be bilateral left greater than right acute pneumonia. - Resolved - Discontinue meropenem 07/30 - Fungal serology and culture #. Acute respiratory failure with hypoxia. Secondary to healthcare facility acquired pneumonia. Chest x-ray previously showed right mid and lower field opacities. Now diffuse alveolar pattern on left developed since respiratory compromise on 07/23. Initially required high FiO2 with increased PEEP, Oxygenation status seems to be improving as of 07/26. Initially Vanco plus Zosyn , changed to meropenem on 07/24, continued through 07/30. #. Fluid and electrolytes disordered. Hypernatremia with persistent total body water deficit. She demonstrates anasarca but CVP has been normal. She received infusion of albumin and furosemide to normalize volume status. Body weight now 6 kg lower than admission. She has diffuse edema due to hypoalbuminemia and immobility, but no evidence of pulmonary edema. Potassium is low due to volume contraction. - Discontinue Lasix - Discontinue albumin - Discontinue normal saline - IV D5W to replete free water. - Replete potassium - Daily BMP #. Acute blood loss anemia, GI bleeding, duodenal ulcer. Started on ceftriaxone and octreotide, which were subsequently discontinued. New GI bleeding on 07/27. Repeat endoscopically treated visible vessel, Dieulafoy lesion. Total 7 unit PRBCs. Jovanni hemoglobin 7.5 on 07/30, but no obvious clinical signs of her new bleeding. Hemoglobin subsequently stabilized - Continue Protonix IV - Continue sucralfate - Follow hemoglobin - GI is following. #. Cirrhosis with Ascites, POA. Nodular liver with signs of portal hypertension on CT scan. Complicated by encephalopathy, ascites and anasarca. No varices. Ammonia levels improved. Therapeutic paracentesis 2. - Continue lactulose and rifaximin. - Continue SPP prophylaxis antibiotics - Initiate furosemide and spironolactone when hemodynamically stable and taking by mouth #. Myopathy, acute. Likely critical illness myopathy. Worsened by severe hypokalemia. - electrolytes - Physical therapy #. Ground level fall, acute. POA. She has multiple right-sided rib fractures. They contribute to poor respiratory function - Supportive treatment - Physical therapy Resolving, stable, and/or chronic problems: #. Acute alcohol withdraw. Has not had significant benzodiazepine needs. - Follow clinically #. Possible COPD exacerbation, POA. Little evidence of bronchospasm. Primary acute stroke problem appears to be pulmonary infiltrates. - albuterol-ipratropium q4hr, albuterol q2hr PRN - Discontinued prednisone 40mg PO daily #. Right internal carotid aneurysm, incidental finding. POA. This was discussed with neurosurgery at [facility] and there is no need for acute intervention at this time. #. Right adrenal nodule 12 mm, Hounsfield units 19. - Requires outpatient follow-up #. Alcohol dependence, chronic. as per , no h/o withdrawal. drinks 2 bottles of wine per day - Case management Referral to alcohol cessation resources #. Right lower extremity wound, chronic. POA. - wound consult, Disposition: Patient is likely require many more days of hospitalization due to critical illness myopathy, acute blood loss anemia, acute respiratory failure with hypoxia GI Prophylaxis: Proton Pump Inhibitor VTE Prophylaxis: Other (possible GI bleed, unable to use SCDs d/t leg wounds) VTE Mechanical Devices: Intermittant Pneumatic CD Resuscitation Status: CPR: Attempt Resuscitation Time spent 35 minutes Jose Juan Thomason MD Jul 30, 2016 13:07
--- NOTE | 2016-07-30 13:25 | PCM.PNMED ---
Subjective Date of Service Jul 30, 2016 Subjective Pulmonology Consultation. Attending physician Dr. Montgomery. Requesting Physician Dr. Thomason. reason for Consult. Acute hypoxic respiratory failure. Ms. Collins is a 60 year old female with a H EtOH use disorder, alcoholic cirrhosis and COPD who was admitted for acute blood loss anemia secondary to GI bleed from duodenal ulcer and encephalopathy. During the course of her hospital stay she developed worsened encephalopathy with acute respiratory failure presumed to be aspiration pneumonia/pneumonitis and was intubated on . Yesterday: Pt was successfully extubated Overnight: Some PVC's and a 15 beat run of V-Tach. She remained awake but drowsy without much reported movement. Her NG tube produced about 0.5L of dark brown fluid. ROS: Awake and alert, able to voice answers to questions though is quite hoarse. She denies being in any pain but states that she would very much like some coffee. Family present at bedside. Exam Vital Signs Vital Sign - Last Date Time Temp Pulse Resp B/P Pulse Ox O2 Delivery O2 Flow Rate FiO2 07/30/16 08:00 Supplement Oxygen 07/30/16 08:00 36.4 91 14 106/57 98 4.00 07/29/16 13:55 40 Intake and Output 07/29/16 07/29/16 07/30/16 Cumulative From/Thru 15:00 23:00 07:00 07/19/16 04:15 - 07/30/16 05:18 Intake Total 1602 ml 1775 ml 82538 ml Output Total 1965 ml 1825 ml 46660 ml Balance -363 ml -50 ml 1206 ml Intake Oral 2250 ml IV Total 1152 ml 1325 ml 80244 ml Tube Feeding 1165 ml Packed Cells 1502 ml Tube Irrigant 450 ml 450 ml 3111 ml Output Urine Total 1550 ml 1250 ml 16315 ml Stool Total 150 ml 1230 ml Gastric Drainage Total 265 ml 475 ml 2485 ml Drainage Total 100 ml 1550 ml Other 8250 ml # Voids 3 # Bowel Movements 23 Exam General: Alert, awaken to voice; resting in bed; no acute distress HEENT: Mucous membranes dry; NGT in place and secured though tube appears to be folded into her posterior oral pharynx Chest & Lungs: Crackles heard bilaterally from lung bases to upper anterior lobes. No use accessory muscles good air movement Cardiovascular: Regular rate and rhythm, no murmurs appreciated Abdomen: Umbilical hernia, reducible. Soft, nontender to palpation. Ascites present. Extremities: Global edema present. bandages intact right lower extremity. Skin: Warm and dry Psych: Awake and alert and will speak softly when answering questions. Limited movement due to fatigue. IVs and Medications Medications Reviewed: Medications were reviewed in detail Lab and Diagnostics Result Diagram: 07/30/16 1006 07/30/16 0455 Microbiology MRSA nasal swab negative Paracentesis culture negative Urine culture 07/19 negative X-Rays, CTs and MRIs PROCEDURE: X-RAY CHEST ONE VIEW, PORTABLE ([id number]) IMPRESSION: Right upper and left lower lobe airspace opacity suspicious for aspiration or pneumonia. Dictated by: uLc ALBERT Interpreted: Benny Hernandez MD on 07/22/2016 at 16: 03 Chest x-ray 07/25 - personally reviewed Reduced inspiration, air bronchogram with dense left lower lobe infiltrate, right lower lobe interstitial pattern PROCEDURE: X-RAY CHEST ONE VIEW, PORTABLE ([id number]) IMPRESSION: 1. Endotracheal tube in appropriate position. Orogastric tube extends into the stomach with the tip not included on current study. 2. Confluent left airspace opacities redemonstrated likely representing pneumonia. 3. Bibasilar opacities consistent with consolidation/pneumonia, aspiration, or atelectasis again noted. 3. Mild pulmonary edema with interval improved aeration in the lung bases. 4. Small bilateral pleural effusions. Dictated by: Kyle Rainey M.D. on 07/24/2016 at 9:18 PROCEDURE: X-RAY CHEST ONE VIEW, PORTABLE ([id number]) IMPRESSION: 1. Support lines and tubes as above. 2. Confluent left lung airspace opacity redemonstrated likely related to pneumonia although asymmetric edema cannot be excluded. 3. New airspace opacity within the peripheral right upper lobe consistent with atelectasis versus pneumonia. 4. Bibasilar opacities unchanged consistent with atelectasis versus aspiration or pneumonia. Dictated by: Luc ALBERT Interpreted: Mirella Wu MD on 07/26/2016 at 9:31 PROCEDURE: X-RAY CHEST ONE VIEW ([id number]) IMPRESSION: 1. Interval increase in confluent air space opacity within mid left lung and left lung base consistent with worsening patchy pulmonary edema or pneumonia. 2. Presumed subsegmental atelectasis within the mid right lung redemonstrated. 3. Support lines and tubes as above. Dictated by: Luc ALBERT Interpreted: Jonny Gonzalez MD on 07/28/2016 at 10:29 PROCEDURE: CT ABDOMEN AND PELVIS WITHOUT CONTRAST ([id number]) IMPRESSION: 1. No evidence of urinary tract calcification, nor obstruction. 2. Cirrhosis and portal hypertension, with associated portosystemic collateral vessels, and small to moderate amount of ascites. 3. Subacute and acute right rib fractures. 4. Indeterminate right adrenal nodule, which could be further assessed with MRI , if clinically indicated. 5. Fat and fluid containing hiatal hernia. 6. Cholelithiasis. 7. Possible right colon thickening, which could indicate infection, ischemia, or inflammation. 8. Findings discussed with Dr. Isaias Sams on 07.02.16 at 0857 hrs Dictated by: Benny Hernandez M.D. on 07/19/2016 at 8:47 US ABDOMEN, LIMITED IMPRESSION: Small to moderate ascites. Dictated by: Luc ALBERT Interpreted: Marleen Abbasi MD on 07/26/2016 at 15: 24 . Cardiac Echo Impressions Echocardiogram Report Name: BRIAN COLLINS LStudy Date: 07/19/2016 Height: 62 in Interpretation Summary The left ventricle is normal in size, wall thickness, and systolic function without any focal wall motion abnormalities. The ejection fraction is estimated to be 60-65%. Assessment of diastolic parameters indicates normal left ventricular diastolic function and normal filling pressures. The right ventricle is normal in size and function. The right ventricular systolic pressure is estimated at 28 mmHg assuming a right atrial pressure of 3 mm Hg. Both atria are normal in size. There is no significant valvular heart disease. The ascending aorta is mildly enlarged. There is an anterior echo-free space consistent with a fat pad. Additional Diagnostics ENDOSCOPY PROCEDURE TYPE OF OPERATION: 1. Esophagogastroduodenoscopy with biopsy and APC and Gold Probe thermocoagulation. 2. Colonoscopy. IMPRESSION: 1. Normal colonoscopy. 2. A 1 cm duodenal first portion ulcer with recent stigmata of bleed, status post argon plasma coagulation and Gold Probe thermocoagulation. 3. Mild nonerosive gastritis. 4. No esophageal or gastric varices seen. 5. A 5 mm duodenal first portion ulcer, clean based, nonbleeding. RECOMMENDATIONS: 1. Stopped janreotide and Protonix drips, given the fact that the Protonix drip has been on for greater than 72 hours. 2. Start Protonix 40 mg by mouth twice a day. 3. Carafate 1 g by mouth 4 times a day. 4. Await pathology results. 5. Start clear liquid diet. Advance as tolerated. 6. The patient will need outpatient repeat EGD in approximately two to three months to document healing of the ulcers. 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 RECOMMENDATIONS: 1. Continue Protonix drip. 2. NG tube was placed endoscopically with confirmation after post NG tube placement. Okay to start using NG tube if necessary. 3. Serial hematocrits. Joao Isabel MD 07/28/16 1152 . Assessment & Plan Ms. Collins is a 60 year old female with a H EtOH use disorder, alcoholic cirrhosis and COPD who was admitted for acute blood loss anemia secondary to GI bleed from duodenal ulcer and encephalopathy. During the course of her hospital stay she developed worsened encephalopathy with acute respiratory failure presumed to be aspiration pneumonia/pneumonitis and was intubated on . Hospital day 12. 1. Acute hypoxemic respiratory failure. Not present on admission. Improving. Possibly secondary to HAP. - CXR has shown a possible developing pneumonia vs pulmonary edema - Meropenem stop date 07/30/2016 - Start Ceftriaxone 07/30/2016 - Fentanyl Bolus PRN - Levophed 0.04 - Extubated 07/29/2016 - Currently on [id number] 2. Acute Respiratory Distress Syndrome. Not present on admission. Improving - [place] Criteria places Pt in moderate category - Furosemide 20mg daily stopped secondary to hemodynamic state - albuterol-ipratropium q4hr PRN - Continue to monitor 3. Sepsis, present on admission. Resolved. Possible sources include pneumonia vs. lower extremity infection - Hold fluid resuscitation secondary to #2 - Levophed 0.04, continue to titrate down as tolerated - ABX as in #1 4. Acute blood loss anemia secondary to GI bleed - Pt has Hx of bleeding ulcer - EGD showed Dieulafoy's lesion in Duodenum, [address] with resolution of bleeding - H&H has remained stable - Protonix IV - Stop DVT prophylaxis - GI is following, considering repeat EGD if H&H continues to drop - Continue to monitor closely 5. Alcoholic cirrhosis. Present on admission. Ongoing - LFT's have normalized - Pt has ascites and anasarca and has received 2 paracentesis with ~5L of fluid taken off - Continue to monitor, will most likely need another. 6. Encephalopathy - Lactulose restarted - Ammonia Level normalized - Continue to monitor 7. Hypernatremia with total body water deficit. - Lasix stopped - Albumin stopped - D575/hr GI Prophylaxis: Proton Pump Inhibitor VTE Prophylaxis: Other (possible GI bleed, unable to use SCDs d/t leg wounds) VTE Mechanical Devices: Intermittant Pneumatic CD Resuscitation Status: CPR: Attempt Resuscitation Attending Statement I have seen and examined this patient with the resident physician. Vital signs , labs, imaging have been reviewed. I agree with the assessment and plan above. Please refer to my separately dictated progress note for any modifications to above. Kristine Montgomery M.D. Pulmonary and Critical Care medicine Pager [phone] RODDY BENAVIDES DO Jul 30, 2016 12:07 Kristine Montgomery MD Jul 30, 2016 13:57
--- NOTE | 2016-07-30 13:44 | NUR ---
Evaluation completed. Please go to "Notes" then click on "Assessments and Notes" (bottom left corner of screen). Then select appropriate discipline tab on top of screen.
--- NOTE | 2016-07-30 14:13 | NUR ---
NUTRITION FOLLOW-UP: Assess: 60 YO F admitted with severe anemia, COPD exacerbation, sepsis, and GI bleed following a GLF, requiring intubation. Enteral feeding was stopped 07/27 due to suspected upper GI bleed. Pt had EGD 07/28 and found to have lesion in duodenum which was successfully clamped. Pt successfully extubated yesterday at 1450. Swallow evaluation pending at this point; pt. has been NPO x 3 D. PMHX: COPD, ETOH dependence, hemorrhoids, PNA, constipation, rectal bleed. DIET: NPO. ENTERAL NUTRITION DISCONTINUED: Pulmocare at 35 ml/hr, advancing to goal of 60 ml/hr to provide 1980 kcal, 83 g protein, sufficient to meet 100% nutrient needs.--ON HOLD LABS: Na 151, K+ 2.8, chloride 115, BUN 39, Glu 129, Total Bili 1.6, Alb 3.1. MEDICATIONS: Reviewed. Norepi, lasix, albumin, lactulose. GI: FMS 800 mL (07/29). SKIN: Cluster of wounds at the right pretibial area of the leg - stable per WC. ANTHROPOMETRICS: Wt: 88.2 kg, BMI 35.0 kg/m2, Admit wt: 95.2 kg, IBW: 50.0 kg. ESTIMATED NEEDS: VENT/WOUND/COPD/BMI Calories: 9863-7938 kcal/day (22-25 kcal/kg BW) Protein: 75-90 g/day (1.5-1.8 g/kg IBW) NUTRITION DIAGNOSIS: 1) Increased nutrient needs related to wound healing/increased demand for nutrients as evidenced by wounds, COPD - PERSISTS. 2) Chewing/swallowing difficulties related to pocketing, delayed swallow, decreased laryngeal excursion, as evidenced by requirement for pureed/honey thick liquid diet - ON HOLD PENDING ST EVAL. 3) Inadequate oral intake related to inability to consume sufficient energy, as evidenced by minimal PO intake since admit x 5 D, now intubated - PERSISTS. INTERVENTION: 1) Recommend re-start enteral feeding in the event pt. unable to pass swallow evaluation today. 2) Recommend re-start fluid flush 150ml q 3 hrs to provide 1200ml free water/day. MONITOR/EVALUATE: NPO status, diet advance, PO intake vs. enteral feeding restart, wounds, GI, labs, nutrition status. Follow per high nutrition risk guidelines.
--- NOTE | 2016-07-30 16:04 | NUR ---
Social Work: Continued Discharge Planning D: Pt discussed in am rounds. Pt is on day 11 of stay Pt was extubated on 07/29. Pt remains in CCU status. Pt was able to work with PT today however was unable to mobilize due to somnolence and severe deconditioning. Current recommendation is for SNF. Pt continues to be self-pay insurance and is over-resourced for Medicaid. TECHNICAL SERVICES CONSULTANT reviewed barriers to SNF discharge with MD. TECHNICAL SERVICES CONSULTANT updated CDP from [place] about pt's status and informed her to check with weekend TECHNICAL SERVICES CONSULTANT to determine if pt is appropriate for bedside. She will follow closely. A: Pt who previously lived at home with her spouse; pt currently very deconditioned. P: Anticipate pt to discharge directly home once medically and safely able to do so unless pt is able to pay privately at SNF; TECHNICAL SERVICES CONSULTANT to follow up with pt re: discharge planning once she is more coherent. Nelly Carmichael MSW
--- NOTE | 2016-07-30 16:17 | NUR ---
Evaluation completed. Please go to "Notes" then click on "Assessments and Notes" (bottom left corner of screen). Then select appropriate discipline tab on top of screen.
--- NOTE | 2016-07-30 17:59 | NUR ---
NG tube/mentation Pt's NG tube visible in the back of mouth, curled. This AM CXR shows line stable in place. Pulled NG tube out and uncurled NG, then put back in place to measured/taped line on tube. NG to LIS, light gina clearish liquid coming out of tube. Pt denies any pain, RASS score -1 throughout shift. Is unable to hold attention but will answer questions appropriately. Family at bedside throughout shift. Frequent oral care, q2h turns continue.
[2016-07-30] MEDS: Propofol Inj 1,000,000 MCG in IV Premix 1 EACH IV SCH (19:19)
[2016-07-30] MEDS: Norepineph 8,000 mCg/250 mL NS 8,000 MCG in IV Premix 1 EACH IV SCH (19:31)
--- NOTE | 2016-07-30 23:27 | ABG ---
DateTimeAnalyzed 23:21:35 -_ pH ____7.189 - pCO2 ___74.3__ -mmHg pO2 ___57.3__ -mmHg HCO3- ___28.3__ -mmol/L ABE ____0.0__ -mmol/L tHb ____9.8__ -g/dL O2Hb ___79.2__ -% COHb ____2.1__ -% MetHb ____0.0__ -% sO2 ___80.9__ -% FIO2 ___40.0__ -% Drawn By RB - Notified By RB - Notified Whom sullenberger l, md -__ B 761 -mmHg K+ ____4.3__ -mmol/L tO2 ___10.9__ -Vol% Isaias test _Positive -
[2016-07-30 23:29] LABS: BASOPHILS % (AUTO) 0.3 % (0-3); EOSINOPHILS % (AUTO) 4.4 % (0-5); MONOCYTES % (AUTO) 6.4 % (4-12); Mean Corpuscular Hemoglobin 27.1 pg (27.0-35.0); Mean Corpuscular Volume 94.6 fL (81-100); NEUTROPHILS % (AUTO) 80.6 % (40-74); Platelet Count 176 bil/L (150-400)
[2016-07-30] MEDS ORDERED: fentaNYL 2,500 mCg/250 mL 2,500 MCG in IV Premix 1 EACH IV SCH (23:33)
[2016-07-30] MEDS ORDERED: Propofol Inj 1,000,000 MCG in IV Premix 1 EACH IV SCH (23:33)
[2016-07-30 23:44] LABS: INR 1.42 ratio
[2016-07-31] VITALS (17 sets, daily range): BP systolic 83–118; BP diastolic 49–67; PULSE 90–126; RESP 18–26; O2SAT 94–100
--- NOTE | 2016-07-31 | NUR ---
Mentation/Resp 2129 Patient awake and watching TV at 2129, fell asleep about 2199 and at bedside, about 2315 patients RR became shallow and rate increased to 28-32RR/min. Unarousable to sternal rub and nail bed pressure, Dr. Shepherd notified immediately and new orders received, patient intubated and put on vent for airway protection since patient was unresponsive, no sedation at this time other than what was given for intubation, OGT removed for intubation and orders to leave out per Dr. Shepherd, head CT done, no distress noted at this time Addendum: 07/31/16 at 0553 by CORAL JESUS RN 30 - Patient awake on the vent, no sedation and patient resting in bed, calm and cooperative, HR NSR 80's averaging <10 PVC's/min, much less ectopy than prior to intubation which the patient was having 40-45 PVC's/min, denies pain, follows commands but very weak, no distress noted.
--- NOTE | 2016-07-31 00:04 | PCM.EDPN ---
ED Note Date of Service July 30, 2016 Procedures Intubation : Intubation Procedure: Called by hospitalist for intubaion due to decreased mental status. present in room and agrees Time: 23:30 Procedure Performed by: ED physician Consent / Setup / Site Prep: Consent from spouse Patient Position: Neutral position Blade / ET Tube / Route: [place] scope Procedural Sedation/Analgesia: Sedation: Etomidate Neuromuscular Agent: Succinylcholine ET Confirmation: Direct visualization, BS equal, End tidal CO2 device, CXR ( inital film tip at rohini, pulled back), Rising O2 sat Secured / Marked: ET tube device Complications: None Post-Procedure: Condition improved, Patient stable Kristofer Biswas MD Jul 31, 2016 00:04
[2016-07-31] MEDS: Pantoprazole Inj 80 MG in 0.9% Sodium Chloride 80 ML IV SCH ×3 (00:42→20:15)
[2016-07-31 00:59] LABS: TROPONIN T 0.022 ug/L (0.0-0.011)
[2016-07-31] MEDS: Sucralfate 100 mg/mL 10 mL Suspension PO SCH ×3 (01:01→16:30)
[2016-07-31] MEDS: Chlorhexidine 0.12% 15 mL Oral Solution MT SCH ×6 (01:01→20:30)
[2016-07-31] MEDS: Dextrose 5% 1,000 ML IV SCH ×2 (01:01→15:08)
--- NOTE | 2016-07-31 01:54 | ABG ---
DateTimeAnalyzed 01:48:28 -_ pH ____7.416 - pCO2 ___42.3__ -mmHg pO2 ___26.4__ -mmHg HCO3- ___27.2__ -mmol/L ABE ____2.4__ -mmol/L tHb ____8.9__ -g/dL O2Hb ___47.5__ -% COHb ____1.7__ -% MetHb ____0.0__ -% sO2 ___48.3__ -% FIO2 ___60.0__ -% PRVC 24 - PEEP ____8.0__ -cmH2O Vt __400.0__ -L Drawn By RB - Oxygen Device 1 VENTILATOR - Notified Whom sullenberger l, dr -__ B 760 -mmHg K+ ____4.0__ -mmol/L tO2 ____5.9__ -Vol% Isaias test _Positive -
[2016-07-31 04:16] LABS: Mean Corpuscular Hemoglobin 27.1 pg (27.0-35.0); Mean Corpuscular Volume 93.3 fL (81-100)
[2016-07-31 04:44] LABS: Magnesium 2.1 mg/dL (1.6-2.6)
--- NOTE | 2016-07-31 06:14 | ABG ---
DateTimeAnalyzed 06:08:52 -_ pH ____7.479 - pCO2 ___34.8__ -mmHg pO2 119 -mmHg HCO3- ___25.8__ -mmol/L ABE ____2.1__ -mmol/L tHb ____8.6__ -g/dL O2Hb ___98.5__ -% COHb ____2.0__ -% MetHb ___-0.2__ -% FIO2 ___60.0__ -% PRVC 20 - PEEP ____8.0__ -cmH2O Vt __400.0__ -L Drawn By RB - Date/Time Notified____ 06:13:00 -_ Oxygen Device 1 VENTILATOR - Notified By RB - Notified Whom SARAH F - B 759 -mmHg K+ ____3.7__ -mmol/L Isaias test _Positive -
--- NOTE | 2016-07-31 06:29 | DRSVH ---
PROCEDURE: X-RAY CHEST ONE VIEW, PORTABLE ([id number]) INDICATIONS: 60-year-old female status post intubation. TECHNIQUE: One view of the chest was acquired. COMPARISON: [facility], CR, XR CHEST 1VW (PORTABLE), 07/30/2016, 9:04. [facility], CR, XR CHEST 1VW, 07/29/2016, 4:49. [facility], CR, XR CHEST 1VW, 07/28/2016, 4:48. FINDINGS: Surgical changes and devices: New endotracheal tube is present, with tip 3.0 cm above the rohini. N asogastric tube has been withdrawn. Right PICC remains in expected position. Lungs and pleura: No pleural effusions or pneumothorax. Asymmetric lateral left mid lung opacities persist. No pulmonary edema. Mediastinum: Mediastinal contours appear normal. Heart size is normal. Bones and chest wall: No suspicious bony lesions. Overlying soft tissues appear unremarkable. IMPRESSION: 1. New endotracheal tube is present, with tip in expected position. 2. Findings suspicious for evolving lateral left mid lung pneumonia. Dictated by: Benito Middleton M.D. on 07/31/2016 at 6:25 Approved by: Benito Middleton M.D. on 07/31/2016 at 6:28
--- NOTE | 2016-07-31 07:50 | DRSVH ---
PROCEDURE: CT BRAIN WITHOUT CONTRAST ([id number]) INDICATIONS: 60-year-old female with left supraclinoid internal carotid artery aneurysm, with altere d mental status. TECHNIQUE: Noncontrast 4.5 mm thick angled axial sections acquired from the foramen magnum to the vertex, with c oronal reformats. COMPARISON: [facility], MR, MR ANGIO HEAD WO [facility], [facility]2016[facility] 9[facility]12[facility], 07/19/2016, 5:56. FINDINGS: Preliminary interpretation rendered by [employer]. Image quality: Excellent. CSF spaces: Basal cisterns are patent. No extra-axial fluid collections. Ventricles are normal in size and shape. Brain: No midline shift. No intracranial hemorrhage. 1.5 x 2.1 cm supraclinoid left internal carot id artery aneurysm is again noted, with dependent retained intravenous contrast within the lumen. Th ere is minimal periventricular white matter chronic small vessel ischemic change. Skull and face: Calvarium and visualized facial bones are intact, without suspicious lesions. Sinuses: Visualized sinuses and mastoids are clear. IMPRESSION: 1. No acute intracranial abnormalities. 2. 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 No significant discrepancy with preliminary [employer] report. Dictated by: Benito Middleton M.D. on 07/31/2016 at 7:43 Approved by: Benito Middleton M.D. on 07/31/2016 at 7:49
--- NOTE | 2016-07-31 08:07 | PCM.PNMED ---
Subjective Date of Service Jul 31, 2016 Subjective Intubated and alert. ROS and sunjective not obtainable. Exam Vital Signs Vital Sign - Last Date Time Temp Pulse Resp B/P Pulse Ox O2 Delivery O2 Flow Rate FiO2 07/31/16 06:27 98 94/57 100 60 07/31/16 03:34 Ventilator 07/31/16 03:34 37.8 20 07/30/16 19:21 6.00 Intake and Output 07/30/16 07/30/16 07/31/16 Cumulative From/Thru 15:00 23:00 07:00 07/19/16 04:15 - 07/31/16 05:16 Intake Total 1416 ml 1231 ml 76888 ml Output Total 1525 ml 525 ml 64922 ml Balance -109 ml 706 ml 1803 ml Intake Oral 2250 ml IV Total 1416 ml 1081 ml 16425 ml Tube Feeding 1165 ml Packed Cells 1502 ml Tube Irrigant 150 ml 3261 ml Output Urine Total 500 ml 300 ml 59518 ml Stool Total 1230 ml Gastric Drainage Total 175 ml 125 ml 2785 ml Drainage Total 850 ml 100 ml 2500 ml Other 8250 ml # Voids 3 # Bowel Movements 23 Exam General: Pale appearing obese woman, eyes open following. HEENT: sclerae icteric, mucosa moist Chest: Coarse breath sounds bilaterally, scattered rhonchi, no wheeze, no rales Cardiac: S1S2, no murmur appreciated Abdomen: BS present, mildly distended, umbilical hernia, non-rigid. No apparent tenderness. Extremities: 2+ edema in arms and left leg; right lower extremity wound is bandaged Neuro: Awake, minimal responses to questions, motor 3/5, peripherally; 2/5 truncal IVs and Medications Medications Reviewed: Medications were reviewed in detail Lab and Diagnostics Result Diagram: 07/31/16 0400 07/31/16 0400 Microbiology MRSA nasal swab negative Paracentesis culture negative Urine culture 07/19 negative X-Rays, CTs and MRIs PROCEDURE: X-RAY CHEST ONE VIEW, PORTABLE ([id number]) IMPRESSION: Right upper and left lower lobe airspace opacity suspicious for aspiration or pneumonia. Dictated by: Luc ALBERT Interpreted: Benny Hernandez MD on 07/22/2016 at 16: 03 Chest x-ray 07/25 - personally reviewed Reduced inspiration, air bronchogram with dense left lower lobe infiltrate, right lower lobe interstitial pattern PROCEDURE: X-RAY CHEST ONE VIEW, PORTABLE ([id number]) IMPRESSION: 1. Endotracheal tube in appropriate position. Orogastric tube extends into the stomach with the tip not included on current study. 2. Confluent left airspace opacities redemonstrated likely representing pneumonia. 3. Bibasilar opacities consistent with consolidation/pneumonia, aspiration, or atelectasis again noted. 3. Mild pulmonary edema with interval improved aeration in the lung bases. 4. Small bilateral pleural effusions. Dictated by: Kyle Rainey M.D. on 07/24/2016 at 9:18 PROCEDURE: X-RAY CHEST ONE VIEW, PORTABLE ([id number]) IMPRESSION: 1. Support lines and tubes as above. 2. Confluent left lung airspace opacity redemonstrated likely related to pneumonia although asymmetric edema cannot be excluded. 3. New airspace opacity within the peripheral right upper lobe consistent with atelectasis versus pneumonia. 4. Bibasilar opacities unchanged consistent with atelectasis versus aspiration or pneumonia. Dictated by: Luc ALBERT Interpreted: Mirella Wu MD on 07/26/2016 at 9:31 PROCEDURE: X-RAY CHEST ONE VIEW ([id number]) IMPRESSION: 1. Interval increase in confluent air space opacity within mid left lung and left lung base consistent with worsening patchy pulmonary edema or pneumonia. 2. Presumed subsegmental atelectasis within the mid right lung redemonstrated. 3. Support lines and tubes as above. Dictated by: Luc ALBERT Interpreted: Jonny Gonzalez MD on 07/28/2016 at 10:29 PROCEDURE: CT ABDOMEN AND PELVIS WITHOUT CONTRAST ([id number]) IMPRESSION: 1. No evidence of urinary tract calcification, nor obstruction. 2. Cirrhosis and portal hypertension, with associated portosystemic collateral vessels, and small to moderate amount of ascites. 3. Subacute and acute right rib fractures. 4. Indeterminate right adrenal nodule, which could be further assessed with MRI , if clinically indicated. 5. Fat and fluid containing hiatal hernia. 6. Cholelithiasis. 7. Possible right colon thickening, which could indicate infection, ischemia, or inflammation. 8. Findings discussed with Dr. Isaias Sams on 07.02.16 at 0857 hrs Dictated by: Benny Hernandez M.D. on 07/19/2016 at 8:47 US ABDOMEN, LIMITED IMPRESSION: Small to moderate ascites. Dictated by: Luc ALBERT Interpreted: Marleen Abbasi MD on 07/26/2016 at 15: 24 . Cardiac Echo Impressions Echocardiogram Report Name: BRIAN WREN LStudy Date: 07/19/2016 Height: 62 in Interpretation Summary The left ventricle is normal in size, wall thickness, and systolic function without any focal wall motion abnormalities. The ejection fraction is estimated to be 60-65%. Assessment of diastolic parameters indicates normal left ventricular diastolic function and normal filling pressures. The right ventricle is normal in size and function. The right ventricular systolic pressure is estimated at 28 mmHg assuming a right atrial pressure of 3 mm Hg. Both atria are normal in size. There is no significant valvular heart disease. The ascending aorta is mildly enlarged. There is an anterior echo-free space consistent with a fat pad. Additional Diagnostics ENDOSCOPY PROCEDURE TYPE OF OPERATION: 1. Esophagogastroduodenoscopy with biopsy and APC and Gold Probe thermocoagulation. 2. Colonoscopy. IMPRESSION: 1. Normal colonoscopy. 2. A 1 cm duodenal first portion ulcer with recent stigmata of bleed, status post argon plasma coagulation and Gold Probe thermocoagulation. 3. Mild nonerosive gastritis. 4. No esophageal or gastric varices seen. 5. A 5 mm duodenal first portion ulcer, clean based, nonbleeding. RECOMMENDATIONS: 1. Stopped octreotide and Protonix drips, given the fact that the Protonix drip has been on for greater than 72 hours. 2. Start Protonix 40 mg by mouth twice a day. 3. Carafate 1 g by mouth 4 times a day. 4. Await pathology results. 5. Start clear liquid diet. Advance as tolerated. 6. The patient will need outpatient repeat EGD in approximately two to three months to document healing of the ulcers. Joao Isabel MD 07/23/16 1630 ENDOSCOPY PROCEDURE IMPRESSION: Visible vessel seen at the scaffold setter bulb/first portion of duodenum, status post four hemoclips placed with good hemostasis for control of the bleeding. RECOMMENDATIONS: 1. Continue Protonix drip. 2. NG tube was placed endoscopically with confirmation after post NG tube placement. Okay to start using NG tube if necessary. 3. Serial hematocrits. Joao Isabel MD 07/28/16 1152 . Assessment & Plan Ms. Wren is a 60 year old female with a H EtOH use disorder, alcoholic cirrhosis and COPD who was admitted for acute blood loss anemia secondary to GI bleed from duodenal ulcer and encephalopathy. During the course of her hospital stay she developed worsened encephalopathy with acute respiratory failure presumed to be aspiration pneumonia/pneumonitis and was intubated on . Hospital day 12. 1. Acute hypoxemic respiratory failure. Not present on admission. Improving. Possibly secondary to HAP. - CXR has shown a possible developing pneumonia vs pulmonary edema - Meropenem stop date 07/30/2016 - Start Ceftriaxone 07/30/2016 - Fentanyl Bolus PRN - Levophed 0.04 - Extubated 07/29/2016 She was reintubated last noc. FiO2 0.60, PEEP 8, rate 20. Looked at gas and will decrease FiO2 to 50 and rate to 18. AM CXR. 2. Acute Respiratory Distress Syndrome. Not present on admission. Possible recurrent aspiration last noc. - [place] Criteria places Pt in moderate category - Furosemide 20mg daily stopped secondary to hemodynamic state - albuterol-ipratropium q4hr PRN - Continue meropenem for possible aspiration. 3. Sepsis, present on admission. Recurrent. - Hold fluid resuscitation secondary to #2 - Levophed 0.06, continue to titrate down as tolerated - ABX as in #1 4. Acute blood loss anemia secondary to GI bleed - Pt has Hx of bleeding ulcer - EGD showed Dieulafoy's lesion in Duodenum, [address] with resolution of bleeding - H&H has remained stable - Protonix IV - Stop DVT prophylaxis - GI is following, considering repeat EGD if H&H continues to drop - Continue to monitor closely 5. Alcoholic cirrhosis. Present on admission. Ongoing - LFT's have normalized - Pt has ascites and anasarca and has received 2 paracentesis with ~5L of fluid taken off - Continue to monitor, will most likely need another. 6. Encephalopathy, probable hepatic. - Lactulose restarted - Ammonia Level normalized - Continue to monitor and continue medical therapy. 7. Hypernatremia with total body water deficit. - Lasix stopped - Albumin stopped - D5 @ 75/hr, will continue. Pain Evaluation: Adequate Pain Control GI Prophylaxis: Proton Pump Inhibitor VTE Prophylaxis: Other (possible GI bleed, unable to use SCDs d/t leg wounds) VTE Mechanical Devices: Intermittant Pneumatic CD Resuscitation Status: CPR: Attempt Resuscitation Time spent 40 minutes Isaias Sams MD Jul 31, 2016 08:07
[2016-07-31] MEDS: cefTRIAXone Inj 2,000 MG in Dextrose 5% Minibag Plus 50 ML IV SCH (08:17)
[2016-07-31] MEDS: Lactulose 20 Gm/30 mL 30 mL Syrup TUBE SCH ×3 (08:18→15:15)
--- NOTE | 2016-07-31 09:20 | DRSVH ---
PROCEDURE: X-RAY CHEST ONE VIEW, PORTABLE ([id number]) INDICATIONS: 60-year-old female with dyspnea. TECHNIQUE: One view of the chest was acquired. COMPARISON: [facility], CR, XR CHEST 1VW (PORTABLE), 07[facility]30/2016, 23:27[facility], [facility]W (PORTABLE), 07/30/2016, 9:04. [facility], CR, XR CHEST 1VW, 07/29, 4:49. FINDINGS: Surgical changes and devices: Endotracheal tube is again noted, with tip now 1.6 cm above the rohini . Right PICC is again noted. Lungs and pleura: No pleural effusions or pneumothorax. Lungs are clear. Mediastinum: Mediastinal contours appear normal. Heart size is normal. Bones and chest wall: No suspicious bony lesions. Overlying soft tissues appear unremarkable. IMPRESSION: Tip of the endotracheal tube is now situated 1.6 cm above the rohini, and should be pull ed back several cm. Dictated by: Benito Middleton M.D. on 07/31/2016 at 9:16 Approved by: Benito Middleton M.D. on 07/31/2016 at 9:19
--- NOTE | 2016-07-31 09:43 | DRSVH ---
PROCEDURE: CT ABDOMEN WITHOUT CONTRAST ([id number]) INDICATIONS: 60-year-old female with abdominal pain and altered mental status. TECHNIQUE: After the administration of oral contrast, 5 mm thick sections acquired from the diaphragms to the il iac crests. 5 mm coronal and sagittal reformats were then performed. For radiation dose reduction, the following was used: automated exposure control, adjustment of mA and/or kV according to patient size. COMPARISON: [facility], CT, CT ABD PELVIS WO CON, 07/19/2016, 5:56. FINDINGS: Preliminary interpretation rendered by [employer]. Image quality: Excellent. Lung bases: Bibasilar mobile pleural effusions are now present, larger on the right, with adjacent c ompressive atelectasis. Heart size remains normal. Solid organs: Liver and spleen are normal in size. Liver demonstrates nodular capsular contour as b efore, indicating cirrhosis. Gallbladder contains several dependant calcified gallstones. Pancreas is normal in contours. 1.4 cm right adrenal nodule is again noted, demonstrating non contrast CT den sity measurement of 6.0 Hounsfield units. Left adrenal gland appears normal. Both kidneys are hien l in size, without hydronephrosis or nephrolithiasis. Peritoneum and bowel: Bowel loops demonstrate normal wall thickness and caliber. On axial image 27, linear metallic object is now present within the 2nd portion of the duodenum. Perihepatic ascites h as increased. No pneumoperitoneum. Nodes and vessels: No retroperitoneal or mesenteric adenopathy by size criteria. Aorta and inferior vena cava are normal in size, with widespread aortoiliac atherosclerosis. Bones: No suspicious bony lesions. No vertebral body compression fractures. Left convex lumbar spi ne curvature is again noted. Miscellaneous: No ventral hernias. IMPRESSION: 1. Cirrhotic liver as before, with interval increased perihepatic ascites. 2. Several small calcified gallstones as before. 3. Linear metallic object within the 2nd portion of the duodenum appears new since 07/19/2016, and ma y represent sequelae of interval surgical procedure, versus ingested foreign body. 4. 1.4 cm right adrenal nodule demonstrates non contrast CT density measurements reassuring for kayla gn adenoma. 5. Bibasilar mobile pleural effusions appear new, larger on the right, of uncertain etiology. Dictated by: Benito Middleton M.D. on 07/31/2016 at 9:30 Approved by: Benito Middleton M.D. on 07/31/2016 at 9:41
[2016-07-31] MEDS ORDERED: 0.9% Sodium Chloride 500 ML IV ONE ×2 (10:15→11:15)
[2016-07-31] MEDS: Norepineph 8,000 mCg/250 mL NS 8,000 MCG in IV Premix 1 EACH IV SCH ×2 (11:02→17:12)
--- NOTE | 2016-07-31 11:46 | NUR ---
Pt now re-intubated. ST will sign off. Please reorder speech therapy at time of extubation.
[2016-07-31] MEDS: Vancomycin 100 mg/mL Oral Solution PO SCH ×2 (12:18→18:01)
--- NOTE | 2016-07-31 12:32 | PROG NOTE ---
[address] [address] PROGRESS NOTE PATIENT: BRIAN WREN : 1955 MR#: [id number] ADMIT: 07/19/2016 JOB ID: [id number] DATE: 07/31/2016 PULMONARY CRITICAL CARE PROGRESS NOTE: The patient is a 60-year-old woman with alcoholic cirrhosis and alcohol abuse, admitted with upper GI bleed due to duodenal ulcer. Intubated for aspiration pneumonitis and extubated on July 29, now reintubated last night for obtundation. INTERVAL HISTORY: She was doing fine yesterday when we evaluated her and according to overnight notes, was doing fine until late last night. She had become unresponsive, obtunded somewhere around midnight or just before that. She was intubated. Since that time she has been extremely hypotensive, and her norepinephrine has been upped to 0.3. It looks like her lactulose afternoon onwards doses were held because the patient pulled out her NG tube and had failed her swallow evaluation. REVIEW OF SYSTEMS: Unable to obtain since the patient is intubated. PHYSICAL EXAMINATION: Vital signs reviewed. Temperature 37.8, pulse 111, respirations 19, BP 83/51, sats 100% on 40% FiO2. General: Intubated but eyes open, trying to track and follow commands by nodding. Chest: Clear to auscultation. Abdomen: Distended but nontender to palpation. LABORATORIES: Reviewed and notable for WBC 21, hemoglobin 8.5 (stable), platelets of 161. Coags show INR of 1.4. Chemistry is notable for sodium 151. CULTURES: Sputum and blood cultures are pending. IMAGING: Chest x-ray reviewed and shows left-sided infiltrate slightly improved compared to yesterday and no new infiltrates. Also noted are CT of the abdomen done overnight emergently. Shows no new abnormalities that would explain her decompensation. ARTERIAL BLOOD GAS: From this morning shows pH of 7.47, pCO2 of 34, pO2 of 119, bicarb of 25. ASSESSMENT AND RECOMMENDATIONS: 1. Acute hypoxic respiratory failure. Intubated July 24 until July 29, reintubated July 31. 2. Septic shock. 3. Alcoholic cirrhosis. 4. Recurrent upper gastrointestinal bleed due to duodenal ulcer with Dieulafoy lesion, status post endoscopy twice, most recently on July 28 with clipping. 5. Acute blood loss anemia -- stable. 6. Ascites, status post paracentesis on July 21 and , with no evidence of spontaneous bacterial peritonitis. 7. Hepatic encephalopathy. I have no explanation for her decompensation overnight when she was doing fine all day. Possible etiologies for the obtundation include worsening hepatic encephalopathy. However she had lactulose as of 8 a.m. yesterday. Even though she missed her afternoon doses her stool output was 1755 for the last 24 hours which is pretty significant. I also considered bleeding but her hemoglobin is stable with no evidence of active bleed. Other things to consider would be acute infection. She had been on meropenem for aspiration until yesterday and was narrowed back to ceftriaxone. Other infection to consider would be Clostridium difficile colitis, especially with increasing diarrhea this morning. I have a stool for Clostridium difficile toxin pending, and I also added p.o. vancomycin through the feeding tube. Her Lasix has been on hold, obviously. She is getting a proton pump inhibitor drip and Carafate through the feeding tube, as discussed with Gastroenterology yesterday. We are also giving her some IV fluid boluses to compensate for the hypotension. She is not on any propofol and only getting very low-dose fentanyl of 12.5 and appears comfortable with that. Discussed with both daughters and updated them. CRITICAL CARE TIME: 40 minutes.
--- NOTE | 2016-07-31 12:36 | NUR ---
NUTRITION FOLLOW-UP: Assess: 60 YO F admitted with severe anemia, COPD exacerbation, sepsis, and GI bleed following a GLF, requiring intubation. Enteral feeding was stopped 07/27 due to suspected upper GI bleed. Pt had EGD 07/28 and found to have lesion in duodenum which was successfully clamped. Pt extubated yesterday at 1450; however, she was reintubated last night due to obtundation. Order received to restart enteral feeding per previous recommendation. PMHX: COPD, ETOH dependence, hemorrhoids, PNA, constipation, rectal bleed. DIET: NPO. ENTERAL NUTRITION TO BE RESTARTED ONCE OG REPLACED: Pulmocare to be restarted at 35 ml/hr, advancing to goal rate 60 ml/hr to provide 1980 kcal, 83 g protein, sufficient to meet 100% nutrient needs. Flush dose 150 mL every 3 hr, per Dr. Montgomery's request. LABS: Na 151, Chloride 116, BUN 35, Glu 140, Total Bili 1.5, Alb 2.7. MEDICATIONS: Reviewed. Levophed, lasix, lactulose. GI: FMS 150 mL (07/29). SKIN: Cluster of wounds at the right pretibial area of the leg; stable per WC. ANTHROPOMETRICS: Wt: 88.6 kg, BMI 35.0 kg/m2, Admit wt: 95.2 kg, IBW: 50.0 kg. ESTIMATED NEEDS: VENT/WOUND/COPD/BMI Calories: 4685-8024 kcal/day (22-25 kcal/kg BW) Protein: 75-90 g/day (1.5-1.8 g/kg IBW) NUTRITION DIAGNOSIS: 1) Increased nutrient needs related to wound healing/increased demand for nutrients as evidenced by wounds, COPD - PERSISTS. 2) Chewing/swallowing difficulties related to pocketing, delayed swallow, decreased laryngeal excursion, as evidenced by requirement for pureed/honey thick liquid diet - ON HOLD. 3) Inadequate oral intake related to inability to consume sufficient energy, as evidenced by NPO / vent status - PERSISTS. INTERVENTION: 1) Propofol not currently initiated. Will adjust goal rate enteral feeding based on propofol rate if significant. MONITOR/EVALUATE: NPO / vent status, enteral feeding initiation / advance / tolerance, wounds, GI, labs, nutrition status. Follow per high nutrition risk guidelines.
--- NOTE | 2016-07-31 14:34 | PROG NOTE ---
[address] [address] PROGRESS NOTE PATIENT: BRIAN WREN : 1955 MR#: [id number] ADMIT: 07/19/2016 JOB ID: [id number] DATE: 07/31/2016 SUBJECTIVE: The patient had rapid respiratory deterioration yesterday evening and ultimately required re-intubation. She became quite acidemic. The etiology is a little unclear. There was some concern that she might have had an acute central event, but CT brain did not disclose the etiology. She was not apparently on any sedation or opiates. H and H has been stable, but the patient continues to put out maroon-colored output into her fecal management system. Pressor support has been increased and blood pressures are borderline acceptable and heart rate has risen. OBJECTIVE: As above. The patient is intubated. Black liquid maroon stool is in her fecal management system. ASSESSMENT AND PLAN: This is a 60-year-old female with underlying cirrhosis and portal hypertension with a massive upper gastrointestinal bleed related to hemorrhagic duodenal ulceration. Dr. Isabel has performed intervention at 1st with APC and Gold probe. At follow up, endo clip x4 was utilized. Clinically, she has deteriorated. Blood count looks stable this morning but blood pressures are more difficult to manage and the output into her SMS remains maroon in color. Repeat CBC and a procalcitonin level is requested. She does have a focus of possible pneumonia in the left middle lobe, and acutely, we need to attempt to differentiate between evolving sepsis and hypovolemia from ongoing blood loss. If she does demonstrate a significantly reduced hemoglobin, then further transfusion will be recommended/pursued plus or minus FFP and repeat endoscopic interrogation pursued. Please note, this is a no-charge physician visit for today. Do not submit charges for this particular note.
[2016-07-31] MEDS ORDERED: Meropenem Inj 1,000 MG in 0.9% Sodium Chloride 100 ML IV SCH (17:30)
--- NOTE | 2016-07-31 18:15 | NUR ---
Sedation/Hemodynamics/FMS/EGD/Blood Patient was awake and oriented at beginning of shift. No plans to extubate, so 12.5 mcg/hr Fentanyl gtt was started which was effective for comfort. Patient went from a RASS score of 0 to -2 as day progressed. MDs (hospitalist and frame fixer) notified of change in hemodynamics. Increasing HR and decreasing BP. Levophed was eventually titrated up to 0.6 mcg/kg/min. Patient was given a 1 L NS bolus. No significant improvement on bp. UOP minimal, 150 all shift, gina. FMS output with dark maroon liquid stool. (spec sent to lab for cdiff). MD aware of volume and color of FMS output this shift. Total FMS output 700 mls. A repeat H&H done. MD aware of drop in Hemoglobin to 6.8. RBCs and FFP ordered. EGD performed in room. No bleeding noted. Second unit of blood infusing currently. Patient code status changed to DNR/DNI. Family wanting to extubate to comfort care at around 1900 when other family arrives. Hospitalist aware for family plan for comfort care. Continuing with POC.
[2016-07-31] MEDS ORDERED: LORazepam 2 mg/mL Inj SEIZURE IVPUSH PRN (20:15)
[2016-07-31] MEDS ORDERED: fentaNYL 2,500 mCg/250 mL 2,500 MCG in IV Premix 1 EACH IV SCH (20:15)
--- NOTE | 2016-08-01 01:22 | NUR ---
27 Organ donation notified at 1999, not a candidate for organ donation, patient extubated to comfort care at 2039 and at 27, on Fentanyl gtt for pain anxiety, patient did not show any signs of anxiety, rested calm and RR even 18-24, family with patient until she , very supportive and handling the situation well, belongings sent home with , blanket left with patient and family requested it go with patient to home, patient prepared to be transferred to [facility].
--- NOTE | 2016-08-01 02:13 | ENDO ---
[address] [address] ENDOSCOPY PROCEDURE PATIENT: BRIAN WREN : 1955 MR#: [id number] ADMIT: 07/19/2016 JOB ID: [id number] PROCEDURE: Esophagogastroduodenoscopy. INDICATIONS: A 60-year-old female with hemorrhagic peptic ulcer disease who has deteriorated clinically with suggestion of ongoing hypokalemia. EQUIPMENT: Standard upper endoscope [id number]. SEDATION: 2 mg of Versed were given in addition to her baseline fentanyl drip. COMPLICATIONS: None identified. PROCEDURE INFORMATION: After the risks and benefits were explained to the family, written and verbal informed consent was obtained. The patient was propped up into a slight left lateral decubitus position. Her OG tube was removed. We utilized the teeth guard and did not require one of our mouth bite blocks. The scope easily was advanced into the posterior oropharynx and down through the upper esophageal sphincter. I advanced to the level of the first portion of the duodenum. The Endoclips were seen and photographed. Ultimately, we did not traverse this region into the second portion so as to not disrupt the Endoclips. Retroflexed views were accomplished in the stomach. The stomach was decompressed, the scope removed from the patient who tolerated the procedure well. FINDINGS: 1. Esophagus: No new or old blood. Grade 1 distal esophageal varices without stigmata. The GE junction was at 37 cm from the incisors. 2. Stomach: No new or old blood. There is some mild erosive changes throughout. No mass lesions. No ulcers. 3. Duodenum: The four previously placed Endoclips were seen in position. None had sloughed off and there was no evidence of any recent bleeding. We applied suction to pull back some fluid from beyond the clips and I did not see any sign of any recent or active bleeding. ENDOSCOPIC DIAGNOSES: 1. Sustained hemostasis confirmed. 2. Grade 1 distal esophageal varices. 3. Erosive gastropathy. RECOMMENDATIONS: 1. Replace OG tube for tube feed administration. 2. Continue antimicrobial therapy. 3. Titrate pressor agent as able. 4. We will see how she responds to the blood products and FFP (2 units of packed RBCs and 2 units of FFP were ordered today). 5. If she has further clinical deterioration, I would recommend she be considered for a repeat diagnostic paracentesis to exclude the presence of hemorrhagic ascites. In that event, I would add back in octreotide with 50 mcg bolus and then 50 mcg/h. 6. Depending on clinical events, we could consider a repeat colonoscopy but this was already accomplished on July 23 and considered normal. I will continue to follow with you. NOTE: There should be no physician charge associated with this procedure. Please do not submit a physician charge for this particular note today.
--- NOTE | 2016-08-01 15:16 | PCM.DC.MED ---
Discharge Summary Date of Service Aug 01, 2016 Dates of Hospitalization Date of Hospital Admission Jul 19, 2016 at 04:01 Date of Discharge: Aug 01, 2016 Providers: Admitting Physician: Anu Shepherd DO Primary Care Physician: Nopcp Attending Physician: Anu Shepherd DO Diagnosis at Time of Discharge Diagnosis at Time of Discharge 1. Expiration (00:28) 2. Acute hypoxic respiratory failure 3. Aspiration pneumonia 4. Sepsis with shock requiring vasopressors 5. Upper GI bleed from duodenal ulcer 6. Acute blood loss anemia 7. Hepatic encephalopathy 8. Cirrhosis 9. Alcohol withdrawal 10. Chronic right leg wound. Consultations Gastroenterology Infectious disease Pulmonary critical care Procedures XRay, CTs & MRIs PROCEDURE: X-RAY CHEST ONE VIEW, PORTABLE ([id number]) IMPRESSION: Right upper and left lower lobe airspace opacity suspicious for aspiration or pneumonia. Dictated by: Luc ALBERT Interpreted: Benny Hernandez MD on 07/22/2016 at 16: 03 Chest x-ray 07/25 - personally reviewed Reduced inspiration, air bronchogram with dense left lower lobe infiltrate, right lower lobe interstitial pattern PROCEDURE: X-RAY CHEST ONE VIEW, PORTABLE ([id number]) IMPRESSION: 1. Endotracheal tube in appropriate position. Orogastric tube extends into the stomach with the tip not included on current study. 2. Confluent left airspace opacities redemonstrated likely representing pneumonia. 3. Bibasilar opacities consistent with consolidation/pneumonia, aspiration, or atelectasis again noted. 3. Mild pulmonary edema with interval improved aeration in the lung bases. 4. Small bilateral pleural effusions. Dictated by: Kyle Rainey M.D. on 07/24/2016 at 9:18 PROCEDURE: X-RAY CHEST ONE VIEW, PORTABLE ([id number]) IMPRESSION: 1. Support lines and tubes as above. 2. Confluent left lung airspace opacity redemonstrated likely related to pneumonia although asymmetric edema cannot be excluded. 3. New airspace opacity within the peripheral right upper lobe consistent with atelectasis versus pneumonia. 4. Bibasilar opacities unchanged consistent with atelectasis versus aspiration or pneumonia. Dictated by: Luc ALBERT Interpreted: Mirella Wu MD on 07/26/2016 at 9:31 PROCEDURE: X-RAY CHEST ONE VIEW ([id number]) IMPRESSION: 1. Interval increase in confluent air space opacity within mid left lung and left lung base consistent with worsening patchy pulmonary edema or pneumonia. 2. Presumed subsegmental atelectasis within the mid right lung redemonstrated. 3. Support lines and tubes as above. Dictated by: Luc ALBERT Interpreted: Jonny Gonzalez MD on 07/28/2016 at 10:29 PROCEDURE: CT ABDOMEN AND PELVIS WITHOUT CONTRAST ([id number]) IMPRESSION: 1. No evidence of urinary tract calcification, nor obstruction. 2. Cirrhosis and portal hypertension, with associated portosystemic collateral vessels, and small to moderate amount of ascites. 3. Subacute and acute right rib fractures. 4. Indeterminate right adrenal nodule, which could be further assessed with MRI , if clinically indicated. 5. Fat and fluid containing hiatal hernia. 6. Cholelithiasis. 7. Possible right colon thickening, which could indicate infection, ischemia, or inflammation. 8. Findings discussed with Dr. Isaias Sams on 07.02.16 at 0857 hrs Dictated by: Benny Hernandez M.D. on 07/19/2016 at 8:47 US ABDOMEN, LIMITED IMPRESSION: Small to moderate ascites. Dictated by: Luc ALBERT Interpreted: Marleen Abbasi MD on 07/26/2016 at 15: 24 . Cardiac Echo Impression Echocardiogram Report Name: BRIAN WREN LStudy Date: 07/19/2016 Height: 62 in Interpretation Summary The left ventricle is normal in size, wall thickness, and systolic function without any focal wall motion abnormalities. The ejection fraction is estimated to be 60-65%. Assessment of diastolic parameters indicates normal left ventricular diastolic function and normal filling pressures. The right ventricle is normal in size and function. The right ventricular systolic pressure is estimated at 28 mmHg assuming a right atrial pressure of 3 mm Hg. Both atria are normal in size. There is no significant valvular heart disease. The ascending aorta is mildly enlarged. There is an anterior echo-free space consistent with a fat pad. Invasive Procedures Endoscopy twice while in hospital Intubation twice while in the hospital Other Diagnostics ENDOSCOPY PROCEDURE TYPE OF OPERATION: 1. Esophagogastroduodenoscopy with biopsy and APC and Gold Probe thermocoagulation. 2. Colonoscopy. IMPRESSION: 1. Normal colonoscopy. 2. A 1 cm duodenal first portion ulcer with recent stigmata of bleed, status post argon plasma coagulation and Gold Probe thermocoagulation. 3. Mild nonerosive gastritis. 4. No esophageal or gastric varices seen. 5. A 5 mm duodenal first portion ulcer, clean based, nonbleeding. RECOMMENDATIONS: 1. Stopped octreotide and Protonix drips, given the fact that the Protonix drip has been on for greater than 72 hours. 2. Start Protonix 40 mg by mouth twice a day. 3. Carafate 1 g by mouth 4 times a day. 4. Await pathology results. 5. Start clear liquid diet. Advance as tolerated. 6. The patient will need outpatient repeat EGD in approximately two to three months to document healing of the ulcers. Joao Isabel MD 07/23/16 1630 ENDOSCOPY PROCEDURE IMPRESSION: Visible vessel seen at the laborer tin can bulb/first portion of duodenum, status post four hemoclips placed with good hemostasis for control of the bleeding. RECOMMENDATIONS: 1. Continue Protonix drip. 2. NG tube was placed endoscopically with confirmation after post NG tube placement. Okay to start using NG tube if necessary. 3. Serial hematocrits. Joao Isabel MD 07/28/16 1152 . Brief History GASTROENTEROLOGY CONSULT NOTE Ms. Brian Wren is a 60 year old woman with history of COPD, and cirrhosis secondary to alcohol use, that presented to [facility] via EMS as a transfer from [place] for management of suspected acute upper GI bleed with initial Hb 5.5 following a recent GLF. She was admitted for evaluation and treatment of acute on chronic anemia, assessment of GLF, and possible COPD exacerbation. GI was consulted to assist in further evaluation for etiology of suspected upper GI bleed. History was obtained from chart review and by family present. Patient, although alert to time, place, and date, is not a good historian of her personal medical history. She does not appear confused, but cannot properly answer questions proposed. Family shares that the patient has kept most of her medical history private. The daughters present believe that she has been having melena over recent days, including during this hospitalization. They share that the patient has had previous endoscopies at [place], including EGD and colonoscopy, but they are unsure of the results. The daughters continue, and share that the patient has been drinking alochol her 'whole life,' and was ingesting 2-4 bottle wine daily , most recent ingestion likely the day of admission. The patient is reported to have poor ongoing medical care, as she chooses to avoid follow ups. Per primary team, patient has been initiated with ceftriaxone, octreotide, pantoprazole gtt, CIWA protocol. Per nursing, patient is experiencing active withdrawal, and withdrawal symptoms initiated this morning. On admission, Hb 6.9/Hct 21.8; records indicate patient received 2U pRBC prior to transfer from [place]. Received one additional unit here. Current values at time of consult: Hb 7.9, Hct 25.5; BUN 27, Cr 0.63; INR 1.20; Plt 176. Ammonia 43; albumin 2.6; total bili 1.4, AST 54, ALT 25, alk phos 133. Hospital Course Ms. Wren is a 60 year old female with a H EtOH use disorder, alcoholic cirrhosis and COPD who was admitted for acute blood loss anemia secondary to GI bleed from duodenal ulcer and encephalopathy. During the course of her hospital stay she developed worsened encephalopathy with acute respiratory failure presumed to be aspiration pneumonia/pneumonitis and was intubated on . Hospital day 12. 1. Acute hypoxemic respiratory failure. Not present on admission. Improving. Possibly secondary to HAP. - CXR has shown a possible developing pneumonia vs pulmonary edema - Meropenem stop date 07/30/2016 - Start Ceftriaxone 07/30/2016 - Fentanyl Bolus PRN - Levophed 0.04 - Extubated 07/29/2016 She was reintubated last noc. FiO2 0.60, PEEP 8, rate 20. Looked at gas and will decrease FiO2 to 50 and rate to 18. AM CXR. 2. Acute Respiratory Distress Syndrome. Not present on admission. Possible recurrent aspiration last noc. - [place] Criteria places Pt in moderate category - Furosemide 20mg daily stopped secondary to hemodynamic state - albuterol-ipratropium q4hr PRN - Continue meropenem for possible aspiration. 3. Sepsis, present on admission. Recurrent. - Hold fluid resuscitation secondary to #2 - Levophed 0.06, continue to titrate down as tolerated - ABX as in #1 4. Acute blood loss anemia secondary to GI bleed - Pt has Hx of bleeding ulcer - EGD showed Dieulafoy's lesion in Duodenum, [address] with resolution of bleeding - H&H has remained stable - Protonix IV - Stop DVT prophylaxis - GI is following, considering repeat EGD if H&H continues to drop - Continue to monitor closely 5. Alcoholic cirrhosis. Present on admission. Ongoing - LFT's have normalized - Pt has ascites and anasarca and has received 2 paracentesis with ~5L of fluid taken off - Continue to monitor, will most likely need another. 6. Encephalopathy, probable hepatic. - Lactulose restarted - Ammonia Level normalized - Continue to monitor and continue medical therapy. 7. Hypernatremia with total body water deficit. - Lasix stopped - Albumin stopped - D5 @ 75/hr, will continue. Hospital course: This patient had a long course of alcohol withdrawal complicated by upper GI bleed and endoscopy revealing a DU requiring intervention. She developed respiratory compromise from a probable aspiration pna. She was ultimately extubated and then decompensated the day befpre expiration and needed to be re intubated. She also suffered from hepatic encephalopathy. On the evening of July 31, the family requested withdrawal of all medical support and she was placed on comfort care. She was extubated around 8 PM and just past midnight. Exam Vital Signs (Last) Date Time Temp Pulse Resp B/P Pulse Ox O2 Delivery O2 Flow Rate FiO2 07/31/16 19:54 38.2 111 21 117/62 94 Mechanical Ventilator 40 07/30/16 19:21 6.00 Exam Patient seen and examined on the day of expiration. Test 07/19/16 05:15 07/19/16 10:53 07/24/16 05:05 07/24/16 08:15 Activated Partial Thromboplast Time 30.3sec (22.8-33.0) Pro-B-Type Natriuretic Peptide 263.7pg/mL (0-287) Urine Color Straw (YELLOW) Urine Appearance Hazy (CLEAR,HAZY) Urine pH 6.0 (5.0-8.0) Urine Specific [place]ock 1.025 (1.003-1.035) Urine Protein Negativemg/dL (NEG,TRACE) Urine Glucose (UA) Negativemg/dL (NEGATIVE) Urine Ketones Tracemg/dL (NEGATIVE) Urine Occult Blood Negative (NEGATIVE) Urine Nitrite Negative (NEGATIVE) Urine Bilirubin Negative (NEGATIVE) Urine Urobilinogen Normalmg/dL (NORMAL) Urine Leukocyte Esterase Trace (NEGATIVE) Urine RBC 0-2/hpf (0-2) Urine WBC 0-5/hpf (0-5) Urine Epithelial Cells Occasional/hpf (NONE-MOD) Urine Crystals None seen (NONE SEEN) Urine Bacteria Few/hpf (NONE-FEW) Urine Hyaline Casts Occasional/lpf (NONE) Urine Granular Casts None seen (NONE SEEN) Urine Waxy Casts None seen (NONE SEEN) Urine Red Blood Cell Casts None seen (NONE SEEN) Urine White Blood Cell Casts Occasional (NONE SEEN) Urine Mucus None seen (None Seen) Urine Trichomonas None seen (NONE SEEN) Urine Yeast None (NONE SEEN) Urinalysis Comment None Urine Culture Reflexed Indicated Band Neutrophils % 0% (1-5) Vancomycin Level Trough 19.9mcg/mL Test 07/27/16 14:22 07/27/16 15:01 07/27/16 18:00 07/27/16 20:00 Reticulocyte Count,Calculated 6.5% (0.6-2.6) Hematology Comments Total Creatine Kinase 46U/L (21-215) Creatine Kinase MB 1.3ng/mL (0.0-5.3) Creatine Kinase MB % % (0.0-5.0) Body Fluid Albumin 0.3g/dL (.) Haptoglobin 132mg/dL (34-200) Direct Bilirubin 0.7mg/dL (0.0-0.3) Lactate Dehydrogenase 203U/L (100-190) Streptozyme 1567.7IU/mL (0.0-200.0) Body Fluid Source Peritoneal fluid Body Fluid Color Straw (Clear) Body Fluid Appearance Hazy Body Fluid WBC 245/mm3 Body Fluid RBC 40/mm3 Body Fluid Polynuclear WBCs 86% Body Fluid Lymphocytes 7% Body Fluid Monocytes 7% Body Fluid Eosinophils 0% Body Fluid Basophils 0% Test 07/29/16 04:50 07/29/16 08:30 07/30/16 02:30 07/30/16 23:20 Ammonia 41ug/dL (18-53) Phosphorus Level 3.2mg/dL (2.5-4.9) Neutrophils (%) (Auto) 80.6% (40-74) Lymphocytes (%) (Auto) 7.6% (14-46) Monocytes (%) (Auto) 6.4% (4-12) Eosinophils (%) (Auto) 4.4% (0-5) Basophils (%) (Auto) 0.3% (0-3) Prothrombin Time 15.3sec (8.1-12.5) Prothromb Time International Ratio 1.42ratio Lactic Acid Level 1.0mmol/L (0.4-2.0) Troponin T 0.022ug/L (0.0-0.011) Test 07/31/16 04:00 07/31/16 13:55 Sodium Level 151mEq/L (134-144) Potassium Level 3.9mEq/L (3.5-5.2) Chloride Level 116mEq/L (97-108) Carbon Dioxide Level 24mmol/L (18-29) Blood Urea Nitrogen 35mg/dL (8-27) Creatinine 0.86mg/dL (0.57-1.00) Estimat Glomerular Filtration Rate 96mL/min (>59) Glucose Level 140mg/dL (60-99) Calcium Level 8.6mg/dL (8.5-10.1) Magnesium Level 2.1mg/dL (1.6-2.6) Total Bilirubin 1.5mg/dL (0.0-1.2) Aspartate Amino Transf (AST/SGOT) 44U/L (0-50) Alanine Aminotransferase (ALT/SGPT) 17U/L (0-32) Alkaline Phosphatase 66U/L (25-165) Total Protein 5.1g/dL (6.4-8.4) Albumin 2.7g/dL (3.4-5.0) White Blood Count 23.9th/mm3 (3.8-10.1) Red Blood Count 2.52mil/mm3 (3.90-5.20) Hemoglobin 6.8g/dL (12.0-15.6) Hematocrit 23.7% (35.0-46.0) Mean Corpuscular Volume 94.0fL (81-100) Mean Corpuscular Hemoglobin 27.0pg (27.0-35.0) Mean Corpuscular Hemoglobin Concent 28.7% (32.0-37.0) Red Cell Distribution Width 17.6% (12.3-15.4) Platelet Count 188bil/L (150-400) Procalcitonin 0.23ng/mL (0.00-0.08) Microbiology Results MRSA nasal swab negative Paracentesis culture negative Urine culture 3/20 negative Discharge Medications As needed Ibuprofen (Ibuprofen) 200 Mg Capsule 200 MG PO QID PRN PRN For Pain (Reported) Followup Plan Disposition: Time spent 45 minutes Isaias Sams MD Aug 01, 2016 15:16
== END 2016-08-01 00:30 | disposition expired | DRG 870 ==
LOC: PCC 04:01 → CCU 07-24 06:43
PROVIDERS: ADMIT Internal Medicine; ATTEND Internal Medicine
PROC: 4A033R1 Measurement of Arterial Saturation, Peripheral, Percutaneous Approach (ICD-10-PCS; 2016-07-19)
PROC: 30233N1 Transfusion of Nonautologous Red Blood Cells into Peripheral Vein, Percutaneous Approach (ICD-10-PCS; 2016-07-19)
PROC: 0W9G3ZX Drainage of Peritoneal Cavity, Percutaneous Approach, Diagnostic (ICD-10-PCS; 2016-07-21)
PROC: 30233N1 Transfusion of Nonautologous Red Blood Cells into Peripheral Vein, Percutaneous Approach (ICD-10-PCS; 2016-07-21)
PROC: 0W3P8ZZ Control Bleeding in Gastrointestinal Tract, Via Natural or Artificial Opening Endoscopic (ICD-10-PCS; 2016-07-23)
PROC: 0DB68ZX Excision of Stomach, Via Natural or Artificial Opening Endoscopic, Diagnostic (ICD-10-PCS; 2016-07-23)
PROC: 0DJD8ZZ Inspection of Lower Intestinal Tract, Via Natural or Artificial Opening Endoscopic (ICD-10-PCS; 2016-07-23)
PROC: 5A1955Z Respiratory Ventilation, Greater than 96 Consecutive Hours (ICD-10-PCS; principal; 2016-07-24)
PROC: 0BH17EZ Insertion of Endotracheal Airway into Trachea, Via Natural or Artificial Opening (ICD-10-PCS; 2016-07-24)
PROC: 0W9G3ZX Drainage of Peritoneal Cavity, Percutaneous Approach, Diagnostic (ICD-10-PCS; 2016-07-27)
PROC: 30233N1 Transfusion of Nonautologous Red Blood Cells into Peripheral Vein, Percutaneous Approach (ICD-10-PCS; 2016-07-27)
PROC: 0W3P8ZZ Control Bleeding in Gastrointestinal Tract, Via Natural or Artificial Opening Endoscopic (ICD-10-PCS; 2016-07-28)
PROC: 0DJ08ZZ Inspection of Upper Intestinal Tract, Via Natural or Artificial Opening Endoscopic (ICD-10-PCS; 2016-07-31)
PROC: 30233N1 Transfusion of Nonautologous Red Blood Cells into Peripheral Vein, Percutaneous Approach (ICD-10-PCS; 2016-07-31)
DX: A41.9 Sepsis, unspecified organism (principal); K26.4 Chronic or unspecified duodenal ulcer with hemorrhage; J96.01 Acute respiratory failure with hypoxia; J69.0 Pneumonitis due to inhalation of food and vomit; R65.21 Severe sepsis with septic shock; D62 Acute posthemorrhagic anemia; J44.1 Chronic obstructive pulmonary disease with (acute) exacerbation; S22.41XA Multiple fractures of ribs, right side, initial encounter for closed fracture; F10.231 Alcohol dependence with withdrawal delirium; F17.210 Nicotine dependence, cigarettes, uncomplicated; S81.801A Unspecified open wound, right lower leg, initial encounter; W18.30XA Fall on same level, unspecified, initial encounter; K70.31 Alcoholic cirrhosis of liver with ascites; K29.70 Gastritis, unspecified, without bleeding; K72.90 Hepatic failure, unspecified without coma; G72.89 Other specified myopathies